=== PATIENT | female | born 2005 | race Hispanic/Latino ===

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

== ENCOUNTER 2024-06-10 18:44 | Emergency (ER) | payer OTHER ==
--- OUTSIDE RECORDS SUMMARY | 2024-06-10 18:56 | XMS REPORT | Continuity of Care Document ---
Author Name Unknown Address [address] [facility] [address] [place] [address] [facility] thconnect Address [address] [facility] 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 Phone BLOSSOM PARKER Primary Care Physician Unavail able TAI ALMENDAREZ Attending Clinician Unavailable Tai Ann Attending Clinician [phone] LEELA MARCOS Attending Clinician UnavailLeela Sierra CNM Attending Clinician [phone] ALEJANDRA JONES Attending Clinician Unavailable DOUGLAS QUINTEROS Attending Clinician Unavailable DOUGLAS QUINTEROS Attending Clinician Unavailable Douglas Quinteros MD Attending Clinician [phone] [facility] Unava VANESSA Morgan Attending Clinician Alesha Gary MD, Vanessa Attending Clinician + Clare Gomez MD Attending Clinician [phone] Live Machuca MD Attending Clinician [phone] Leela Marcos CNM Attending Clinician [phone] AkinRee Wiseman Attending Clinician + Park Hutchinson Attending Clinician UnavailSolis Pulliam MD Attending Clinician [phone] SOLIS CABALLERO Attending Clinician Unavailable COMFORT OQUENDO Attending Clinician Unavail able Risk, Mcd-Abjcy-Xh/High Attending Clinician Unav ailable Comfort Oquendo NP Attending Clinician [phone] PHANI MALAVE Attending Clinician Unavailabl e Ultrasound, [facility] Attending Clinician Unavaila Phani Tiwari MD Attending Clinician [phone] Doctor Unassigned, Section Attending Clinician U regailALEX Anaya Attending Clinician Unavailable ALEX HOSKINS Attending Clinician Unavailable Alex Hoskins MD Attending Clinician [phone] AKINREE HALL Attending Clinician Unavail able PALOMO HIGUERA Attending Clinician Unavailable Bruna Delcid DO Attending Clinician [phone] Palomo Higuera MD Attending Clinician [phone] Visit, [facility] Nurse Attending Clinician Unava Ryder Ray MD Attending Clinician [phone] Felipa Deluna MD Attending Clinician [phone] Ella Dc Attending Clinician + [phone] DOUGLAS QUINTEROS Admitting Clinician Unavailable FELIPA DELUNA Admitting Clinician Unavailable TAI ALMENDAREZ Admitting Clinician Unavailable Douglas Quinteros MD Admitting Clinician [phone] VANESSA ARTEAGA Admitting Clinician Unav amberable Vanessa Arteaga MD Admitting Clinician + BRUNA DELCID Admitting Clinician UnavailRyder Rivero MD Admitting Clinician [phone] Felipa Deluna MD Admitting Clinician [phone] Payers Payer Name Policy Type Policy Number Effective Date Expirati on Date Source [facility] [id number] 2023 00:00:00 [employer] [id number] 2023 00:00:00 Problems Condition Name Condition Details Condition Category Status Onset Date Resolution Date Last Treatment Date Treating Clinician Comments Source Obesity (BMI 30-39.9) Obesity (BMI 30-39.9) Disease Active 8-15 00:00: 00 [facility] 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 Horizon + NIPT Horizon + silent carrier alpha thalassem ia [facility] Overweight (BMI 25.0-29.9) Overweight (BMI 25.0-29.9) Disease Active 1-19 00:00: 00 [facility] Status post vacuum-ass isted vaginal delivery Status post vacuum-ass isted vaginal delivery Disease Active 9-17 00:00: 00 [facility] Anemia of mother in , antepartum Anemia of mother in , antepartum Disease Active 7-14 00:00: 00 [facility] Gestationa l hypertensi on Gestationa l hypertensi on Disease Resolve d 0 8-16 00:00: 00 2024-02-24 00:00:00 2024-02-24 21:04:33 [facility] headache headache Disease Resolve d 0 6-21 00:00: 00 2024-02-24 00:00:00 2024-02-24 21:04:26 [facility] History of gestationa l hypertensi on History of gestationa l hypertensi on Disease Resolve d 0 8-23 00:00: 00 2024-02-23 00:00:00 2024-02-23 14:12:28 [facility] 37 weeks gestation of 37 weeks gestation of Disease Resolve d 8-15 00:00: 00 2024-02-23 00:00:00 2024-02-23 14:12:12 [facility] Elevated blood pressure affecting in third trimester, antepartum Elevated blood pressure affecting in third trimester, antepartum Disease Resolve d 2023-0 8-15 00:00: 00 2024-02-23 00:00:00 2024-02-23 14:12:16 [facility] Decreased platelet count Decreased platelet count Disease Resolve d 0 8-12 00:00: 00 2024-02-23 00:00:00 2024-02-23 14:13:01 [facility] GBS (group B Streptococ cus carrier), +RV culture, currently GBS (group B Streptococ cus carrier), +RV culture, currently Disease Resolve d 2023-0 8-12 00:00: 00 2024-02-23 00:00:00 2024-02-23 14:12:10 [facility] Pain of round ligament during Pain of round ligament during Disease Resolve d 2023-0 7-18 00:00: 00 2024-02-23 00:00:00 2024-02-23 14:11:49 [facility] Back pain affecting in third trimester Back pain affecting in third trimester Disease Resolve d 2023-0 7-18 00:00: 00 2024-02-23 00:00:00 2024-02-23 14:12:08 [facility] Anemia of mother in , antepartum Anemia of mother in , antepartum Disease Resolve d 2023-0 6-07 00:00: 00 2024-02-23 00:00:00 2024-02-23 14:12:05 [facility] History of pre-eclamp delgado History of pre-eclamp delgado Disease Resolve d 2023-0 2-14 00:00: 00 2024-02-23 00:00:00 2024-02-23 14:12:03 [facility] Intermitte nt upper abdominal pain Intermitte nt upper abdominal pain Disease Resolve d 2023-0 1-19 00:00: 00 2024-02-23 00:00:00 2024-02-23 14:12:00 [facility] Obesity affecting in third trimester Obesity affecting in third trimester Disease Resolve d 2023-0 1-19 00:00: 00 2024-02-23 00:00:00 2024-02-23 14:12:23 [facility] Chlamydia infection affecting Chlamydia infection affecting Disease Resolve d 2023-0 1-18 00:00: 00 2024-02-23 00:00:00 2024-02-23 14:11:48 [facility] (spontaneo us vaginal delivery) (spontaneo us vaginal delivery) Disease Resolve d 2019-0 9-17 00:00: 00 2024-02-23 00:00:00 2024-02-23 15:00:20 [facility] Single live Single live Disease Resolve d 2019-0 9-17 00:00: 00 2024-02-23 00:00:00 2024-02-23 14:11:57 [facility] Anemia, Anemia, Disease Resolve d 2019-0 9-17 00:00: 00 2024-02-23 00:00:00 2024-02-23 14:12:58 [facility] Elevated blood pressure reading without diagnosis of hypertensi on Elevated blood pressure reading without diagnosis of hypertensi on Disease Resolve d 2019-0 9-09 00:00: 00 2024-02-23 00:00:00 2024-02-23 14:12:25 [facility] headache in third trimester headache in third trimester Disease Resolve d 2023-0 6-21 00:00: 00 2023-12-31 00:00:00 2023-12-31 13:52:05 [facility] Cramping affecting , antepartum Cramping affecting , antepartum Disease Resolve d 2019-0 3-26 00:00: 00 2023-07-03 00:00:00 2023-07-03 11:30:49 [facility] Well woman exam Well woman exam Disease Resolve d 2019-1 0-28 00:00: 00 2023-07-01 00:00:00 2023-07-01 13:49:35 [facility] Depot contracept ion Depot contracept ion Disease Resolve d 2019-06 0-28 00:00: 00 2023-07-01 00:00:00 2023-07-01 13:49:39 [facility] Teen parent Teen parent Disease Resolve d 2019-0 9-17 00:00: 00 2023-07-01 00:00:00 2023-07-01 13:49:37 [facility] Routine follow-up Routine follow-up Disease Resolve d 2019-06 0-07 00:00: 00 2020-04-11 00:00:00 2020-04-11 11:21:11 [facility] Preeclamps ia w/o SF Preeclamps ia w/o SF Disease Resolve d 9-17 00:00: 00 2020-04-11 00:00:00 2020-04-11 11:21:18 [facility] Laceration , obstetrica l, minor Laceration , obstetrica l, minor Disease Resolve d 9-17 00:00: 00 2020-04-11 00:00:00 2020-04-11 11:22:45 [facility] Status post vacuum-ass isted vaginal delivery Status post vacuum-ass isted vaginal delivery Disease Resolve d 9-17 00:00: 00 2020-04-11 00:00:00 2020-04-11 11:21:07 [facility] 36 weeks gestation of 36 weeks gestation of Disease Resolve d 2019- 9-15 00:00: 2020-04-11 00:00:00 2020-04-11 11:22:05 [facility] Elevated blood pressure affecting in third trimester, antepartum Elevated blood pressure affecting in third trimester, antepartum Disease Resolve d 2019-0 9-15 00:00: 00 2020-04-11 00:00:00 2020-04-11 11:21:59 [facility] Positive GBS test Positive GBS test Disease Resolve d 2019-0 9-14 00:00: 00 2020-04-11 00:00:00 2020-04-11 11:21:19 [facility] Anemia of mother in , antepartum Anemia of mother in , antepartum Disease Resolve d 2019-0 7-14 00:00: 00 2020-04-11 00:00:00 2020-04-11 11:22:03 [facility] High risk teen in first trimester High risk teen in first trimester Disease Resolve d 2019-0 3-26 00:00: 00 2020-04-11 00:00:00 2020-04-11 11:22:08 [facility] Primigravi da in first trimester Primigravi da in first trimester Disease Resolve d 2019- 3-26 00:00: 00 2020-04-11 00:00:00 2020-04-11 11:21:14 [facility] Supervisio n of high-risk of young primigravi da Supervisio n of high-risk of young primigravi da Disease Resolve d 2019- 2-27 00:00: 00 2020-04-11 00:00:00 2020-04-11 11:21:02 [facility] Allergies, Adverse Reactions, Alerts Allergy Name Allergy Type Status Severity Reaction(s) Onset Date Inactive Date Treating Clinician Comments Source [facility] INGREDI Active Other-Cmnt 08-08 00:00: 00 [facility] Simmons Flavor Propensi ty to adverse reaction s Active Other - See comments 08-08 00:00: 00 Allergic to Rasberrie s. Effects vision [facility] NO KNOWN ALLERGIE S Drug Class Active [facility] Social History Social Habit Start Date Stop Date Quantity Comments Source ASSERTION 2023-05-26 00:00:00 [facility] History SDOH Alcohol Comment [place] [facility] SDOH Alcohol Std Drinks [facility] History SDOH Alcohol Binge [facility] Alcoholic beverage intake 2024-03-22 00:00:00 2024-03-22 00:00:00 0 /d [facility] Tobacco use and exposure 2024-01-28 00:00:00 2024-01-28 00:00:00 Smokeless tobacco non-user [facility] Alcohol intake 2023-10-08 00:00:00 2023-10-08 00:00:00 0 /d [facility] History of Social function 2023-07-01 00:00:00 2023-07-01 00:00:00 [facility] Exposure to SARS-CoV-2 (event) 2021-10-19 00:00:00 2021-10-29 20:03:00 Not sure [facility] History SDOH Alcohol Frequency 2019-08-11 00:00:00 2019-08-11 00:00:00 1 [facility] Sex assigned at 2005 00:00:00 2005 00:00:00 [facility] Smoking Status Start Date Stop Date Source Never smoked tobacco [facility] Medications Ordered Medication Name Filled Medication Name Start Date Stop Date Current Medication? Ordering Clinician Indication Dosage Frequency Signature (SIG) Comments Components Source iopamidol (ISOVUE 370-500 mL) injection 90 mL 2023-06 20:30: 00 05-01 20:30 :00 No [id number] 90mL 90 mL, Intravenou s, ONCE, 1 dose, On 05/01/24 at 1430, Routine [facility] metoclopram amy HCl (REGLAN) injection 10 mg 2023-06 19:45: 00 05-01 19:53 :00 No 10mg 10 mg, Slow IV Push, ONCE, 1 dose, On 05/01/24 at 1345, LEIDY [facility] dicyclomine (BENTYL) injection 20 mg 2023-06 18:30: 00 05-01 18:29 :00 No 20mg 20 mg, Intramuscu lar, ONCE, 1 dose, On 05/01/24 at 1230, LEIDY [facility] NaCl 0.9% (NS) bolus infusion 1,000 mL 2023-06 18:30: 00 05-01 19:52 :00 No 1000mL at 999 mL/hr, 1,000 mL, IV Infusion, ONCE, 1 dose, On 05/01/24 at 1230, STAT [facility] famotidine (PEPCID (PF)) injection 20 mg 2023-06 17:30: 00 05-01 18:30 :00 No 20mg 20 mg, Slow IV Push, ONCE, 1 dose, On 05/01/24 at 1130, [facility] ketorolac (TORADOL) injection 30 mg 2023-06 17:30: 00 05-01 18:33 :00 No 30mg 30 mg, Slow IV Push, ONCE, 1 dose, On 05/01/24 at 1130, [facility] ondansetron (ZOFRAN-ODT ) disintegrat ing tablet 4 mg 2023-06 17:25: 00 05-01 17:27 :00 No 4mg 4 mg, Oral, ONCE, 1 dose, On 05/01/24 at 1130, [facility] ondansetron 4 mg disintegrat ing tablet 2023-06 00:00: 00 Yes [id number] 4mg Take 1 tablet by mouth every 8 (eight) hours as needed for Nausea and Vomiting (N/V). [facility] dicyclomine 20 mg tablet 2023-06 00:00: 00 Yes [id number] 20mg Take 1 tablet by mouth 4 (four) times daily as needed for Abdominal pain. [facility] acetaminoph en (TYLENOL) tablet 1,000 mg 02-05 00:00: 00 02-04 23:28 :00 No 1000mg 1,000 mg, Oral, ONCE NOW, 1 dose, On Thu02/05/24 at 1900, Routine [facility] ibuprofen 800 mg tablet 01-29 00:00: 00 Yes [id number] 800mg Take 1 tablet by mouth every 8 (eight) hours as needed (pain). Take with food or milk. [facility] PNV cmb#95-ferr ous fumarate-FA () 28 mg iron- 800 mcg Tab 01-29 00:00: 00 03-22 00:00 :00 No [id number] 1{tbl} Take 1 tablet by mouth in the morning. [facility] docusate 100 mg capsule 01-29 00:00: 00 03-22 00:00 :00 No [id number] 200mg Take 2 capsules by mouth once daily as needed for Constipati on. [facility] ferrous sulfate 325 mg (65 mg iron) tablet 01-29 00:00: 00 03-22 00:00 :00 No [id number] 325mg Take 1 tablet by mouth in the morning. [facility] HYDROcodone -acetaminop hen (NORCO) 10-325 mg tablet 1 tablet 01-28 20:54: 00 Yes 1{tbl} 1 tablet, Oral, Q6HPRN, Starting on Thu01/29/24 at 1554, Until Discontinu ed, Routine, Pain (scale 7-10) [facility] rho(D) immune globulin (RHOPHYLAC) injection 300 mcg 01-28 10:42: 07 Yes 300ug [facility] ibuprofen (IBU) tablet 600 mg 01-28 10:42: 03 Yes 600mg 600 mg, Oral, Q6HPRN, Starting on Thu01/29/24 at 0542, Until Discontinu ed, Routine, Pain (scale 4-6) [facility] acetaminoph en (TYLENOL) tablet 650 mg 01-28 10:42: 03 Yes 650mg 650 mg, Oral, Q6HPRN, Starting on Thu01/29/24 at 0542, Until Discontinu ed, Routine, Pain (scale 1-3) [facility] diphenhydrA MINE (BENADRYL) tablet 25 mg 01-28 10:42: 03 Yes 25mg [facility] ondansetron (ZOFRAN (PF)) injection 4 mg 01-28 10:42: 03 Yes 4mg [facility] simethicone (GAS RELIEF (SIMETHICON E)) chewable tablet 160 mg 01-28 10:42: 03 Yes 160mg [facility] docusate (COLACE) capsule 200 mg 01-28 10:42: 03 Yes 200mg [facility] magnesium hydroxide (MILK OF MAGNESIA) 400 mg/5 mL suspension 30 mL 01-28 10:42: 03 Yes 30mL [facility] benzocaine- menthol (DERMOPLAST ) 20-0.5 % topical spray 01-28 10:42: 03 Yes [facility] PIB ropivacaine 0.2 % (NAROPIN (PF)) epidural infusion 01-28 01:56: 00 01-28 12:00 :43 No Epidural, CONTINUOUS PRN, Starting on Thu01/28/24 at 2056, Until Thu01/29/24 at 0700, Routine, Intra-op [facility] oxytocin (PITOCIN) 30 units in NS 500 mL IV infusion 01-27 20:59: 59 01-28 10:42 :06 No 2mU/min at 2-40 mL/hr, IV Infusion, TITRATE, Starting on Thu01/28/24 at 1559, Until Thu01/29/24 at 0542, LEIDY [facility] sodium citrate-cit zahida acid (BICITRA) 500-334 mg/5 mL solution 30 mL 01-27 20:59: 58 01-28 01:33 :00 No 30mL 30 mL, Oral, PRE-PROCED URE ONCE, 1 dose, Starting on Thu01/28/24 at 1559, Until Thu01/28/24 at 2033, Routine, Surgery/Pr ocedure [facility] lactated ringers IV infusion 500 mL 01-27 20:58: 23 01-28 10:42 :05 No 500mL at 999 mL/hr, 500 mL, IV Infusion, PRN - SEE INSTRUCTIO NS, Starting on Thu01/28/24 at 1558, Until Thu01/29/24 at 0542, Routine [facility] D5W-LR IV infusion 1,000 mL 01-27 20:58: 23 01-28 10:42 :05 No 1000mL at 1-125 mL/hr, IV Infusion, TITRATE, Starting on Thu01/28/24 at 1558, Until Thu01/29/24 at 0542, Routine [facility] acetaminoph en (TYLENOL) tablet 1,000 mg 01-27 20:55: 56 01-28 10:42 :05 No 1000mg 1,000 mg, Oral, Q6HPRN, Starting on Deysi 01/28/24 at 1555, Until Thu01/29/24 at 0542, Routine, Pain (scale 1-3), Pain (scale 4-6) [facility] cyclobenzap rine 5 mg tablet 18 00:00: 00 01-05 04:59 :00 No [id number] 5mg Take 1 tablet by mouth in the morning and 1 tablet at noon and 1 tablet in the evening. Do all this for 5 days. [facility] ferrous sulfate 325 mg (65 mg iron) tablet 11-19 00:00: 00 01-29 00:00 :00 No [id number] 325mg Take 1 tablet by mouth in the morning and 1 tablet in the evening. [facility] ascorbic acid, vitamin C, 500 mg tablet 11-19 00:00: 00 01-29 00:00 :00 No [id number] 500mg Take 1 tablet by mouth in the morning and 1 tablet at noon and 1 tablet in the evening. [facility] aspirin 81 mg EC tablet -20 00:00: 00 01-29 00:00 :00 No [id number] 81mg Take 1 tablet by mouth in the morning. [facility] proMETHazin e 25 mg tablet 24 00:00: 00 01-29 00:00 :00 No [id number] 25mg Take 1 tablet by mouth every 4 (four) hours as needed for Nausea and Vomiting (N/V). [facility] azithromyci n (ZITHROMAX) 500 mg tablet 18 00:00: 00 07-03 05:59 :00 No [id number] 1000mg Take 2 tablets by mouth once now for 1 dose. [facility] AMOXICILLIN ORAL 07-01 13:42: 44 01-29 00:00 :00 No [id number] Take by mouth. [facility] cefTRIAXone (ROCEPHIN) 1,000 mg in NaCl 0.9% (NS) 50 mL MINI-BAG 10-30 03:00: 00 10-30 03:03 :00 No 1000mg 1,000 mg, IV Piggyback, ONCE, 1 dose, On Thu10/29/21 at 2200, Administer over 30 Minutes, 50 mL
Reas on for Anti-Infec tive: Documented Infection< br>Documen pavan Infection Site: Urine
D uration of Therapy: Other (see Comments) [facility] iopamidol (ISOVUE 370-500 mL) injection 120 mL 10-30 01:10: 00 10-30 01:10 :00 No [id number] 120mL 120 mL, Intravenou s, ONCE, 1 dose, On Thu10/29/21 at 2015, Routine [facility] ketorolac (TORADOL) injection 15 mg 10-30 00:45: 00 10-30 00:57 :00 No 15mg 15 mg, Slow IV Push, ONCE, 1 dose, On Thu10/29/21 at 1945, LEIDY
Fa culty member approving Restricted medication : BRUNA DELCID [facility] NaCl 0.9% (NS) bolus infusion 500 mL 10-30 00:45: 00 10-30 01:34 :00 No 500mL at 999 mL/hr, 500 mL, IV Infusion, ONCE, 1 dose, On Thu10/29/21 at 1945, STAT [facility] ondansetron (ZOFRAN-ODT ) disintegrat ing tablet 4 mg 10-30 00:45: 00 10-30 00:45 :00 No 4mg 4 mg, Oral, ONCE, 1 dose, On Thu10/29/21 at 1945, Routine [facility] cephALEXin (KEFLEX) 500 mg capsule 10-29 00:00: 00 07-01 00:00 :00 No [id number] 500mg Take 1 capsule by mouth 3 (three) times daily. [facility] ondansetron 4 mg disintegrat ing tablet 10-29 00:00: 00 07-01 00:00 :00 No [id number] 4mg Take 1 tablet by mouth every 4 (four) hours as needed for Nausea and Vomiting (N/V). [facility] dicyclomine 20 mg tablet 10-29 00:00: 00 07-01 00:00 :00 No [id number] 20mg Take 1 tablet by mouth 4 (four) times daily. [facility] medroxyPROG ESTERone (DEPO-PROVE RA) injection 150 mg 2019-06 16:30: 00 03-13 16:29 :00 No [id number] 150mg [facility] ascorbic acid (vitamin C) (VITAMIN C) tablet 500 mg 03-01 17:00: 00 Yes 500mg 500 mg, Oral, BID, First dose on Deysi 03/01/20 at 1200, Until Discontinu ed, Routine [facility] ferrous sulfate tablet 325 mg 03-01 17:00: 00 Yes 325mg 325 mg, Oral, BID, First dose on Deysi 03/01/20 at 1200, Until Discontinu ed, Routine [facility] ESOMEPRAZOL E MAGNESIUM (NEXIUM ORAL) 03-01 14:37: 08 03-01 00:00 :00 No Take by mouth. [facility] vitamin w/FA tablet 03-01 00:00: 00 Yes [id number] 1{tbl} Take 1 tablet by mouth daily. [facility] vitamin w/FA tablet 03-01 00:00: 00 Yes [id number] 1{tbl} Take 1 tablet by mouth daily. [facility] docusate calcium 240 mg capsule 03-01 00:00: 00 07-01 00:00 :00 No [id number] 240mg Take 1 capsule by mouth once daily as needed for Constipati on. [facility] ferrous sulfate 325 mg (65 mg iron) tablet 03-01 00:00: 00 07-01 00:00 :00 No [id number] 325mg Take 1 tablet by mouth 2 (two) times daily. [facility] ibuprofen 600 mg tablet 03-01 00:00: 00 07-01 00:00 :00 No [id number] 600mg Take 1 tablet by mouth every 6 (six) hours as needed (Pain). Take with food or milk. [facility] rho(D) immune globulin (RHOGAM) syringe 300 mcg 02-28 23:15: 48 Yes 300ug 300 mcg, Intramuscu lar, ONCE, For 1 dose, Conditiona l, Routine [facility] ibuprofen (IBU) tablet 600 mg 02-28 23:15: 46 Yes 600mg 600 mg, Oral, Q6HPRN, Starting Thu02/29/20 at 1814, Until Discontinu ed, Routine, Pain (scale 4-6) [facility] ondansetron (ZOFRAN (PF)) injection 4 mg 02-28 23:15: 46 Yes 4mg 4 mg, Slow IV Push, Q8HPRN, Starting Thu02/29/20 at 1814, Until Discontinu ed, Routine, Nausea and Vomiting (N/V) [facility] simethicone (GAS RELIEF (SIMETHICON E)) chewable tablet 160 mg 02-28 23:15: 46 Yes 160mg 160 mg, Oral, PC+HSPRN, Starting Thu02/29/20 at 1814, Until Discontinu ed, Routine, Gas [facility] magnesium hydroxide (MILK OF MAGNESIA) 400 mg/5 mL suspension 30 mL 02-28 23:15: 46 Yes 30mL 30 mL, Oral, QDAILYPRN, Starting Thu02/29/20 at 1814, Until Discontinu ed, Routine, Constipati on [facility] acetaminoph en (TYLENOL) tablet 650 mg 02-28 23:15: 45 Yes 650mg 650 mg, Oral, Q6HPRN, Starting Thu02/29/20 at 181, Until Discontinu ed, Routine, Pain (scale 1-3) [facility] diphenhydrA MINE (BENADRYL) tablet 25 mg 02-28 23:15: 45 Yes 25mg 25 mg, Oral, Q6HPRN, Starting Thu02/29/20 at 181, Until Discontinu ed, Routine, Sleep, Itching [facility] diphenhydrA MINE-0.9 % sod.chlr (BENADRYL) 25 mg/50 mL piggyback 25 mg 02-28 23:15: 45 Yes 25mg 25 mg, IV Piggyback, Administer over 30 Minutes, Q6HPRN, Starting Thu02/29/20 at 181, Until Discontinu ed, Routine, Itching [facility] docusate calcium (SURFAK) capsule 240 mg 02-28 23:15: 45 Yes 240mg 240 mg, Oral, QDAILYPRN, Starting Thu02/29/20 at 181, Until Discontinu ed, Routine, Constipati on [facility] benzocaine- menthol (DERMOPLAST ) 20-0.5 % topical spray 02-28 23:15: 45 Yes Topical, PRN, Starting Thu02/29/20 at 181, Until Discontinu ed, Routine, Perineum discomfort [facility] ondansetron (ZOFRAN (PF)) injection 4 mg 02-28 11:45: 00 02-28 10:50 :00 No 4mg 4 mg, Slow IV Push, ONCE, 1 dose, Thu02/29/20 at 0645, Routine [facility] LR 1000 mL + oxytocin 20 units IV Solution 02-28 08:51: 42 02-28 23:15 :48 No 2mU/min at 6-120 mL/hr, IV Infusion, TITRATE, Starting Thu02/29/20 at 0351, Until Thu02/29/20 at 181, LEIDY [facility] sodium citrate-cit zahida acid (BICITRA) 500-334 mg/5 mL solution 30 mL 02-28 07:48: 10 02-28 09:32 :00 No 30mL 30 mL, Oral, PRE-PROCED URE ONCE, 1 dose, Starting Thu02/29/20 at 0248, Until Discontinu ed, Routine, Surgery/Pr ocedure [facility] butorphanol (STADOL) injection 1 mg 02-28 00:15: 00 02-27 23:47 :00 No 1mg 1 mg, Intravenou s, ONCE, 1 dose, Thu02/28/20 at 1915, Routine [facility] [id number] IV infusion 1,000 mL 02-27 20:45: 00 02-28 23:15 :48 No 1000mL at 125 mL/hr, IV Infusion, CONTINUOUS , Starting Thu02/28/20 at 1545, Until Thu02/29/20 at 1815, Routine [facility] lactated ringers IV infusion 500 mL 02-27 20:29: 03 02-28 23:15 :48 No 500mL at 999 mL/hr, 500 mL, IV Infusion, PRN - SEE INSTRUCTIO NS, Starting Thu02/28/20 at 1529, Until Thu02/29/20 at 1815, Routine [facility] ascorbic acid, vitamin C, 500 mg tablet 12-26 00:00: 00 03-01 00:00 :00 No [id number] 500mg Take 1 tablet by mouth 3 (three) times daily. [facility] ferrous sulfate 325 mg (65 mg iron) tablet 12-26 00:00: 00 03-01 00:00 :00 No [id number] 325mg Take 1 tablet by mouth 2 (two) times daily. [facility] ESOMEPRAZOL E MAGNESIUM (NEXIUM ORAL) 12-05 22:20: 43 Yes Take by mouth. [facility] Nitrofurant oin&Nit. Macrocryst (MACROBID) 100 mg capsule 100 mg 12-05 21:45: 00 12-05 20:42 :00 No 100mg 100 mg, Oral, ONCE, 1 dose, Thu12/06/19 at 1645, Routine [facility] Nitrofurant oin&Nit. Macrocryst 100 mg capsule 12-05 00:00: 00 03-01 00:00 :00 No [id number] 100mg Take 1 capsule by mouth 2 (two) times daily. [facility] ESOMEPRAZOL E MAGNESIUM (NEXIUM ORAL) 08-11 16:18: 34 Yes Take by mouth. [facility] proMETHazin e 25 mg tablet 08-11 00:00: 00 03-01 00:00 :00 No [id number] 25mg Take 1 tablet by mouth every 6 (six) hours as needed for Nausea and Vomiting (N/V). [facility] ondansetron 4 mg disintegrat ing tablet 2017-06 00:00: 00 03-01 00:00 :00 No 4mg Take 1 tablet by mouth every 8 (eight) hours as needed for Nausea and Vomiting (N/V). [facility] Immunizations Ordered Immunization Name Filled Immunization Name Date Status Comments Source Flu Injectable MDCK Pres-Free (FLUCELVAX) 2024-03-22 00:00:00 Completed TDAP 2023-12-04 00:00:00 Completed [facility] Meningococcal B, OMV 2022-10-23 00:00:00 Completed Influenza Virus Vaccine Quad .5 mL IM 6+ MO 2020-03-21 00:00:00 Completed [facility] Influenza Virus Vaccine Quad .5 mL IM 6+ MO 2020-03-21 00:00:00 Completed [facility] Influenza Virus Vaccine Quad .5 mL IM 6+ MO 2020-03-21 00:00:00 Completed [facility] Influenza Virus Vaccine Quad .5 mL IM 6+ MO 2020-03-21 00:00:00 Completed [facility] Influenza Virus Vaccine Quad .5 mL IM 6+ MO 2020-03-21 00:00:00 Completed [facility] Influenza Virus Vaccine Quad .5 mL IM 6+ MO 2020-03-21 00:00:00 Completed [facility] Influenza Virus Vaccine Quad .5 mL IM 6+ MO (FLUZONE/FLULAVAL/FL UARIX) 2020-03-21 00:00:00 Completed [facility] TDAP 2020-01-09 00:00:00 Completed [facility] TDAP 2020-01-09 00:00:00 Completed [facility] TDAP 2020-01-09 00:00:00 Completed [facility] TDAP 2020-01-09 00:00:00 Completed [facility] TDAP 2020-01-09 00:00:00 Completed [facility] TDAP 2020-01-09 00:00:00 Completed [facility] TDAP 2020-01-09 00:00:00 Completed [facility] TDAP 2020-01-09 00:00:00 Completed [facility] TDAP 2020-01-09 00:00:00 Completed [facility] TDAP 2020-01-09 00:00:00 Completed [facility] TDAP 2020-01-09 00:00:00 Completed [facility] TDAP 2020-01-09 00:00:00 Completed [facility] TDAP 2020-01-09 00:00:00 Completed TDAP 2020-01-09 00:00:00 Completed [facility] TDAP 2020-01-09 00:00:00 Completed [facility] Influenza Virus Vaccine 2019-05-24 00:00:00 Completed [facility] Influenza Virus Vaccine 2019-05-24 00:00:00 Completed [facility] Influenza Virus Vaccine 2019-05-24 00:00:00 Completed [facility] Influenza Virus Vaccine 2019-05-24 00:00:00 Completed [facility] Influenza Virus Vaccine 2019-05-24 00:00:00 Completed [facility] Influenza Virus Vaccine 2019-05-24 00:00:00 Completed [facility] Influenza Virus Vaccine 2019-05-24 00:00:00 Completed [facility] Influenza Virus Vaccine 2019-05-24 00:00:00 Completed [facility] Influenza Virus Vaccine 2019-05-24 00:00:00 Completed [facility] Influenza Virus Vaccine 2019-05-24 00:00:00 Completed [facility] Influenza Virus Vaccine 2019-05-24 00:00:00 Completed [facility] Influenza Virus Vaccine 2019-05-24 00:00:00 Completed [facility] Influenza Virus Vaccine 2019-05-24 00:00:00 Completed [facility] Influenza Virus Vaccine 2019-05-24 00:00:00 Completed [facility] Influenza Virus Vaccine 2019-05-24 00:00:00 Completed [facility] Influenza Virus Vaccine 2019-05-24 00:00:00 Completed [facility] Influenza Virus Vaccine 2019-05-24 00:00:00 Completed [facility] Influenza Virus Vaccine 2019-05-24 00:00:00 Completed [facility] Influenza Virus Vaccine 2019-05-24 00:00:00 Completed [facility] Influenza Virus Vaccine 2019-05-24 00:00:00 Completed [facility] Influenza Virus Vaccine 2019-05-24 00:00:00 Completed Influenza Virus Vaccine - Whole 2019-05-24 00:00:00 Completed Influenza Virus Vaccine 2019-05-24 00:00:00 Completed [facility] Influenza Virus Vaccine 2019-05-24 00:00:00 Completed [facility] Influenza Virus Vaccine 2019-05-24 00:00:00 Completed [facility] Influenza Virus Vaccine 2019-05-24 00:00:00 Completed [facility] Influenza Virus Vaccine 2019-05-24 00:00:00 Completed [facility] Influenza Virus Vaccine 2019-05-24 00:00:00 Completed [facility] Influenza Virus Vaccine 2019-05-24 00:00:00 Completed [facility] HPV 2018-04-19 00:00:00 Completed [facility] HPV 2018-04-19 00:00:00 Completed [facility] HPV 2018-04-19 00:00:00 Completed [facility] HPV 2018-04-19 00:00:00 Completed [facility] HPV 2018-04-19 00:00:00 Completed [facility] HPV 2018-04-19 00:00:00 Completed [facility] HPV 2018-04-19 00:00:00 Completed [facility] HPV 2018-04-19 00:00:00 Completed [facility] HPV 2018-04-19 00:00:00 Completed [facility] HPV 2018-04-19 00:00:00 Completed [facility] HPV 2018-04-19 00:00:00 Completed [facility] HPV 2018-04-19 00:00:00 Completed [facility] HPV 2018-04-19 00:00:00 Completed [facility] HPV 2018-04-19 00:00:00 Completed [facility] HPV 2018-04-19 00:00:00 Completed [facility] HPV 2018-04-19 00:00:00 Completed [facility] HPV 2018-04-19 00:00:00 Completed [facility] HPV 2018-04-19 00:00:00 Completed [facility] HPV 2018-04-19 00:00:00 Completed [facility] HPV 2018-04-19 00:00:00 Completed [facility] HPV 2018-04-19 00:00:00 Completed HPV9 2018-04-19 00:00:00 Completed HPV 2018-04-19 00:00:00 Completed [facility] HPV 2018-04-19 00:00:00 Completed [facility] HPV 2018-04-19 00:00:00 Completed [facility] HPV 2018-04-19 00:00:00 Completed [facility] HPV 2018-04-19 00:00:00 Completed [facility] HPV 2018-04-19 00:00:00 Completed [facility] HPV 2018-04-19 00:00:00 Completed [facility] HPV 2016-03-04 00:00:00 Completed [facility] Influenza Virus Vaccine 2016-03-04 00:00:00 Completed [facility] Meningococcal Vaccine 2016-03-04 00:00:00 Completed [facility] TDAP 2016-03-04 00:00:00 Completed [facility] HPV 2016-03-04 00:00:00 Completed [facility] HPV 2016-03-04 00:00:00 Completed [facility] Influenza Virus Vaccine 2016-03-04 00:00:00 Completed [facility] Meningococcal Vaccine 2016-03-04 00:00:00 Completed [facility] Influenza Virus Vaccine 2016-03-04 00:00:00 Completed [facility] TDAP 2016-03-04 00:00:00 Completed [facility] Meningococcal Vaccine 2016-03-04 00:00:00 Completed [facility] HPV 2016-03-04 00:00:00 Completed [facility] Influenza Virus Vaccine 2016-03-04 00:00:00 Completed [facility] Meningococcal Vaccine 2016-03-04 00:00:00 Completed [facility] TDAP 2016-03-04 00:00:00 Completed [facility] HPV 2016-03-04 00:00:00 Completed [facility] Influenza Virus Vaccine 2016-03-04 00:00:00 Completed [facility] Meningococcal Vaccine 2016-03-04 00:00:00 Completed [facility] TDAP 2016-03-04 00:00:00 Completed [facility] Tdap 2016-03-04 00:00:00 Completed [facility] HPV 2016-03-04 00:00:00 Completed [facility] Influenza Virus Vaccine 2016-03-04 00:00:00 Completed [facility] Meningococcal Vaccine 2016-03-04 00:00:00 Completed [facility] TDAP 2016-03-04 00:00:00 Completed [facility] HPV 2016-03-04 00:00:00 Completed [facility] Influenza Virus Vaccine 2016-03-04 00:00:00 Completed [facility] Meningococcal Vaccine 2016-03-04 00:00:00 Completed [facility] TDAP 2016-03-04 00:00:00 Completed [facility] HPV 2016-03-04 00:00:00 Completed [facility] Influenza Virus Vaccine 2016-03-04 00:00:00 Completed [facility] Meningococcal Vaccine 2016-03-04 00:00:00 Completed [facility] HPV 2016-03-04 00:00:00 Completed [facility] TDAP 2016-03-04 00:00:00 Completed [facility] Influenza Virus Vaccine 2016-03-04 00:00:00 Completed [facility] Meningococcal Vaccine 2016-03-04 00:00:00 Completed [facility] HPV 2016-03-04 00:00:00 Completed [facility] Influenza Virus Vaccine 2016-03-04 00:00:00 Completed [facility] Meningococcal Vaccine 2016-03-04 00:00:00 Completed [facility] TDAP 2016-03-04 00:00:00 Completed [facility] HPV 2016-03-04 00:00:00 Completed [facility] Influenza Virus Vaccine 2016-03-04 00:00:00 Completed [facility] Meningococcal Vaccine 2016-03-04 00:00:00 Completed [facility] Tdap 2016-03-04 00:00:00 Completed [facility] TDAP 2016-03-04 00:00:00 Completed [facility] HPV 2016-03-04 00:00:00 Completed [facility] Influenza Virus Vaccine 2016-03-04 00:00:00 Completed [facility] Meningococcal Vaccine 2016-03-04 00:00:00 Completed [facility] TDAP 2016-03-04 00:00:00 Completed [facility] HPV 2016-03-04 00:00:00 Completed [facility] Influenza Virus Vaccine 2016-03-04 00:00:00 Completed [facility] HPV 2016-03-04 00:00:00 Completed [facility] Influenza Virus Vaccine 2016-03-04 00:00:00 Completed [facility] Meningococcal Vaccine 2016-03-04 00:00:00 Completed [facility] Meningococcal Vaccine 2016-03-04 00:00:00 Completed [facility] TDAP 2016-03-04 00:00:00 Completed [facility] HPV 2016-03-04 00:00:00 Completed [facility] Influenza Virus Vaccine 2016-03-04 00:00:00 Completed [facility] Meningococcal Vaccine 2016-03-04 00:00:00 Completed [facility] TDAP 2016-03-04 00:00:00 Completed [facility] Tdap 2016-03-04 00:00:00 Completed [facility] HPV 2016-03-04 00:00:00 Completed [facility] Influenza Virus Vaccine 2016-03-04 00:00:00 Completed [facility] Meningococcal Vaccine 2016-03-04 00:00:00 Completed [facility] Tdap 2016-03-04 00:00:00 Completed [facility] HPV 2016-03-04 00:00:00 Completed [facility] HPV 2016-03-04 00:00:00 Completed [facility] Influenza Virus Vaccine 2016-03-04 00:00:00 Completed [facility] Meningococcal Vaccine 2016-03-04 00:00:00 Completed [facility] Influenza Virus Vaccine 2016-03-04 00:00:00 Completed [facility] Tdap 2016-03-04 00:00:00 Completed [facility] Meningococcal Vaccine 2016-03-04 00:00:00 Completed [facility] HPV 2016-03-04 00:00:00 Completed [facility] Influenza Virus Vaccine 2016-03-04 00:00:00 Completed [facility] Meningococcal Vaccine 2016-03-04 00:00:00 Completed [facility] Tdap 2016-03-04 00:00:00 Completed [facility] HPV 2016-03-04 00:00:00 Completed [facility] Influenza Virus Vaccine 2016-03-04 00:00:00 Completed [facility] Meningococcal Vaccine 2016-03-04 00:00:00 Completed [facility] Tdap 2016-03-04 00:00:00 Completed [facility] Tdap 2016-03-04 00:00:00 Completed [facility] HPV 2016-03-04 00:00:00 Completed Influenza Virus Vaccine 2016-03-04 00:00:00 Completed Meningococcal Vaccine 2016-03-04 00:00:00 Completed TDAP 2016-03-04 00:00:00 Completed [facility] Influenza Virus Vaccine Quad .5 mL IM 6+ MO (FLUZONE/FLULAVAL/FL UARIX) 2016-03-04 00:00:00 Completed HPV9 2016-03-04 00:00:00 Completed Meningococcal Polysaccharide (groups A, C, Y and W-135) conjugate vaccine (MCV4P) 2016-03-04 00:00:00 Completed HPV 2016-03-04 00:00:00 Completed [facility] Influenza Virus Vaccine 2016-03-04 00:00:00 Completed [facility] Meningococcal Vaccine 2016-03-04 00:00:00 Completed [facility] Tdap 2016-03-04 00:00:00 Completed [facility] HPV 2016-03-04 00:00:00 Completed [facility] Influenza Virus Vaccine 2016-03-04 00:00:00 Completed [facility] Meningococcal Vaccine 2016-03-04 00:00:00 Completed [facility] TDAP 2016-03-04 00:00:00 Completed [facility] HPV 2016-03-04 00:00:00 Completed [facility] Influenza Virus Vaccine 2016-03-04 00:00:00 Completed [facility] Meningococcal Vaccine 2016-03-04 00:00:00 Completed [facility] TDAP 2016-03-04 00:00:00 Completed [facility] HPV 2016-03-04 00:00:00 Completed [facility] Influenza Virus Vaccine 2016-03-04 00:00:00 Completed [facility] Meningococcal Vaccine 2016-03-04 00:00:00 Completed [facility] TDAP 2016-03-04 00:00:00 Completed [facility] HPV 2016-03-04 00:00:00 Completed [facility] Influenza Virus Vaccine 2016-03-04 00:00:00 Completed [facility] Meningococcal Vaccine 2016-03-04 00:00:00 Completed [facility] TDAP 2016-03-04 00:00:00 Completed [facility] HPV 2016-03-04 00:00:00 Completed [facility] Influenza Virus Vaccine 2016-03-04 00:00:00 Completed [facility] Meningococcal Vaccine 2016-03-04 00:00:00 Completed [facility] TDAP 2016-03-04 00:00:00 Completed [facility] HPV 2016-03-04 00:00:00 Completed [facility] Influenza Virus Vaccine 2016-03-04 00:00:00 Completed [facility] Meningococcal Vaccine 2016-03-04 00:00:00 Completed [facility] TDAP 2016-03-04 00:00:00 Completed [facility] Influenza Virus Vaccine 2015-08-01 00:00:00 Completed [facility] Influenza Virus Vaccine 2015-08-01 00:00:00 Completed [facility] Influenza Virus Vaccine 2015-08-01 00:00:00 Completed [facility] Influenza Virus Vaccine 2015-08-01 00:00:00 Completed [facility] Influenza Virus Vaccine 2015-08-01 00:00:00 Completed [facility] Influenza Virus Vaccine 2015-08-01 00:00:00 Completed [facility] Influenza Virus Vaccine 2015-08-01 00:00:00 Completed [facility] Influenza Virus Vaccine 2015-08-01 00:00:00 Completed [facility] Influenza Virus Vaccine 2015-08-01 00:00:00 Completed [facility] Influenza Virus Vaccine 2015-08-01 00:00:00 Completed [facility] Influenza Virus Vaccine 2015-08-01 00:00:00 Completed [facility] Influenza Virus Vaccine 2015-08-01 00:00:00 Completed [facility] Influenza Virus Vaccine 2015-08-01 00:00:00 Completed [facility] Influenza Virus Vaccine 2015-08-01 00:00:00 Completed [facility] Influenza Virus Vaccine 2015-08-01 00:00:00 Completed [facility] Influenza Virus Vaccine 2015-08-01 00:00:00 Completed [facility] Influenza Virus Vaccine 2015-08-01 00:00:00 Completed [facility] Influenza Virus Vaccine 2015-08-01 00:00:00 Completed [facility] Influenza Virus Vaccine 2015-08-01 00:00:00 Completed [facility] Influenza Virus Vaccine 2015-08-01 00:00:00 Completed [facility] Influenza Virus Vaccine 2015-08-01 00:00:00 Completed Influenza Virus Vaccine Quad .5 mL IM 6+ MO (FLUZONE/FLULAVAL/FL UARIX) 2015-08-01 00:00:00 Completed Influenza Virus Vaccine 2015-08-01 00:00:00 Completed [facility] Influenza Virus Vaccine 2015-08-01 00:00:00 Completed [facility] Influenza Virus Vaccine 2015-08-01 00:00:00 Completed [facility] Influenza Virus Vaccine 2015-08-01 00:00:00 Completed [facility] Influenza Virus Vaccine 2015-08-01 00:00:00 Completed [facility] Influenza Virus Vaccine 2015-08-01 00:00:00 Completed [facility] Influenza Virus Vaccine 2015-08-01 00:00:00 Completed [facility] DTAP 2008-11-23 00:00:00 Completed [facility] DTAP 2008-11-23 00:00:00 Completed [facility] HEPATITIS A 2008-11-23 00:00:00 Completed [facility] MMR 2008-11-23 00:00:00 Completed [facility] Polio (IPV/OPV) 2008-11-23 00:00:00 Completed [facility] Varicella (varivax)(chicken pox) 2008-11-23 00:00:00 Completed [facility] HEPATITIS A 2008-11-23 00:00:00 Completed [facility] DTAP 2008-11-23 00:00:00 Completed [facility] HEPATITIS A 2008-11-23 00:00:00 Completed [facility] MMR 2008-11-23 00:00:00 Completed [facility] Polio (IPV/OPV) 2008-11-23 00:00:00 Completed [facility] Varicella (varivax)(chicken pox) 2008-11-23 00:00:00 Completed [facility] DTAP 2008-11-23 00:00:00 Completed [facility] HEPATITIS A 2008-11-23 00:00:00 Completed [facility] MMR 2008-11-23 00:00:00 Completed [facility] MMR 2008-11-23 00:00:00 Completed [facility] Polio (IPV/OPV) 2008-11-23 00:00:00 Completed [facility] Varicella (varivax)(chicken pox) 2008-11-23 00:00:00 Completed [facility] DTAP 2008-11-23 00:00:00 Completed [facility] HEPATITIS A 2008-11-23 00:00:00 Completed [facility] MMR 2008-11-23 00:00:00 Completed [facility] Polio (IPV/OPV) 2008-11-23 00:00:00 Completed [facility] Varicella (varivax)(chicken pox) 2008-11-23 00:00:00 Completed [facility] Polio (IPV/OPV) 2008-11-23 00:00:00 Completed [facility] DTAP 2008-11-23 00:00:00 Completed [facility] HEPATITIS A 2008-11-23 00:00:00 Completed [facility] MMR 2008-11-23 00:00:00 Completed [facility] Varicella (varivax)(chicken pox) 2008-11-23 00:00:00 Completed [facility] Polio (IPV/OPV) 2008-11-23 00:00:00 Completed [facility] Varicella (varivax)(chicken pox) 2008-11-23 00:00:00 Completed [facility] DTAP 2008-11-23 00:00:00 Completed [facility] HEPATITIS A 2008-11-23 00:00:00 Completed [facility] MMR 2008-11-23 00:00:00 Completed [facility] DTAP 2008-11-23 00:00:00 Completed [facility] Polio (IPV/OPV) 2008-11-23 00:00:00 Completed [facility] Varicella (varivax)(chicken pox) 2008-11-23 00:00:00 Completed [facility] DTAP 2008-11-23 00:00:00 Completed [facility] HEPATITIS A 2008-11-23 00:00:00 Completed [facility] HEPATITIS A 2008-11-23 00:00:00 Completed [facility] MMR 2008-11-23 00:00:00 Completed [facility] Polio (IPV/OPV) 2008-11-23 00:00:00 Completed [facility] Varicella (varivax)(chicken pox) 2008-11-23 00:00:00 Completed [facility] DTAP 2008-11-23 00:00:00 Completed [facility] MMR 2008-11-23 00:00:00 Completed [facility] HEPATITIS A 2008-11-23 00:00:00 Completed [facility] MMR 2008-11-23 00:00:00 Completed [facility] Polio (IPV/OPV) 2008-11-23 00:00:00 Completed [facility] Varicella (varivax)(chicken pox) 2008-11-23 00:00:00 Completed [facility] DTAP 2008-11-23 00:00:00 Completed [facility] DTAP 2008-11-23 00:00:00 Completed [facility] HEPATITIS A 2008-11-23 00:00:00 Completed [facility] Polio (IPV/OPV) 2008-11-23 00:00:00 Completed [facility] MMR 2008-11-23 00:00:00 Completed [facility] Polio (IPV/OPV) 2008-11-23 00:00:00 Completed [facility] Varicella (varivax)(chicken pox) 2008-11-23 00:00:00 Completed [facility] Varicella (varivax)(chicken pox) 2008-11-23 00:00:00 Completed [facility] DTAP 2008-11-23 00:00:00 Completed [facility] HEPATITIS A 2008-11-23 00:00:00 Completed [facility] MMR 2008-11-23 00:00:00 Completed [facility] Polio (IPV/OPV) 2008-11-23 00:00:00 Completed [facility] Varicella (varivax)(chicken pox) 2008-11-23 00:00:00 Completed [facility] DTAP 2008-11-23 00:00:00 Completed [facility] HEPATITIS A 2008-11-23 00:00:00 Completed [facility] DTAP 2008-11-23 00:00:00 Completed [facility] HEPATITIS A 2008-11-23 00:00:00 Completed [facility] MMR 2008-11-23 00:00:00 Completed [facility] Polio (IPV/OPV) 2008-11-23 00:00:00 Completed [facility] Varicella (varivax)(chicken pox) 2008-11-23 00:00:00 Completed [facility] MMR 2008-11-23 00:00:00 Completed [facility] DTAP 2008-11-23 00:00:00 Completed [facility] HEPATITIS A 2008-11-23 00:00:00 Completed [facility] MMR 2008-11-23 00:00:00 Completed [facility] Polio (IPV/OPV) 2008-11-23 00:00:00 Completed [facility] Varicella (varivax)(chicken pox) 2008-11-23 00:00:00 Completed [facility] Polio (IPV/OPV) 2008-11-23 00:00:00 Completed [facility] Varicella (varivax)(chicken pox) 2008-11-23 00:00:00 Completed [facility] DTAP 2008-11-23 00:00:00 Completed [facility] HEPATITIS A 2008-11-23 00:00:00 Completed [facility] HEPATITIS A 2008-11-23 00:00:00 Completed [facility] MMR 2008-11-23 00:00:00 Completed [facility] Polio (IPV/OPV) 2008-11-23 00:00:00 Completed [facility] Varicella (varivax)(chicken pox) 2008-11-23 00:00:00 Completed [facility] DTAP 2008-11-23 00:00:00 Completed [facility] HEPATITIS A 2008-11-23 00:00:00 Completed [facility] MMR 2008-11-23 00:00:00 Completed [facility] Polio (IPV/OPV) 2008-11-23 00:00:00 Completed [facility] Varicella (varivax)(chicken pox) 2008-11-23 00:00:00 Completed [facility] DTAP 2008-11-23 00:00:00 Completed [facility] HEPATITIS A 2008-11-23 00:00:00 Completed [facility] MMR 2008-11-23 00:00:00 Completed [facility] MMR 2008-11-23 00:00:00 Completed [facility] Polio (IPV/OPV) 2008-11-23 00:00:00 Completed [facility] Varicella (varivax)(chicken pox) 2008-11-23 00:00:00 Completed [facility] DTAP 2008-11-23 00:00:00 Completed [facility] HEPATITIS A 2008-11-23 00:00:00 Completed [facility] MMR 2008-11-23 00:00:00 Completed [facility] Polio (IPV/OPV) 2008-11-23 00:00:00 Completed [facility] Varicella (varivax)(chicken pox) 2008-11-23 00:00:00 Completed [facility] Polio (IPV/OPV) 2008-11-23 00:00:00 Completed [facility] Varicella (varivax)(chicken pox) 2008-11-23 00:00:00 Completed [facility] DTAP 2008-11-23 00:00:00 Completed HEPATITIS A 2008-11-23 00:00:00 Completed [facility] MMR 2008-11-23 00:00:00 Completed [facility] Polio (IPV/OPV) 2008-11-23 00:00:00 Completed Varicella (varivax)(chicken pox) 2008-11-23 00:00:00 Completed [facility] DTaP, Unspecified Formulation 2008-11-23 00:00:00 Completed IPV 2008-11-23 00:00:00 Completed DTAP 2008-11-23 00:00:00 Completed [facility] HEPATITIS A 2008-11-23 00:00:00 Completed [facility] MMR 2008-11-23 00:00:00 Completed [facility] Polio (IPV/OPV) 2008-11-23 00:00:00 Completed [facility] Varicella (varivax)(chicken pox) 2008-11-23 00:00:00 Completed [facility] DTAP 2008-11-23 00:00:00 Completed [facility] HEPATITIS A 2008-11-23 00:00:00 Completed [facility] MMR 2008-11-23 00:00:00 Completed [facility] Polio (IPV/OPV) 2008-11-23 00:00:00 Completed [facility] Varicella (varivax)(chicken pox) 2008-11-23 00:00:00 Completed [facility] DTAP 2008-11-23 00:00:00 Completed [facility] HEPATITIS A 2008-11-23 00:00:00 Completed [facility] MMR 2008-11-23 00:00:00 Completed [facility] Polio (IPV/OPV) 2008-11-23 00:00:00 Completed [facility] Varicella (varivax)(chicken pox) 2008-11-23 00:00:00 Completed [facility] DTAP 2008-11-23 00:00:00 Completed [facility] HEPATITIS A 2008-11-23 00:00:00 Completed [facility] MMR 2008-11-23 00:00:00 Completed [facility] Polio (IPV/OPV) 2008-11-23 00:00:00 Completed [facility] Varicella (varivax)(chicken pox) 2008-11-23 00:00:00 Completed [facility] DTAP 2008-11-23 00:00:00 Completed [facility] HEPATITIS A 2008-11-23 00:00:00 Completed [facility] MMR 2008-11-23 00:00:00 Completed [facility] Polio (IPV/OPV) 2008-11-23 00:00:00 Completed [facility] Varicella (varivax)(chicken pox) 2008-11-23 00:00:00 Completed [facility] DTAP 2008-11-23 00:00:00 Completed [facility] HEPATITIS A 2008-11-23 00:00:00 Completed [facility] MMR 2008-11-23 00:00:00 Completed [facility] Polio (IPV/OPV) 2008-11-23 00:00:00 Completed [facility] Varicella (varivax)(chicken pox) 2008-11-23 00:00:00 Completed [facility] DTAP 2008-11-23 00:00:00 Completed [facility] HEPATITIS A 2008-11-23 00:00:00 Completed [facility] MMR 2008-11-23 00:00:00 Completed [facility] Polio (IPV/OPV) 2008-11-23 00:00:00 Completed [facility] Varicella (varivax)(chicken pox) 2008-11-23 00:00:00 Completed [facility] DTAP 2005-12-08 00:00:00 Completed [facility] DTAP 2005-12-08 00:00:00 Completed [facility] Pneumococcal 13 Conjugate, PCV13 (Prevnar 13) 2005-12-08 00:00:00 Completed [facility] Polio (IPV/OPV) 2005-12-08 00:00:00 Completed [facility] DTAP 2005-12-08 00:00:00 Completed [facility] Pneumococcal 13 Conjugate, PCV13 (Prevnar 13) 2005-12-08 00:00:00 Completed [facility] Polio (IPV/OPV) 2005-12-08 00:00:00 Completed [facility] DTAP 2005-12-08 00:00:00 Completed [facility] Pneumococcal 13 Conjugate, PCV13 (Prevnar 13) 2005-12-08 00:00:00 Completed [facility] Polio (IPV/OPV) 2005-12-08 00:00:00 Completed [facility] DTAP 2005-12-08 00:00:00 Completed [facility] Pneumococcal 13 Conjugate, PCV13 (Prevnar 13) 2005-12-08 00:00:00 Completed [facility] Polio (IPV/OPV) 2005-12-08 00:00:00 Completed [facility] Pneumococcal 13 Conjugate, PCV13 (Prevnar 13) 2005-12-08 00:00:00 Completed [facility] Polio (IPV/OPV) 2005-12-08 00:00:00 Completed [facility] DTAP 2005-12-08 00:00:00 Completed [facility] Pneumococcal 13 Conjugate, PCV13 (Prevnar 13) 2005-12-08 00:00:00 Completed [facility] Polio (IPV/OPV) 2005-12-08 00:00:00 Completed [facility] DTAP 2005-12-08 00:00:00 Completed [facility] DTAP 2005-12-08 00:00:00 Completed [facility] Pneumococcal 13 Conjugate, PCV13 (Prevnar 13) 2005-12-08 00:00:00 Completed [facility] Polio (IPV/OPV) 2005-12-08 00:00:00 Completed [facility] DTAP 2005-12-08 00:00:00 Completed [facility] Pneumococcal 13 Conjugate, PCV13 (Prevnar 13) 2005-12-08 00:00:00 Completed [facility] Polio (IPV/OPV) 2005-12-08 00:00:00 Completed [facility] DTAP 2005-12-08 00:00:00 Completed [facility] DTAP 2005-12-08 00:00:00 Completed [facility] Pneumococcal 13 Conjugate, PCV13 (Prevnar 13) 2005-12-08 00:00:00 Completed [facility] Polio (IPV/OPV) 2005-12-08 00:00:00 Completed [facility] Pneumococcal 13 Conjugate, PCV13 (Prevnar 13) 2005-12-08 00:00:00 Completed [facility] Polio (IPV/OPV) 2005-12-08 00:00:00 Completed [facility] DTAP 2005-12-08 00:00:00 Completed [facility] Pneumococcal 13 Conjugate, PCV13 (Prevnar 13) 2005-12-08 00:00:00 Completed [facility] Polio (IPV/OPV) 2005-12-08 00:00:00 Completed [facility] DTAP 2005-12-08 00:00:00 Completed [facility] Pneumococcal 13 Conjugate, PCV13 (Prevnar 13) 2005-12-08 00:00:00 Completed [facility] Polio (IPV/OPV) 2005-12-08 00:00:00 Completed [facility] DTAP 2005-12-08 00:00:00 Completed [facility] DTAP 2005-12-08 00:00:00 Completed [facility] Pneumococcal 13 Conjugate, PCV13 (Prevnar 13) 2005-12-08 00:00:00 Completed [facility] Polio (IPV/OPV) 2005-12-08 00:00:00 Completed [facility] DTAP 2005-12-08 00:00:00 Completed [facility] Pneumococcal 13 Conjugate, PCV13 (Prevnar 13) 2005-12-08 00:00:00 Completed [facility] Polio (IPV/OPV) 2005-12-08 00:00:00 Completed [facility] Pneumococcal 13 Conjugate, PCV13 (Prevnar 13) 2005-12-08 00:00:00 Completed [facility] Polio (IPV/OPV) 2005-12-08 00:00:00 Completed [facility] DTAP 2005-12-08 00:00:00 Completed [facility] Pneumococcal 13 Conjugate, PCV13 (Prevnar 13) 2005-12-08 00:00:00 Completed [facility] Polio (IPV/OPV) 2005-12-08 00:00:00 Completed [facility] DTAP 2005-12-08 00:00:00 Completed [facility] Pneumococcal 13 Conjugate, PCV13 (Prevnar 13) 2005-12-08 00:00:00 Completed [facility] Polio (IPV/OPV) 2005-12-08 00:00:00 Completed [facility] DTAP 2005-12-08 00:00:00 Completed [facility] Pneumococcal 13 Conjugate, PCV13 (Prevnar 13) 2005-12-08 00:00:00 Completed [facility] Polio (IPV/OPV) 2005-12-08 00:00:00 Completed [facility] DTAP 2005-12-08 00:00:00 Completed [facility] Pneumococcal 13 Conjugate, PCV13 (Prevnar 13) 2005-12-08 00:00:00 Completed [facility] Polio (IPV/OPV) 2005-12-08 00:00:00 Completed [facility] Pneumococcal 13 Conjugate, PCV13 (Prevnar 13) 2005-12-08 00:00:00 Completed [facility] Polio (IPV/OPV) 2005-12-08 00:00:00 Completed [facility] DTAP 2005-12-08 00:00:00 Completed [facility] Pneumococcal 13 Conjugate, PCV13 (Prevnar 13) 2005-12-08 00:00:00 Completed Polio (IPV/OPV) 2005-12-08 00:00:00 Completed DTaP, Unspecified Formulation 2005-12-08 00:00:00 Completed Pneumococcal 7 Conjugate, PCV7 (Prevnar7) 2005-12-08 00:00:00 Completed IPV 2005-12-08 00:00:00 Completed DTAP 2005-12-08 00:00:00 Completed [facility] Pneumococcal 13 Conjugate, PCV13 (Prevnar 13) 2005-12-08 00:00:00 Completed [facility] Polio (IPV/OPV) 2005-12-08 00:00:00 Completed [facility] DTAP 2005-12-08 00:00:00 Completed [facility] Pneumococcal 13 Conjugate, PCV13 (Prevnar 13) 2005-12-08 00:00:00 Completed [facility] Polio (IPV/OPV) 2005-12-08 00:00:00 Completed [facility] DTAP 2005-12-08 00:00:00 Completed [facility] Pneumococcal 13 Conjugate, PCV13 (Prevnar 13) 2005-12-08 00:00:00 Completed [facility] Polio (IPV/OPV) 2005-12-08 00:00:00 Completed [facility] DTAP 2005-12-08 00:00:00 Completed [facility] Pneumococcal 13 Conjugate, PCV13 (Prevnar 13) 2005-12-08 00:00:00 Completed [facility] Polio (IPV/OPV) 2005-12-08 00:00:00 Completed [facility] DTAP 2005-12-08 00:00:00 Completed [facility] Pneumococcal 13 Conjugate, PCV13 (Prevnar 13) 2005-12-08 00:00:00 Completed [facility] Polio (IPV/OPV) 2005-12-08 00:00:00 Completed [facility] DTAP 2005-12-08 00:00:00 Completed [facility] Pneumococcal 13 Conjugate, PCV13 (Prevnar 13) 2005-12-08 00:00:00 Completed [facility] Polio (IPV/OPV) 2005-12-08 00:00:00 Completed [facility] DTAP 2005-12-08 00:00:00 Completed [facility] Pneumococcal 13 Conjugate, PCV13 (Prevnar 13) 2005-12-08 00:00:00 Completed [facility] Polio (IPV/OPV) 2005-12-08 00:00:00 Completed [facility] HEPATITIS A 2005-12-06 00:00:00 Completed [facility] HEPATITIS A 2005-12-06 00:00:00 Completed [facility] HEPATITIS A 2005-12-06 00:00:00 Completed [facility] HEPATITIS A 2005-12-06 00:00:00 Completed [facility] HEPATITIS A 2005-12-06 00:00:00 Completed [facility] HEPATITIS A 2005-12-06 00:00:00 Completed [facility] HEPATITIS A 2005-12-06 00:00:00 Completed [facility] HEPATITIS A 2005-12-06 00:00:00 Completed [facility] HEPATITIS A 2005-12-06 00:00:00 Completed [facility] HEPATITIS A 2005-12-06 00:00:00 Completed [facility] HEPATITIS A 2005-12-06 00:00:00 Completed [facility] HEPATITIS A 2005-12-06 00:00:00 Completed [facility] HEPATITIS A 2005-12-06 00:00:00 Completed [facility] HEPATITIS A 2005-12-06 00:00:00 Completed [facility] HEPATITIS A 2005-12-06 00:00:00 Completed [facility] HEPATITIS A 2005-12-06 00:00:00 Completed [facility] HEPATITIS A 2005-12-06 00:00:00 Completed [facility] HEPATITIS A 2005-12-06 00:00:00 Completed [facility] HEPATITIS A 2005-12-06 00:00:00 Completed [facility] HEPATITIS A 2005-12-06 00:00:00 Completed [facility] HEPATITIS A 2005-12-06 00:00:00 Completed HEPATITIS A 2005-12-06 00:00:00 Completed [facility] HEPATITIS A 2005-12-06 00:00:00 Completed [facility] HEPATITIS A 2005-12-06 00:00:00 Completed [facility] HEPATITIS A 2005-12-06 00:00:00 Completed [facility] HEPATITIS A 2005-12-06 00:00:00 Completed [facility] HEPATITIS A 2005-12-06 00:00:00 Completed [facility] HEPATITIS A 2005-12-06 00:00:00 Completed [facility] HIB 4 Dose Schedule 2005-09-08 00:00:00 Completed [facility] MMR 2005-09-08 00:00:00 Completed [facility] Varicella (varivax)(chicken pox) 2005-09-08 00:00:00 Completed [facility] HIB 4 Dose Schedule 2005-09-08 00:00:00 Completed [facility] HIB 4 Dose Schedule 2005-09-08 00:00:00 Completed [facility] MMR 2005-09-08 00:00:00 Completed [facility] Varicella (varivax)(chicken pox) 2005-09-08 00:00:00 Completed [facility] HIB 4 Dose Schedule 2005-09-08 00:00:00 Completed [facility] MMR 2005-09-08 00:00:00 Completed [facility] MMR 2005-09-08 00:00:00 Completed [facility] Varicella (varivax)(chicken pox) 2005-09-08 00:00:00 Completed [facility] HIB 4 Dose Schedule 2005-09-08 00:00:00 Completed [facility] 2005-09-08 00:00:00 Completed [facility] Varicella (varivax)(chicken pox) 2005-09-08 00:00:00 Completed [facility] HIB 4 Dose Schedule 2005-09-08 00:00:00 Completed [facility] Varicella (varivax)(chicken pox) 2005-09-08 00:00:00 Completed [facility] MMR 2005-09-08 00:00:00 Completed [facility] Varicella (varivax)(chicken pox) 2005-09-08 00:00:00 Completed [facility] HIB 4 Dose Schedule 2005-09-08 00:00:00 Completed [facility] MMR 2005-09-08 00:00:00 Completed [facility] Varicella (varivax)(chicken pox) 2005-09-08 00:00:00 Completed [facility] HIB 4 Dose Schedule 2005-09-08 00:00:00 Completed [facility] HIB 4 Dose Schedule 2005-09-08 00:00:00 Completed [facility] MMR 2005-09-08 00:00:00 Completed [facility] Varicella (varivax)(chicken pox) 2005-09-08 00:00:00 Completed [facility] MMR 2005-09-08 00:00:00 Completed [facility] HIB 4 Dose Schedule 2005-09-08 00:00:00 Completed [facility] 2005-09-08 00:00:00 Completed [facility] Varicella (varivax)(chicken pox) 2005-09-08 00:00:00 Completed [facility] HIB 4 Dose Schedule 2005-09-08 00:00:00 Completed [facility] MMR 2005-09-08 00:00:00 Completed [facility] Varicella (varivax)(chicken pox) 2005-09-08 00:00:00 Completed [facility] Varicella (varivax)(chicken pox) 2005-09-08 00:00:00 Completed [facility] HIB 4 Dose Schedule 2005-09-08 00:00:00 Completed [facility] MMR 2005-09-08 00:00:00 Completed [facility] Varicella (varivax)(chicken pox) 2005-09-08 00:00:00 Completed [facility] HIB 4 Dose Schedule 2005-09-08 00:00:00 Completed [facility] HIB 4 Dose Schedule 2005-09-08 00:00:00 Completed [facility] MMR 2005-09-08 00:00:00 Completed [facility] Varicella (varivax)(chicken pox) 2005-09-08 00:00:00 Completed [facility] MMR 2005-09-08 00:00:00 Completed [facility] HIB 4 Dose Schedule 2005-09-08 00:00:00 Completed [facility] MMR 2005-09-08 00:00:00 Completed [facility] Varicella (varivax)(chicken pox) 2005-09-08 00:00:00 Completed [facility] HIB 4 Dose Schedule 2005-09-08 00:00:00 Completed [facility] Varicella (varivax)(chicken pox) 2005-09-08 00:00:00 Completed [facility] HIB 4 Dose Schedule 2005-09-08 00:00:00 Completed [facility] MMR 2005-09-08 00:00:00 Completed [facility] Varicella (varivax)(chicken pox) 2005-09-08 00:00:00 Completed [facility] HIB 4 Dose Schedule 2005-09-08 00:00:00 Completed [facility] MMR 2005-09-08 00:00:00 Completed [facility] Varicella (varivax)(chicken pox) 2005-09-08 00:00:00 Completed [facility] MMR 2005-09-08 00:00:00 Completed [facility] HIB 4 Dose Schedule 2005-09-08 00:00:00 Completed [facility] MMR 2005-09-08 00:00:00 Completed [facility] Varicella (varivax)(chicken pox) 2005-09-08 00:00:00 Completed [facility] HIB 4 Dose Schedule 2005-09-08 00:00:00 Completed [facility] MMR 2005-09-08 00:00:00 Completed [facility] Varicella (varivax)(chicken pox) 2005-09-08 00:00:00 Completed [facility] Varicella (varivax)(chicken pox) 2005-09-08 00:00:00 Completed [facility] HIB 4 Dose Schedule 2005-09-08 00:00:00 Completed [facility] MMR 2005-09-08 00:00:00 Completed [facility] Varicella (varivax)(chicken pox) 2005-09-08 00:00:00 Completed [facility] Hib-HbOC 2005-09-08 00:00:00 Completed HIB 4 Dose Schedule 2005-09-08 00:00:00 Completed [facility] MMR 2005-09-08 00:00:00 Completed [facility] Varicella (varivax)(chicken pox) 2005-09-08 00:00:00 Completed [facility] HIB 4 Dose Schedule 2005-09-08 00:00:00 Completed [facility] MMR 2005-09-08 00:00:00 Completed [facility] Varicella (varivax)(chicken pox) 2005-09-08 00:00:00 Completed [facility] HIB 4 Dose Schedule 2005-09-08 00:00:00 Completed [facility] MMR 2005-09-08 00:00:00 Completed [facility] Varicella (varivax)(chicken pox) 2005-09-08 00:00:00 Completed [facility] HIB 4 Dose Schedule 2005-09-08 00:00:00 Completed [facility] MMR 2005-09-08 00:00:00 Completed [facility] Varicella (varivax)(chicken pox) 2005-09-08 00:00:00 Completed [facility] HIB 4 Dose Schedule 2005-09-08 00:00:00 Completed [facility] MMR 2005-09-08 00:00:00 Completed [facility] Varicella (varivax)(chicken pox) 2005-09-08 00:00:00 Completed [facility] HIB 4 Dose Schedule 2005-09-08 00:00:00 Completed [facility] MMR 2005-09-08 00:00:00 Completed [facility] Varicella (varivax)(chicken pox) 2005-09-08 00:00:00 Completed [facility] HIB 4 Dose Schedule 2005-09-08 00:00:00 Completed [facility] MMR 2005-09-08 00:00:00 Completed [facility] Varicella (varivax)(chicken pox) 2005-09-08 00:00:00 Completed [facility] Pediarix (dtap/hep B/ipv) 2005-04-07 00:00:00 Completed [facility] Pediarix (dtap/hep B/ipv) 2005-04-07 00:00:00 Completed [facility] Pediarix (dtap/hep B/ipv) 2005-04-07 00:00:00 Completed [facility] Pediarix (dtap/hep B/ipv) 2005-04-07 00:00:00 Completed [facility] Pediarix (dtap/hep B/ipv) 2005-04-07 00:00:00 Completed [facility] Pediarix (dtap/hep B/ipv) 2005-04-07 00:00:00 Completed [facility] Pediarix (dtap/hep B/ipv) 2005-04-07 00:00:00 Completed [facility] Pediarix (dtap/hep B/ipv) 2005-04-07 00:00:00 Completed [facility] Pediarix (dtap/hep B/ipv) 2005-04-07 00:00:00 Completed [facility] Pediarix (dtap/hep B/ipv) 2005-04-07 00:00:00 Completed [facility] Pediarix (dtap/hep B/ipv) 2005-04-07 00:00:00 Completed [facility] Pediarix (dtap/hep B/ipv) 2005-04-07 00:00:00 Completed [facility] Pediarix (dtap/hep B/ipv) 2005-04-07 00:00:00 Completed [facility] Pediarix (dtap/hep B/ipv) 2005-04-07 00:00:00 Completed [facility] Pediarix (dtap/hep B/ipv) 2005-04-07 00:00:00 Completed [facility] Pediarix (dtap/hep B/ipv) 2005-04-07 00:00:00 Completed [facility] Pediarix (dtap/hep B/ipv) 2005-04-07 00:00:00 Completed [facility] Pediarix (dtap/hep B/ipv) 2005-04-07 00:00:00 Completed [facility] Pediarix (dtap/hep B/ipv) 2005-04-07 00:00:00 Completed [facility] Pediarix (dtap/hep B/ipv) 2005-04-07 00:00:00 Completed [facility] Pediarix (dtap/hep B/ipv) 2005-04-07 00:00:00 Completed Pediarix (dtap/hep B/ipv) 2005-04-07 00:00:00 Completed [facility] Pediarix (dtap/hep B/ipv) 2005-04-07 00:00:00 Completed [facility] Pediarix (dtap/hep B/ipv) 2005-04-07 00:00:00 Completed [facility] Pediarix (dtap/hep B/ipv) 2005-04-07 00:00:00 Completed [facility] Pediarix (dtap/hep B/ipv) 2005-04-07 00:00:00 Completed [facility] Pediarix (dtap/hep B/ipv) 2005-04-07 00:00:00 Completed [facility] Pediarix (dtap/hep B/ipv) 2005-04-07 00:00:00 Completed [facility] HIB 4 Dose Schedule 2005-03-18 00:00:00 Completed [facility] Pediarix (dtap/hep B/ipv) 2005-03-18 00:00:00 Completed [facility] Pneumococcal 13 Conjugate, PCV13 (Prevnar 13) 2005-03-18 00:00:00 Completed [facility] HIB 4 Dose Schedule 2005-03-18 00:00:00 Completed [facility] HIB 4 Dose Schedule 2005-03-18 00:00:00 Completed [facility] Pediarix (dtap/hep B/ipv) 2005-03-18 00:00:00 Completed [facility] Pneumococcal 13 Conjugate, PCV13 (Prevnar 13) 2005-03-18 00:00:00 Completed [facility] HIB 4 Dose Schedule 2005-03-18 00:00:00 Completed [facility] Pediarix (dtap/hep B/ipv) 2005-03-18 00:00:00 Completed [facility] Pneumococcal 13 Conjugate, PCV13 (Prevnar 13) 2005-03-18 00:00:00 Completed [facility] Pediarix (dtap/hep B/ipv) 2005-03-18 00:00:00 Completed [facility] HIB 4 Dose Schedule 2005-03-18 00:00:00 Completed [facility] Pediarix (dtap/hep B/ipv) 2005-03-18 00:00:00 Completed [facility] Pneumococcal 13 Conjugate, PCV13 (Prevnar 13) 2005-03-18 00:00:00 Completed [facility] Pneumococcal 13 Conjugate, PCV13 (Prevnar 13) 2005-03-18 00:00:00 Completed [facility] HIB 4 Dose Schedule 2005-03-18 00:00:00 Completed [facility] Pediarix (dtap/hep B/ipv) 2005-03-18 00:00:00 Completed [facility] Pneumococcal 13 Conjugate, PCV13 (Prevnar 13) 2005-03-18 00:00:00 Completed [facility] HIB 4 Dose Schedule 2005-03-18 00:00:00 Completed [facility] Pediarix (dtap/hep B/ipv) 2005-03-18 00:00:00 Completed [facility] Pneumococcal 13 Conjugate, PCV13 (Prevnar 13) 2005-03-18 00:00:00 Completed [facility] HIB 4 Dose Schedule 2005-03-18 00:00:00 Completed [facility] HIB 4 Dose Schedule 2005-03-18 00:00:00 Completed [facility] Pediarix (dtap/hep B/ipv) 2005-03-18 00:00:00 Completed [facility] Pneumococcal 13 Conjugate, PCV13 (Prevnar 13) 2005-03-18 00:00:00 Completed [facility] HIB 4 Dose Schedule 2005-03-18 00:00:00 Completed [facility] Pediarix (dtap/hep B/ipv) 2005-03-18 00:00:00 Completed [facility] Pneumococcal 13 Conjugate, PCV13 (Prevnar 13) 2005-03-18 00:00:00 Completed [facility] Pediarix (dtap/hep B/ipv) 2005-03-18 00:00:00 Completed [facility] Pneumococcal 13 Conjugate, PCV13 (Prevnar 13) 2005-03-18 00:00:00 Completed [facility] HIB 4 Dose Schedule 2005-03-18 00:00:00 Completed [facility] Pediarix (dtap/hep B/ipv) 2005-03-18 00:00:00 Completed [facility] Pneumococcal 13 Conjugate, PCV13 (Prevnar 13) 2005-03-18 00:00:00 Completed [facility] HIB 4 Dose Schedule 2005-03-18 00:00:00 Completed [facility] Pediarix (dtap/hep B/ipv) 2005-03-18 00:00:00 Completed [facility] Pneumococcal 13 Conjugate, PCV13 (Prevnar 13) 2005-03-18 00:00:00 Completed [facility] HIB 4 Dose Schedule 2005-03-18 00:00:00 Completed [facility] HIB 4 Dose Schedule 2005-03-18 00:00:00 Completed [facility] Pediarix (dtap/hep B/ipv) 2005-03-18 00:00:00 Completed [facility] Pneumococcal 13 Conjugate, PCV13 (Prevnar 13) 2005-03-18 00:00:00 Completed [facility] HIB 4 Dose Schedule 2005-03-18 00:00:00 Completed [facility] HIB 4 Dose Schedule 2005-03-18 00:00:00 Completed [facility] Pediarix (dtap/hep B/ipv) 2005-03-18 00:00:00 Completed [facility] Pediarix (dtap/hep B/ipv) 2005-03-18 00:00:00 Completed [facility] Pneumococcal 13 Conjugate, PCV13 (Prevnar 13) 2005-03-18 00:00:00 Completed [facility] Pneumococcal 13 Conjugate, PCV13 (Prevnar 13) 2005-03-18 00:00:00 Completed [facility] HIB 4 Dose Schedule 2005-03-18 00:00:00 Completed [facility] Pediarix (dtap/hep B/ipv) 2005-03-18 00:00:00 Completed [facility] Pneumococcal 13 Conjugate, PCV13 (Prevnar 13) 2005-03-18 00:00:00 Completed [facility] HIB 4 Dose Schedule 2005-03-18 00:00:00 Completed [facility] Pediarix (dtap/hep B/ipv) 2005-03-18 00:00:00 Completed [facility] Pneumococcal 13 Conjugate, PCV13 (Prevnar 13) 2005-03-18 00:00:00 Completed [facility] HIB 4 Dose Schedule 2005-03-18 00:00:00 Completed [facility] Pediarix (dtap/hep B/ipv) 2005-03-18 00:00:00 Completed [facility] Pneumococcal 13 Conjugate, PCV13 (Prevnar 13) 2005-03-18 00:00:00 Completed [facility] HIB 4 Dose Schedule 2005-03-18 00:00:00 Completed [facility] Pediarix (dtap/hep B/ipv) 2005-03-18 00:00:00 Completed [facility] Pediarix (dtap/hep B/ipv) 2005-03-18 00:00:00 Completed [facility] Pneumococcal 13 Conjugate, PCV13 (Prevnar 13) 2005-03-18 00:00:00 Completed [facility] Pneumococcal 13 Conjugate, PCV13 (Prevnar 13) 2005-03-18 00:00:00 Completed [facility] HIB 4 Dose Schedule 2005-03-18 00:00:00 Completed [facility] Pediarix (dtap/hep B/ipv) 2005-03-18 00:00:00 Completed [facility] Pneumococcal 13 Conjugate, PCV13 (Prevnar 13) 2005-03-18 00:00:00 Completed Hib-HbOC 2005-03-18 00:00:00 Completed Pneumococcal 7 Conjugate, PCV7 (Prevnar7) 2005-03-18 00:00:00 Completed HIB 4 Dose Schedule 2005-03-18 00:00:00 Completed [facility] Pediarix (dtap/hep B/ipv) 2005-03-18 00:00:00 Completed [facility] Pneumococcal 13 Conjugate, PCV13 (Prevnar 13) 2005-03-18 00:00:00 Completed [facility] HIB 4 Dose Schedule 2005-03-18 00:00:00 Completed [facility] Pediarix (dtap/hep B/ipv) 2005-03-18 00:00:00 Completed [facility] Pneumococcal 13 Conjugate, PCV13 (Prevnar 13) 2005-03-18 00:00:00 Completed [facility] HIB 4 Dose Schedule 2005-03-18 00:00:00 Completed [facility] Pediarix (dtap/hep B/ipv) 2005-03-18 00:00:00 Completed [facility] Pneumococcal 13 Conjugate, PCV13 (Prevnar 13) 2005-03-18 00:00:00 Completed [facility] HIB 4 Dose Schedule 2005-03-18 00:00:00 Completed [facility] Pediarix (dtap/hep B/ipv) 2005-03-18 00:00:00 Completed [facility] Pneumococcal 13 Conjugate, PCV13 (Prevnar 13) 2005-03-18 00:00:00 Completed [facility] HIB 4 Dose Schedule 2005-03-18 00:00:00 Completed [facility] Pediarix (dtap/hep B/ipv) 2005-03-18 00:00:00 Completed [facility] Pneumococcal 13 Conjugate, PCV13 (Prevnar 13) 2005-03-18 00:00:00 Completed [facility] HIB 4 Dose Schedule 2005-03-18 00:00:00 Completed [facility] Pediarix (dtap/hep B/ipv) 2005-03-18 00:00:00 Completed [facility] Pneumococcal 13 Conjugate, PCV13 (Prevnar 13) 2005-03-18 00:00:00 Completed [facility] HIB 4 Dose Schedule 2005-03-18 00:00:00 Completed [facility] Pediarix (dtap/hep B/ipv) 2005-03-18 00:00:00 Completed [facility] Pneumococcal 13 Conjugate, PCV13 (Prevnar 13) 2005-03-18 00:00:00 Completed [facility] HIB 4 Dose Schedule 2005-01-06 00:00:00 Completed [facility] Pediarix (dtap/hep B/ipv) 2005-01-06 00:00:00 Completed [facility] HIB 4 Dose Schedule 2005-01-06 00:00:00 Completed [facility] Pneumococcal 13 Conjugate, PCV13 (Prevnar 13) 2005-01-06 00:00:00 Completed [facility] HIB 4 Dose Schedule 2005-01-06 00:00:00 Completed [facility] Pediarix (dtap/hep B/ipv) 2005-01-06 00:00:00 Completed [facility] Pneumococcal 13 Conjugate, PCV13 (Prevnar 13) 2005-01-06 00:00:00 Completed [facility] HIB 4 Dose Schedule 2005-01-06 00:00:00 Completed [facility] Pediarix (dtap/hep B/ipv) 2005-01-06 00:00:00 Completed [facility] Pneumococcal 13 Conjugate, PCV13 (Prevnar 13) 2005-01-06 00:00:00 Completed [facility] Pediarix (dtap/hep B/ipv) 2005-01-06 00:00:00 Completed [facility] HIB 4 Dose Schedule 2005-01-06 00:00:00 Completed [facility] Pediarix (dtap/hep B/ipv) 2005-01-06 00:00:00 Completed [facility] Pneumococcal 13 Conjugate, PCV13 (Prevnar 13) 2005-01-06 00:00:00 Completed [facility] Pneumococcal 13 Conjugate, PCV13 (Prevnar 13) 2005-01-06 00:00:00 Completed [facility] HIB 4 Dose Schedule 2005-01-06 00:00:00 Completed [facility] Pediarix (dtap/hep B/ipv) 2005-01-06 00:00:00 Completed [facility] Pneumococcal 13 Conjugate, PCV13 (Prevnar 13) 2005-01-06 00:00:00 Completed [facility] HIB 4 Dose Schedule 2005-01-06 00:00:00 Completed [facility] Pediarix (dtap/hep B/ipv) 2005-01-06 00:00:00 Completed [facility] Pneumococcal 13 Conjugate, PCV13 (Prevnar 13) 2005-01-06 00:00:00 Completed [facility] HIB 4 Dose Schedule 2005-01-06 00:00:00 Completed [facility] HIB 4 Dose Schedule 2005-01-06 00:00:00 Completed [facility] Pediarix (dtap/hep B/ipv) 2005-01-06 00:00:00 Completed [facility] Pneumococcal 13 Conjugate, PCV13 (Prevnar 13) 2005-01-06 00:00:00 Completed [facility] HIB 4 Dose Schedule 2005-01-06 00:00:00 Completed [facility] Pediarix (dtap/hep B/ipv) 2005-01-06 00:00:00 Completed [facility] Pneumococcal 13 Conjugate, PCV13 (Prevnar 13) 2005-01-06 00:00:00 Completed [facility] Pediarix (dtap/hep B/ipv) 2005-01-06 00:00:00 Completed [facility] Pneumococcal 13 Conjugate, PCV13 (Prevnar 13) 2005-01-06 00:00:00 Completed [facility] HIB 4 Dose Schedule 2005-01-06 00:00:00 Completed [facility] Pediarix (dtap/hep B/ipv) 2005-01-06 00:00:00 Completed [facility] Pneumococcal 13 Conjugate, PCV13 (Prevnar 13) 2005-01-06 00:00:00 Completed [facility] HIB 4 Dose Schedule 2005-01-06 00:00:00 Completed [facility] Pediarix (dtap/hep B/ipv) 2005-01-06 00:00:00 Completed [facility] Pneumococcal 13 Conjugate, PCV13 (Prevnar 13) 2005-01-06 00:00:00 Completed [facility] HIB 4 Dose Schedule 2005-01-06 00:00:00 Completed [facility] HIB 4 Dose Schedule 2005-01-06 00:00:00 Completed [facility] HIB 4 Dose Schedule 2005-01-06 00:00:00 Completed [facility] Pediarix (dtap/hep B/ipv) 2005-01-06 00:00:00 Completed [facility] Pneumococcal 13 Conjugate, PCV13 (Prevnar 13) 2005-01-06 00:00:00 Completed [facility] Pediarix (dtap/hep B/ipv) 2005-01-06 00:00:00 Completed [facility] HIB 4 Dose Schedule 2005-01-06 00:00:00 Completed [facility] Pediarix (dtap/hep B/ipv) 2005-01-06 00:00:00 Completed [facility] Pneumococcal 13 Conjugate, PCV13 (Prevnar 13) 2005-01-06 00:00:00 Completed [facility] Pneumococcal 13 Conjugate, PCV13 (Prevnar 13) 2005-01-06 00:00:00 Completed [facility] HIB 4 Dose Schedule 2005-01-06 00:00:00 Completed [facility] Pediarix (dtap/hep B/ipv) 2005-01-06 00:00:00 Completed [facility] Pneumococcal 13 Conjugate, PCV13 (Prevnar 13) 2005-01-06 00:00:00 Completed [facility] HIB 4 Dose Schedule 2005-01-06 00:00:00 Completed [facility] Pediarix (dtap/hep B/ipv) 2005-01-06 00:00:00 Completed [facility] Pneumococcal 13 Conjugate, PCV13 (Prevnar 13) 2005-01-06 00:00:00 Completed [facility] HIB 4 Dose Schedule 2005-01-06 00:00:00 Completed [facility] Pediarix (dtap/hep B/ipv) 2005-01-06 00:00:00 Completed [facility] Pneumococcal 13 Conjugate, PCV13 (Prevnar 13) 2005-01-06 00:00:00 Completed [facility] Pediarix (dtap/hep B/ipv) 2005-01-06 00:00:00 Completed [facility] HIB 4 Dose Schedule 2005-01-06 00:00:00 Completed [facility] Pediarix (dtap/hep B/ipv) 2005-01-06 00:00:00 Completed [facility] Pneumococcal 13 Conjugate, PCV13 (Prevnar 13) 2005-01-06 00:00:00 Completed [facility] Pneumococcal 13 Conjugate, PCV13 (Prevnar 13) 2005-01-06 00:00:00 Completed [facility] HIB 4 Dose Schedule 2005-01-06 00:00:00 Completed [facility] Pediarix (dtap/hep B/ipv) 2005-01-06 00:00:00 Completed [facility] Pneumococcal 13 Conjugate, PCV13 (Prevnar 13) 2005-01-06 00:00:00 Completed Hib-HbOC 2005-01-06 00:00:00 Completed Pneumococcal 7 Conjugate, PCV7 (Prevnar7) 2005-01-06 00:00:00 Completed HIB 4 Dose Schedule 2005-01-06 00:00:00 Completed [facility] Pediarix (dtap/hep B/ipv) 2005-01-06 00:00:00 Completed [facility] Pneumococcal 13 Conjugate, PCV13 (Prevnar 13) 2005-01-06 00:00:00 Completed [facility] HIB 4 Dose Schedule 2005-01-06 00:00:00 Completed [facility] Pediarix (dtap/hep B/ipv) 2005-01-06 00:00:00 Completed [facility] Pneumococcal 13 Conjugate, PCV13 (Prevnar 13) 2005-01-06 00:00:00 Completed [facility] HIB 4 Dose Schedule 2005-01-06 00:00:00 Completed [facility] Pediarix (dtap/hep B/ipv) 2005-01-06 00:00:00 Completed [facility] Pneumococcal 13 Conjugate, PCV13 (Prevnar 13) 2005-01-06 00:00:00 Completed [facility] HIB 4 Dose Schedule 2005-01-06 00:00:00 Completed [facility] Pediarix (dtap/hep B/ipv) 2005-01-06 00:00:00 Completed [facility] Pneumococcal 13 Conjugate, PCV13 (Prevnar 13) 2005-01-06 00:00:00 Completed [facility] HIB 4 Dose Schedule 2005-01-06 00:00:00 Completed [facility] Pediarix (dtap/hep B/ipv) 2005-01-06 00:00:00 Completed [facility] Pneumococcal 13 Conjugate, PCV13 (Prevnar 13) 2005-01-06 00:00:00 Completed [facility] HIB 4 Dose Schedule 2005-01-06 00:00:00 Completed [facility] Pediarix (dtap/hep B/ipv) 2005-01-06 00:00:00 Completed [facility] Pneumococcal 13 Conjugate, PCV13 (Prevnar 13) 2005-01-06 00:00:00 Completed [facility] HIB 4 Dose Schedule 2005-01-06 00:00:00 Completed [facility] Pediarix (dtap/hep B/ipv) 2005-01-06 00:00:00 Completed [facility] Pneumococcal 13 Conjugate, PCV13 (Prevnar 13) 2005-01-06 00:00:00 Completed [facility] HIB 4 Dose Schedule 2004 00:00:00 Completed [facility] HIB 4 Dose Schedule 2004 00:00:00 Completed [facility] Pediarix (dtap/hep B/ipv) 2004 00:00:00 Completed [facility] Pneumococcal 13 Conjugate, PCV13 (Prevnar 13) 2004 00:00:00 Completed [facility] HIB 4 Dose Schedule 2004 00:00:00 Completed [facility] Pediarix (dtap/hep B/ipv) 2004 00:00:00 Completed [facility] Pneumococcal 13 Conjugate, PCV13 (Prevnar 13) 2004 00:00:00 Completed [facility] HIB 4 Dose Schedule 2004 00:00:00 Completed [facility] Pediarix (dtap/hep B/ipv) 2004 00:00:00 Completed [facility] Pneumococcal 13 Conjugate, PCV13 (Prevnar 13) 2004 00:00:00 Completed [facility] Pediarix (dtap/hep B/ipv) 2004 00:00:00 Completed [facility] HIB 4 Dose Schedule 2004 00:00:00 Completed [facility] Pediarix (dtap/hep B/ipv) 2004 00:00:00 Completed [facility] Pneumococcal 13 Conjugate, PCV13 (Prevnar 13) 2004 00:00:00 Completed [facility] Pneumococcal 13 Conjugate, PCV13 (Prevnar 13) 2004 00:00:00 Completed [facility] HIB 4 Dose Schedule 2004 00:00:00 Completed [facility] Pediarix (dtap/hep B/ipv) 2004 00:00:00 Completed [facility] Pneumococcal 13 Conjugate, PCV13 (Prevnar 13) 2004 00:00:00 Completed [facility] HIB 4 Dose Schedule 2004 00:00:00 Completed [facility] Pediarix (dtap/hep B/ipv) 2004 00:00:00 Completed [facility] Pneumococcal 13 Conjugate, PCV13 (Prevnar 13) 2004 00:00:00 Completed [facility] HIB 4 Dose Schedule 2004 00:00:00 Completed [facility] HIB 4 Dose Schedule 2004 00:00:00 Completed [facility] Pediarix (dtap/hep B/ipv) 2004 00:00:00 Completed [facility] Pneumococcal 13 Conjugate, PCV13 (Prevnar 13) 2004 00:00:00 Completed [facility] HIB 4 Dose Schedule 2004 00:00:00 Completed [facility] Pediarix (dtap/hep B/ipv) 2004 00:00:00 Completed [facility] Pediarix (dtap/hep B/ipv) 2004 00:00:00 Completed [facility] Pneumococcal 13 Conjugate, PCV13 (Prevnar 13) 2004 00:00:00 Completed [facility] Pneumococcal 13 Conjugate, PCV13 (Prevnar 13) 2004 00:00:00 Completed [facility] HIB 4 Dose Schedule 2004 00:00:00 Completed [facility] Pediarix (dtap/hep B/ipv) 2004 00:00:00 Completed [facility] Pneumococcal 13 Conjugate, PCV13 (Prevnar 13) 2004 00:00:00 Completed [facility] HIB 4 Dose Schedule 2004 00:00:00 Completed [facility] HIB 4 Dose Schedule 2004 00:00:00 Completed [facility] Pediarix (dtap/hep B/ipv) 2004 00:00:00 Completed [facility] Pneumococcal 13 Conjugate, PCV13 (Prevnar 13) 2004 00:00:00 Completed [facility] HIB 4 Dose Schedule 2004 00:00:00 Completed [facility] HIB 4 Dose Schedule 2004 00:00:00 Completed [facility] Pediarix (dtap/hep B/ipv) 2004 00:00:00 Completed [facility] Pneumococcal 13 Conjugate, PCV13 (Prevnar 13) 2004 00:00:00 Completed [facility] Pediarix (dtap/hep B/ipv) 2004 00:00:00 Completed [facility] HIB 4 Dose Schedule 2004 00:00:00 Completed [facility] Pediarix (dtap/hep B/ipv) 2004 00:00:00 Completed [facility] Pneumococcal 13 Conjugate, PCV13 (Prevnar 13) 2004 00:00:00 Completed [facility] Pneumococcal 13 Conjugate, PCV13 (Prevnar 13) 2004 00:00:00 Completed [facility] HIB 4 Dose Schedule 2004 00:00:00 Completed [facility] Pediarix (dtap/hep B/ipv) 2004 00:00:00 Completed [facility] Pneumococcal 13 Conjugate, PCV13 (Prevnar 13) 2004 00:00:00 Completed [facility] HIB 4 Dose Schedule 2004 00:00:00 Completed [facility] Pediarix (dtap/hep B/ipv) 2004 00:00:00 Completed [facility] Pneumococcal 13 Conjugate, PCV13 (Prevnar 13) 2004 00:00:00 Completed [facility] HIB 4 Dose Schedule 2004 00:00:00 Completed [facility] Pediarix (dtap/hep B/ipv) 2004 00:00:00 Completed [facility] Pneumococcal 13 Conjugate, PCV13 (Prevnar 13) 2004 00:00:00 Completed [facility] Pediarix (dtap/hep B/ipv) 2004 00:00:00 Completed [facility] HIB 4 Dose Schedule 2004 00:00:00 Completed [facility] Pediarix (dtap/hep B/ipv) 2004 00:00:00 Completed [facility] Pneumococcal 13 Conjugate, PCV13 (Prevnar 13) 2004 00:00:00 Completed [facility] Pneumococcal 13 Conjugate, PCV13 (Prevnar 13) 2004 00:00:00 Completed [facility] HIB 4 Dose Schedule 2004 00:00:00 Completed [facility] Pediarix (dtap/hep B/ipv) 2004 00:00:00 Completed [facility] Pneumococcal 13 Conjugate, PCV13 (Prevnar 13) 2004 00:00:00 Completed Hib-HbOC 2004 00:00:00 Completed Pneumococcal 7 Conjugate, PCV7 (Prevnar7) 2004 00:00:00 Completed HIB 4 Dose Schedule 2004 00:00:00 Completed [facility] Pediarix (dtap/hep B/ipv) 2004 00:00:00 Completed [facility] Pneumococcal 13 Conjugate, PCV13 (Prevnar 13) 2004 00:00:00 Completed [facility] HIB 4 Dose Schedule 2004 00:00:00 Completed [facility] Pediarix (dtap/hep B/ipv) 2004 00:00:00 Completed [facility] Pneumococcal 13 Conjugate, PCV13 (Prevnar 13) 2004 00:00:00 Completed [facility] HIB 4 Dose Schedule 2004 00:00:00 Completed [facility] Pediarix (dtap/hep B/ipv) 2004 00:00:00 Completed [facility] Pneumococcal 13 Conjugate, PCV13 (Prevnar 13) 2004 00:00:00 Completed [facility] HIB 4 Dose Schedule 2004 00:00:00 Completed [facility] Pediarix (dtap/hep B/ipv) 2004 00:00:00 Completed [facility] Pneumococcal 13 Conjugate, PCV13 (Prevnar 13) 2004 00:00:00 Completed [facility] HIB 4 Dose Schedule 2004 00:00:00 Completed [facility] Pediarix (dtap/hep B/ipv) 2004 00:00:00 Completed [facility] Pneumococcal 13 Conjugate, PCV13 (Prevnar 13) 2004 00:00:00 Completed [facility] HIB 4 Dose Schedule 2004 00:00:00 Completed [facility] Pediarix (dtap/hep B/ipv) 2004 00:00:00 Completed [facility] Pneumococcal 13 Conjugate, PCV13 (Prevnar 13) 2004 00:00:00 Completed [facility] HIB 4 Dose Schedule 2004 00:00:00 Completed [facility] Pediarix (dtap/hep B/ipv) 2004 00:00:00 Completed [facility] Pneumococcal 13 Conjugate, PCV13 (Prevnar 13) 2004 00:00:00 Completed [facility] Hep B, Adol or Pedi Dosage 2004 00:00:00 Completed [facility] Hep B, Adol or Pedi Dosage 2004 00:00:00 Completed [facility] Hep B, Adol or Pedi Dosage 2004 00:00:00 Completed [facility] Hep B, Adol or Pedi Dosage 2004 00:00:00 Completed [facility] Hep B, Adol or Pedi Dosage 2004 00:00:00 Completed [facility] Hep B, Adol or Pedi Dosage 2004 00:00:00 Completed [facility] Hep B, Adol or Pedi Dosage 2004 00:00:00 Completed [facility] Hep B, Adol or Pedi Dosage 2004 00:00:00 Completed [facility] Hep B, Adol or Pedi Dosage 2004 00:00:00 Completed [facility] Hep B, Adol or Pedi Dosage 2004 00:00:00 Completed [facility] Hep B, Adol or Pedi Dosage 2004 00:00:00 Completed [facility] Hep B, Adol or Pedi Dosage 2004 00:00:00 Completed [facility] Hep B, Adol or Pedi Dosage 2004 00:00:00 Completed [facility] Hep B, Adol or Pedi Dosage 2004 00:00:00 Completed [facility] Hep B, Adol or Pedi Dosage 2004 00:00:00 Completed [facility] Hep B, Adol or Pedi Dosage 2004 00:00:00 Completed [facility] Hep B, Adol or Pedi Dosage 2004 00:00:00 Completed [facility] Hep B, Adol or Pedi Dosage 2004 00:00:00 Completed [facility] Hep B, Adol or Pedi Dosage 2004 00:00:00 Completed [facility] Hep B, Adol or Pedi Dosage 2004 00:00:00 Completed [facility] Hep B, Adol or Pedi Dosage 2004 00:00:00 Completed Hep B, Adol or Pedi Dosage 2004 00:00:00 Completed [facility] Hep B, Adol or Pedi Dosage 2004 00:00:00 Completed [facility] Hep B, Adol or Pedi Dosage 2004 00:00:00 Completed [facility] Hep B, Adol or Pedi Dosage 2004 00:00:00 Completed [facility] Hep B, Adol or Pedi Dosage 2004 00:00:00 Completed [facility] Hep B, Adol or Pedi Dosage 2004 00:00:00 Completed [facility] Hep B, Adol or Pedi Dosage 2004 00:00:00 Completed [facility] DTAP Unknown Completed [facility] HIB 4 Dose Schedule Unknown Completed [facility] HEPATITIS A Unknown Completed [facility] Hep B, Adol or Pedi Dosage Unknown Completed [facility] HPV Unknown Completed [facility] Influenza Virus Vaccine Unknown Completed [facility] Meningococcal Vaccine Unknown Completed [facility] MMR Unknown Completed [facility] Pediarix (dtap/hep B/ipv) Unknown Completed [facility] Pneumococcal 13 Conjugate, PCV13 (Prevnar 13) Unknown Completed [facility] Polio (IPV/OPV) Unknown Completed [facility] TDAP Unknown Completed [facility] Varicella (varivax)(chicken pox) Unknown Completed [facility] Influenza Virus Vaccine Quad .5 mL IM 6+ MO (FLUZONE/FLULAVAL/FL UARIX) Unknown Completed [facility] DTAP Unknown Completed [facility] HIB 4 Dose Schedule Unknown Completed [facility] HEPATITIS A Unknown Completed [facility] Hep B, Adol or Pedi Dosage Unknown Completed [facility] HPV Unknown Completed [facility] Influenza Virus Vaccine Unknown Completed [facility] Meningococcal Vaccine Unknown Completed [facility] MMR Unknown Completed [facility] Pediarix (dtap/hep B/ipv) Unknown Completed [facility] Pneumococcal 13 Conjugate, PCV13 (Prevnar 13) Unknown Completed [facility] Polio (IPV/OPV) Unknown Completed [facility] TDAP Unknown Completed [facility] Varicella (varivax)(chicken pox) Unknown Completed [facility] Influenza Virus Vaccine Quad .5 mL IM 6+ MO (FLUZONE/FLULAVAL/FL UARIX) Unknown Completed [facility] DTaP, Unspecified Formulation Unknown Completed [facility] Influenza Virus Vaccine - Whole Unknown Completed [facility] Hib-HbOC Unknown Completed [facility] HPV9 Unknown Completed [facility] Meningococcal Polysaccharide (groups A, C, Y and W-135) conjugate vaccine (MCV4P) Unknown Completed [facility] Meningococcal B, OMV Unknown Completed [facility] Pneumococcal 7 Conjugate, PCV7 (Prevnar7) Unknown Completed [facility] IPV Unknown Completed [facility] DTAP Unknown Completed [facility] HIB 4 Dose Schedule Unknown Completed [facility] HEPATITIS A Unknown Completed [facility] Hep B, Adol or Pedi Dosage Unknown Completed [facility] HPV Unknown Completed [facility] Influenza Virus Vaccine Unknown Completed [facility] Meningococcal Vaccine Unknown Completed [facility] MMR Unknown Completed [facility] Pediarix (dtap/hep B/ipv) Unknown Completed [facility] Pneumococcal 13 Conjugate, PCV13 (Prevnar 13) Unknown Completed [facility] Polio (IPV/OPV) Unknown Completed [facility] TDAP Unknown Completed [facility] Varicella (varivax)(chicken pox) Unknown Completed [facility] Influenza Virus Vaccine Quad .5 mL IM 6+ MO (FLUZONE/FLULAVAL/FL UARIX) Unknown Completed [facility] DTaP, Unspecified Formulation Unknown Completed [facility] Influenza Virus Vaccine - Whole Unknown Completed [facility] Hib-HbOC Unknown Completed [facility] HPV9 Unknown Completed [facility] Meningococcal Polysaccharide (groups A, C, Y and W-135) conjugate vaccine (MCV4P) Unknown Completed [facility] Meningococcal B, OMV Unknown Completed [facility] Pneumococcal 7 Conjugate, PCV7 (Prevnar7) Unknown Completed [facility] IPV Unknown Completed [facility] DTAP Unknown Completed [facility] HIB 4 Dose Schedule Unknown Completed [facility] HEPATITIS A Unknown Completed [facility] Hep B, Adol or Pedi Dosage Unknown Completed [facility] HPV Unknown Completed [facility] Influenza Virus Vaccine Unknown Completed [facility] Meningococcal Vaccine Unknown Completed [facility] MMR Unknown Completed [facility] Pediarix (dtap/hep B/ipv) Unknown Completed [facility] Pneumococcal 13 Conjugate, PCV13 (Prevnar 13) Unknown Completed [facility] Polio (IPV/OPV) Unknown Completed [facility] TDAP Unknown Completed [facility] Varicella (varivax)(chicken pox) Unknown Completed [facility] Influenza Virus Vaccine Quad .5 mL IM 6+ MO (FLUZONE/FLULAVAL/FL UARIX) Unknown Completed [facility] DTaP, Unspecified Formulation Unknown Completed [facility] Influenza Virus Vaccine - Whole Unknown Completed [facility] Hib-HbOC Unknown Completed [facility] HPV9 Unknown Completed [facility] Meningococcal Polysaccharide (groups A, C, Y and W-135) conjugate vaccine (MCV4P) Unknown Completed [facility] Meningococcal B, OMV Unknown Completed [facility] Pneumococcal 7 Conjugate, PCV7 (Prevnar7) Unknown Completed [facility] IPV Unknown Completed [facility] DTAP Unknown Completed [facility] HIB 4 Dose Schedule Unknown Completed [facility] HEPATITIS A Unknown Completed [facility] Hep B, Adol or Pedi Dosage Unknown Completed [facility] HPV Unknown Completed [facility] Influenza Virus Vaccine Unknown Completed [facility] Meningococcal Vaccine Unknown Completed [facility] MMR Unknown Completed [facility] Pediarix (dtap/hep B/ipv) Unknown Completed [facility] Pneumococcal 13 Conjugate, PCV13 (Prevnar 13) Unknown Completed [facility] Polio (IPV/OPV) Unknown Completed [facility] TDAP Unknown Completed [facility] Varicella (varivax)(chicken pox) Unknown Completed [facility] Influenza Virus Vaccine Quad .5 mL IM 6+ MO (FLUZONE/FLULAVAL/FL UARIX) Unknown Completed [facility] DTaP, Unspecified Formulation Unknown Completed [facility] Influenza Virus Vaccine - Whole Unknown Completed [facility] Hib-HbOC Unknown Completed [facility] HPV9 Unknown Completed [facility] Meningococcal Polysaccharide (groups A, C, Y and W-135) conjugate vaccine (MCV4P) Unknown Completed [facility] Meningococcal B, OMV Unknown Completed [facility] Pneumococcal 7 Conjugate, PCV7 (Prevnar7) Unknown Completed [facility] IPV Unknown Completed [facility] DTAP Unknown Completed [facility] HIB 4 Dose Schedule Unknown Completed [facility] HEPATITIS A Unknown Completed [facility] Hep B, Adol or Pedi Dosage Unknown Completed [facility] HPV Unknown Completed [facility] Influenza Virus Vaccine Unknown Completed [facility] Meningococcal Vaccine Unknown Completed [facility] MMR Unknown Completed [facility] Pediarix (dtap/hep B/ipv) Unknown Completed [facility] Pneumococcal 13 Conjugate, PCV13 (Prevnar 13) Unknown Completed [facility] Polio (IPV/OPV) Unknown Completed [facility] TDAP Unknown Completed [facility] Varicella (varivax)(chicken pox) Unknown Completed [facility] Influenza Virus Vaccine Quad .5 mL IM 6+ MO (FLUZONE/FLULAVAL/FL UARIX) Unknown Completed [facility] DTaP, Unspecified Formulation Unknown Completed [facility] Influenza Virus Vaccine - Whole Unknown Completed [facility] Hib-HbOC Unknown Completed [facility] HPV9 Unknown Completed [facility] Meningococcal Polysaccharide (groups A, C, Y and W-135) conjugate vaccine (MCV4P) Unknown Completed [facility] Meningococcal B, OMV Unknown Completed [facility] Pneumococcal 7 Conjugate, PCV7 (Prevnar7) Unknown Completed [facility] IPV Unknown Completed [facility] DTAP Unknown Completed [facility] HIB 4 Dose Schedule Unknown Completed [facility] HEPATITIS A Unknown Completed [facility] Hep B, Adol or Pedi Dosage Unknown Completed [facility] HPV Unknown Completed [facility] Influenza Virus Vaccine Unknown Completed [facility] Meningococcal Vaccine Unknown Completed [facility] MMR Unknown Completed [facility] Pediarix (dtap/hep B/ipv) Unknown Completed [facility] Pneumococcal 13 Conjugate, PCV13 (Prevnar 13) Unknown Completed [facility] Polio (IPV/OPV) Unknown Completed [facility] TDAP Unknown Completed [facility] Varicella (varivax)(chicken pox) Unknown Completed [facility] Influenza Virus Vaccine Quad .5 mL IM 6+ MO (FLUZONE/FLULAVAL/FL UARIX) Unknown Completed [facility] DTaP, Unspecified Formulation Unknown Completed [facility] Influenza Virus Vaccine - Whole Unknown Completed [facility] Hib-HbOC Unknown Completed [facility] HPV9 Unknown Completed [facility] Meningococcal Polysaccharide (groups A, C, Y and W-135) conjugate vaccine (MCV4P) Unknown Completed [facility] Meningococcal B, OMV Unknown Completed [facility] Pneumococcal 7 Conjugate, PCV7 (Prevnar7) Unknown Completed [facility] IPV Unknown Completed [facility] DTAP Unknown Completed [facility] HIB 4 Dose Schedule Unknown Completed [facility] HEPATITIS A Unknown Completed [facility] Hep B, Adol or Pedi Dosage Unknown Completed [facility] HPV Unknown Completed [facility] Influenza Virus Vaccine Unknown Completed [facility] Meningococcal Vaccine Unknown Completed [facility] MMR Unknown Completed [facility] Pediarix (dtap/hep B/ipv) Unknown Completed [facility] Pneumococcal 13 Conjugate, PCV13 (Prevnar 13) Unknown Completed [facility] Polio (IPV/OPV) Unknown Completed [facility] TDAP Unknown Completed [facility] Varicella (varivax)(chicken pox) Unknown Completed [facility] Influenza Virus Vaccine Quad .5 mL IM 6+ MO (FLUZONE/FLULAVAL/FL UARIX) Unknown Completed [facility] DTaP, Unspecified Formulation Unknown Completed [facility] Influenza Virus Vaccine - Whole Unknown Completed [facility] Hib-HbOC Unknown Completed [facility] HPV9 Unknown Completed [facility] Meningococcal Polysaccharide (groups A, C, Y and W-135) conjugate vaccine (MCV4P) Unknown Completed [facility] Meningococcal B, OMV Unknown Completed [facility] Pneumococcal 7 Conjugate, PCV7 (Prevnar7) Unknown Completed [facility] IPV Unknown Completed [facility] DTAP Unknown Completed [facility] HIB 4 Dose Schedule Unknown Completed [facility] HEPATITIS A Unknown Completed [facility] Hep B, Adol or Pedi Dosage Unknown Completed [facility] HPV Unknown Completed [facility] Influenza Virus Vaccine Unknown Completed [facility] Meningococcal Vaccine Unknown Completed [facility] MMR Unknown Completed [facility] Pediarix (dtap/hep B/ipv) Unknown Completed [facility] Pneumococcal 13 Conjugate, PCV13 (Prevnar 13) Unknown Completed [facility] Polio (IPV/OPV) Unknown Completed [facility] TDAP Unknown Completed [facility] Varicella (varivax)(chicken pox) Unknown Completed [facility] Influenza Virus Vaccine Quad .5 mL IM 6+ MO (FLUZONE/FLULAVAL/FL UARIX) Unknown Completed [facility] DTaP, Unspecified Formulation Unknown Completed [facility] Influenza Virus Vaccine - Whole Unknown Completed [facility] Hib-HbOC Unknown Completed [facility] HPV9 Unknown Completed [facility] Meningococcal Polysaccharide (groups A, C, Y and W-135) conjugate vaccine (MCV4P) Unknown Completed [facility] Meningococcal B, OMV Unknown Completed [facility] Pneumococcal 7 Conjugate, PCV7 (Prevnar7) Unknown Completed [facility] IPV Unknown Completed [facility] DTAP Unknown Completed [facility] HIB 4 Dose Schedule Unknown Completed [facility] HEPATITIS A Unknown Completed [facility] Hep B, Adol or Pedi Dosage Unknown Completed [facility] HPV Unknown Completed [facility] Influenza Virus Vaccine Unknown Completed [facility] Meningococcal Vaccine Unknown Completed [facility] MMR Unknown Completed [facility] Pediarix (dtap/hep B/ipv) Unknown Completed [facility] Pneumococcal 13 Conjugate, PCV13 (Prevnar 13) Unknown Completed [facility] Polio (IPV/OPV) Unknown Completed [facility] TDAP Unknown Completed [facility] Varicella (varivax)(chicken pox) Unknown Completed [facility] Influenza Virus Vaccine Quad .5 mL IM 6+ MO (FLUZONE/FLULAVAL/FL UARIX) Unknown Completed [facility] DTaP, Unspecified Formulation Unknown Completed [facility] Influenza Virus Vaccine - Whole Unknown Completed [facility] Hib-HbOC Unknown Completed [facility] HPV9 Unknown Completed [facility] Meningococcal Polysaccharide (groups A, C, Y and W-135) conjugate vaccine (MCV4P) Unknown Completed [facility] Meningococcal B, OMV Unknown Completed [facility] Pneumococcal 7 Conjugate, PCV7 (Prevnar7) Unknown Completed [facility] IPV Unknown Completed [facility] DTAP Unknown Completed [facility] HIB 4 Dose Schedule Unknown Completed [facility] HEPATITIS A Unknown Completed [facility] Hep B, Adol or Pedi Dosage Unknown Completed [facility] HPV Unknown Completed [facility] Influenza Virus Vaccine Unknown Completed [facility] Meningococcal Vaccine Unknown Completed [facility] MMR Unknown Completed [facility] Pediarix (dtap/hep B/ipv) Unknown Completed [facility] Pneumococcal 13 Conjugate, PCV13 (Prevnar 13) Unknown Completed [facility] Polio (IPV/OPV) Unknown Completed [facility] TDAP Unknown Completed [facility] Varicella (varivax)(chicken pox) Unknown Completed [facility] Influenza Virus Vaccine Quad .5 mL IM 6+ MO (FLUZONE/FLULAVAL/FL UARIX) Unknown Completed [facility] DTaP, Unspecified Formulation Unknown Completed [facility] Influenza Virus Vaccine - Whole Unknown Completed [facility] Hib-HbOC Unknown Completed [facility] HPV9 Unknown Completed [facility] Meningococcal Polysaccharide (groups A, C, Y and W-135) conjugate vaccine (MCV4P) Unknown Completed [facility] Meningococcal B, OMV Unknown Completed [facility] Pneumococcal 7 Conjugate, PCV7 (Prevnar7) Unknown Completed [facility] IPV Unknown Completed [facility] DTAP Unknown Completed [facility] HIB 4 Dose Schedule Unknown Completed [facility] HEPATITIS A Unknown Completed [facility] Hep B, Adol or Pedi Dosage Unknown Completed [facility] HPV Unknown Completed [facility] Influenza Virus Vaccine Unknown Completed [facility] Meningococcal Vaccine Unknown Completed [facility] MMR Unknown Completed [facility] Pediarix (dtap/hep B/ipv) Unknown Completed [facility] Pneumococcal 13 Conjugate, PCV13 (Prevnar 13) Unknown Completed [facility] Polio (IPV/OPV) Unknown Completed [facility] TDAP Unknown Completed [facility] Varicella (varivax)(chicken pox) Unknown Completed [facility] Influenza Virus Vaccine Quad .5 mL IM 6+ MO (FLUZONE/FLULAVAL/FL UARIX) Unknown Completed [facility] DTaP, Unspecified Formulation Unknown Completed [facility] Influenza Virus Vaccine - Whole Unknown Completed [facility] Hib-HbOC Unknown Completed [facility] HPV9 Unknown Completed [facility] Meningococcal Polysaccharide (groups A, C, Y and W-135) conjugate vaccine (MCV4P) Unknown Completed [facility] Meningococcal B, OMV Unknown Completed [facility] Pneumococcal 7 Conjugate, PCV7 (Prevnar7) Unknown Completed [facility] IPV Unknown Completed [facility] Hep B, Adol or Pedi Dosage Unknown Completed [facility] Meningococcal Vaccine Unknown Completed [facility] Influenza Virus Vaccine - Whole Unknown Completed [facility] Meningococcal Polysaccharide (groups A, C, Y and W-135) conjugate vaccine (MCV4P) Unknown Completed [facility] Meningococcal B, OMV Unknown Completed [facility] DTAP Unknown Completed [facility] HIB 4 Dose Schedule Unknown Completed [facility] HEPATITIS A Unknown Completed [facility] HPV Unknown Completed [facility] Influenza Virus Vaccine Unknown Completed [facility] MMR Unknown Completed [facility] Pediarix (dtap/hep B/ipv) Unknown Completed [facility] Pneumococcal 13 Conjugate, PCV13 (Prevnar 13) Unknown Completed [facility] Polio (IPV/OPV) Unknown Completed [facility] TDAP Unknown Completed [facility] Varicella (varivax)(chicken pox) Unknown Completed [facility] Influenza Virus Vaccine Quad .5 mL IM 6+ MO (FLUZONE/FLULAVAL/FL UARIX) Unknown Completed [facility] DTaP, Unspecified Formulation Unknown Completed [facility] Hib-HbOC Unknown Completed [facility] HPV9 Unknown Completed [facility] Pneumococcal 7 Conjugate, PCV7 (Prevnar7) Unknown Completed [facility] IPV Unknown Completed [facility] DTAP Unknown Completed [facility] HIB 4 Dose Schedule Unknown Completed [facility] HEPATITIS A Unknown Completed [facility] Hep B, Adol or Pedi Dosage Unknown Completed [facility] HPV Unknown Completed [facility] Influenza Virus Vaccine Unknown Completed [facility] Meningococcal Vaccine Unknown Completed [facility] MMR Unknown Completed [facility] Pediarix (dtap/hep B/ipv) Unknown Completed [facility] Pneumococcal 13 Conjugate, PCV13 (Prevnar 13) Unknown Completed [facility] Polio (IPV/OPV) Unknown Completed [facility] TDAP Unknown Completed [facility] Varicella (varivax)(chicken pox) Unknown Completed [facility] Influenza Virus Vaccine Quad .5 mL IM 6+ MO (FLUZONE/FLULAVAL/FL UARIX) Unknown Completed [facility] DTaP, Unspecified Formulation Unknown Completed [facility] Influenza Virus Vaccine - Whole Unknown Completed [facility] Hib-HbOC Unknown Completed [facility] HPV9 Unknown Completed [facility] Meningococcal Polysaccharide (groups A, C, Y and W-135) conjugate vaccine (MCV4P) Unknown Completed [facility] Meningococcal B, OMV Unknown Completed [facility] Pneumococcal 7 Conjugate, PCV7 (Prevnar7) Unknown Completed [facility] IPV Unknown Completed [facility] DTAP Unknown Completed [facility] HIB 4 Dose Schedule Unknown Completed [facility] HEPATITIS A Unknown Completed [facility] Hep B, Adol or Pedi Dosage Unknown Completed [facility] HPV Unknown Completed [facility] Influenza Virus Vaccine Unknown Completed [facility] Meningococcal Vaccine Unknown Completed [facility] MMR Unknown Completed [facility] Pediarix (dtap/hep B/ipv) Unknown Completed [facility] Pneumococcal 13 Conjugate, PCV13 (Prevnar 13) Unknown Completed [facility] Polio (IPV/OPV) Unknown Completed [facility] TDAP Unknown Completed [facility] Varicella (varivax)(chicken pox) Unknown Completed [facility] Influenza Virus Vaccine Quad .5 mL IM 6+ MO (FLUZONE/FLULAVAL/FL UARIX) Unknown Completed [facility] DTaP, Unspecified Formulation Unknown Completed [facility] Influenza Virus Vaccine - Whole Unknown Completed [facility] Hib-HbOC Unknown Completed [facility] HPV9 Unknown Completed [facility] Meningococcal Polysaccharide (groups A, C, Y and W-135) conjugate vaccine (MCV4P) Unknown Completed [facility] Meningococcal B, OMV Unknown Completed [facility] Pneumococcal 7 Conjugate, PCV7 (Prevnar7) Unknown Completed [facility] IPV Unknown Completed [facility] DTAP Unknown Completed [facility] HIB 4 Dose Schedule Unknown Completed [facility] HEPATITIS A Unknown Completed [facility] Hep B, Adol or Pedi Dosage Unknown Completed [facility] HPV Unknown Completed [facility] Influenza Virus Vaccine Unknown Completed [facility] Meningococcal Vaccine Unknown Completed [facility] MMR Unknown Completed [facility] Pediarix (dtap/hep B/ipv) Unknown Completed [facility] Pneumococcal 13 Conjugate, PCV13 (Prevnar 13) Unknown Completed [facility] Polio (IPV/OPV) Unknown Completed [facility] TDAP Unknown Completed [facility] Varicella (varivax)(chicken pox) Unknown Completed [facility] Influenza Virus Vaccine Quad .5 mL IM 6+ MO (FLUZONE/FLULAVAL/FL UARIX) Unknown Completed [facility] DTaP, Unspecified Formulation Unknown Completed [facility] Influenza Virus Vaccine - Whole Unknown Completed [facility] Hib-HbOC Unknown Completed [facility] HPV9 Unknown Completed [facility] Meningococcal Polysaccharide (groups A, C, Y and W-135) conjugate vaccine (MCV4P) Unknown Completed [facility] Meningococcal B, OMV Unknown Completed [facility] Pneumococcal 7 Conjugate, PCV7 (Prevnar7) Unknown Completed [facility] IPV Unknown Completed [facility] DTAP Unknown Completed [facility] HIB 4 Dose Schedule Unknown Completed [facility] HEPATITIS A Unknown Completed [facility] Hep B, Adol or Pedi Dosage Unknown Completed [facility] HPV Unknown Completed [facility] Influenza Virus Vaccine Unknown Completed [facility] Meningococcal Vaccine Unknown Completed [facility] MMR Unknown Completed [facility] Pediarix (dtap/hep B/ipv) Unknown Completed [facility] Pneumococcal 13 Conjugate, PCV13 (Prevnar 13) Unknown Completed [facility] Polio (IPV/OPV) Unknown Completed [facility] TDAP Unknown Completed [facility] Varicella (varivax)(chicken pox) Unknown Completed [facility] Influenza Virus Vaccine Quad .5 mL IM 6+ MO (FLUZONE/FLULAVAL/FL UARIX) Unknown Completed [facility] DTaP, Unspecified Formulation Unknown Completed [facility] Influenza Virus Vaccine - Whole Unknown Completed [facility] Hib-HbOC Unknown Completed [facility] HPV9 Unknown Completed [facility] Meningococcal Polysaccharide (groups A, C, Y and W-135) conjugate vaccine (MCV4P) Unknown Completed [facility] Meningococcal B, OMV Unknown Completed [facility] Pneumococcal 7 Conjugate, PCV7 (Prevnar7) Unknown Completed [facility] IPV Unknown Completed [facility] DTAP Unknown Completed [facility] HIB 4 Dose Schedule Unknown Completed [facility]ITIS A [facility] Hep B, Adol or Pedi Dosage Unknown Completed [facility] HPV Unknown Completed [facility] Influenza Virus Vaccine Unknown Completed [facility] Meningococcal Vaccine Unknown Completed [facility] MMR Unknown Completed [facility] Pediarix (dtap/hep B/ipv) Unknown Completed [facility] Pneumococcal 13 Conjugate, PCV13 (Prevnar 13) Unknown Completed [facility] Polio (IPV/OPV) Unknown Completed [facility] TDAP Unknown Completed [facility] Varicella (varivax)(chicken pox) Unknown Completed [facility] Influenza Virus Vaccine Quad .5 mL IM 6+ MO (FLUZONE/FLULAVAL/FL UARIX) Unknown Completed [facility] DTaP, Unspecified Formulation Unknown Completed [facility] Influenza Virus Vaccine - Whole Unknown Completed [facility] Hib-HbOC Unknown Completed [facility] HPV9 Unknown Completed [facility] Meningococcal Polysaccharide (groups A, C, Y and W-135) conjugate vaccine (MCV4P) Unknown Completed [facility] Meningococcal B, OMV Unknown Completed [facility] Pneumococcal 7 Conjugate, PCV7 (Prevnar7) Unknown Completed [facility] IPV Unknown Completed [facility] DTAP Unknown Completed [facility] HIB 4 Dose Schedule Unknown Completed [facility] HEPATITIS A Unknown [facility] Hep B, Adol or Pedi Dosage Unknown Completed [facility] HPV Unknown Completed [facility] Influenza Virus Vaccine Unknown Completed [facility] Meningococcal Vaccine Unknown Completed [facility] MMR Unknown Completed [facility] Pediarix (dtap/hep B/ipv) Unknown Completed [facility] Pneumococcal 13 Conjugate, PCV13 (Prevnar 13) Unknown Completed [facility] Polio (IPV/OPV) Unknown Completed [facility] TDAP Unknown Completed [facility] Varicella (varivax)(chicken pox) Unknown Completed [facility] Influenza Virus Vaccine Quad .5 mL IM 6+ MO (FLUZONE/FLULAVAL/FL UARIX) Unknown Completed [facility] DTaP, Unspecified Formulation Unknown Completed [facility] Influenza Virus Vaccine - Whole Unknown Completed [facility] Hib-HbOC Unknown Completed [facility] HPV9 Unknown Completed [facility] Meningococcal Polysaccharide (groups A, C, Y and W-135) conjugate vaccine (MCV4P) Unknown Completed [facility] Meningococcal B, OMV Unknown Completed [facility] Pneumococcal 7 Conjugate, PCV7 (Prevnar7) Unknown Completed [facility] IPV Unknown Completed [facility] DTAP Unknown Completed [facility] HIB 4 Dose Schedule Unknown Completed [facility] HEPATITIS A Unknown Completed [facility] Hep B, Adol or Pedi Dosage Unknown Completed [facility] HPV Unknown Completed [facility] Influenza Virus Vaccine Unknown Completed [facility] Meningococcal Vaccine Unknown Completed [facility] MMR Unknown Completed [facility] Pediarix (dtap/hep B/ipv) Unknown Completed [facility] Pneumococcal 13 Conjugate, PCV13 (Prevnar 13) Unknown Completed [facility] Polio (IPV/OPV) Unknown Completed [facility] TDAP Unknown Completed [facility] Varicella (varivax)(chicken pox) Unknown Completed [facility] Influenza Virus Vaccine Quad .5 mL IM 6+ MO (FLUZONE/FLULAVAL/FL UARIX) Unknown Completed [facility] DTaP, Unspecified Formulation Unknown Completed [facility] Influenza Virus Vaccine - Whole Unknown Completed [facility] Hib-HbOC Unknown Completed [facility] HPV9 Unknown Completed [facility] Meningococcal Polysaccharide (groups A, C, Y and W-135) conjugate vaccine (MCV4P) Unknown Completed [facility] Meningococcal B, OMV Unknown Completed [facility] Pneumococcal 7 Conjugate, PCV7 (Prevnar7) Unknown Completed [facility] IPV Unknown Completed [facility] Hep B, Adol or Pedi Dosage Unknown Completed [facility] Meningococcal Vaccine Unknown Completed [facility] Influenza Virus Vaccine - Whole Unknown Completed [facility] Meningococcal Polysaccharide (groups A, C, Y and W-135) conjugate vaccine (MCV4P) Unknown Completed [facility] Meningococcal B, OMV Unknown Completed [facility] DTAP Unknown Completed [facility] HIB 4 Dose Schedule Unknown Completed [facility] HEPATITIS A Unknown Completed [facility] HPV Unknown Completed [facility] Influenza Virus Vaccine Unknown Completed [facility] MMR Unknown Completed [facility] Pediarix (dtap/hep B/ipv) Unknown Completed [facility] Pneumococcal 13 Conjugate, PCV13 (Prevnar 13) Unknown Completed [facility] Polio (IPV/OPV) Unknown Completed [facility] TDAP Unknown Completed [facility] Varicella (varivax)(chicken pox) Unknown Completed [facility] Influenza Virus Vaccine Quad .5 mL IM 6+ MO (FLUZONE/FLULAVAL/FL UARIX) Unknown Completed [facility] DTaP, Unspecified Formulation Unknown Completed [facility] Hib-HbOC Unknown Completed [facility] HPV9 Unknown Completed [facility] Pneumococcal 7 Conjugate, PCV7 (Prevnar7) Unknown Completed [facility] IPV Unknown Completed [facility] DTAP Unknown Completed [facility] HIB 4 Dose Schedule Unknown Completed [facility] HEPATITIS A Unknown Completed [facility] Hep B, Adol or Pedi Dosage Unknown Completed [facility] HPV Unknown Completed [facility] Influenza Virus Vaccine Unknown Completed [facility] Meningococcal Vaccine Unknown Completed [facility] MMR Unknown Completed [facility] Pediarix (dtap/hep B/ipv) Unknown Completed [facility] Pneumococcal 13 Conjugate, PCV13 (Prevnar 13) Unknown Completed [facility] Polio (IPV/OPV) Unknown Completed [facility] TDAP Unknown Completed [facility] Varicella (varivax)(chicken pox) Unknown Completed [facility] Influenza Virus Vaccine Quad .5 mL IM 6+ MO (FLUZONE/FLULAVAL/FL UARIX) Unknown Completed [facility] DTaP, Unspecified Formulation Unknown Completed [facility] Influenza Virus Vaccine - Whole Unknown Completed [facility] Hib-HbOC Unknown Completed [facility] HPV9 Unknown Completed [facility] Meningococcal Polysaccharide (groups A, C, Y and W-135) conjugate vaccine (MCV4P) Unknown Completed [facility] Meningococcal B, OMV Unknown Completed [facility] Pneumococcal 7 Conjugate, PCV7 (Prevnar7) Unknown Completed [facility] IPV Unknown Completed [facility] DTAP Unknown Completed [facility] HIB 4 Dose Schedule Unknown Completed [facility] HEPATITIS A Unknown Completed [facility] Hep B, Adol or Pedi Dosage Unknown Completed [facility] HPV Unknown Completed [facility] Influenza Virus Vaccine Unknown Completed [facility] Meningococcal Vaccine Unknown Completed [facility] MMR Unknown Completed [facility] Pediarix (dtap/hep B/ipv) Unknown Completed [facility] Pneumococcal 13 Conjugate, PCV13 (Prevnar 13) Unknown Completed [facility] Polio (IPV/OPV) Unknown Completed [facility] TDAP Unknown Completed [facility] Varicella (varivax)(chicken pox) Unknown Completed [facility] Influenza Virus Vaccine Quad .5 mL IM 6+ MO (FLUZONE/FLULAVAL/FL UARIX) Unknown Completed [facility] DTaP, Unspecified Formulation Unknown Completed [facility] Influenza Virus Vaccine - Whole Unknown Completed [facility] Hib-HbOC Unknown Completed [facility] HPV9 Unknown Completed [facility] Meningococcal Polysaccharide (groups A, C, Y and W-135) conjugate vaccine (MCV4P) Unknown Completed [facility] Meningococcal B, OMV Unknown Completed [facility] Pneumococcal 7 Conjugate, PCV7 (Prevnar7) Unknown Completed [facility] IPV Unknown Completed [facility] DTAP Unknown Completed [facility] HIB 4 Dose Schedule Unknown Completed [facility] HEPATITIS A Unknown Completed [facility] Hep B, Adol or Pedi Dosage Unknown Completed [facility] HPV Unknown Completed [facility] Influenza Virus Vaccine Unknown Completed [facility] Meningococcal Vaccine Unknown Completed [facility] MMR Unknown Completed [facility] Pediarix (dtap/hep B/ipv) Unknown Completed [facility] Pneumococcal 13 Conjugate, PCV13 (Prevnar 13) Unknown Completed [facility] Polio (IPV/OPV) Unknown Completed [facility] TDAP Unknown Completed [facility] Varicella (varivax)(chicken pox) Unknown Completed [facility] Influenza Virus Vaccine Quad .5 mL IM 6+ MO (FLUZONE/FLULAVAL/FL UARIX) Unknown Completed [facility] DTaP, Unspecified Formulation Unknown Completed [facility] Influenza Virus Vaccine - Whole Unknown Completed [facility] Hib-HbOC Unknown Completed [facility] HPV9 Unknown Completed [facility] Meningococcal Polysaccharide (groups A, C, Y and W-135) conjugate vaccine (MCV4P) Unknown Completed [facility] Meningococcal B, OMV Unknown Completed [facility] Pneumococcal 7 Conjugate, PCV7 (Prevnar7) Unknown Completed [facility] IPV Unknown Completed [facility] DTAP Unknown Completed [facility] HIB 4 Dose Schedule Unknown Completed [facility] HEPATITIS A Unknown Completed [facility] Hep B, Adol or Pedi Dosage Unknown Completed [facility] HPV Unknown Completed [facility] Influenza Virus Vaccine Unknown Completed [facility] Meningococcal Vaccine Unknown Completed [facility] MMR Unknown Completed [facility] Pediarix (dtap/hep B/ipv) Unknown Completed [facility] Pneumococcal 13 Conjugate, PCV13 (Prevnar 13) Unknown Completed [facility] Polio (IPV/OPV) Unknown Completed [facility] TDAP Unknown Completed [facility] Varicella (varivax)(chicken pox) Unknown Completed [facility] Influenza Virus Vaccine Quad .5 mL IM 6+ MO (FLUZONE/FLULAVAL/FL UARIX) Unknown Completed [facility] DTaP, Unspecified Formulation Unknown Completed [facility] Influenza Virus Vaccine - Whole Unknown Completed [facility] Hib-HbOC Unknown Completed [facility] HPV9 Unknown Completed [facility] Meningococcal Polysaccharide (groups A, C, Y and W-135) conjugate vaccine (MCV4P) Unknown Completed [facility] Meningococcal B, OMV Unknown Completed [facility] Pneumococcal 7 Conjugate, PCV7 (Prevnar7) Unknown Completed [facility] IPV Unknown Completed [facility] DTAP Unknown Completed [facility] HIB 4 Dose Schedule Unknown Completed [facility] HEPATITIS A Unknown Completed [facility] Hep B, Adol or Pedi Dosage Unknown Completed [facility] HPV Unknown Completed [facility] Influenza Virus Vaccine Unknown Completed [facility] Meningococcal Vaccine Unknown Completed [facility] MMR Unknown Completed [facility] Pediarix (dtap/hep B/ipv) Unknown Completed [facility] Pneumococcal 13 Conjugate, PCV13 (Prevnar 13) Unknown Completed [facility] Polio (IPV/OPV) Unknown Completed [facility] TDAP Unknown Completed [facility] Varicella (varivax)(chicken pox) Unknown Completed [facility] Influenza Virus Vaccine Quad .5 mL IM 6+ MO (FLUZONE/FLULAVAL/FL UARIX) Unknown Completed [facility] DTaP, Unspecified Formulation Unknown Completed [facility] Influenza Virus Vaccine - Whole Unknown Completed [facility] Hib-HbOC Unknown Completed [facility] HPV9 Unknown Completed [facility] Meningococcal Polysaccharide (groups A, C, Y and W-135) conjugate vaccine (MCV4P) Unknown Completed [facility] Meningococcal B, OMV Unknown Completed [facility] Pneumococcal 7 Conjugate, PCV7 (Prevnar7) Unknown Completed [facility] IPV Unknown Completed [facility] DTAP Unknown Completed [facility] HIB 4 Dose Schedule Unknown Completed [facility] HEPATITIS A Unknown Completed [facility] Hep B, Adol or Pedi Dosage Unknown Completed [facility] HPV Unknown Completed [facility] Influenza Virus Vaccine Unknown Completed [facility] Meningococcal Vaccine Unknown Completed [facility] MMR Unknown Completed [facility] Pediarix (dtap/hep B/ipv) Unknown Completed [facility] Pneumococcal 13 Conjugate, PCV13 (Prevnar 13) Unknown Completed [facility] Polio (IPV/OPV) Unknown Completed [facility] TDAP Unknown Completed [facility] Varicella (varivax)(chicken pox) Unknown Completed [facility] Influenza Virus Vaccine Quad .5 mL IM 6+ MO (FLUZONE/FLULAVAL/FL UARIX) Unknown Completed [facility] DTaP, Unspecified Formulation Unknown Completed [facility] Influenza Virus Vaccine - Whole Unknown Completed [facility] Hib-HbOC Unknown Completed [facility] HPV9 Unknown Completed [facility] Meningococcal Polysaccharide (groups A, C, Y and W-135) conjugate vaccine (MCV4P) Unknown Completed [facility] Meningococcal B, OMV Unknown Completed [facility] Pneumococcal 7 Conjugate, PCV7 (Prevnar7) Unknown Completed [facility] IPV Unknown Completed [facility] DTAP Unknown Completed [facility] HIB 4 Dose Schedule Unknown Completed [facility] HEPATITIS A Unknown Completed [facility] Hep B, Adol or Pedi Dosage Unknown Completed [facility] HPV Unknown Completed [facility] Influenza Virus Vaccine Unknown Completed [facility] Meningococcal Vaccine Unknown Completed [facility] MMR Unknown Completed [facility] Pediarix (dtap/hep B/ipv) Unknown Completed [facility] Pneumococcal 13 Conjugate, PCV13 (Prevnar 13) Unknown Completed [facility] Polio (IPV/OPV) Unknown Completed [facility] TDAP Unknown Completed [facility] Varicella (varivax)(chicken pox) Unknown Completed [facility] Influenza Virus Vaccine Quad .5 mL IM 6+ MO (FLUZONE/FLULAVAL/FL UARIX) Unknown Completed [facility] DTaP, Unspecified Formulation Unknown Completed [facility] Influenza Virus Vaccine - Whole Unknown Completed [facility] Hib-HbOC Unknown Completed [facility] HPV9 Unknown Completed [facility] Meningococcal Polysaccharide (groups A, C, Y and W-135) conjugate vaccine (MCV4P) Unknown Completed [facility] Meningococcal B, OMV Unknown Completed [facility] Pneumococcal 7 Conjugate, PCV7 (Prevnar7) Unknown Completed [facility] IPV Unknown Completed [facility] DTAP Unknown Completed [facility] HIB 4 Dose Schedule Unknown Completed [facility] HEPATITIS A Unknown Completed [facility] Hep B, Adol or Pedi Dosage Unknown Completed [facility] HPV Unknown Completed [facility] Influenza Virus Vaccine Unknown Completed [facility] Meningococcal Vaccine Unknown Completed [facility] MMR Unknown Completed [facility] Pediarix (dtap/hep B/ipv) Unknown Completed [facility] Pneumococcal 13 Conjugate, PCV13 (Prevnar 13) Unknown Completed [facility] Polio (IPV/OPV) Unknown [facility] [facility] Com[facility] Varicella (varivax)(chicken pox) Unknown Completed [facility] Influenza Virus Vaccine Quad .5 mL IM 6+ MO (FLUZONE/FLULAVAL/FL UARIX) Unknown Completed [facility] DTaP, Unspecified Formulation Unknown Completed [facility] Influenza Virus Vaccine - Whole Unknown Completed [facility] Hib-HbOC Unknown Completed [facility] HPV9 Unknown Completed [facility] Meningococcal Polysaccharide (groups A, C, Y and W-135) conjugate vaccine (MCV4P) Unknown Completed [facility] Meningococcal B, OMV Unknown Completed [facility] Pneumococcal 7 Conjugate, PCV7 (Prevnar7) Unknown Completed [facility] IPV Unknown Completed [facility] DTAP Unknown Completed [facility] HIB 4 Dose Schedule Unknown Completed [facility] HEPATITIS A Unknown Completed [facility] Hep B, Adol or Pedi Dosage Unknown Completed [facility] HPV Unknown Completed [facility] Influenza Virus Vaccine Unknown Completed [facility] Meningococcal Vaccine Unknown Completed [facility] MMR Unknown Completed [facility] Pediarix (dtap/hep B/ipv) Unknown Completed [facility] Pneumococcal 13 Conjugate, PCV13 (Prevnar 13) Unknown Completed [facility] Polio (IPV/OPV) Unknown Completed [facility] TDAP Unknown Completed [facility] Varicella (varivax)(chicken pox) Unknown Completed [facility] Influenza Virus Vaccine Quad .5 mL IM 6+ MO (FLUZONE/FLULAVAL/FL UARIX) Unknown Completed [facility] DTaP, Unspecified Formulation Unknown Completed [facility] Influenza Virus Vaccine - Whole Unknown Completed [facility] Hib-HbOC Unknown Completed [facility] HPV9 Unknown Completed [facility] Meningococcal Polysaccharide (groups A, C, Y and W-135) conjugate vaccine (MCV4P) Unknown Completed [facility] Meningococcal B, OMV Unknown Completed [facility] Pneumococcal 7 Conjugate, PCV7 (Prevnar7) Unknown Completed [facility] IPV Unknown Completed [facility] DTAP Unknown Completed [facility] HIB 4 Dose Schedule Unknown Completed [facility] HEPATITIS A Unknown Completed [facility] Hep B, Adol or Pedi Dosage Unknown Completed [facility] HPV Unknown Completed [facility] Influenza Virus Vaccine Unknown Completed [facility] Meningococcal Vaccine Unknown Completed [facility] MMR Unknown Completed [facility] Pediarix (dtap/hep B/ipv) Unknown Completed [facility] Pneumococcal 13 Conjugate, PCV13 (Prevnar 13) Unknown Completed [facility] Polio (IPV/OPV) Unknown Completed [facility] TDAP Unknown Completed [facility] Varicella (varivax)(chicken pox) Unknown Completed [facility] Influenza Virus Vaccine Quad .5 mL IM 6+ MO (FLUZONE/FLULAVAL/FL UARIX) Unknown Completed [facility] DTaP, Unspecified Formulation Unknown Completed [facility] Influenza Virus Vaccine - Whole Unknown Completed [facility] Hib-HbOC Unknown Completed [facility] HPV9 Unknown Completed [facility] Meningococcal Polysaccharide (groups A, C, Y and W-135) conjugate vaccine (MCV4P) Unknown Completed [facility] Meningococcal B, OMV Unknown Completed [facility] Pneumococcal 7 Conjugate, PCV7 (Prevnar7) Unknown Completed [facility] IPV Unknown Completed [facility] DTAP Unknown Completed [facility] HIB 4 Dose Schedule Unknown Completed [facility] HEPATITIS A Unknown Completed [facility] Hep B, Adol or Pedi Dosage Unknown Completed [facility] HPV Unknown Completed [facility] Influenza Virus Vaccine Unknown Completed [facility] Meningococcal Vaccine Unknown Completed [facility] MMR Unknown Completed [facility] Pediarix (dtap/hep B/ipv) Unknown Completed [facility] Pneumococcal 13 Conjugate, PCV13 (Prevnar 13) Unknown Completed [facility] Polio (IPV/OPV) Unknown Completed [facility] TDAP Unknown Completed [facility] Varicella (varivax)(chicken pox) Unknown Completed [facility] Influenza Virus Vaccine Quad .5 mL IM 6+ MO (FLUZONE/FLULAVAL/FL UARIX) Unknown Completed [facility] DTaP, Unspecified Formulation Unknown Completed [facility] Influenza Virus Vaccine - Whole Unknown Completed [facility] Hib-HbOC Unknown Completed [facility] HPV9 Unknown Completed [facility] Meningococcal Polysaccharide (groups A, C, Y and W-135) conjugate vaccine (MCV4P) Unknown Completed [facility] Meningococcal B, OMV Unknown Completed [facility] Pneumococcal 7 Conjugate, PCV7 (Prevnar7) Unknown Completed [facility] IPV Unknown Completed [facility] DTAP Unknown Completed [facility] HIB 4 Dose Schedule Unknown Completed [facility] HEPATITIS A Unknown Completed [facility] Hep B, Adol or Pedi Dosage Unknown Completed [facility] HPV Unknown Completed [facility] Influenza Virus Vaccine Unknown Completed [facility] Meningococcal Vaccine Unknown Completed [facility] MMR Unknown Completed [facility] Pediarix (dtap/hep B/ipv) Unknown Completed [facility] Pneumococcal 13 Conjugate, PCV13 (Prevnar 13) Unknown Completed [facility] Polio (IPV/OPV) Unknown Completed [facility] TDAP Unknown Completed [facility] Varicella (varivax)(chicken pox) Unknown Completed [facility] Influenza Virus Vaccine Quad .5 mL IM 6+ MO (FLUZONE/FLULAVAL/FL UARIX) Unknown Completed [facility] DTaP, Unspecified Formulation Unknown Completed [facility] Influenza Virus Vaccine - Whole Unknown Completed [facility] Hib-HbOC Unknown Completed [facility] HPV9 Unknown Completed [facility] Meningococcal Polysaccharide (groups A, C, Y and W-135) conjugate vaccine (MCV4P) Unknown Completed [facility] Meningococcal B, OMV Unknown Completed [facility] Pneumococcal 7 Conjugate, PCV7 (Prevnar7) Unknown Completed [facility] IPV Unknown Completed [facility] Vital Signs Vital Name Observation Time Observation Value Comments S ource Systolic blood pressure 2024-05-01 21:44:51 117 mm[Hg] [facility] Diastolic blood pressure 2024-05-01 21:44:51 76 mm[Hg] [facility] Heart rate 2024-05-01 21:44:51 82 /min [facility] Body temperature 2024-05-01 21:44:51 37.67 Charissa [facility] Respiratory rate 2024-05-01 21:44:51 16 /min [facility] Oxygen saturation in Arterial blood by Pulse oximetry 2024-05-01 21:44:51 100 /min [facility] Body height 2024-05-01 17:25:00 157.5 cm [facility] Body weight 2024-05-01 17:25:00 72.576 kg [facility] BMI 2024-05-01 17:25:00 29.26 kg/m2 [facility] Systolic blood pressure 2024-03-22 18:10:00 114 mm[Hg] [facility] Diastolic blood pressure 2024-03-22 18:10:00 64 mm[Hg] [facility] Heart rate 2024-03-22 18:10:00 63 /min [facility] Body temperature 2024-03-22 18:10:00 36.44 Charissa [facility] Respiratory rate 2024-03-22 18:10:00 18 /min [facility] Body height 2024-03-22 18:10:00 157.5 cm [facility] Body weight 2024-03-22 18:10:00 84.057 kg [facility] BMI 2024-03-22 18:10:00 33.89 kg/m2 [facility] Systolic blood pressure 2024-02-23 19:46:00 116 mm[Hg] [facility] Diastolic blood pressure 2024-02-23 19:46:00 76 mm[Hg] [facility] Heart rate 2024-02-23 19:46:00 76 /min [facility] Body temperature 2024-02-23 19:46:00 36.33 Charissa [facility] Respiratory rate 2024-02-23 19:46:00 18 /min [facility] Body height 2024-02-23 19:46:00 157.5 cm [facility] Body weight 2024-02-23 19:46:00 78.529 kg [facility] BMI 2024-02-23 19:46:00 31.66 kg/m2 [facility] Systolic blood pressure 2024-02-06 00:15:00 128 mm[Hg] [facility] Diastolic blood pressure 2024-02-06 00:15:00 77 mm[Hg] [facility] Heart rate 2024-02-05 23:45:00 72 /min [facility] Oxygen saturation in Arterial blood by Pulse oximetry 2024-02-05 23:45:00 100 /min [facility] Body temperature 2024-02-05 22:30:00 36.44 Charissa [facility] Respiratory rate 2024-02-05 22:30:00 16 /min [facility] Systolic blood pressure 2024-02-05 18:04:00 135 mm[Hg] [facility] Diastolic blood pressure 2024-02-05 18:04:00 83 mm[Hg] [facility] Heart rate 2024-02-05 18:04:00 121 /min [facility] Body temperature 2024-02-05 18:02:00 36.44 Charissa [facility] Respiratory rate 2024-02-05 18:02:00 18 /min [facility] Body height 2024-02-05 18:02:00 157.5 cm [facility] Body weight 2024-02-05 18:02:00 78.019 kg [facility] BMI 2024-02-05 18:02:00 31.46 kg/m2 [facility] Systolic blood pressure 2024-01-30 10:22:00 133 mm[Hg] [facility] Diastolic blood pressure 2024-01-30 10:22:00 89 mm[Hg] [facility] Heart rate 2024-01-30 10:22:00 67 /min [facility] Body temperature 2024-01-30 10:22:00 36.56 Charissa [facility] Respiratory rate 2024-01-30 10:22:00 18 /min [facility] Oxygen saturation in Arterial blood by Pulse oximetry 2024-01-30 10:22:00 100 /min [facility] Body height 2024-01-28 21:49:00 157.5 cm [facility] Body weight 2024-01-28 21:49:00 84.777 kg [facility] BMI 2024-01-28 21:49:00 34.18 kg/m2 [facility] Systolic blood pressure 2024-01-28 15:40:00 141 mm[Hg] [facility] Diastolic blood pressure 2024-01-28 15:40:00 100 mm[Hg] [facility] Heart rate 2024-01-28 15:40:00 100 /min [facility] Body temperature 2024-01-28 15:35:00 36.72 Charissa [facility] Respiratory rate 2024-01-28 15:35:00 18 /min [facility] Body height 2024-01-28 15:35:00 157.5 cm [facility] Body weight 2024-01-28 15:35:00 84.482 kg [facility] BMI 2024-01-28 15:35:00 34.07 kg/m2 [facility] Systolic blood pressure 2024-01-21 17:34:00 127 mm[Hg] [facility] Diastolic blood pressure 2024-01-21 17:34:00 86 mm[Hg] [facility] Heart rate 2024-01-21 17:34:00 86 /min [facility] Body temperature 2024-01-21 17:34:00 36.56 Charissa [facility] Body height 2024-01-21 17:34:00 157.5 cm [facility] 2024-01-21 17:34:00 83.825 kg [facility] BMI 2024-01-21 17:34:00 33.80 kg/m2 [facility] Oxygen saturation in Arterial blood by Pulse oximetry 2024-01-21 17:34:00 96 /min [facility] Systolic blood pressure 2024-01-14 16:00:00 134 mm[Hg] [facility] Diastolic blood pressure 2024-01-14 16:00:00 70 mm[Hg] [facility] Heart rate 2024-01-14 16:00:00 90 /[facility] Body temperature 2024-01-14 16:00:00 36 Charissa [facility] Respiratory rate 2024-01-14 16:00:00 18 /min [facility] Body height 2024-01-14 16:00:00 157.5 cm [facility] Body weight 2024-01-14 16:00:00 81.557 kg [facility] BMI 2024-01-14 16:00:00 32.89 kg/m2 [facility] Body temperature 2023-12-31 18:03:00 36.61 Charissa [facility] Respiratory rate 2023-12-31 18:03:00 18 /min [facility] Body height 2023-12-31 18:03:00 157.5 cm [facility] Body weight 2023-12-31 18:03:00 80.06 kg [facility] BMI 2023-12-31 18:03:00 32.28 kg/m2 [facility] Systolic blood pressure 2023-12-31 18:03:00 134 mm[Hg] [facility] Diastolic blood pressure 2023-12-31 18:03:00 85 mm[Hg] [facility] Heart rate 2023-12-31 18:03:00 108 /min [facility] 2023-12-18 14:53:00 123 mm[Hg] [facility] Diastolic blood pressure 2023-12-18 14:53:00 85 mm[Hg] [facility] Heart rate 2023-12-18 14:53:00 95 /min [facility] 2023-12-18 14:53:00 36.22 Charissa [facility] Respiratory rate 2023-12-18 14:53:00 18 /min [facility] Body height 2023-12-18 14:53:00 157.5 cm [facility] weight 2023-12-18 14:53:00 78.245 kg [facility] BMI 2023-12-18 14:53:00 31.55 kg/m2 [facility] Systolic blood pressure 2023-12-04 13:08:00 131 mm[Hg] [facility] Diastolic blood pressure 2023-12-04 13:08:00 84 mm[Hg] [facility] Heart rate 2023-12-04 13:08:00 118 /min [facility] Body temperature 2023-12-04 13:08:00 36.17 Charissa [facility] Respiratory rate 2023-12-04 13:08:00 18 /min [facility] Body height 2023-12-04 13:08:00 157.5 cm [facility] Body weight 2023-12-04 13:08:00 77.82 kg [facility] BMI 2023-12-04 13:08:00 31.38 kg/m2 [facility] Systolic blood pressure 2023-11-13 15:35:00 119 mm[Hg] [facility] Diastolic blood pressure 2023-11-13 15:35:00 78 mm[Hg] [facility] Heart rate 2023-11-13 15:35:00 93 /min [facility] 2023-11-13 15:35:00 36.39 Charissa [facility] Respiratory rate 2023-11-13 15:35:00 16 /min [facility] Body height 2023-11-13 15:35:00 157.5 cm [facility] Body weight 2023-11-13 15:35:00 75.07 kg [facility] BMI 2023-11-13 15:35:00 30.27 kg/m2 [facility] Systolic blood pressure 2023-10-23 14:58:00 125 mm[Hg] [facility] Diastolic blood pressure 2023-10-23 14:58:00 77 mm[Hg] [facility] Heart rate 2023-10-23 14:58:00 88 /min [facility] Body temperature 2023-10-23 14:58:00 36.17 Charissa [facility] Respiratory rate 2023-10-23 14:58:00 18 /min [facility] Body height 2023-10-23 14:58:00 157.5 cm [facility] Body weight 2023-10-23 14:58:00 72.031 kg [facility] BMI 2023-10-23 14:58:00 29.04 kg/m2 [facility] Systolic blood pressure 2023-10-08 16:21:00 119 mm[Hg] [facility] Diastolic blood pressure 2023-10-08 16:21:00 75 mm[Hg] [facility] Heart rate 2023-10-08 16:21:00 108 /min [facility] Body temperature 2023-10-08 16:21:00 36.67 Charissa [facility] Respiratory rate 2023-10-08 16:21:00 17 /min [facility] Body height 2023-10-08 16:21:00 157.5 cm [facility] Body weight 2023-10-08 16:21:00 70.806 kg [facility] BMI 2023-10-08 16:21:00 28.55 kg/m2 [facility] Head Occipital-frontal circumference by Tape measure 2023-10-08 16:21:00 157.5 cm [facility] Systolic blood pressure 2023-09-24 20:11:00 130 mm[Hg] [facility] Diastolic blood pressure 2023-09-24 20:11:00 81 mm[Hg] [facility] Heart rate 2023-09-24 20:11:00 114 /min [facility] Body temperature 2023-09-24 20:11:00 36.5 Charissa [facility] Respiratory rate 2023-09-24 20:11:00 18 /min [facility] Body height 2023-09-24 20:11:00 157.5 cm [facility] Body weight 2023-09-24 20:11:00 68.238 kg [facility] BMI 2023-09-24 20:11:00 27.52 kg/m2 [facility] Systolic blood pressure 2023-08-26 18:40:00 120 mm[Hg] [facility] Diastolic blood pressure 2023-08-26 18:40:00 73 mm[Hg] [facility] Heart rate 2023-08-26 18:40:00 85 /min [facility] Body temperature 2023-08-26 18:40:00 36.33 Charissa [facility] Respiratory rate 2023-08-26 18:40:00 18 /min [facility] Body height 2023-08-26 18:40:00 157.5 cm [facility] Body weight 2023-08-26 18:40:00 67.586 kg [facility] BMI 2023-08-26 18:40:00 27.25 kg/m2 [facility] Body mass index (BMI) [Percentile] Per age and sex 2023-08-26 18:40:00 88.81 % [facility] Systolic blood pressure 2023-07-29 20:04:00 124 mm[Hg] [facility] Diastolic blood pressure 2023-07-29 20:04:00 89 mm[Hg] [facility] Heart rate 2023-07-29 20:04:00 95 /min [facility] Body temperature 2023-07-29 20:04:00 36.22 Charissa [facility] Respiratory rate 2023-07-29 20:04:00 17 /min [facility] Body height 2023-07-29 20:04:00 157.5 cm [facility] Body weight 2023-07-29 20:04:00 67.314 kg [facility] BMI 2023-07-29 20:04:00 27.14 kg/m2 [facility] Body mass index (BMI) [Percentile] Per age and sex 2023-07-29 20:04:00 88.61 % [facility] Systolic blood pressure 2023-07-08 21:49:00 119 mm[Hg] [facility] Diastolic blood pressure 2023-07-08 21:49:00 72 mm[Hg] [facility] Heart rate 2023-07-08 21:49:00 79 /min [facility] Body temperature 2023-07-08 21:49:00 36.56 Charissa [facility] Respiratory rate 2023-07-08 21:49:00 18 /min [facility] Body height 2023-07-08 21:49:00 157.5 cm [facility] Body weight 2023-07-08 21:49:00 69.996 kg [facility] BMI 2023-07-08 21:49:00 28.22 kg/m2 [facility] Body mass index (BMI) [Percentile] Per age and sex 2023-07-08 21:49:00 91.24 % [facility] Systolic blood pressure 2023-07-01 19:36:00 125 mm[Hg] [facility] Diastolic blood pressure 2023-07-01 19:36:00 78 mm[Hg] [facility] Heart rate 2023-07-01 19:36:00 93 /min [facility] Body temperature 2023-07-01 19:36:00 36.56 Charissa [facility] Respiratory rate 2023-07-01 19:36:00 18 /min [facility] Body height 2023-07-01 19:36:00 157.5 cm [facility] Body weight 2023-07-01 19:36:00 69.542 kg [facility] BMI 2023-07-01 19:36:00 28.04 kg/m2 [facility] Body mass index (BMI) [Percentile] Per age and sex 2023-07-01 19:36:00 90.89 % [facility] Systolic blood pressure 2021-10-30 01:39:00 101 mm[Hg] [facility] Diastolic blood pressure 2021-10-30 01:39:00 69 mm[Hg] [facility] Heart rate 2021-10-30 01:39:00 88 /min [facility] Respiratory rate 2021-10-30 01:39:00 17 /min [facility] Oxygen saturation in Arterial blood by Pulse oximetry 2021-10-30 01:39:00 100 /min [facility] Body temperature 2021-10-29 23:13:00 37.72 Charissa [facility] Body height 2021-10-29 23:13:00 157.5 cm [facility] Body weight 2021-10-29 23:13:00 81.375 kg [facility] BMI 2021-10-29 23:13:00 32.81 kg/m2 [facility] Body mass index (BMI) [Percentile] Per age and sex 2021-10-29 23:13:00 97.27 % [facility] Systolic blood pressure 2020-07-06 21:38:00 121 mm[Hg] [facility] Diastolic blood pressure 2020-07-06 21:38:00 75 mm[Hg] [facility] Heart rate 2020-07-06 21:38:00 91 /min [facility] Body temperature 2020-07-06 21:38:00 37 Charissa [facility] Respiratory rate 2020-07-06 21:38:00 16 /min [facility] Body weight 2020-07-06 21:38:00 71.215 kg [facility] Systolic blood pressure 2020-07-06 21:38:00 121 mm[Hg] [facility] Diastolic blood pressure 2020-07-06 21:38:00 75 mm[Hg] [facility] Heart rate 2020-07-06 21:38:00 91 /min [facility] Body temperature 2020-07-06 21:38:00 37 Charissa [facility] Respiratory rate 2020-07-06 21:38:00 16 /min [facility] Body weight 2020-07-06 21:38:00 71.215 kg [facility] Systolic blood pressure 2020-04-11 15:59:00 125 mm[Hg] [facility] Diastolic blood pressure 2020-04-11 15:59:00 78 mm[Hg] [facility] Heart rate 2020-04-11 15:59:00 76 /min [facility] Body temperature 2020-04-11 15:59:00 36.89 Charissa [facility] Respiratory rate 2020-04-11 15:59:00 16 /min [facility] Body height 2020-04-11 15:59:00 157.5 cm [facility] Body weight 2020-04-11 15:59:00 65.772 kg [facility] BMI 2020-04-11 15:59:00 26.52 kg/m2 [facility] Systolic blood pressure 2020-03-21 15:40:00 121 mm[Hg] [facility] Diastolic blood pressure 2020-03-21 15:40:00 81 mm[Hg] [facility] Heart rate 2020-03-21 15:40:00 84 /min [facility] Body temperature 2020-03-21 15:40:00 36.72 Charissa [facility] Respiratory rate 2020-03-21 15:40:00 16 /min [facility] Body height 2020-03-21 15:40:00 157.5 cm [facility] Body weight 2020-03-21 15:40:00 63.163 kg [facility] BMI 2020-03-21 15:40:00 25.47 kg/m2 [facility] Systolic blood pressure 2020-03-02 13:57:00 126 mm[Hg] [facility] Diastolic blood pressure 2020-03-02 13:57:00 86 mm[Hg] [facility] Heart rate 2020-03-02 13:57:00 76 /min [facility] Body temperature 2020-03-02 13:57:00 36.67 Charissa [facility] Respiratory rate 2020-03-02 13:57:00 18 /min [facility] Oxygen saturation in Arterial blood by Pulse oximetry 2020-03-02 13:57:00 98 /min [facility] Systolic blood pressure 2020-02-28 15:33:00 118 mm[Hg] [facility] Diastolic blood pressure 2020-02-28 15:33:00 82 mm[Hg] [facility] Heart rate 2020-02-28 15:27:00 94 /min [facility] Body temperature 2020-02-28 15:27:00 36.89 Charissa [facility] Respiratory rate 2020-02-28 15:27:00 16 /min [facility] Body height 2020-02-28 15:27:00 157.5 cm [facility] Body weight 2020-02-28 15:27:00 71.668 kg [facility] BMI 2020-02-28 15:27:00 28.90 kg/m2 [facility] Systolic blood pressure 2020-02-22 18:15:00 138 mm[Hg] [facility] Diastolic blood pressure 2020-02-22 18:15:00 85 mm[Hg] [facility] Heart rate 2020-02-22 18:14:00 119 /min [facility] Body temperature 2020-02-22 18:14:00 36.28 Charissa [facility] Respiratory rate 2020-02-22 18:14:00 16 /min [facility] Body height 2020-02-22 18:14:00 157.5 cm [facility] Body weight 2020-02-22 18:14:00 72.802 kg [facility] BMI 2020-02-22 18:14:00 29.36 kg/m2 [facility] Systolic blood pressure 2020-02-06 18:20:00 141 mm[Hg] [facility] Diastolic blood pressure 2020-02-06 18:20:00 74 mm[Hg] [facility] Heart rate 2020-02-06 18:20:00 92 /min [facility] 2020-02-06 18:20:00 36.83 Charissa [facility] Respiratory rate 2020-02-06 18:20:00 16 /min [facility] Body height 2020-02-06 18:20:00 157.5 cm [facility] weight 2020-02-06 18:20:00 72.32 kg [facility] BMI 2020-02-06 18:20:00 29.16 kg/m2 [facility] Systolic blood pressure 2020-01-23 18:43:00 129 mm[Hg] [facility] Diastolic blood pressure 2020-01-23 18:43:00 85 mm[Hg] [facility] Heart rate 2020-01-23 18:43:00 125 /min [facility] Body temperature 2020-01-23 18:43:00 36.89 Charissa [facility] Respiratory rate 2020-01-23 18:43:00 16 /min [facility] Body height 2020-01-23 18:43:00 157.5 cm [facility] Body weight 2020-01-23 18:43:00 68.72 kg [facility] BMI 2020-01-23 18:43:00 27.71 kg/m2 [facility] Systolic blood pressure 2020-01-09 18:37:00 132 mm[Hg] [facility] Diastolic blood pressure 2020-01-09 18:37:00 76 mm[Hg] [facility] Heart rate 2020-01-09 18:37:00 112 /min [facility] Body temperature 2020-01-09 18:37:00 37.06 Charissa [facility] Respiratory rate 2020-01-09 18:37:00 16 /min [facility] Body height 2020-01-09 18:37:00 157.5 cm [facility] weight 2020-01-09 18:37:00 67.246 kg [facility] BMI 2020-01-09 18:37:00 27.12 kg/m2 [facility] Systolic blood pressure 2019-12-26 17:56:00 138 mm[Hg] [facility] Diastolic blood pressure 2019-12-26 17:56:00 89 mm[Hg] [facility] Heart rate 2019-12-26 17:56:00 121 /min [facility] Body temperature 2019-12-26 17:56:00 36.67 Charissa [facility] Respiratory rate 2019-12-26 17:56:00 16 /min [facility] Body height 2019-12-26 17:56:00 157.5 cm [facility] Body weight 2019-12-26 17:56:00 65.318 kg [facility] BMI 2019-12-26 17:56:00 26.34 kg/m2 [facility] Heart rate 2019-12-06 21:00:00 91 /min [facility] Oxygen saturation in Arterial blood by Pulse oximetry 2019-12-06 21:00:00 100 /min [facility] Systolic blood pressure 2019-12-06 18:35:00 132 mm[Hg] [facility] Diastolic blood pressure 2019-12-06 18:35:00 74 mm[Hg] [facility] Body temperature 2019-12-06 18:35:00 36.94 Charissa [facility] Respiratory rate 2019-12-06 18:35:00 18 /min [facility] Body height 2019-12-06 18:35:00 157.5 cm [facility] Body weight 2019-12-06 18:35:00 63.504 kg [facility] BMI 2019-12-06 18:35:00 25.61 kg/m2 [facility] Systolic blood pressure 2019-12-05 18:09:00 131 mm[Hg] [facility] Diastolic blood pressure 2019-12-05 18:09:00 77 mm[Hg] [facility] Heart rate 2019-12-05 18:09:00 107 /min [facility] Body temperature 2019-12-05 18:09:00 37 Charissa [facility] Respiratory rate 2019-12-05 18:09:00 16 /min [facility] Body height 2019-12-05 18:09:00 157.5 cm [facility] Body weight 2019-12-05 18:09:00 63.05 kg [facility] BMI 2019-12-05 18:09:00 25.42 kg/m2 [facility] Systolic blood pressure 2019-10-06 19:18:00 102 mm[Hg] [facility] Diastolic blood pressure 2019-10-06 19:18:00 70 mm[Hg] [facility] Systolic blood pressure 2019-10-06 18:55:00 98 mm[Hg] [facility] Diastolic blood pressure 2019-10-06 18:55:00 68 mm[Hg] [facility] Systolic blood pressure 2019-10-06 18:06:00 128 mm[Hg] [facility] Diastolic blood pressure 2019-10-06 18:06:00 82 mm[Hg] [facility] Heart rate 2019-10-06 18:06:00 110 /min Un[facility] Body temperature 2019-10-06 18:06:00 36.67 Charissa [facility] Respiratory rate 2019-10-06 18:06:00 16 /min [facility] Body height 2019-10-06 18:06:00 157.5 cm [facility] Body weight 2019-10-06 18:06:00 59.081 kg [facility] BMI 2019-10-06 18:06:00 23.82 kg/m2 [facility] Systolic blood pressure 2019-09-08 17:57:00 132 mm[Hg] [facility] Diastolic blood pressure 2019-09-08 17:57:00 77 mm[Hg] [facility] Heart rate 2019-09-08 17:57:00 87 /min [facility] Body temperature 2019-09-08 17:57:00 36.44 Charissa [facility] Respiratory rate 2019-09-08 17:57:00 16 /min [facility] Body height 2019-09-08 17:57:00 157.5 cm [facility] Body weight 2019-09-08 17:57:00 59.223 kg [facility] BMI 2019-09-08 17:57:00 23.88 kg/m2 [facility] Systolic blood pressure 2019-08-11 16:13:00 126 mm[Hg] [facility] Diastolic blood pressure 2019-08-11 16:13:00 79 mm[Hg] [facility] Heart rate 2019-08-11 16:13:00 104 /min [facility] Body temperature 2019-08-11 16:13:00 36.28 Charissa [facility] Respiratory rate 2019-08-11 16:13:00 16 /min [facility] Body height 2019-08-11 16:13:00 157.5 cm [facility] Body weight 2019-08-11 16:13:00 61.434 kg [facility] BMI 2019-08-11 16:13:00 24.77 kg/m2 [facility] Procedures Procedure Date / Time Performed Performing Clinician Source CT ABDOMEN PELVIS W CONTRAST 2024-05-01 20:14:33 Tai Almendarez [facility] LIPASE 2024-05-01 18:33:[address] [facility] HEPATIC FUNCTION PANEL (62976) (ALB,T.PRO,BILI T,BU/BC,ALT,AST,ALK PHOS) 2024-05-01 18:33:00 Tai Almendarez [facility] BASIC METABOLIC PANEL (NA, K, CL, CO2, GLUCOSE, BUN, CREATININE, CA) 2024-05-01 18:33:00 [facility] CBC WITH DIFF 2024-05-01 18:33:00 Tai Almendarez [facility] URINALYSIS 2024-05-01 18:33:[address] [facility] POCT TEST 2024-05-01 18:33:00 Tai Almendarez [facility] FLU VACC (), 6 MO-64 YRS, .5ML, IM, TIV (FLUCELVAX) 2024-03-22 18:25:09 Leela Marcos [facility] SGOT (ASPARTATE AMINO TRANSFER) 2024-02-05 23:24:00 Kirti Potter [facility] CREATININE 2024-02-05 23:24:00 [facility] ALANINE AMINO TRANSFERASE(SGPT 2024-02-05 23:24:00 Kirti Potter [facility] LACTATE DEHYDROGENASE 2024-02-05 23:24:00 Kirti Potter [facility] URIC ACID 2024-02-05 23:24:00 [facility] CBC WITH DIFF 2024-02-05 23:24:00 [facility]IN[facility] 2024-02-05 23:24:00 Kirti Potter Un [facility] PROTEIN CREAT RATIO URINE RANDOM 2024-02-05 23:24:00 Kirti Potter [facility] CBC WITH DIFF 2024-01-30 08:11:00 Jose Rosales [facility] VENOUS CORD GAS 2024-01-29 08:46:00 Sophy Wynn [facility] CENTRAL NEURAXIAL BLOCK 2024-01-29 01:39:00 Ja Machuca [facility] SGOT (ASPARTATE AMINO TRANSFER) 2024-01-28 22:33:00 Sophy Wynn [facility] CREATININE 2024-01-28 22:33:00 [facility] ALANINE AMINO TRANSFERASE(SGPT 2024-01-28 22:33:00 Sophy Wynn [facility] LACTATE DEHYDROGENASE 2024-01-28 22:33:00 Do eloy Wynn [facility] URIC ACID 2024-01-28 22:33:00 [facility] CBC WITH DIFF 2024-01-28 22:33:00 Sophy Wynn [facility] URINALYSIS 2024-01-28 22:33:00 Sophy Wynn [facility] HEPATITIS B SURFACE ANTIGEN 2024-01-28 22:33:00 Sophy Wynn [facility] HB ABO GROUPING 2024-01-28 22:33:00 Sophy [facility] RHO (D) IMMUNE GLOBULIN 2024-01-28 22:33:00 Ene Ac [facility] PROTEIN CREAT RATIO URINE RANDOM 2024-01-28 22:33:00 Sophy Wynn [facility] SYPHILIS IGG/IGM 2024-01-28 22:33:00 Sophy Wynn U [facility] POCT URINALYSIS 2024-01-28 15:46:00 Leela Marcos [facility] POCT URINALYSIS 2024-01-21 17:29:00 Leela Marcos [facility] POCT URINALYSIS 2023-12-31 00:00:00 Leela Marcos [facility] POCT URINALYSIS 2023-12-18 14:53:00 Leela Marcos [facility] TDAP VACCINE, >11 YRS, IM 2023-12-04 13:32:23 Leela Mracos [facility] POCT URINALYSIS 2023-12-04 13:10:00 Leela Marcos [facility] POCT URINALYSIS 2023-11-13 15:36:00 Leela Marcos [facility] POCT URINALYSIS 2023-10-23 14:59:00 Leela Marcos [facility] POCT URINALYSIS 2023-10-08 00:00:00 Leela Marcos [facility] SECOND AND THIRD TRIMESTER ULTRASOUND 2023-09-30 20:19:21 Leela Marcos [facility] POCT URINALYSIS 2023-09-24 20:13:00 Leela Marcos [facility] POCT URINALYSIS 2023-08-26 18:46:00 Leela Marcos [facility] POCT URINALYSIS 2023-08-26 18:45:00 Leela Marcos [facility] CONSENT FOR NIPT 2023-08-26 05:01:00 Doctor Unas signed, Section [facility] POCT URINALYSIS 2023-07-29 21:00:00 Leela Marcos [facility] FIRST TRIMESTER ULTRASOUND 2023-07-23 14:09:00 Leela Marcos [facility] EXTERNAL PROVIDER RECORDS 2023-07-09 06:01:00 Doctor Unassigned, Section [facility] POCT URINALYSIS 2023-07-08 22:09:00 Leela Marcos [facility] URINE CULTURE 2023-07-01 21:35:00 Leela Marcos [facility] GC & CHLAMYDIA AMPLIFIED ASSAY 2023-07-01 21:35:00 Leela Marcos [facility] GLUCOSE 1 HOUR POST PRANDIAL 2023-07-01 20:40:00 Leela Marcos [facility] COMP. METABOLIC PANEL ([id number]) 2023-07-01 20:40:00 Leela Marcos [facility] CBC WITH DIFF 2023-07-01 20:40:00 Leela Marcos [facility] RUBELLA SCREEN IGG 2023-07-01 20:40:00 Renetta Marcos [facility] VZV ANTIBODY SCREEN 2023-07-01 20:40:00 Carolin Marcos [facility] HEPATITIS B SURFACE ANTIGEN 2023-07-01 20:40:00 Leela Marcos [facility] HCV ANTIBODY 2023-07-01 20:40:00 [facility] HB ABO GROUPING 2023-07-01 20:40:00 Leela Marcos [facility] HIV 1/2 AG-AB WITH REFLEX 2023-07-01 20:40:00 Leela Marcos [facility] SYPHILIS IGG/IGM 2023-07-01 20:40:00 Leela Marcos [facility] POCT URINALYSIS W/O SPECIFIC GRAVITY 2023-07-01 19:27:00 Leela Marcos [facility] POCT TEST 2023-07-01 19:23:00 Carolin Marcos [facility] CONSENT/REFUSAL FOR DIAGNOSIS AND TREATMENT 2023-07-01 18:52:52 Doctor Unassigned, Section [facility] CT ABDOMEN PELVIS W CONTRAST 2021-10-30 01:11:32 Bruna Delcid [facility] COMP. METABOLIC PANEL ([id number]) 2021-10-30 00:59:00 Bruna Delcid [facility] CBC WITH DIFF 2021-10-30 00:59:00 Bruna Delcid [facility] POCT TEST 2021-10-29 23:18:00 Shay Delcid [facility] URINALYSIS 2021-10-29 23:17:00 Bruna Delcid [facility] NOTICE OF PRIVACY PRACTICES 2021-10-29 23:02:37 Doctor Unassigned, Section [facility] CONSENT/REFUSAL FOR DIAGNOSIS AND TREATMENT 2021-10-29 22:59:28 Doctor Unassigned, Section [facility] GC & CHLAMYDIA AMPLIFIED ASSAY 2020-04-11 16:41:00 Ree Christine [facility] POCT TEST 2020-04-11 16:12:00 Hilario Christine [facility] FLU VACC ([id number]), 6+ MONTHS, IM, QUAD 2020-03-21 15:51:39 Ree Christine [facility] CBC WITH DIFF 2020-03-01 08:51:00 Carol Wells [facility] VENOUS CORD GAS 2020-02-29 21:41:00 Carol Eli [facility] HB ABO GROUPING 2020-02-28 20:58:00 Carol Eli [facility] RHO (D) IMMUNE GLOBULIN 2020-02-28 20:58:00 Fawad Wells [facility] SGOT (ASPARTATE AMINO TRANSFER) 2020-02-28 20:57:00 Carol Eli [facility] CREATININE 2020-02-28 20:57:00 Sreedhar Carol [facility] ALANINE AMINO TRANSFERASE(SGPT 2020-02-28 20:57[facility] 2020-02-28 20:57:00 Sreedhar Carol [facility] LACTATE DEHYDROGENASE 2020-02-28 20:56:00 SreedharJustinfelton hernandez [facility] CBC WITH DIFF 2020-02-28 20:56:[address] [facility] URINALYSIS 2020-02-28 20:56:00 Sreedhar [facility] HEPATITIS B SURFACE ANTIGEN 2020-02-28 20:56:00 Russell [facility] PROTEIN CREAT RATIO URINE RANDOM 2020-02-28 20:56:00 Sreedhar [facility] GALV ONLY - SYPHILIS IGG/IGM 2020-02-28 20:56:00 Russell [facility] COVID-19 (ID NOW RAPID TESTING) 2020-02-28 19:29:00 Ryder Paul [facility] POCT URINALYSIS 2020-02-28 15:47:00 Ree Christine [facility] POCT URINALYSIS 2020-02-28 15:32:00 Ree Christine [facility] POCT URINALYSIS 2020-02-22 18:15:00 Ree Christine [facility] VACCINATION OF A MINOR 2020-02-22 17:49:58 Docto r Unassigned, Section [facility] POCT URINALYSIS 2020-02-06 18:23:00 Ree Christine [facility] POCT URINALYSIS 2020-01-23 18:47:00 Ree Christine [facility] HIV 1/2 AG-AB WITH REFLEX 2020-01-09 20:24:00 Ree Christine [facility] GALV ONLY - SYPHILIS IGG/IGM 2020-01-09 20:24:00 Ree Christine [facility] TDAP VACCINE, >11 YRS, IM 2020-01-09 18:53:25 Ree Christine [facility] POCT URINALYSIS 2020-01-09 18:41:00 Ree Christine [facility] POCT URINALYSIS 2019-12-26 18:04:00 Ree Christine [facility] NON-STRESS TEST 2019-12-06 22:03:13 Felipa Deluna [facility] URINALYSIS 2019-12-06 19:39:00 Felipa Deluna [facility] NOTICE OF PRIVACY PRACTICES 2019-12-06 18:08:50 Doctor Unassigned, Section [facility] CONSENT/REFUSAL FOR DIAGNOSIS AND TREATMENT 2019-12-06 18:08:38 Doctor Unassigned, Section [facility] ASSIGNMENT OF BENEFITS 2019-12-06 18:08:24 Docto r Unassigned, Section [facility] POCT URINALYSIS 2019-12-05 18:13:00 Ree Christine [facility] POCT URINALYSIS 2019-10-06 18:11:00 Ree Christine [facility] POCT URINALYSIS 2019-09-08 18:02:00 Ree Christine [facility] / CERTIFICATE 2019-09-07 05:01:00 Doctor Unassigned, Section [facility] POCT URINALYSIS W/O SPECIFIC GRAVITY 2019-08-11 16:07:00 Ree Christine [facility] POCT TEST 2019-08-11 16:06:00 Hilario Christine [facility] POCT URINALYSIS GLUCOSE & PROTEIN 2019-08-11 16:06:00 Ree Christine [facility] REPORT OF 2019-08-11 06:01:00 Doctor Cole weiss, Section [facility] Encounters Start Date/Time End Date/Time Encounter Type Admission Type Attending Clinicians Care Facility Care Department Encounter ID Source 2024-02-05 20:02:03 Outpatient P [facility] [id number] [facility] 2021-04-12 17:40:00 Outpatient [facility] [id number] [facility] 2021-04-12 02:31:30 Outpatient P [facility] [id number] [facility] 2021-04-12 02:25:55 Outpatient P [facility] [id number] [facility] 2024-05-01 11:24:00 2024-05-01 15:53:00 Emergency X TAI ALMENDAREZ [facility] ERT [id number] [facility] 2024-05-01 11:24:00 2024-05-01 15:53:00 Emergency Erickson, Joyaamilcar [facility] ..840.114 350.1.13.10 [id number] [id number] [facility] 2024-03-22 13:15:00 2024-03-22 13:33:54 Outpatient R LEELA MARCOS [facility] [id number] [facility] 2024-03-22 13:15:00 2024-03-22 13:33:54 Office Visit Leela Marcos [facility] & CHILD [facility] 1..840.114 350.1.13.10 4.2.7.2.686 [id number] [facility] 2024-03-15 12:30:00 2024-03-15 12:30:00 Outpatient R LEELA MARCOS [facility] [id number] [facility] 2024-01-24 00:00:00 2024-02-27 18:24:49 Patient Secure Msg Leela Marcos [facility] & [facility]ILD [facility] 1..840.114 350.1.13.10 4.2.7.2.686 [id number] [facility] 2024-02-23 14:15:00 2024-02-23 15:05:46 Outpatient R LEELA MARCOS [facility] [id number] [facility] 2024-02-23 14:15:00 2024-02-23 15:05:46 Routine Visit Leela Marcos [facility] & CHILD [facility] 1.0.114 350.1.13.10 4.2.7.2.686 [id number] [facility] 2024-02-05 17:16:00 2024-02-05 20:01:00 Outpatient P DOUGLAS QUINTEROS SOURABH [facility] [place] [id number] [facility] 2024-02-05 17:16:00 2024-02-05 20:01:00 Hospital Encounter Douglas Quinteros [facility] 1.84.114 350.1.13.10 4.2.7.2.686 [id number] [facility] 2024-02-05 13:00:00 2024-02-05 13:15:00 Nurse Visit Visit, Garret-Rmchp Nurse Leela Marcos Visit, Rasheeda Nurse [facility] & CHILD [facility] 1.84.114 350.1.13.10 4.2.7.2.686 [id number] [facility] 2024-02-05 13:00:00 2024-02-05 13:00:00 Outpatient R LEELA MARCOS [facility] [id number] [facility] 2024-01-28 15:38:00 2024-01-30 16:23:00 Inpatient P VANESSA BENÍTEZ [facility] [place] [id number] [facility] 2024-01-28 15:38:00 2024-01-30 16:23:00 Hospital Encounter Vanessa Benítez [facility] 1.84.114 350.1.13.10 4.2.7.2.686 [id number] [facility] 2024-01-28 20:40:00 2024-01-29 03:34:00 Anesthesia Event Clare Gomez Aaron [facility] 1..114 350.1.13.10 4.2.7.2.686 [id number] [facility] 2024-01-28 10:45:00 2024-01-28 11:04:29 [id number] 2024-01-28 10:45:00 2024-01-28 11:04:29 [facility] & [facility]ILD [facility] 1..114 350.1.13.10 4.2.7.2.686 [id number] [facility] 2024-01-21 12:30:00 2024-01-21 12:53:56 [facility] [id number] 2024-01-21 12:30:00 2024-01-21 12:53:56 [facility] & CHILD [facility] 1..114 350.1.13.10 4.2.7.2.686 [id number] [facility] 2024-01-14 11:00:00 2024-01-14 11:28:13 Outpatient R LEELA MARCOS [facility] [id number] [facility] 2024-01-14 11:00:00 2024-01-14 11:28:13 [facility] & CHILD [facility] 1..114 350.1.13.10 4.2.7.2.686 [id number] [facility] 2023-12-31 13:15:00 2023-12-31 13:24:56 Outpatient R TOBINGEE LEELA [facility] [id number] [facility] 2023-12-31 13:15:00 2023-12-31 13:24:56 Routine Visit Leela Marcos [facility] & CHILD [facility] 1..840.114 350.1.13.10 4.2.7.2.686 [id number] [facility] 2023-12-18 09:45:00 2023-12-18 10:20:56 Outpatient R LEELA MARCOS [facility] [id number] [facility] 2023-12-18 09:45:00 2023-12-18 10:20:56 Routine Visit Leela Marcos [facility] & CHILD [facility] 1.840.114 350.1.13.10 4.2.7.2.686 [id number] [facility] 2023-12-04 08:00:00 2023-12-04 08:38:23 Outpatient R NATALYACalli LEELA [facility] [id number] [facility] 2023-12-04 08:00:00 2023-12-04 08:38:23 Routine Visit Leela Marcos [facility] & CHILD [facility] 1.840.114 350.1.13.10 4.2.7.2.686 [id number] [facility] 2023-11-20 00:00:00 2023-11-20 09:37:20 Telephone Ree Christine [facility] & CHILD [facility] 1..840.114 350.1.13.10 [id number] [id number] 107 [id number] [facility] 2023-11-13 10:15:00 2023-11-13 11:15:10 Outpatient R LEELA MARCOS [facility] [id number] [facility] 2023-11-13 10:15:00 2023-11-13 11:15:10 Routine Visit Leela Marcos [facility] 1.2840.114 350.1.13.10 4.2.7.2.686 [id number] [facility] 2023-10-23 11:15:00 2023-10-23 11:15:00 Telemedici ne Visit [place] Brenda A Ray, Joseph W [facility] 1.0.114 350.1.13.10 4.2.7.2.686 [id number] [facility] 2023-10-23 11:15:00 2023-10-23 10:32:45 Outpatient R SOLIS CABALLERO [facility] [id number] [facility] 2023-10-23 10:00:00 2023-10-23 10:07:58 Routine Visit Leela Marcos [facility] 1.840.114 350.1.13.10 4.2.7.2.686 [id number] [facility] 2023-10-08 10:45:00 2023-10-08 11:34:23 Outpatient R COMFORT OQUENDO [facility] [id number] [facility] 2023-10-08 10:45:00 2023-10-08 11:34:23 Routine Visit Garret Hoang-Rmchp-N p/High Comfort Oquendo N [facility] 1.2840.114 350.1.13.10 4.2.7.2.686 [id number] [facility] 2023-10-08 09:30:00 2023-10-08 09:30:00 Outpatient COMFORT LOERA [facility] [id number] [facility] 2023-10-08 00:00:00 2023-10-08 00:00:00 Telephone Leela Marcos [facility] 1.840.114 350.1.13.10 4.2.7.2.686 [id number] [facility] 2023-10-01 00:00:00 2023-10-01 00:00:00 Case Management Leela Marcos [facility] 1.840.114 350.1.13.10 4.2.7.2.686 [id number] [facility] 2023-09-30 13:00:00 2023-09-30 14:14:09 Outpatient PHANI CAMPOS [facility] [id number] [facility] 2023-09-30 13:00:00 2023-09-30 14:14:09 Secretary Receptionist Visit Ultrasound, Phani Beatty [facility] .840.114 350.1.13.10 4.2.7.2.686 [id number] [facility] 2023-09-24 15:30:00 2023-09-24 15:39:09 Outpatient R LEELA MARCOS [facility] [id number] [facility] 2023-09-24 15:30:00 2023-09-24 15:39:09 Routine Visit Leela Marcos [facility] 1.840.114 350.1.13.10 4.2.7.2.686 [id number] 107 [id number] [facility] 2023-08-26 16:00:00 2023-08-26 16:00:00 Routine Visit Leela Marcos [facility] ..114 350.1.13.10 4.2.7.2.686 [id number] [facility] 2023-08-26 16:00:00 2023-08-26 14:08:13 Outpatient LEELA HOPPER [facility] [id number] [facility] 2023-08-26 00:00:00 2023-08-26 00:00:00 Orders Only Doctor Unassigned, Section [facility] 1..114 350.1.13.10 4.2.7.2.686 [id number] [facility] 2023-07-29 14:15:00 2023-07-29 14:31:45 Outpatient R LEELA MARCOS [facility] [id number] [facility] 2023-07-29 14:15:00 2023-07-29 14:31:45 Routine Visit Leela Marcos [facility] 1.840.114 350.1.13.10 4.2.7.2.686 [id number] [facility] 2023-07-23 08:00:00 2023-07-23 08:06:08 Outpatient ALEX DAS SHANNON [facility] [id number] [facility] 2023-07-23 08:00:00 2023-07-23 08:06:08 Secretary Receptionist Visit Ultrasound, Alex Salvador [facility] 1.84.114 350.1.13.10 4.2.7.2.686 [id number] [facility] 2023-07-23 00:00:00 2023-07-23 00:00:00 Case Management Leela Marcos [facility] CHILD [facility] 1.2.840.114 350.1.13.10 4.2.7.2.686 [id number] [facility] 2023-07-14 00:00:00 2023-07-14 00:00:00 Telephone Leela Marcos [facility] 1.2.840.114 350.1.13.10 4.2.7.2.686 [id number] [facility] 2023-07-09 00:00:00 2023-07-09 00:00:00 Orders Only Doctor Unassigned, Section [facility] 1.2.840.114 350.1.13.10 4.2.7.2.686 [id number] [facility] 2023-07-08 15:30:00 2023-07-08 16:04:32 Outpatient R LEELA MARCOS [facility] [id number] [facility] 2023-07-08 15:30:00 2023-07-08 16:04:32 Routine Visit Leela Marcos [facility] 1.2840.114 350.1.13.10 4.2.7.2.686 [id number] [facility] 2023-07-03 00:00:00 2023-07-03 00:00:00 Telephone Leela Marcos [facility] 1.2.840.114 350.1.13.10 4.2.7.2.686 [id number] [facility] 2023-07-02 00:00:00 2023-07-02 00:00:00 Telephone Leela Marcos [facility] 1.0.114 350.1.13.10 4.2.7.2.686 [id number] 107 [id number] [facility] 2023-07-01 13:00:00 2023-07-01 14:24:44 Outpatient R LEELA MARCOS [facility] [id number] [facility] 2023-07-01 13:00:00 2023-07-01 14:24:44 Initial Visit Leela Marcos [facility] 1.0.114 350.1.13.10 4.2.7.2.686 [id number] 107 [id number] [facility] 2023-07-01 00:00:00 2023-07-01 00:00:00 Orders Only Doctor Unassigned, Section [facility] 1.0.114 350.1.13.10 4.2.7.2.686 [id number] [facility] 2021-10-29 18:22:00 2021-10-29 22:18:00 Emergency PALOMO LYNN [facility] ERT [id number] [facility] 2021-10-29 18:22:00 2021-10-29 22:18:00 Emergency Bruna Delcid Palomo [facility] 1..114 350.1.13.10 4.2.7.2.686 [id number] [facility] 2021-10-29 00:00:00 2021-10-29 00:00:00 Orders Only Doctor Unassigned, Section [facility] 1..114 350.1.13.10 4.2.7.2.686 [id number] [facility] 2020-09-28 13:30:00 2020-09-28 13:30:00 Outpatient R [facility] [id number] [facility] 2020-08-16 00:00:00 2020-08-16 00:00:00 Telephone Ree Christine [facility] 1.2.840.114 350.1.13.10 4.2.7.2.686 [id number] 2020-08-16 00:00:00 2020-08-16 00:00:00 Telephone Ree Christine [facility] 1.2.840.114 350.1.13.10 4.2.7.2.686 [id number] [facility] 2020-07-06 15:23:16 2020-07-06 15:38:06 Nurse Visit Visit, Rasheeda Nurse Ree Christine [facility] 1.2.840.114 350.1.13.10 4.2.7.2.686 [id number] 107 [id number] [facility] 2020-07-06 15:23:16 2020-07-06 15:38:06 Nurse Visit Visit, Rasheeda Nurse [facility] 1.2.840.114 350.1.13.10 4.2.7.2.686 [id number] 107 [id number] 2020-07-06 15:30:00 2020-07-06 15:30:00 Outpatient R [facility] [id number] [facility] 2020-07-04 14:00:00 2020-07-04 14:00:00 Outpatient R [facility] [id number] [facility] 2020-04-11 10:52:20 2020-04-11 11:40:40 Office Visit Ree Christine [facility] 1.2.840.114 350.1.13.10 4.2.7.2.686 [id number] 107 [id number] [facility] 2020-04-11 10:30:00 2020-04-11 10:30:00 Outpatient R REE CHRISTINE [facility] [id number] [facility] 2020-03-21 10:30:53 2020-03-29 16:11:08 Routine Visit Ree Christine KSHANY [facility]ILD [facility] 1.2.840.114 350.1.13.10 4.2.7.2.686 [id number] [facility] 2020-03-21 10:30:00 2020-03-21 10:30:00 Outpatient R REE CHRISTINE [facility] [id number] [facility] 2020-02-28 14:15:00 2020-03-02 14:45:00 Hospital Encounter Ryder Paul [facility] 1.2.840.114 350.1.13.10 4.2.7.2.686 [id number] [facility] 2020-02-28 10:18:59 2020-02-28 10:52:29 Routine Visit Ree Christine [facility]ILD [facility] 1.2.840.114 350.1.13.10 4.2.7.2.686 [id number] [facility] 2020-02-28 10:15:00 2020-02-28 10:15:00 Outpatient R REE CHRISTINE [facility] [id number] [facility] 2020-02-23 00:00:00 2020-02-23 00:00:00 Telephone Yoko Christineola Solo [facility]ILD [facility] 1.2.840.114 350.1.13.10 4.2.7.2.686 [id number] [facility] 2020-02-22 12:49:00 2020-02-22 13:32:37 Routine Visit Yoko Christineola Solo [facility] 1.114 350.1.13.10 4.2.7.2.686 [id number] 107 [id number] [facility] 2020-02-22 13:00:00 2020-02-22 13:00:00 Outpatient R REE CHRISTINE [facility] [id number] [facility] 2020-02-22 00:00:00 2020-02-22 00:00:00 Orders Only Doctor Unassigned, Section [facility] 1.114 350.1.13.10 4.2.7.2.686 [id number] [facility] 2020-02-06 13:06:50 2020-02-06 13:45:26 Routine Visit Ree Christine [facility] 1.114 350.1.13.10 4.2.7.2.686 [id number] [facility] 2020-02-06 13:00:00 2020-02-06 13:00:00 Outpatient R REE CHRISTINE [facility] [id number] [facility] 2020-01-23 13:08:40 2020-01-23 14:07:21 Routine Visit Ree Christine [facility] 1.114 350.1.13.10 4.2.7.2.686 [id number] 107 [id number] [facility] 2020-01-23 13:00:00 2020-01-23 13:00:00 Outpatient R REE CHRISTINE [facility] [id number] [facility] 2020-01-09 12:57:14 2020-01-09 14:11:59 Routine Visit Ree Christine [facility] 1..114 350.1.13.10 4.2.7.2.686 [id number] 107 [id number] [facility] 2020-01-09 13:00:00 2020-01-09 13:00:00 Outpatient R REE CHRISTINE [facility] [id number] [facility] 2019-12-27 00:00:00 2019-12-27 00:00:00 Telephone Ree Christine [facility]ILD [facility] 1.2.840.114 350.1.13.10 4.2.7.2.686 [id number] 107 [id number] [facility] 2019-12-26 12:44:22 2019-12-26 14:01:57 Routine Visit Ree Christine [facility] 1.2.840.114 350.1.13.10 4.2.7.2.686 [id number] [facility] 2019-12-26 13:00:00 2019-12-26 13:00:00 Outpatient R REE CHRISTINE [facility] [id number] [facility] 2019-12-06 13:01:18 2019-12-06 16:30:00 Hospital Encounter Felipa Deluna [facility] 1.2.840.114 350.1.13.10 4.2.7.2.686 [id number] [facility] 2019-12-05 12:53:28 2019-12-05 13:28:51 Routine Visit Ree Christine [facility] 1.2.840.114 350.1.13.10 4.2.7.2.686 [id number] [facility] 2019-12-05 12:45:00 2019-12-05 12:45:00 Outpatient R REE CHRISTINE [facility] [id number] [facility] 2019-11-14 09:15:00 2019-11-14 09:15:00 Outpatient P [facility] [id number] [facility] 2019-11-02 12:50:21 2019-11-02 14:17:33 Telemedici ne Visit Ree Christine [facility] 1.2.840.114 350.1.13.10 4.2.7.2.686 [id number] [facility] 2019-11-02 13:45:00 2019-11-02 13:45:00 Outpatient R REE CHRISTINE [facility] [id number] [facility] 2019-10-06 12:56:19 2019-10-06 14:21:39 Routine Visit Ree Christine [facility] 1..840.114 350.1.13.10 4.2.7.2.686 [id number] [facility] 2019-10-06 12:45:00 2019-10-06 12:45:00 Outpatient R REE CHRISTINE [facility] [id number] [facility] 2019-10-06 12:45:00 2019-10-06 12:45:00 Outpatient R REE CHRISTINE [facility] [id number] [facility] 2019-09-08 12:46:37 2019-09-08 13:16:26 Routine Visit Ella Harp R Ree Christine [facility] 1.2.840.114 350.1.13.10 4.2.7.2.686 [id number] [facility] 2019-09-08 12:45:00 2019-09-08 12:45:00 Outpatient R REE CHRISTINE [facility] [id number] [facility] 2019-09-07 00:00:00 2019-09-07 00:00:00 Telephone Ree Christine [facility] 1.2.840.114 350.1.13.10 4.2.7.2.686 [id number] 107 [id number] [facility] 2019-09-07 00:00:00 2019-09-07 00:00:00 Orders Only Doctor Unassigned, Section [facility] 1.2.840.114 350.1.13.10 4.2.7.2.686 [id number] [facility] 2019-08-12 00:00:00 2019-08-12 00:00:00 Abstract Ree Christine [facility] 1.2.840.114 350.1.13.10 4.2.7.2.686 [id number] [facility] 2019-08-11 09:48:53 2019-08-11 13:28:38 Initial Visit Ree Christine [facility] 1.2.840.114 350.1.13.10 4.2.7.2.686 [id number] [facility] 2019-08-11 11:15:12 2019-08-11 11:45:12 Secretary Receptionist Visit Ultrasound, Alex Salvador [facility] 1.2.840.114 350.1.13.10 4.2.7.2.686 [id number] [facility] 2019-08-11 09:30:00 2019-08-11 09:30:00 Outpatient R REE CHRISTINE [facility] [id number] [facility] 2019-08-11 00:00:00 2019-08-11 00:00:00 Orders Only Doctor Unassigned, Section [facility] 1.2.840.114 350.1.13.10 4.2.7.2.686 [id number] [facility] Results Test Description Test Time Test Comments Results Resul t Comments Source CT ABDOMEN PELVIS W CONTRAST 2024-04-15 7 21:00:44 EXAM: CT ABDOMEN PELVIS W CONTRAST ORDERING PROVIDER: TAI ALMENDAREZ HISTORY: 18 years-old Female; Ordered Indication: Abdominalabscess/infe ction suspected . TECHNIQUE: Contiguous axial imaging from the level of the lung basesthrough the proximal thighs was performed with intravenous contrast.Coronal and sagittal reconstructions were obtained. COMPARISON: CT abdomen pelvis obtained on 10/29/2021 FINDINGS: LOWER THORAX: The lung bases are clear. LIVER: No suspicious hepatic lesion is seen. Decreased hepatic attenuationis again seen and may be suggestive of steatosis. GALLBLADDER AND BILIARY TREE: The gallbladder appears unremarkable. Nobiliary ductal dilatation is visualized. SPLEEN: The spleen is mildly enlarged at 13.4 cm, unchanged. PANCREAS: No ductal dilation or solid mass is visualized. ADRENAL GLANDS: No mass is seen. KIDNEYS/URETER/BLADDE R: No stone, hydronephrosis, or suspicious mass isvisualized. The bladder is decompressed. PELVIC ORGANS: No suspicious pelvic mass is seen. Physiologic endocervicalfluid is seen. GI TRACT: Mild colonic mucosal irregularity and predominantly liquidcontents are seen without obstruction. The appendix appears unremarkable. PERITONEUM AND RETROPERITONEUM: No intra-abdominal free air or fluidcollection is visualized. A tiny fat-containing umbilical hernia is seen. LYMPH NODES: No suspicious lymphadenopathy is seen. VESSELS: The vessels are patent. BONES AND SOFT TISSUES: No suspicious osseous lesion is seen. Subcutaneousair at the right flank is probably related to injection sequelae. [facility] (ALB,T.PRO,BILI T,BU/BC,ALT,AST,ALK PHOS)2024-05-01 19:33:17* Test Item Value Reference Range Interpretation Comme nts TOTAL BILI (test code = 7549672593) 0.9 mg/dL 0.1-1.1 BILI UNCON (test code = 9519355858) 0.8 mg/dL 0.1-1.1 BILI CONJ (test code = 2766753326) 0.0 mg/dL 0.0-0.3 T PROTEIN (test code = 0753495525) 8.3 g/dL 6.3-8.2 H ALBUMIN (test code = 2696988144) 5.0 g/dL 3.5-5.0 ALK PHOS (test code = 4201364101) 133 U/L 34-122 H ALTv (test code = 1742-6) 72 U/L 5-35 H AST(SGOT) (test code = 4564927542) 51 U/L 13-40 H Lab Interpretation (test cod e = 01924-4) [facility]* Test Item Value Reference Range Interpretation Comme nts LIPASE (test code = 2614674098) 39 U/L 0-220 Lab Interpretation (test cod e = 65827-9) Normal [facility] [id number] 19:21:35* Test Item Value Reference Range Interpretation Comme nts WBC (test code = 6690-2) 15.36 4.30-11.10 H RBC (test code = 789-8) 5.09 3.93-5.25 HGB (test code = 718-7) 13.5 g/dL 11.6-15.0 HCT (test code = 4544-3) 41.5 % 35.7-45.2 MCV (test code = 787-2) 81.5 fL 80.6-95.5 MCH (test code = 785-6) 26.5 pg 25.9-32.8 MCHC (test code = 786-4) 32.5 g/dL 31.6-35.1 RDW-SD (test code = 86612-2) 38.1 fL 39.0-49.9 L RDW-CV (test code = 788-0) 12.8 % 12.0-15.5 PLT (test code = 777-3) 235 166-358 MPV (test code = 81779-6) 12.1 fL 9.5-12.9 NRBC/100 WBC (test code = 4791851402) 0.0 0.0-10.0 NRBC x10^3 (test code = 2827572577) See_Comment [Automated message] The system which generated this result transmitted reference range: 10*3/?L. The reference range was not used to interpret this result as normal/abnormal. GRAN MAT (NEUT) % (test code = 770-8) 92.5 % IMM GRAN % (test code = 8924103513) 0.40 % LYMPH % (test code = 736-9) 2.5 % MONO % (test code = 5905-5) 4.2 % EOS % (test code = 713-8) 0.1 % BASO % (test code = 706-2) 0.3 % GRAN MAT x10^3(ANC) (test code = 8994310904) 14.23 10*3/uL 1.88-7.09 H IMM GRAN x10^3 (test code = 8293703264) 0.06 10*3/uL 0.00-0.06 LYMPH x10^3 (test code = 731-0) 0.38 10*3/uL 1.32-3.29 L MONO x10^3 (test code = 742-7) 0.64 10*3/uL 0.33-0.92 EOS x10^3 (test code = 711-2) 0.03-0.39 L BASO x10^3 (test code = 704-7) 0.04 10*3/uL 0.01-0.07 Lab Interpretation (test code = 07598-0) [id number]* Test Item Value Reference Range Interpretation Comme nts POCT PREG (test code = 1605) Negative On board controls acceptable with C Line (test code = 3574) Yes Lab Interpretation (test cod e = 45554-3) Normal [facility]ahdo2024-28-70 00:29:17* Test Item Value Reference Range Interpretation Comme [facility] LDH (test code = 9883539594) 274 U/L 120-246 H Lab Interpretation (test cod e = 63801-7) [facility]normal [facility] Ybvbt6915-26-34 00:28:40* Test Item Value Reference Range Interpretation Comme [facility] URIC ACID (test code = 6360557985) 7.1 mg/dL 2.9-6.0 H Lab Interpretation (test cod e = 06772-6) Abnormal [facility] Ucfxtqdilt0643-96-92 00:28:40* Test Item Value Reference Range Interpretation Comme nts CREATININE (test code = 2160-0) 0.65 mg/dL 0.50-1.04 eGFR (test code = 03501-0) 130.3 mL/min/1.73m2 CKD-EPI eGFR (20 21). Assuming creatinine has been stable day-to-day for at least three months, the eGFR indicates Category G1 (>= 90 mL/min/1.73 m2) [facility]Asparate Amino [facility]2024-02-06 00:28:40* Test Item Value Reference Range Interpretation Comme nts AST(SGOT) (test code = 2935003659) 27 U/L 13-40 Lab Interpretation (test cod e = 78005-6) Normal [facility] Transferase (SGPT)2024-02-06 00:28:40* Test Item Value Reference Range Interpretation Comme nts ALTv (test code = 1742-6) 31 U/L 5-35 Lab Interpretation (test cod e = 90307-1) Normal [facility] with Xnxopdphekdq5161-65-71 23:33:55* Test Item Value Reference Range Interpretation Comme nts WBC (test code = 6690-2) 8.80 4.30-11.10 RBC (test code = 789-8) 4.60 3.93-5.25 HGB (test code = 718-7) 12.3 g/dL 11.6-15.0 HCT (test code = 4544-3) 39.6 % 35.7-45.2 MCV (test code = 787-2) 86.1 fL 80.6-95.5 MCH (test code = 785-6) 26.7 pg 25.9-32.8 MCHC (test code = 786-4) 31.1 g/dL 31.6-35.1 L RDW-SD (test code = 68017-2) 49.1 fL 39.0-49.9 RDW-CV (test code = 788-0) 15.6 % 12.0-15.5 H PLT (test code = 777-3) 278 166-358 MPV (test code = 34216-7) 10.6 fL 9.5-12.9 NRBC/100 WBC (test code = 6051554638) 0.0 0.0-10.0 NRBC x10^3 (test code = 1213415875) See_Comment [Automated messa ge] The system which generated this result transmitted reference range: 10*3/?L. The reference range was not used to interpret this result as normal/abnormal. GRAN MAT (NEUT) % (test code = 770-8) 69.6 % IMM GRAN % (test code = 1024338902) 1.60 % LYMPH % (test code = 736-9) 18.5 % MONO % (test code = 5905-5) 7.4 % EOS % (test code = 713-8) 2.3 % BASO % (test code = 706-2) 0.6 % GRAN MAT x10^3(ANC) (test code = 2368844656) 6.13 10*3/uL 1.88-7.09 IMM GRAN x10^3 (test code = 5834124398) 0.14 10*3/uL 0.00-0.06 H LYMPH x10^3 (test code = 731-0) 1.63 10*3/uL 1.32-3.29 MONO x10^3 (test code = 742-7) 0.65 10*3/uL 0.33-0.92 EOS x10^3 (test code = 711-2) 0.20 10*3/uL 0.03-0.39 BASO x10^3 (test code = 704-7) 0.05 10*3/uL 0.01-0.07 Lab Interpretation (test code = 00724-7) Abnormal [facility] with [id number] 09:02:28* Test Item Value Reference Range Interpretation Comme nts WBC (test code = 6690-2) 9.88 4.30-11.10 RBC (test code = 789-8) 3.73 3.93-5.25 L HGB (test code = 718-7) 10.1 g/dL 11.6-15.0 L HCT (test code = 4544-3) 31.1 % 35.7-45.2 L MCV (test code = 787-2) 83.4 fL 80.6-95.5 MCH (test code = 785-6) 27.1 pg 25.9-32.8 MCHC (test code = 786-4) 32.5 g/dL 31.6-35.1 RDW-SD (test code = 20078-4) 47.4 fL 39.0-49.9 RDW-CV (test code = 788-0) 15.8 % 12.0-15.5 H PLT (test code = 777-3) 139 166-358 L MPV (test code = 65748-8) 12.2 fL 9.5-12.9 NRBC/100 WBC (test code = 8344843316) 0.0 0.0-10.0 NRBC x10^3 (test code = 2155148311) See_Comment [Automated messa ge] The system which generated this result transmitted reference range: 10*3/?L. The reference range was not used to interpret this result as normal/abnormal. GRAN MAT (NEUT) % (test code = 770-8) 67.2 % IMM GRAN % (test code = 9655661753) 0.90 % LYMPH % (test code = 736-9) 21.1 % MONO % (test code = 5905-5) 9.1 % EOS % (test code = 713-8) 1.3 % BASO % (test code = 706-2) 0.4 % GRAN MAT x10^3(ANC) (test code = 3800760566) 6.64 10*3/uL 1.88-7.09 IMM GRAN x10^3 (test code = 6404908246) 0.09 10*3/uL 0.00-0.06 H LYMPH x10^3 (test code = 731-0) 2.08 10*3/uL 1.32-3.29 MONO x10^3 (test code = 742-7) 0.90 10*3/uL 0.33-0.92 EOS x10^3 (test code = 711-2) 0.13 10*3/uL 0.03-0.39 BASO x10^3 (test code = 704-7) 0.04 10*3/uL 0.01-0.07 Lab Interpretation (test code = 93897-5) [facility]normal [facility]IL[facility] [id number] 15:38:45* Test Item Value Reference Range Interpretation Comme nts Syphilis IgG/IgM (test code = 45940-1) Non-reactive Non-reactive YESI (test code = YESI) Non-reactive - No serologic evidence of T. pallidum infection. Cannot exclude incubating or early syphilis. Submit a second specimen in 2-4 weeks if syphilis is clinically suspected. Equivocal - Further testing to follow. Reactive - Further testing to follow. Lab Interpretation (test code = 25089-5) Normal [facility] IMMUNE [id number] 10:44:38* Test Item Value Reference Range Interpretation Comme nts RHIG CANDIDATE? (test code = 5188) No- see comment Patient is not a candidate for RhIg- Patient is Rh Positive.Performed at [facility] Laboratory Services - [facility] Blood [address] [place] [id number] Free: [phone] No. [id number] [facility] HospitalVenous Cord [id number] 09:03:49* Test Item Value Reference Range Interpretation Comme nts VENOUS BASE EXCESS, CORD (te st code = 7031050765) -0.1 mEq/L VENOUS PH, CORD (test code = 0374807835) 7.38 7.25-7.45 VENOUS PC02, CORD (test code = 6422920956) 44 27-49 VENOUS PO2, CORD (test code = 3996208232) 27 17-41 VENOUS BICARBONATE, CORD (te st code = 2671769756) 25 12-29 [facility]axial [id number] 01:39:00 Live Machuca MD ? ? 01/28/2024 ?9:09 PM Central Neuraxial Block Date/Time: 01/28/2024 8:39 PM Performed by: Live Machuca MDAuthorized by: Live Machuca MD ?End Time: 01/28/2024 9:08 PMReason for Block: OB request, Labor analgesia, Surgical anesthesia and Post-op pain managementStaff: ?Anesthesiologist: Live Machuca MD ?Performed by: resident/CRNAPreanesthetic Checklist: patient identified, IVchecked, risks and benefits explained, monitors and equipment checked, timeout performed, pre-op evaluation, site marked and anesthesia consentProcedure: ?Type of Neuraxial: Epidural ?Epidural Description: 1st attempt ? Sterility Prep cap, drape, gloves, gown, hand hygiene and mask ? ?Sedation Level no sedation ?Patient Position: left lateral decubitus ?Prep: Betadine and patient draped ? ?Monitoring: heart rate, continuous pulse ox, heart rate / toco and NIBP ?Location: lumbar (1-5) ?Lumbar: L3-L4 ?Approach: midline ? ?Technique: DORIS air, catheter and DORIS saline ?Guidance with: landmark technique}Epidural/Spinal [place] and/or Catheter: ?Epidural/Spinal Kit: BBraun ?Needle Gauge: 17G ?Needle Length: 3.5 in (8.89 cm) ?Needle Insertion Depth: 7 ? ?Catheter at Skin Depth: 12 ?Numberof Attempts: 1 ?Test Dose: lidocaine 1.5% with epinephrine 1-to-200,000 ? ?Dose: 3 cc ? ?Catheter Securement Method: surgical tape and TegadermAssessment: ?Block Outcome: a full evaluation is pending? ?Procedure Assessment: patient tolerated procedure well with no complicationsNotes: ? Smooth and atraumatic, (+) Local, (+) STFUniversCHRISTUS [facility] CenterHeking's daughters medical centertis B Surface [id number] 23:48:50* Test Item Value Reference Range Interpretation Comme [facility] HBsAg Semi-Quantitative (donna t code = 5195-3) 0.10 Negative [facility] HospitalUric Acid Kkcmm8165-75-85 23:19:06* Test Item Value Reference Range Interpretation Comme [facility] URIC ACID (test code = 0215821894) 4.4 mg/dL 2.9-6.0 Lab Interpretation (test cod e = 72620-4) Normal [facility] Yomhpkaawg5993-15-44 23:19:06* Test Item Value Reference Range Interpretation Comme [facility] CREATININE (test code = 2160-0) 0.55 mg/dL 0.50-1.04 eGFR (test code = 79196-1) 135.6 mL/min/1.73m2 CKD-EPI eGFR (20 21). Assuming creatinine has been stable day-to-day for at least three months, the eGFR indicates Category G1 (>= 90 mL/min/1.73 m2) [facility] HospitalSGOT (Asparate Amino Transfer)2024-01-28 23:19:06* Test Item Value Reference Range Interpretation Comme nts AST(SGOT) (test code = 9918928172) 22 U/L 13-40 Lab Interpretation (test cod e = 12758-3) Normal [facility] HospitalAlanine Amino Transferase (SGPT)2024-01-28 23:19:06* Test Item Value Reference Range Interpretation Comme nts ALTv (test code = 1742-6) 13 U/L 5-35 Lab Interpretation (test cod e = 70264-8) Normal [facility] HospitalLactate [id number] 23:18:25* Test Item Value Reference Range Interpretation Comme nts LDH (test code = 9490466541) 276 U/L 120-246 H Lab Interpretation (test cod e = 03346-8) Abnormal [facility] HospitalCBC with Hejkwsrihudo2385-61-92 23:04:25* Test Item Value Reference Range Interpretation Comme nts WBC (test code = 6690-2) 10.00 4.30-11.10 RBC (test code = 789-8) 4.33 3.93-5.25 HGB (test code = 718-7) 11.8 g/dL 11.6-15.0 HCT (test code = 4544-3) 36.9 % 35.7-45.2 MCV (test code = 787-2) 85.2 fL 80.6-95.5 MCH (test code = 785-6) 27.3 pg 25.9-32.8 MCHC (test code = 786-4) 32.0 g/dL 31.6-35.1 RDW-SD (test code = 22316-5) 48.0 fL 39.0-49.9 RDW-CV (test code = 788-0) 15.4 % 12.0-15.5 PLT (test code = 777-3) 162 166-358 L MPV (test code = 42824-9) 12.9 fL 9.5-12.9 NRBC/100 WBC (test code = 8210297223) 0.0 0.0-10.0 NRBC x10^3 (test code = 7272620935) See_Comment [Automated messa ge] The system which generated this result transmitted reference range: 10*3/?L. The reference range was not used to interpret this result as normal/abnormal. GRAN MAT (NEUT) % (test code = 770-8) 73.7 % IMM GRAN % (test code = 5670183646) 1.10 % LYMPH % (test code = 736-9) 16.2 % MONO % (test code = 5905-5) 8.1 % EOS % (test code = 713-8) 0.6 % BASO % (test code = 706-2) 0.3 % GRAN MAT x10^3(ANC) (test code = 4704072249) 7.37 10*3/uL 1.88-7.09 H IMM GRAN x10^3 (test code = 6830175230) 0.11 10*3/uL 0.00-0.06 H LYMPH x10^3 (test code = 731-0) 1.62 10*3/uL 1.32-3.29 MONO x10^3 (test code = 742-7) 0.81 10*3/uL 0.33-0.92 EOS x10^3 (test code = 711-2) 0.06 10*3/uL 0.03-0.39 BASO x10^3 (test code = 704-7) 0.03 10*3/uL 0.01-0.07 Lab Interpretation (test code = 77586-5) Abnormal [facility] HospitalType and Screen - ONCE [id number] 22:44:00 * Test Item Value Reference Range Interpretation Comme nts ABO & RH (test code = 20) O POSITIVE IAT (test code = 1185) Negative [facility] HospitalPOCT URINALYSIS W SPECIFIC [id number] 15:47:00* Test Item Value Reference Range Interpretation Comme nts POCT U SP GRAV (test code = 3255) . 1.005-1.025 POCT PH U (test code = 3254) 6 mg/dl 5-8 POCT U LEUK EST (test [...] None Negative - Neg ative POCT U UROBILI (test code = 3260) . 0.2-1 POCT U BILI (test code = 3261) . Negative - Negat earl POCT U BLD (test code = 3257) Trace Negative - Negati ve POCT U COLOR (test code = 3266) . POCT U APPEAR (test code = 3267) [facility] URINALYSIS W SPECIFIC [id number] 17:29:00* Test Item Value Reference Range Interpretation Comme nts POCT U SP GRAV (test code = 3255) . 1.005-1.025 POCT PH U (test code = 3254) 7 mg/dl 5-8 POCT U LEUK EST (test code = 3263) trace Negative - Negative POCT U NIT (test code = 3262) negative Negative - Negati ve POCT U PROT (test code = 3259) trace Negative - Negat earl POCT U GLU (test code = 3256) negative Negative - Negati ve POCT U KETONE (test code = 3258) negative Negative - Neg ative POCT U UROBILI (test code = 3260) negative 0.2-1 POCT U BILI (test code = 3261) negative Negative - Negat earl POCT U BLD (test code = 3257) negative Negative - Negati ve POCT U COLOR (test code = 3266) POCT U APPEAR (test code = 3267) [facility] URINALYSIS W SPECIFIC [id number] 18:04:00* Test Item Value Reference Range Interpretation Comme nts POCT U SP GRAV (test code = 3255) . 1.005-1.025 POCT PH U (test code = 3254) 8 mg/dl 5-8 POCT U LEUK EST (test code = 3263) 1+ Negative - Negative POCT U NIT (test code = 3262) neg Negative - Negati ve POCT U PROT (test code = 3259) trace Negative - Negat earl POCT U GLU (test code = 3256) normal Negative - Negati ve POCT U KETONE (test code = 3258) neg Negative - Neg ative POCT U UROBILI (test code = 3260) . 0.2-1 POCT U BILI (test code = 3261) . Negative - Negat earl POCT U BLD (test code = 3257) neg Negative - Negati ve POCT U COLOR (test code = 3266) . POCT U APPEAR (test code = 3267) . [facility] URINALYSIS W SPECIFIC [id number] 14:53:00* Test Item Value Reference Range Interpretation Comme nts POCT U SP GRAV (test code = 3255) . 1.005-1.025 POCT PH U (test code = 3254) 7 mg/dl 5-8 POCT U LEUK EST (test code = 3263) Neg Negative - Negative POCT U NIT (test code = 3262) Neg Negative - Negati ve POCT U PROT (test code = 3259) Trace Negative - Negat earl POCT U GLU (test code = 3256) Nml Negative - Negati ve POCT U KETONE (test code = 3258) Neg Negative - Neg ative POCT U UROBILI (test code = 3260) . 0.2-1 POCT U BILI (test code = 3261) . Negative - Negat earl POCT U BLD (test code = 3257) Trace Negative - Negati ve POCT U COLOR (test code = 3266) . POCT U APPEAR (test code = 3267) .. [facility] URINALYSIS W SPECIFIC [id number] 13:10:00* Test Item Value Reference Range Interpretation Comme nts POCT U SP GRAV (test code = 3255) . 1.005-1.025 POCT PH U (test code = 3254) 6 mg/dl 5-8 POCT U LEUK EST (test [...] None Negative - Neg ative POCT U UROBILI (test code = 3260) . 0.2-1 POCT U BILI (test code = 3261) . Negative - Negat earl POCT U BLD (test code = 3257) Trace Negative - Negati ve POCT U COLOR (test code = 3266) . POCT U APPEAR (test code = 3267) .. [facility] URINALYSIS W SPECIFIC [id number] 15:36:00* Test Item Value Reference Range Interpretation Comme nts POCT U SP GRAV (test code = 3255) . 1.005-1.025 POCT PH U (test code = 3254) 9 mg/dl 5-8 A POCT U LEUK EST (test code = 3263) Neg Negative - Negative POCT U NIT (test code = 3262) Neg Negative - Negati ve POCT U PROT (test code = 3259) Trace Negative - Negat earl POCT U GLU (test code = 3256) Nml Negative - Negati ve POCT U KETONE (test code = 3258) None Negative - Neg ative POCT U UROBILI (test code = 3260) . 0.2-1 POCT U BILI (test code = 3261) . Negative - Negat earl POCT U BLD (test code = 3257) Trace Negative - Negati ve POCT U COLOR (test code = 3266) POCT U APPEAR (test code = 3267) Lab Interpretation (test cod e = 41332-9) Abnormal [facility] URINALYSIS W SPECIFIC [id number] 15:00:00* Test Item Value Reference Range Interpretation Comme nts POCT U SP GRAV (test code = 3255) . 1.005-1.025 POCT PH U (test code = 3254) 6 mg/dl 5-8 POCT U LEUK EST (test code = 3263) trace Negative - Negative POCT U NIT (test code = 3262) neg Negative - Negati ve POCT U PROT (test code = 3259) trace Negative - Negat earl POCT U GLU (test code = 3256) neg Negative - Negati ve POCT U KETONE (test code = 3258) neg Negative - Neg ative POCT U UROBILI (test code = 3260) . 0.2-1 POCT U BILI (test code = 3261) . Negative - Negat earl POCT U BLD (test code = 3257) neg Negative - Negati ve POCT U COLOR (test code = 3266) . POCT U APPEAR (test code = 3267) . [facility] URINALYSIS W SPECIFIC [id number] 16:23:00* Test Item Value Reference Range Interpretation Comme nts POCT U SP GRAV (test code = 3255) . 1.005-1.025 POCT PH U (test code = 3254) 7 mg/dl 5-8 POCT U LEUK EST (test code = 3263) neg Negative - Negative POCT U NIT (test code = 3262) neg Negative - Negati ve POCT U PROT (test code = 3259) trace Negative - Negat earl POCT U GLU (test code = 3256) nml Negative - Negati ve POCT U KETONE (test code = 3258) neg Negative - Neg ative POCT U UROBILI (test code = 3260) . 0.2-1 POCT U BILI (test code = 3261) . Negative - Negat earl POCT U BLD (test code = 3257) neg Negative - Negati ve POCT U COLOR (test code = 3266) . POCT U APPEAR (test code = 3267) . [facility] URINALYSIS W SPECIFIC [id number] 20:13:00* Test Item Value Reference Range Interpretation Comme [...] None Negative - Neg ative POCT U UROBILI (test code = 3260) . 0.2-1 POCT U BILI (test code = 3261) . Negative - Negat earl POCT U BLD (test code = 3257) Trace Negative - Negati ve POCT U COLOR (test code = 3266) POCT U APPEAR (test code = 3267) [facility] URINALYSIS W SPECIFIC [id number] 20:13:00* Test Item Value Reference Range Interpretation Comme [...] None Negative - Neg ative POCT U UROBILI (test code = 3260) . 0.2-1 POCT U BILI (test code = 3261) . Negative - Negat earl POCT U BLD (test code = 3257) Trace Negative - Negati ve POCT U COLOR (test code = 3266) POCT U APPEAR (test code = 3267) [facility] URINALYSIS W SPECIFIC [id number] 18:46:00* Test Item Value Reference Range Interpretation Comme nts POCT U SP GRAV (test code = 3255) . 1.005-1.025 POCT PH U (test code = 3254) 5 mg/dl 5-8 POCT U LEUK EST (test code = 3263) 1+ Negative - Negative POCT U NIT (test code = 3262) Neg Negative - Negati ve POCT U PROT (test code = 3259) Trace Negative - Negat earl POCT U GLU (test code = 3256) Nml Negative - Negati ve POCT U KETONE (test code = 3258) None Negative - Neg ative POCT U UROBILI (test code = 3260) .. 0.2-1 POCT U BILI (test code = 3261) . Negative - Negat earl POCT U BLD (test code = 3257) Trace Negative - Negati ve POCT U COLOR (test code = 3266) POCT U APPEAR (test code = 3267) [facility] URINALYSIS W SPECIFIC [id number] 18:46:00* Test Item Value Reference Range Interpretation Comme [...] = 3256) . Negative - Negati ve POCT U KETONE (test code = 3258) . Negative - Neg ative POCT U UROBILI (test code = 3260) . 0.2-1 POCT U BILI (test code = 3261) . Negative - Negat earl POCT U BLD (test code = 3257) .. Negative - Negati ve POCT U COLOR (test code = 3266) POCT U APPEAR (test code = 3267) [facility] URINALYSIS W SPECIFIC [id number] 18:46:00* Test Item Value Reference Range Interpretation Comme nts POCT U SP GRAV (test code = 3255) . 1.005-1.025 POCT PH U (test code = 3254) 5 mg/dl 5-8 POCT U LEUK EST (test code = 3263) 1+ Negative - Negative POCT U NIT (test code = 3262) Neg Negative - Negati ve POCT U PROT (test code = 3259) Trace Negative - Negat earl POCT U GLU (test code = 3256) Nml Negative - Negati ve POCT U KETONE (test code = 3258) None Negative - Neg ative POCT U UROBILI (test code = 3260) .. 0.2-1 POCT U BILI (test code = 3261) . Negative - Negat earl POCT U BLD (test code = 3257) Trace Negative - Negati ve POCT U COLOR (test code = 3266) POCT U APPEAR (test code = 3267) [facility] URINALYSIS W SPECIFIC [id number] 18:46:00* Test Item Value Reference Range Interpretation Comme [...] = 3256) . Negative - Negati ve POCT U KETONE (test code = 3258) . Negative - Neg ative POCT U UROBILI (test code = 3260) . 0.2-1 POCT U BILI (test code = 3261) . Negative - Negat earl POCT U BLD (test code = 3257) .. Negative - Negati ve POCT U COLOR (test code = 3266) POCT U APPEAR (test code = 3267) [facility] URINALYSIS W SPECIFIC [id number] 18:46:00* Test Item Value Reference Range Interpretation Comme nts POCT U SP GRAV (test code = 3255) . 1.005-1.025 POCT PH U (test code = 3254) 5 mg/dl 5-8 POCT U LEUK EST (test code = 3263) 1+ Negative - Negative POCT U NIT (test code = 3262) Neg Negative - Negati ve POCT U PROT (test code = 3259) Trace Negative - Negat earl POCT U GLU (test code = 3256) Nml Negative - Negati ve POCT U KETONE (test code = 3258) None Negative - Neg ative POCT U UROBILI (test code = 3260) .. 0.2-1 POCT U BILI (test code = 3261) . Negative - Negat earl POCT U BLD (test code = 3257) Trace Negative - Negati ve POCT U COLOR (test code = 3266) POCT U APPEAR (test code = 3267) [facility] URINALYSIS W SPECIFIC [id number] 18:46:00* Test Item Value Reference Range Interpretation Comme [...] = 3256) . Negative - Negati ve POCT U KETONE (test code = 3258) . Negative - Neg ative POCT U UROBILI (test code = 3260) . 0.2-1 POCT U BILI (test code = 3261) . Negative - Negat earl POCT U BLD (test code = 3257) .. Negative - Negati ve POCT U COLOR (test code = 3266) POCT U APPEAR (test code = 3267) [facility] URINALYSIS W SPECIFIC [id number] 21:01:00* Test Item Value Reference Range Interpretation Comme nts POCT U SP GRAV (test code = 3255) . 1.005-1.025 POCT PH U (test code = 3254) 6 mg/dl 5-8 POCT U LEUK EST (test code = 3263) trace Negative - Negative POCT U NIT (test code = 3262) neg Negative - Negati ve POCT U PROT (test code = 3259) trace Negative - Negat earl POCT U GLU (test code = 3256) neg Negative - Negati ve POCT U KETONE (test code = 3258) neg Negative - Neg ative POCT U UROBILI (test code = 3260) . 0.2-1 POCT U BILI (test code = 3261) . Negative - Negat earl POCT U BLD (test code = 3257) neg Negative - Negati ve POCT U COLOR (test code = 3266) POCT U APPEAR (test code = 3267) [facility] URINALYSIS W SPECIFIC [id number] 22:09:00* Test Item Value Reference Range Interpretation Comme [...] None Negative - Neg ative POCT U UROBILI (test code = 3260) . 0.2-1 POCT U BILI (test code = 3261) . Negative - Negat earl POCT U BLD (test code = 3257) Trace Negative - Negati ve POCT U COLOR (test code = 3266) POCT U APPEAR (test code = 3267) [facility]LLA SCREEN (CECILIO) [id number] 17:22:45 * Test Item Value Reference Range Interpretation Comme [facility] Rubella screen IgG (test code = 4898158367) Positive Negative YESI (test code = YESI) Positive - Indicat es the patient was exposed to Rubella through infection or vaccination.Negative - Indicates the patient could be susceptible to Rubella infection.Equivocal - A second specimen should be sent. [facility]TIBODY [id number] 17:22:45* Test Item Value Reference Range Interpretation Comme [facility] VZV IgG antibody (test code = 81227-6) Positive Negative YESI (test code = YESI) Positive - Indicat es the patient was exposed to VZV through infection or vaccination.Negative - Indicates the patient could be susceptible to VZV infection.Equivocal - A second specimen should be sent for testing. [facility] SYPHILIS [id number] 15:35:31* Test Item Value Reference Range Interpretation Comme [facility] Syphilis IgG/IgM (test code = 40702-9) Non-reactive Non-reactive YESI (test code = YESI) Non-reactive - No serologic evidence of T. pallidum infection. Cannot exclude incubating or early syphilis. Submit a second specimen in 2-4 weeks if syphilis is clinically suspected. Equivocal - Further testing to follow. Reactive - Further testing to follow. Lab Interpretation (test code = 11400-0) Normal [facility] 1/2 AG-AB WITH [id number] 12:45:22* Test Item Value Reference Range Interpretation Comme nts HIV Semi-quantitative (test code = 23253-3) 0.08 Negative YESI (test code = YESI) Non-reactive for HIV-1 antigen and HIV-1/HIV-2 antibodies. ?No laboratory evidence of HIV infection. ?Repeat in 2-4 weeks if acute HIV infection is suspected. [facility] HospitalHCV [id number] 06:19:08* Test Item Value Reference Range Interpretation Comme nts HCV Ab (test code = 16425-1) Negative HCV Semi-Quantitative (test code = 30427-6) 0.02 [facility] HospitalHEPATITIS B SURFACE [id number] 06:01:52 * Test Item Value Reference Range Interpretation Comme nts HBsAg Semi-Quantitative (donna t code = 5195-3) 0.09 Negative [facility] HospitalPRENATAL WORKUP, BLOOD [id number] 05:54:00 * Test Item Value Reference Range Interpretation Comme nts ABO & RH (test code = 20) O POSITIVE IAT (test code = 1185) Negative [facility] HospitalCBC WITH [id number] 05:17:07* Test Item Value Reference Range Interpretation Comme nts WBC (test code = 6690-2) 6.48 See_Comment [Automated Wiki-PRa ge] The system which generated this result transmitted reference range: 4.50 - 13.50 10*3/?L. The reference range was not used to interpret this result as normal/abnormal. RBC (test code = 789-8) 4.65 See_Comment [Automated Wiki-PRa Wonolo] The system which generated this result transmitted [...] g/dL 32.0-36.0 L RDW-SD (test code = 37642-6) 42.9 fL 38.5-49.0 RDW-CV (test code = 788-0) 14.3 % 11.5-14.0 H PLT (test code = 777-3) 254 See_Comment [Automated messa ge] The system which generated this result transmitted reference range: 135 - 361 10*3/?L. The reference range was not used to interpret this result as normal/abnormal. MPV (test code = 93663-5) 12.1 fL 9.4-13.3 NRBC/100 WBC (test code = 5458763352) 0.0 See_Comment [Automated me ssage] The system which generated this result transmitted reference range: 0.0 - 10.0 /100 WBCs. The reference range was not used to interpret this result as normal/abnormal. NRBC x10^3 (test code = 0761440217) See_Comment [Automated messa ge] The system which generated this result transmitted reference range: 10*3/?L. The reference range was not used to interpret this result as normal/abnormal. GRAN MAT (NEUT) % (test code = 770-8) 65.4 % IMM GRAN % (test code = 3912136276) 0.30 % LYMPH % (test code = 736-9) 22.8 % MONO % (test code = 5905-5) 9.0 % EOS % (test code = 713-8) 1.7 % BASO % (test code = 706-2) 0.8 % GRAN MAT x10^3(ANC) (test code = 3553434199) 4.24 10*3/uL 1.50-10.30 IMM GRAN x10^3 (test code = 2047646429) 0.00-0.06 LYMPH x10^3 (test code = 731-0) 1.48 10*3/uL 0.70-7.40 MONO x10^3 (test code = 742-7) 0.58 10*3/uL 0.00-0.50 H EOS x10^3 (test code = 711-2) 0.11 10*3/uL 0.00-0.40 BASO x10^3 (test code = 704-7) 0.05 10*3/uL 0.00-0.10 Lab Interpretation (test code = 47752-6) [facility] [id number] 05:12:46* Test Item Value Reference Range Interpretation Comme nts GLUC 1 HR (test code = 7699100535) 101 mg/dL 120-170 L Lab Interpretation (test cod e = 49649-3) [facility] (54893)2023-07-02 05:11:25* Test Item Value Reference Range Interpretation Comme nts NA (test code = 4227338660) 137 mmol/L 135-145 K (test code = 7716711455) 4.4 mmol/L 3.5-5.0 CL (test code = 2287366411) 104 mmol/L 98-108 CO2 TOTAL (test code = 2048491208) 23 mmol/L 23-31 AGAP (test code = 2881721835) 10 2-16 BUN (test code = 3401353183) 9 mg/dL 7-23 GLUCOSE (test code = 7973291672) 104 mg/dL 70-110 CREATININE (test code = 9400835936) 0.60 mg/dL 0.50-1.04 TOTAL BILI (test code = 5478393445) 0.4 mg/dL 0.1-1.1 CALCIUM (test code = 7034035720) 9.2 mg/dL 8.6-10.6 T PROTEIN (test code = 8287823770) 7.6 g/dL 6.3-8.2 ALBUMIN (test code = 5125733695) 4.3 g/dL 3.5-5.0 ALK PHOS (test code = 5305509454) 97 U/L 34-122 ALTv (test code = 1742-6) 17 U/L 5-35 AST(SGOT) (test code = 7317241440) 24 U/L 13-40 eGFR (test code = 64841-3) 133.6 mL/min/1.73m2 CKD-EPI eGFR (20 21). Assuming creatinine has been stable day-to-day for at least three months, the eGFR indicates Category G1 (>= 90 mL/min/1.73 m2) [facility] Urinalysis w/o Specific [id number] 19:27:00* Test Item Value Reference Range Interpretation [...] = 3257) Trace Negative - Negati ve [facility] [id number] 19:23:00* Test Item Value Reference Range Interpretation Comme nts POCT PREG (test code = 1605) Positive On board controls acceptable with C Line (test code = 3574) Yes POCT PREG LOT # (test code = 3575) POCT PREG TEST DATE ( test code = 3576) [facility]. METABOLIC PANEL (47590)2021-10-30 01:27:17* Test Item Value Reference Range Interpretation Comme nts NA (test code = 2061153981) 137 mmol/L 135-145 K (test code = 7657364886) 4.5 mmol/L 3.5-5.0 CL (test code = 1050252925) 103 mmol/L 98-108 CO2 TOTAL (test code = 0686627224) 24 mmol/L 23-31 AGAP (test code = 0451647584) 2-16 BUN (test code = 2773810318) 11 mg/dL 7-23 GLUCOSE (test code = 8377472294) 92 mg/dL 70-110 CREATININE (test code = 3225685633) 0.60 mg/dL 0.50-1.04 TOTAL BILI (test code = 7980883051) 0.7 mg/dL 0.1-1.1 CALCIUM (test code = 7001302450) 9.0 mg/dL 8.6-10.6 T PROTEIN (test code = 6964960370) 7.1 g/dL 6.3-8.2 ALBUMIN (test code = 5720228262) 4.2 g/dL 3.5-5.0 ALK PHOS (test code = 7876083210) 125 U/L 34-122 H ALTv (test code = 1742-6) 33 U/L 5-35 AST(SGOT) (test code = 8122429782) 31 U/L 13-40 YESI (test code = [...] imaging tests). Lab Interpretation (test code = 14633-9) Abnormal [facility] WITH [id number] 01:15:55* Test Item Value Reference Range Interpretation [...] g/dL 32.0-36.0 L RDW-SD (test code = 79899-8) 41.7 fL 38.5-49.0 RDW-CV (test code = 788-0) 14.5 % 11.5-14.0 H PLT (test code = 777-3) See_Comment [Automated message] The system which generated this result transmitted reference range: 135 - 361 10*3/?L. The reference range was not used to interpret this result as normal/abnormal. MPV (test code = 42972-0) 10.9 fL 9.4-13.3 NRBC/100 WBC (test code = 6997065882) See_Comment [Automated message] The system which generated this result transmitted reference range: 0.0 - 10.0 /100 WBCs. The reference range was not used to interpret this result as normal/abnormal. NRBC x10^3 (test code = 7521922271) <0.01 See_Comment [Automated message] The system which generated this result transmitted reference range: 10*3/?L. The reference range was not used to interpret this result as normal/abnormal. GRAN MAT (NEUT) % (test code = 770-8) 86.2 % IMM GRAN % (test code = 2385073129) 0.50 % LYMPH % (test code = 736-9) 7.7 % MONO % (test code = 5905-5) 4.9 % EOS % (test code = 713-8) 0.5 % BASO % (test code = 706-2) 0.2 % GRAN MAT x10^3(ANC) (test code = 7999212357) 12.81 10*3/uL 1.50-10.30 H IMM GRAN x10^3 (test code = 3801458731) 0.07 10*3/uL 0.00-0.06 H LYMPH x10^3 (test code = 731-0) 1.14 10*3/uL 0.70-7.40 MONO x10^3 (test code = 742-7) 0.73 10*3/uL 0.00-0.50 H EOS x10^3 (test code = 711-2) 0.08 10*3/uL 0.00-0.40 BASO x10^3 (test code = 704-7) 0.03 10*3/uL 0.00-0.10 Lab Interpretation (test code = 45179-6) [facility]normal [facility] [id number] 23:18:00* Test Item Value Reference Range Interpretation Comme nts POCT PREG (test code = 1605) Negative On board controls acceptable with C Line (test code = 3574) Present POCT PREG LOT # (test code = 3575) [id number] POCT PREG TEST DATE ( test code = 3576) 08-12-2022 Lab Interpretation (test cod e = 06221-7) Normal [facility] & CHLAMYDIA AMPLIFIED [id number] 17:34:00* Test Item Value Reference Range Interpretation Comme nts C. trachomatis Nucleic Acid (test code = 70734-7) Negative Negative N. gonorrhoeae Nucleic Acid (test code = 57578-8) Negative Negative YESI (test code = YESI) [...] gonorrhoeae NAAT. Lab Interpretation (test code = 43122-9) Normal [facility] CHLAMYDIA AMPLIFIED [id number] 17:34:00* Test Item Value Reference Range Interpretation Comme nts C. trachomatis Nucleic Acid (test code = 39499-8) Negative Negative N. gonorrhoeae Nucleic Acid (test code = 36866-5) Negative Negative YESI (test code = YESI) [...] gonorrhoeae NAAT. Lab Interpretation (test code = 01113-1) Normal [facility] [id number] 16:12:00* Test Item Value Reference Range Interpretation Comme nts POCT PREG (test code = 1605) Negative On board controls acceptable with C Line (test code = 3574) Yes POCT PREG LOT # (test code = 3575) POCT PREG TEST DATE ( test code = 3576) [facility] [id number] 16:12:00* Test Item Value Reference Range Interpretation Comme nts POCT PREG (test code = 1605) Negative On board controls acceptable with C Line (test code = 3574) Yes POCT PREG LOT # (test code = 3575) POCT PREG TEST DATE ( test code = 3576) [facility] with [id number] 09:24:00* Test Item Value Reference Range Interpretation [...] g/dL 32-36 L RDW-SD (test code = 04975-8) 49.6 fL 38.5-49 H RDW-CV (test code = 788-0) 17.9 % 11.5-14 H PLT (test code = 777-3) See_Comment [Automated message] The system which generated this result transmitted reference range: 135 - 361 10*3/?L. The reference range was not used to interpret this result as normal/abnormal. MPV (test code = 67660-4) 11.1 fL 9.4-13.3 NRBC/100 WBC (test code = 0312003400) See_Comment [Automated message] The system which generated this result transmitted reference range: 0.0 - 10.0 /100 WBCs. The reference range was not used to interpret this result as normal/abnormal. NRBC x10^3 (test code = 0689290144) <0.01 See_Comment [Automated message] The system which generated this result transmitted reference range: 10*3/?L. The reference range was not used to interpret this result as normal/abnormal. GRAN MAT (NEUT) % (test code = 770-8) 77.5 % IMM GRAN % (test code = 5336646200) 1.00 % LYMPH % (test code = 736-9) 12.4 % MONO % (test code = 5905-5) 8.1 % EOS % (test code = 713-8) 0.7 % BASO % (test code = 706-2) 0.3 % GRAN MAT x10^3(ANC) (test code = 6373621541) 12.27 10*3/uL 1.5-10.3 H IMM GRAN x10^3 (test code = 4159491735) 0.16 10*3/uL 0-0.06 H LYMPH x10^3 (test code = 731-0) 1.97 10*3/uL 0.7-7.4 MONO x10^3 (test code = 742-7) 1.28 10*3/uL 0-0.5 H EOS x10^3 (test code = 711-2) 0.11 10*3/uL 0-0.4 BASO x10^3 (test code = 704-7) 0.04 10*3/uL 0-0.1 Lab Interpretation (test code = 97043-9) Abnormal [facility] IMMUNE [id number] 23:32:21* Test Item Value Reference Range Interpretation Comme nts RHIG CANDIDATE? (test code = 5055) No- see comment Patient is not a candidate for RhIg- Patient is Rh Positive.Performed at [facility] Laboratory Services - [facility] Blood [address] [address] Free: [phone] No. [id number] [facility] HospitalVENOUS CORD [id number] 21:59:00* Test Item Value Reference Range Interpretation Comme nts VENOUS BASE EXCESS, CORD (test code = 1602112636) mEq/L VENOUS PH, CORD (test code = 7522235489) 7.25-7.45 VENOUS PC02, CORD (test code = 3366846739) See_Comment [Automated messa ge] The system which generated this result transmitted reference range: 27 - 49 mmHg. The reference range was not used to interpret this result as normal/abnormal. VENOUS PO2, CORD (test code = 2523353990) See_Comment [Automated me ssage] The system which generated this result transmitted reference range: 17 - 41 mmHg. The reference range was not used to interpret this result as normal/abnormal. VENOUS BICARBONATE, CORD (test code = 6663670970) See_Comment [Automated messa ge] The system which generated this result transmitted reference range: 12 - 29 mEq/L. The reference range was not used to interpret this result as normal/abnormal. [facility] HospitalARTERIAL CORD [id number] 21:56:00* Test Item Value Reference Range Interpretation Comme nts BASE EXCESS, CORD (test code = 4252194749) mEq/L AC PH, CORD (BEAKER) (test code = 2425172383) 7.18-7.38 PC02, CORD (test code = 5923300518) See_Comment [Automated messa ge] The system which generated this result transmitted reference range: 32 - 66 mmHg. The reference range was not used to interpret this result as normal/abnormal. PO2, CORD (test code = 8135575461) See_Comment [Automated messa ge] The system which generated this result transmitted reference range: 10 - 30 mmHg. The reference range was not used to interpret this result as normal/abnormal. BICARBONATE, CORD (test code = 9003146559) See_Comment [Automated messa ge] The system which generated this result transmitted reference range: 17 - 27 mEq/L. The reference range was not used to interpret this result as normal/abnormal. [facility] HospitalGALV ONLY - SYPHILIS [id number] 15:28:00* Test Item Value Reference Range Interpretation Comme nts Syphilis IgG/IgM (test code = 91322-0) Non-reactive Non-reactive YESI (test code = YESI) Non-reactive - No serologic evidence of T. pallidum infection. Cannot exclude incubating or early syphilis. Submit a second specimen in 2-4 weeks if syphilis is clinically suspected. Equivocal - Further testing to follow. Reactive - Further testing to follow. Lab Interpretation (test code = 81510-2) Normal [facility] HospitalHepatitis B Surface [id number] 22:58:00 * Test Item Value Reference Range Interpretation Comme nts HBsAg Semi-Quantitative (donna t code = 5195-3) Negative Negative [facility] HospitalType and Screen - ONCE [id number] 21:49:57 * Test Item Value Reference Range Interpretation Comme [facility] ABO & RH (test code = 20) O POSITIVE Performed at [facility] Laboratory Services [facility] Blood [address] Free: [phone] No. [id number] IAT (test code = 1185) Negative Performed at [facility] Laboratory Services [facility] Blood [address] Free: [phone] No. [id number] [facility] HospitalLactate [id number] 21:41:00* Test Item Value Reference Range Interpretation Comme [facility] LDH (test code = 1459436957) 615 U/L 300-600 H Lab Interpretation (test cod e = 39763-5) Abnormal [facility] HospitalUric Acid [id number] 21:41:00* Test Item Value Reference Range Interpretation Comme [facility] URIC ACID (test code = 4320913826) 3.4 mg/dL 2.9-6 Lab Interpretation (test cod e = 77258-7) Normal [facility] [id number] 21:41:00* Test Item Value Reference Range Interpretation Comme [facility] CREATININE (test code = 1100087828) 0.42 mg/dL 0.5-1.04 L YESI (test code [...] imaging tests). Lab Interpretation (test code = 20857-4) Abnormal [facility] HospitalSGOT (Asparate Amino Transfer)2020-02-28 21:41:00* Test Item Value Reference Range Interpretation Comme [facility] AST(SGOT) (test code = 6468252763) 22 U/L 13-40 Lab Interpretation (test cod e = 67050-9) Normal [facility] HospitalAlanine Amino Transferase (SGPT)2020-02-28 21:41:00* Test Item Value Reference Range Interpretation Comme nts ALTv (test code = 1742-6) 10 U/L 5-35 Lab Interpretation (test cod e = 29258-9) Normal [facility] HospitalUrinalysis2020-09-15 21:15:00* Test Item Value Reference Range Interpretation Comme nts APPEARANCE (test code = 1250505270) Hazy Clear A COLOR (test code = 3565505536) Yellow Yellow PH (test code = 3701116983) 4.8-8.0 SP GRAVITY (test code = 7610484164) 1.003-1.030 GLU U QUAL (test code = 9880698712) Normal Normal BLOOD (test code = 9035663836) 1+ Negative A KETONES (test code = 1624571960) Negative Negative PROTEIN (test code = 2887-8) 100 mg/dL Negative A UROBILIN (test code = 7447844175) 2.0 mg/dL Normal A BILIRUBIN (test code = 8415220015) Negative Negative NITRITE (test code = 3539867000) Negative Negative LEUK NARAYAN (test code = 7295219262) 75/uL Negative A RBC/HPF (test code = 2275749936) See_Comment [Automated messa ge] The system which generated this result transmitted reference range: 0 - 3 HPF. The reference range was not used to interpret this result as normal/abnormal. WBC/HPF (test code = 2298602422) See_Comment [Automated Wiki-PRa ge] The system which generated this result transmitted reference range: 0 - 5 HPF. The reference range was not used to interpret this result as normal/abnormal. BACTERIA (test code = 9774678468) Few Negative A SQ EPITH (test code = 4398725528) See_Comment [Automated Wiki-PRa Wonolo] The system which generated this result transmitted reference range: <=2 HPF. The reference range was not used to interpret this result as normal/abnormal. Lab Interpretation (test code = 52904-0) Abnormal [facility] HospitalProtein CREAT Ratio Urine [id number] 21:13:00* Test Item Value Reference Range Interpretation Comme nts T. PROT U (test code = 2888-6) 93 mg/dL CREAT U (test code = 6340099819) 71.5 mg/dL Protein/Creatinine Ratio Uri ne (test code = 5809927612) 0.0-2.0 [facility] HospitalCBC with [id number] 21:08:00* Test Item Value Reference Range Interpretation [...] g/dL 32-36 L RDW-SD (test code = 16038-1) 48.2 fL 38.5-49 RDW-CV (test code = 788-0) 17.6 % 11.5-14 H PLT (test code = 777-3) See_Comment [Automated message] The system which generated this result transmitted reference range: 135 - 361 10*3/?L. The reference range was not used to interpret this result as normal/abnormal. MPV (test code = 70119-6) 11.3 fL 9.4-13.3 NRBC/100 WBC (test code = 2756972635) See_Comment [Automated message] The system which generated this result transmitted reference range: 0.0 - 10.0 /100 WBCs. The reference range was not used to interpret this result as normal/abnormal. NRBC x10^3 (test code = 1419768434) <0.01 See_Comment [Automated message] The system which generated this result transmitted reference range: 10*3/?L. The reference range was not used to interpret this result as normal/abnormal. GRAN MAT (NEUT) % (test code = 770-8) 80.3 % IMM GRAN % (test code = 1957224662) 1.20 % LYMPH % (test code = 736-9) 10.6 % MONO % (test code = 5905-5) 7.2 % EOS % (test code = 713-8) 0.5 % BASO % (test code = 706-2) 0.2 % GRAN MAT x10^3(ANC) (test code = 4583465525) 10.87 10*3/uL 1.5-10.3 H IMM GRAN x10^3 (test code = 8755979983) 0.16 10*3/uL 0-0.06 H LYMPH x10^3 (test code = 731-0) 1.44 10*3/uL 0.7-7.4 MONO x10^3 (test code = 742-7) 0.97 10*3/uL 0-0.5 H EOS x10^3 (test code = 711-2) 0.07 10*3/uL 0-0.4 BASO x10^3 (test code = 704-7) 0.03 10*3/uL 0-0.1 Lab Interpretation (test code = 99796-1) Abnormal [facility] HospitalCOVID-[facility] (ID NOW RAPID TESTING)2020-02-28 20:07:00* Test Item Value Reference Range Interpretation Comme nts SARS-CoV-2 Rapid ID NOW (test code = 65327-9) Not Detected Not Detected YESI (test code = YSEI) ID NOW COVID-19 As say is an isothermal nucleic acid amplification test intended for the qualitative detection of nucleic acid from SARS-CoV-2 viral RNA in nasopharyngeal (EMERGENCY DEPARTMENT RN) specimens. It is used under Emergency Use [...] clinically indicated. Lab Interpretation (test code = 04937-0) Normal [facility] URINALYSIS W SPECIFIC [id number] 15:47:00* Test Item Value Reference Range Interpretation [...] POCT U APPEAR (test code = 3267) [facility] URINALYSIS W SPECIFIC [id number] 15:32:00* Test Item Value Reference Range Interpretation [...] POCT U APPEAR (test code = 3267) [facility] URINALYSIS W SPECIFIC [id number] 18:15:00* Test Item Value Reference Range Interpretation [...] POCT U APPEAR (test code = 3267) [facility] URINALYSIS W SPECIFIC [id number] 18:23:00* Test Item Value Reference Range Interpretation [...] POCT U APPEAR (test code = 3267) [facility] URINALYSIS W SPECIFIC [id number] 18:23:00* Test Item Value Reference Range Interpretation [...] POCT U APPEAR (test code = 3267) [facility] URINALYSIS W SPECIFIC [id number] 18:47:00* Test Item Value Reference Range Interpretation [...] 3267) Lab Interpretation (test cod e = 97929-8) Normal [facility]GAL ONLY - SYPHILIS [id number] 13:58:00* Test Item Value Reference Range Interpretation Comme nts Syphilis IgG/IgM (test code = 58991-8) Non-reactive Non-reactive YESI (test code = YESI) Non-reactive - No serologic evidence of T. pallidum infection. Cannot exclude incubating or early syphilis. Submit a second specimen in 2-4 weeks if syphilis is clinically suspected. Equivocal - Further testing to follow. Reactive - Further testing to follow. Lab Interpretation (test code = 61285-4) Normal [facility] HospitalHI 1/2 AG-AB WITH [id number] 04:25:00* Test Item Value Reference Range Interpretation Comme nts HIV Semi-quantitative (test code = 01600-7) Negative Negative YESI (test code = YESI) Non-reactive for HIV-1 antigen and HIV-1/HIV-2 antibodies. ?No laboratory evidence of HIV infection. ?Repeat in 2-4 weeks if acute HIV infection is suspected. [facility] HospitalPOIL URIN[facility] W SPECIFIC [id number] 18:41:00* Test Item Value Reference Range Interpretation [...] POCT U APPEAR (test code = 3267) [facility] URINALYSIS W SPECIFIC [id number] 18:04:00* Test Item Value Reference Range Interpretation [...] POCT U APPEAR (test code = 3267) [facility] URINALYSIS W SPECIFIC [id number] 18:04:00* Test Item Value Reference Range Interpretation [...] POCT U APPEAR (test code = 3267) [facility] HospitalFETAL NON-STRESS [id number] 22:04:08 Baseline wnl, appropriate for gestational age. ?One variable decel note but overall appropriate.Carlock quiescent Feliparhys Deluna MD ?12/06/2019 ?5:04 PM [facility] HospitalURINALYSIS2020-06-23 20:16:00* Test Item Value Reference Range Interpretation Comme nts APPEARANCE (test code = 6050021271) Hazy Clear A COLOR (test code = 6774090248) Yellow Yellow PH (test code = 9971693431) 4.8-8.0 SP GRAVITY (test code = 8325008272) 1.003-1.030 GLU U QUAL (test code = 3213615185) Normal Normal BLOOD (test code = 4417667504) 1+ Negative A KETONES (test code = 4620865771) Negative Negative PROTEIN (test code = 2887-8) Negative Negative UROBILIN (test code = 3986746068) 4.0 mg/dL Normal A BILIRUBIN (test code = 6600133210) Negative Negative NITRITE (test code = 9785820918) Negative Negative LEUK NARAYAN (test code = 4743484338) 250/uL Negative A RBC/HPF (test code = 7094649164) See_Comment H [Automated Wiki-PRa ge] The system which generated this result transmitted reference range: 0 - 3 HPF. The reference range was not used to interpret this result as normal/abnormal. WBC/HPF (test code = 7991505732) See_Comment H [Automated Wiki-PRa ge] The system which generated this result transmitted reference range: 0 - 5 HPF. The reference range was not used to interpret this result as normal/abnormal. BACTERIA (test code = 0677224630) Many Negative A MUCOUS (test code = 6766757711) Marked Negative LPF A SQ EPITH (test code = 1074198339) HPF CA OXALATE (test code = 4788354602) See_Comment H [Automated messa ge] The system which generated this result transmitted reference range: <=1 HPF. The reference range was not used to interpret this result as normal/abnormal. Lab Interpretation (test code = 26922-0) Abnormal [facility] URINALYSIS W SPECIFIC [id number] 18:13:00* Test Item Value Reference Range Interpretation [...] POCT U APPEAR (test code = 3267) [facility] URINALYSIS W SPECIFIC [id number] 18:13:00* Test Item Value Reference Range Interpretation [...] POCT U APPEAR (test code = 3267) [facility] URINALYSIS W SPECIFIC [id number] 18:13:00* Test Item Value Reference Range Interpretation [...] POCT U APPEAR (test code = 3267) [facility] URINALYSIS W SPECIFIC [id number] 18:11:00* Test Item Value Reference Range Interpretation [...] POCT U APPEAR (test code = 3267) [facility] URINALYSIS W SPECIFIC [id number] 18:11:00* Test Item Value Reference Range Interpretation [...] POCT U APPEAR (test code = 3267) [facility] URINALYSIS W SPECIFIC [id number] 18:11:00* Test Item Value Reference Range Interpretation [...] POCT U APPEAR (test code = 3267) [facility] URINALYSIS W SPECIFIC [id number] 18:11:00* Test Item Value Reference Range Interpretation [...] POCT U APPEAR (test code = 3267) [facility] URINALYSIS W SPECIFIC [id number] 18:02:00* Test Item Value Reference Range Interpretation [...] POCT U APPEAR (test code = 3267) [facility] URINALYSIS W/O SPECIFIC [id number] 16:07:00* Test Item Value Reference Range Interpretation [...] = 3257) Trace Negative - Negati ve [facility] URINALYSIS W/O SPECIFIC [id number] 16:07:00* Test Item Value Reference Range Interpretation [...] = 3257) Trace Negative - Negati ve [facility] [id number] 16:06:00* Test Item Value Reference Range Interpretation Comme nts POCT PREG (test code = 1605) Positive On board controls acceptable with C Line (test code = 3574) Yes POCT PREG LOT # (test code = 3575) POCT PREG TEST DATE ( test code = 3576) [facility] URINALYSIS GLUCOSE & [id number] 16:06:00* Test Item Value Reference Range Interpretation Comme nts POCT U PROT (test code = 3259) . Negative - Negat earl POCT U GLU (test code = 3256) . Negative - Negati ve [facility] [id number] 16:06:00* Test Item Value Reference Range Interpretation Comme nts POCT PREG (test code = 1605) Positive On board controls acceptable with C Line (test code = 3574) Yes POCT PREG LOT # (test code = 3575) POCT PREG TEST DATE ( test code = 3576) [facility] URINALYSIS GLUCOSE & [id number] 16:06:00* Test Item Value Reference Range Interpretation Comme nts POCT U PROT (test code = 3259) . Negative - Negat earl POCT U GLU (test code = 3256) . Negative - Negati ve [facility] History and Physical Notes Date/Time Note Provider Source 2024-01-28 15:42:47 TRIAGE HISTORY & PHYSICAL IDENTIFYING DATA Azam Salguero is 18 year old, /White, 37w2d, female with GERA 02/16/2024, by Last Menstrual Period. : 2004 Primary Care Physician: Leela Marcos CHIEF COMPLAINT Elevated BP's HISTORY OF PRESENT ILLNESS Azam Salguero is a 18 year old female at 37w2d presenting with elevated BP's x2 (140/93, 141/100) in clinic today. She complains of headaches that have been on and off for 1 week, relieved when she takes Tylenol. Reports headache currently in Triage, has not taken any medication for it today. She reports occasional mild RUQ pain for 1 week as well. Denies visual changes. Reports good FM. PAST OBSTETRIC HISTORY OB History Para Term AB Living 2 1 1 1 SAB IAB Ectopic Multiple Live Births 1 # Outcome Date GA Lbr Avelino/2nd Weight Sex Delivery Anes PTL Lv 2 Current 1 Term 02/29/20 37w0d M NORMAL SPONT ELIECER PAST MEDICAL HISTORY Problem list: Patient Active Problem List Diagnosis Date Noted 37 weeks gestation of 01/28/2024 Elevated blood pressure affecting in third trimester, antepartum 01/28/2024 Decreased platelet count 01/25/2024 GBS (group B Streptococcus carrier), +RV culture, currently 01/25/2024 Pain of round ligament during 12/31/2023 Back pain affecting in third trimester 12/31/2023 Anemia of mother in , antepartum 11/20/2023 Alpha thalassemia silent carrier 09/25/2023 History of pre-eclampsia in prior , currently 07/29/2023 Obesity affecting in third trimester 07/03/2023 Intermittent upper abdominal pain 07/03/2023 Chlamydia infection affecting 07/02/2023 Elevated blood pressure reading without diagnosis of hypertension 02/22/2020 Operations: No past surgical history on file. Past Medical History: Diagnosis Date Anemia of mother in , antepartum 12/27/2019 Preeclampsia w/o SF 03/01/2020 CURRENT HEALTH STATUS Medications: Current Facility-Administered Medications Medication Dose Route Frequency Last Rate Last Admin acetaminophen (TYLENOL) tablet 1,000 mg 1,000 mg Oral Q6HPRN D5W-LR IV infusion 1,000 mL 1,000 mL IV Infusion TITRATE lactated ringers IV infusion 500 mL 500 mL IV Infusion PRN - SEE INSTRUCTIONS lactated ringers IV infusion 700 mL 700 mL Intravenous ONCE lidocaine 1% (PF) (XYLOCAINE) injection 0.3 mL 0.3 mL Infiltration PRN - SEE INSTRUCTIONS lidocaine 1% (XYLOCAINE) 10 mg/mL (1 %) injection 30 mL 30 mL Infiltration PRN - SEE INSTRUCTIONS oxytocin (PITOCIN) 30 units in NS 500 mL IV infusion 2-40 simone-units/min IV Infusion TITRATE penicillin g potassium 5 Million Units in NaCl 0.9% (NS) 100 mL MINI-BAG 5 Million Units IV Piggyback ONCE Followed by penicillin GK 3 million units in NS 50 mL IV infusion (CNR) 3 Million Units IV Piggyback Q4H ABX sodium citrate-citric acid (BICITRA) 500-334 mg/5 mL solution 30 mL 30 mL Oral PRE-PROCEDURE ONCE sodium citrate-citric acid (BICITRA) 500-334 mg/5 mL solution 30 mL 30 mL Oral PRE-PROCEDURE ONCE Allergies and drug reactions: Patient has no known allergies. HOME MEDICATIONS Medications Prior to Admission Medication Sig Dispense Refill Last Dose ascorbic acid, vitamin C, 500 mg tablet Take 1 tablet by mouth in the morning and 1 tablet at noon and 1 tablet in the evening. 90 tablet 2 ferrous sulfate 325 mg (65 mg iron) tablet Take 1 tablet by mouth in the morning and 1 tablet in the evening. 60 tablet 3 aspirin 81 mg EC tablet Take 1 tablet by mouth in the morning. 30 tablet 8 proMETHazine 25 mg tablet Take 1 tablet by mouth every 4 (four) hours as needed for Nausea and Vomiting (N/V). 30 tablet 1 vit no.124/iron/folic ( VITAMIN ORAL) Take by mouth. Taking SOCIAL HISTORY Tobacco History: Social History Tobacco Use Smoking Status Never Smokeless Tobacco Never Drug History: Social History Substance and Sexual Activity Drug Use Never Alcohol History: Social History Substance and Sexual Activity Alcohol Use Never Alcohol/week: 0.0 standard drinks of alcohol FAMILY HISTORY Family History Problem Relation Age of Onset No Significant Medical Problems Mother No Significant Medical Problems Father Asthma Sister Other - see comments Maternal Grandmother lymphedema Heart Maternal Grandfather REVIEW OF SYSTEMS General: headache Constitutional: negative Eyes: negative ENT/Mouth: negative Cardiovascular: negative Respiratory: negative Gastrointestinal:negative Genitourinary: negative Musculoskeletal: negative Skin/breast: negative Neurological: negative Psychiatric: negative Endocrine: negative Hemat/Lymph: negative Allergic/Immuno:none VITAL SIGNS BP: (140-142)/(91-100) Temp: [36.7 ?C (98 ?F)-36.7 ?C (98.1 ?F)] Temp source: Axillary (01/27 1553) Pulse: [100-115] Resp: [18-19] SpO2: [99 %] Height: [157.5 cm (5' 2")] Weight: [84.5 kg (186 lb 4 oz)] BMI (calculated): [34.07] PHYSICAL EXAMINATIONS General: patient alert and in no acute distress HEENT: symmetric, negative for masses Lungs: unlabored breathing Cardiology: peripheral pulses intact and regular Abdomen: soft, non-tender, non-distended, no liver, spleen or abnormal masses palpated and Gravid Extremities: no clubbing, cyanosis, or edema Neuro: patient moving all extremities, no facial droop : SVE: REVIEW OF LABORATORY, PATHOLOGY, AND RADIOLOGY DATA Lab results: Type & Screen HIV Hep B Syphilis Chlamydia ABO & RH Date Value Ref Range Status 07/01/2023 O POSITIVE Final No results found for: "HIVMULTIPLEX" No components found for: "HBSHBSAG" Syphilis IgG/IgM Date Value Ref Range Status 12/18/2023 Non-reactive Non-reactive Final C. trachomatis Nucleic Acid Date Value Ref Range Status 01/21/2024 Negative Negative Final IAT Date Value Ref Range Status 07/01/2023 Negative Final Varicella Rubella Glucose Group B Strep CBC VZV IgG antibody Date Value Ref Range Status 07/01/2023 Positive Negative Final Rubella screen IgG Date Value Ref Range Status 07/01/2023 Positive Negative Final GLUC 1 HR Date Value Ref Range Status 11/13/2023 80 (L) 120 - 170 mg/dL Final No results found for: "CGBS" HGB Date Value Ref Range Status 01/21/2024 11.7 11.6 - 15.0 g/dL Final HCT Date Value Ref Range Status 01/21/2024 37.2 35.7 - 45.2 % Final PLT Date Value Ref Range Status 01/21/2024 147 (L) 166 - 358 10*3/?L Final Active Hospital Problems Diagnosis Date Noted 37 weeks gestation of 01/28/2024 Elevated blood pressure affecting in third trimester, antepartum 01/28/2024 GBS (group B Streptococcus carrier), +RV culture, currently 01/25/2024 Alpha thalassemia silent carrier 09/25/2023 Horizon + NIPT Horizon + silent carrier alpha thalassemia History of pre-eclampsia in prior , currently 07/29/2023 Obesity affecting in third trimester 07/03/2023 Resolved Hospital Problems No resolved problems to display. Present on Admission: GBS (group B Streptococcus carrier), +RV culture, currently Alpha thalassemia silent carrier History of pre-eclampsia in prior , currently Obesity affecting in third trimester 37 weeks gestation of Elevated blood pressure affecting in third trimester, antepartum ASSESSMENT AND PLAN Azam Salguero is a 18 year old at 37w2d by d/u(7) who presents with elevated BP's x2 in clinic today. Elevated BP's GHTN vs. PreE - Elevated BP's x2 (140/93, 141/100) in clinic today. - Has a h/o elevated BP (149/85) at 11w1d clinic visit, repeat wnl. - Reports headache and mild RUQ pain, denies visual changes. Tylenol 1g given. - BP's in Triage: 120-140s/80-100s - PreE labs sent. - SVE: 10/07/-3 - H/o PreE with last - Plan: Admit to L&D for induction of labor at 37w in the setting of mild-ranging BP's over 4hr apart, GHTN vs. PreE pending labs. GBS+ - GBS+ on 01/21/24 - Treat with PCN intrapartum Alpha thalassemia silent carrier - Genetics counseling 10/23/23 Antepartum course reviewed - 1 h wnl, sero neg, RI, VZVI, O+/neg, GBS + (treat with PCN intrapartum), Pap not indicated, underage - H/H, plt: 11.7 / 37.2, 147 on 01/21/24 - PP contraception: declines - [facility] Fetus - EFW: 3326g, 72%ile on BSUS - Presentation on admission: cephalic - Posterior placenta - FHT reactive at this time. - Normal anatomy scan Placenta Accreta Screening Prior ? : No Prior Uterine Surgery?: No Placenta low lying/previa in current ? : No Screening outcome: Negative screening. PLAN: Admit to L&D for induction of labor at 37w in the setting of mild-ranging BP's over 4hr apart, GHTN vs. PreE pending labs. Sophy Wynn MSN, HEALTH PROGRAM ANALYST, MATTRESS STRIPPER-C working with Carol Eli APRN, TEQUILA- 01/28/2024 Informed consent discussed with the patient, including: condition, proposed care, treatments and services, alternative forms of treatment, and risks of no treatment. Details discussed around the procedures to be used, and the risks and hazards involved, potential benefits, and side effects of the patient s proposed care, treatment, and services; the likelihood of the patient achieving his or her goals; and any potential problems that might occur during recuperation. Reasonable alternative also discussed with the patient s proposed care, treatment, and services. The discussion encompasses risks, benefits, and side effects related to the alternative and risks related to not receiving the proposed care, treatment, and services. Associated attestation - Vanessa Arteaga MD - 01/28/2024 7:20 PM CDT Present and available for the decision making and admission assessment and plan for delivery. 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 Preanesthetic Checklist: patient identified, IV checked, risks and benefits explained, monitors and equipment checked, timeout performed, pre-op evaluation, site marked and anesthesia consent Procedure: Type of Neuraxial: Epidural Epidural Description: 1st attempt Sterility Prep cap, drape, gloves, gown, hand hygiene and mask Sedation Level no sedation Patient Position: left lateral decubitus Prep: Betadine and patient draped Monitoring: heart rate, continuous pulse ox, heart rate / toco and NIBP Location: lumbar (1-5) Lumbar: L3-L4 Approach: midline Technique: DORIS air, catheter and DORIS saline Guidance with: landmark technique} Epidural/Spinal [place] and/or Catheter: Epidural/Spinal Kit: Tierra Needle Gauge: 17 G Needle Length: 3.5 in (8.89 cm) Needle Insertion Depth: 7 Catheter at Skin Depth: 12 Number of Attempts: 1 Test Dose: lidocaine 1.5% with epinephrine 1-to-200,000 Dose: 3 cc Catheter Securement Method: surgical tape and Tegaderm Assessment: Block Outcome: a full evaluation is pending Procedure Assessment: patient tolerated procedure well with no complications Notes: Smooth and atraumatic, (+) Local, (+) [facility] [place]
--- NOTE | 2024-06-10 19:18 | ER ---
Nurse's Notes [facility] Name: Lay Grimaldo Age: 18 yrs Sex: Female : 2005 Arrival Date: 06/10/2024 Time: 18:44 Bed 14 Private MD: Diagnosis: Local infection of the skin and subcutaneous tissue, unspecified Presentation: 06/10 18:54 Chief complaint: Patient states: WOUND NEXT TO BELLY RING PIERCING X 2 DAYS. STATES HAD db RE-PIERCING OF NAVAL X 1 MONTH AGO AND NOW HAS A WOUND THAT POPPED YESTERDAY WHERE OLD PIERCING HOLE WAS. Coronavirus screen: Client denies travel out of the [place] in the last 14 days. At this time, the client does not indicate any symptoms associated with coronavirus-19. Ebola Screen: Patient negative for fever greater than or equal to 101.5 degrees Fahrenheit, and additional compatible Ebola Virus Disease symptoms Patient denies exposure to infectious person. Patient denies travel to an Ebola-affected area in the 21 days before illness onset. No symptoms or risks identified at this time. Initial Sepsis Screen: Does the patient meet any 2 criteria? No. Patient's initial sepsis screen is negative. Does the patient have a suspected source of infection? No. Patient's initial sepsis screen is negative. Risk Assessment: Do you want to hurt yourself or someone else? Patient reports no desire to harm self or others. Onset of symptoms was June 08, 2024. 18:54 Method Of Arrival: Ambulatory db 18:54 Acuity: MIGUEL 4 db Triage Assessment: 18:57 General: Appears in no apparent distress. comfortable, Behavior is calm, cooperative. db Pain: Complains of pain in umbilical area. Derm: Wound noted. 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 - Infectious Disease History:: Denies. - Social history:: Smoking status: Patient denies any tobacco usage or history of. Screenin:19 [facility] ED Fall Risk Assessment (Adult) History of falling in the last 3 months, rg5 including since admission No falls in past 3 months (0 pts) Confusion or Disorientation No (0 pts) Intoxicated or Sedated No (0 pts) Impaired Gait No (0 pts) Mobility Assist Device Used No (0 pt) Altered Elimination No (0 pt) Score/Fall Risk Level 0 - 2 = Low Risk Oriented to surroundings, Educated pt \T\ family on fall prevention, incl call for assistance when getting out of bed, Hourly rounding (assess needs \T\ fall precautionary measures) done. Abuse screen: Denies threats or abuse. Denies injuries from another. Nutritional screening: No deficits noted. Tuberculosis screening: No symptoms or risk factors identified. Assessment: 19:17 General: Appears in no apparent distress. comfortable, Behavior is calm, cooperative, rg5 appropriate for age. Pain: Denies pain. Neuro: Level of Consciousness is awake, alert, obeys commands, Oriented to person, place, time, situation. Cardiovascular: No deficits noted. Denies chest pain. Respiratory: Airway is patent Trachea midline Respiratory effort is even, unlabored. GI: Abdomen is round non-distended, Abd is soft and non tender. : No signs and/or symptoms were reported regarding the genitourinary system. EENT: No deficits noted. Derm: Skin is intact, Skin is dry, Skin is normal, Skin temperature is warm. Derm:. Musculoskeletal: Circulation, motion, and sensation intact. Range of motion: intact in all extremities. Vital Signs: 18:54 BP 113 / 67; Pulse 100; Resp 18; Temp 98.7; Pulse Ox 100% ; Weight 77.56 kg; Height 5 db ft. 4 in. ; 18:54 Body Mass Index 29.35 (77.56 kg, 162.56 cm) - Percentile 92.3 % db ED Course: 18:46 Patient arrived in ED. mr 18:56 Tanner Hassan PA is PHCP. cp 18:56 Tanner Madison MD is Attending Physician. cp 18:56 Triage completed. db 18:57 Arm band placed on Patient placed in an exam room. db 19:07 Doni Watson, MAGALIS is Primary Nurse. rg5 19:19 Patient has correct armband on for positive identification. Bed in low position. Door rg5 closed. Noise minimized. Warm blanket given. Pillow given. Verbal reassurance given. 19:19 No provider procedures requiring assistance completed. Patient did not have IV access rg5 during this emergency room visit. Wound care: to puncture located on umbilical area was cleaned with irrigated with normal saline, dressed with Neosporin. 19:21 Provided Education on: post er care done. rg5 Administered Medications: No medications were administered Medication: 19:21 VIS not applicable for this client. rg5 Outcome: 19:17 Discharge ordered by . analia 19:30 Discharged to home ambulatory, rg5 19:30 Condition: stable 19:30 Discharge instructions given to patient, Instructed on discharge instructions, Demonstrated understanding of instructions, Prescriptions given X 1, 19:31 Patient left the ED. rg5 Signatures: Haley Zavala, Amandeep Reg mr Tanner Hassan PA PA cp Kathe Donald, MAGALIS RN Doni Rodgers, MAGALIS RN rg5 Corrections: (The following items were deleted from the chart) 18:57 18:54 Acuity: MIGUEL 4 db db
--- NOTE | 2024-06-10 19:18 | EDPHYS ---
Physician Documentation [facility] Name: Lay Grimaldo Age: 18 yrs Sex: Female : 2005 Arrival Date: 06/10/2024 Time: 18:44 Bed 14 Private MD: ED Physician Tanner Madison HPI: 06/10 19:00 This 18 yrs old Female presents to ER via Ambulatory with complaints of Wound cp Infection. 19:00 redness, swelling to previous umbilical piercing. cp 19:00 Onset: The symptoms/episode began/occurred today. Associated signs and symptoms: cp Pertinent negatives: drainage, fever. 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 - Infectious Disease History:: Denies. - Social history:: Smoking status: Patient denies any tobacco usage or history of. ROS: 19:00 Skin: Positive for cellulitis, of the umbilical area, cp 19:00 Constitutional: Negative for body aches, chills, fever, cp 19:00 Respiratory: Negative for cough, shortness of breath, wheezing, 19:00 Abdomen/GI: Negative for abdominal pain, vomiting, diarrhea, constipation, 19:00 All other systems are negative, Exam: 19:05 Constitutional: The patient appears in no acute distress, alert, awake, comfortable, cp non-toxic, well developed, well nourished, 19:05 Head/Face: Normocephalic, atraumatic. cp 19:05 Chest/axilla: Inspection: normal, 19:05 Cardiovascular: Rate: tachycardic, 19:05 Respiratory: the patient does not display signs of respiratory distress, Respirations: normal, no use of accessory muscles, no retractions, labored breathing, is not present, 19:05 Abdomen/GI: Inspection: small area of erythema, mild swelling noted umbilical area. no induration and no drainage expressed. umbilical piercing in place with no signs cellulitis, Bowel sounds: active, all quadrants, Palpation: abdomen is soft and non-tender, in all quadrants, Vital Signs: 18:54 BP 113 / 67; Pulse 100; Resp 18; Temp 98.7; Pulse Ox 100% ; Weight 77.56 kg; Height 5 db ft. 4 in. ; 18:54 Body Mass Index 29.35 (77.56 kg, 162.56 cm) - Percentile 92.3 % db MDM: 18:56 Medical Screening Exam initiated cp 19:05 Differential diagnosis: abscess, cellulitis, insect bite, infected piercing. 19:16 Data reviewed: vital signs, nurses notes, and as a result, I will discharge patient. cp 19:16 Counseling: I had a detailed discussion with the patient and/or guardian regarding the cp historical points, exam findings, and any diagnostic results supporting the discharge/admit diagnosis, to return to the emergency department if symptoms worsen or persist or if there are any questions or concerns that arise at home. 06/10 19:03 Order name: Wound dressing: bacitracin and dressing; Complete Time: 19:07 cp Administered Medications: No medications were administered Disposition: 06/11 17:52 Chart complete. cp Disposition Summary: 06/10/24 19:17 Discharge Ordered Notes: Location: Home cp Problem: new cp Symptoms: are unchanged cp Condition: Stable cp Diagnosis - Local infection of the skin and subcutaneous tissue, unspecified cp Followup: cp - With: Private Physician - When: 2 - 3 days - Reason: Worsening of condition Discharge Instructions: - Discharge Summary Sheet cp - Cellulitis, Adult cp Forms: - Medication Reconciliation Form cp - Antibiotic Education cp - Prescription Opioid Use cp - Patient Portal Instructions cp - Leadership Thank You Letter cp Prescriptions: - Cephalexin 500 mg Oral Capsule - take 1 capsule ORAL route every 8 hours for 10 days; 30 capsule; Refills: 0, cp Product Selection Permitted Addendum: 06/13/2024 14:58 Co-signature as Attending Physician, Tanner Madison MD I agree with the assessment and c francisco plan of care. Signatures: Tanner Madison MD MD cha Page, Corey, PA PA cp Benton, Danielle, RN RN db Corrections: (The following items were deleted from the chart) 06/11 17:51 06/10 19:05 Abdomen/GI: Inspection: small area of erythema, mild swelling noted cp umbilical area. no induration and no drainage expressed, Bowel sounds: active, all quadrants, Palpation: abdomen is soft and non-tender, in all quadrants, cp
[2024-06-10 19:41] VITALS: BP 113/67; TEMP 98.7; O2SAT 100
== END 2024-06-10 19:31 | disposition home or self-care (01) ==
LOC: ER 18:44
DX: L03.316 Cellulitis of umbilicus (principal)
CPT/HCPCS: 99283

== ENCOUNTER 2024-06-24 14:50 | Emergency (ER) | payer OTHER ==
--- OUTSIDE RECORDS SUMMARY | 2024-06-24 15:04 | XMS REPORT | Continuity of Care Document ---
Author Name Unknown Address [address] [facility] [address] [place] [address] [facility] thconnect Address [address] [facility] [address] [place] [address] Care Team Providers Care Document Manager Name Role Phone Jovanni Jarad Primary Care Physician [phone] CLAU VALLADARES Attending Clinician Unavailable CLAU VALLADARES Attending Clinician Unavailable Clau Valladares MD Attending Clinician [phone] TAI ALMENDAREZ Attending Clinician Unavailable Tai Ann Attending Clinician [phone] LEELA MARCOS Attending Clinician UnavailLeela Sierra CNM Attending Clinician ALEJANDRA JONES Attending Clinician Unavailable DOUGLAS QUINTEROS Attending Clinician Unavailable DOUGLAS QUINTEROS Attending Clinician Unavailable Douglas Quinteros MD Attending Clinician [phone] [facility] Attending Clinician UnaVANESSA Jimenez Attending Clinician Unav Vanessa Fermin MD Attending Clinician + Clare Gomez MD Attending Clinician Live Machuca MD Attending Clinician [phone] Leela Marcos CNM Attending Clinician [phone] AkinsiRee Moore Attending Clinician + Park Hutchinson Attending Clinician UnavailSolis Pulliam MD Attending Clinician [phone] SOLIS CABALLERO Attending Clinician Unavailable COMFORT OQUENDO Attending Clinician Unavail able , Xkk-Qidvl-Vc/High Attending Clinician Unav ailable Comfort Oquendo NP Attending Clinician [phone] PHANI MALAVE Attending Clinician Unavailabl e Gu[place], [facility] Attending Clinician UnavailPhani Chris MD Attending Clinician + [phone] Doctor Unassigned, Pauline Attending Clinician U navailable ALEX HOSKINS Attending Clinician Unavailable ALEX HOSKINS Attending Clinician Unavailable Alex Hoskins MD Attending Clinician + [phone] REE CHRISTINE Attending Clinician Unavail able PALOMO HIGUERA Attending Clinician Unavailable Bruna Delcid DO Attending Clinician [phone] Palomo Higuera MD Attending Clinician [phone] Visit, [facility] Nurse Attending Clinician Unava ilRyder Young MD Attending Clinician [phone] Felipa Deluna MD Attending Clinician [phone] Loyd ALEXANDERPElla Attending Clinician [phone] DOUGLAS QUINTEROS Admitting Clinician Unavailable FELIPA DELUNA Admitting Clinician Unavailable TAI ALMENDAREZ Admitting Clinician Unavailable Douglas Quinteros MD Admitting Clinician [phone] VANESSA ARTEAGA Admitting Clinician Unav amberable Vanessa Arteaga MD Admitting Clinician + BRUNA DELCID Admitting Clinician UnavailRyder Rivero MD Admitting Clinician [phone] Felipa Deluna MD Admitting Clinician Payers Payer Name Policy Type Policy Number Effective Date Expirati on Date Source [facility] [place] [id number] 2023 00:00:00 MEDICAID [place] [id number] 2023 00:00:00 Problems Condition Name Condition Details Condition Category Status Onset Date Resolution Date Last Treatment Date Treating Clinician Comments Source Obesity (BMI 30-39.9) Obesity (BMI 30-39.9) Disease Active 8-15 00:00: 00 [facility] 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 Horizon + NIPT Horizon + silent carrier alpha thalassem ia [facility] Overweight (BMI 25.0-29.9) Overweight (BMI 25.0-29.9) Disease Active 1-19 00:00: 00 [facility] Status post vacuum-ass isted vaginal delivery Status post vacuum-ass isted vaginal delivery Disease Active 9-17 00:00: 00 [facility] Anemia of mother in , antepartum Anemia of mother in , antepartum Disease Active 7-14 00:00: 00 [facility] Gestationa l hypertensi on Gestationa l hypertensi on Disease Resolve d 8-16 00:00: 00 2024-02-24 00:00:00 2024-02-24 21:04:33 [facility] headache headache Disease Resolve d 6-21 00:00: 00 2024-02-24 00:00:00 2024-02-24 21:04:26 [facility] History of gestationa l hypertensi on History of gestationa l hypertensi on Disease Resolve d 8-23 00:00: 00 2024-02-23 00:00:00 2024-02-23 14:12:28 [facility] 37 weeks gestation of 37 weeks gestation of Disease Resolve d 2023-0 8-15 00:00: 00 2024-02-23 00:00:00 2024-02-23 14:12:12 [facility] Elevated blood pressure affecting in third trimester, antepartum Elevated blood pressure affecting in third trimester, antepartum Disease Resolve d 2023-0 8-15 00:00: 00 2024-02-23 00:00:00 2024-02-23 14:12:16 [facility] Decreased platelet count Decreased platelet count Disease Resolve d 2023-0 8-12 00:00: 00 2024-02-23 00:00:00 2024-02-23 14:13:01 [facility] GBS (group B Streptococ cus carrier), +RV culture, currently GBS (group B Streptococ cus carrier), +RV culture, currently Disease Resolve d 2023-0 8-12 00:00: 00 2024-02-23 00:00:00 2024-02-23 14:12:10 [facility] Pain of round ligament during Pain of round ligament during Disease Resolve d 2023-0 7-18 00:00: 00 2024-02-23 00:00:00 2024-02-23 14:11:49 [facility] Back pain affecting in third trimester Back pain affecting in third trimester Disease Resolve d 2023-0 7-18 00:00: 00 2024-02-23 00:00:00 2024-02-23 14:12:08 [facility] Anemia of mother in , antepartum Anemia of mother in , antepartum Disease Resolve d 2023-0 6-07 00:00: 00 2024-02-23 00:00:00 2024-02-23 14:12:05 [facility] History of pre-eclamp delgado History of pre-eclamp delgado Disease Resolve d 2023-0 2-14 00:00: 00 2024-02-23 00:00:00 2024-02-23 14:12:03 [facility] Intermitte nt upper abdominal pain Intermitte nt upper abdominal pain Disease Resolve d 2023-0 1-19 00:00: 00 2024-02-23 00:00:00 2024-02-23 14:12:00 [facility] Obesity affecting in third trimester Obesity affecting in third trimester Disease Resolve d 2023-0 1-19 00:00: 00 2024-02-23 00:00:00 2024-02-23 14:12:23 [facility] Chlamydia infection affecting Chlamydia infection affecting Disease Resolve d 2023-0 1-18 00:00: 00 2024-02-23 00:00:00 2024-02-23 14:11:48 [facility] (spontaneo us vaginal delivery) (spontaneo us vaginal delivery) Disease Resolve d 2019-0 9-17 00:00: 00 2024-02-23 00:00:00 2024-02-23 15:00:20 [facility] Single live Single live Disease Resolve d 2019-0 9-17 00:00: 00 2024-02-23 00:00:00 2024-02-23 14:11:57 [facility] Anemia, Anemia, Disease Resolve d 2019-0 9-17 00:00: 00 2024-02-23 00:00:00 2024-02-23 14:12:58 [facility] Elevated blood pressure reading without diagnosis of hypertensi on Elevated blood pressure reading without diagnosis of hypertensi on Disease Resolve d 2019-0 9-09 00:00: 00 2024-02-23 00:00:00 2024-02-23 14:12:25 [facility] headache in third trimester headache in third trimester Disease Resolve d 2023-0 6-21 00:00: 00 2023-12-31 00:00:00 2023-12-31 13:52:05 [facility] Cramping affecting , antepartum Cramping affecting , antepartum Disease Resolve d 2019-0 3-26 00:00: 00 2023-07-03 00:00:00 2023-07-03 11:30:49 [facility] Well woman exam Well woman exam Disease Resolve d 2019- 0-28 00:00: 00 2023-07-01 00:00:00 2023-07-01 13:49:35 [facility] Depot contracept ion Depot contracept ion Disease Resolve d 2019-06 0-28 00:00: 00 2023-07-01 00:00:00 2023-07-01 13:49:39 [facility] Teen parent Teen parent Disease Resolve d 2019--17 00:00: 00 2023-07-01 00:00:00 2023-07-01 13:49:37 [facility] Routine follow-up Routine follow-up Disease Resolve d 2019-06 0-07 00:00: 00 2020-04-11 00:00:00 2020-04-11 11:21:11 [facility] Preeclamps ia w/o SF Preeclamps ia w/o SF Disease Resolve d 9-17 00:00: 00 2020-04-11 00:00:00 2020-04-11 11:21:18 [facility] Laceration , obstetrica l, minor Laceration , obstetrica l, minor Disease Resolve d 2019-0 9-17 00:00: 00 2020-04-11 00:00:00 2020-04-11 11:22:45 [facility] Status post vacuum-ass isted vaginal delivery Status post vacuum-ass isted vaginal delivery Disease Resolve d 2019-0 9-17 00:00: 00 2020-04-11 00:00:00 2020-04-11 11:21:07 [facility] 36 weeks gestation of 36 weeks gestation of Disease Resolve d 2019-0 9-15 00:00: 00 2020-04-11 00:00:00 2020-04-11 11:22:05 [facility] Elevated blood pressure affecting in third trimester, antepartum Elevated blood pressure affecting in third trimester, antepartum Disease Resolve d 2019-0 9-15 00:00: 00 2020-04-11 00:00:00 2020-04-11 11:21:59 [facility] Positive GBS test Positive GBS test Disease Resolve d 2019- 9-14 00:00: 00 2020-04-11 00:00:00 2020-04-11 11:21:19 [facility] Anemia of mother in , antepartum Anemia of mother in , antepartum Disease Resolve d 2019-0 7-14 00:00: 00 2020-04-11 00:00:00 2020-04-11 11:22:03 [facility] High risk teen in first trimester High risk teen in first trimester Disease Resolve d 3-26 00:00: 00 2020-04-11 00:00:00 2020-04-11 11:22:08 [facility] Primigravi da in first trimester Primigravi da in first trimester Disease Resolve d 3-26 00:00: 00 2020-04-11 00:00:00 2020-04-11 11:21:14 [facility] Supervisio n of high-risk of young primigravi da Supervisio n of high-risk of young primigravi da Disease Resolve d 2-27 00:00: 00 2020-04-11 00:00:00 2020-04-11 11:21:02 [facility] Allergies, Adverse Reactions, Alerts Allergy Name Allergy Type Status Severity Reaction(s) Onset Date Inactive Date Treating Clinician Comments Source [facility] Active Other-Cmnt 08-08 00:00: 00 [facility] Simmons Flavor Propensi ty to adverse reaction s Active Other - See comments 08-08 00:00: 00 Allergic to Rasberrie s. Effects vision [facility] NO KNOWN ALLERGIE S Drug Class Active [facility] Social History Social Habit Start Date Stop Date Quantity Comments Source ASSERTION 2023-05-26 00:00:00 [facility] History SDOH Alcohol Comment [place] [facility]OH Alcohol Binge [facility] Alcoholic beverage intake 2024-03-22 00:00:00 2024-03-22 00:00:00 0 /d [facility] Tobacco use and exposure 2024-01-28 00:00:00 2024-01-28 00:00:00 Smokeless tobacco non-user [facility] Alcohol intake 2023-10-08 00:00:00 2023-10-08 00:00:00 0 /d [facility] History of Social function 2023-07-01 00:00:00 2023-07-01 00:00:00 [facility] Exposure to SARS-CoV-2 (event) 2021-10-19 00:00:00 2021-10-29 20:03:00 Not sure [facility] History SDOH Alcohol Frequency 2019-08-11 00:00:00 2019-08-11 00:00:00 1 [facility] Sex assigned at 2004 00:00:00 2005 00:00:00 [facility] Smoking Status Start Date Stop Date Source Never smoked tobacco [facility] Medications Ordered Medication Name Filled Medication Name Start Date Stop Date Current Medication? Ordering Clinician Indication Dosage Frequency Signature (SIG) Comments Components Source sulfamethox azole-trime thoprim 800-160 mg per tablet 06-22 00:00: 00 Yes [id number] 1{tbl} Take 1 tablet by mouth every 12 (twelve) hours. [facility] iopamidol (ISOVUE 370-500 mL) injection 90 mL 2023-06 20:30: 00 05-01 20:30 :00 No [id number] 90mL 90 mL, Intravenou s, ONCE, 1 dose, On 05/01/24 at 1430, Routine [facility] metoclopram amy HCl (REGLAN) injection 10 mg 2023-06 19:45: 00 05-01 19:53 :00 No 10mg 10 mg, Slow IV Push, ONCE, 1 dose, On 05/01/24 at 1345, [facility] dicyclomine (BENTYL) injection 20 mg 2023-06 18:30: 00 05-01 18:29 :00 No 20mg 20 mg, Intramuscu lar, ONCE, 1 dose, On 05/01/24 at 1230, [facility] NaCl 0.9% (NS) bolus infusion 1,000 mL 2023-06 18:30: 00 05-01 19:52 :00 No 1000mL at 999 mL/hr, 1,000 mL, IV Infusion, ONCE, 1 dose, On 05/01/24 at 1230, STAT [facility] famotidine (PEPCID (PF)) injection 20 mg 2023-06 17:30: 00 05-01 18:30 :00 No 20mg 20 mg, Slow IV Push, ONCE, 1 dose, On Thu05/01/24 at 1130, [facility] ketorolac (TORADOL) injection 30 mg 2023-06 17:30: 00 05-01 18:33 :00 No 30mg 30 mg, Slow IV Push, ONCE, 1 dose, On Thu05/01/24 at 1130, [facility] ondansetron (ZOFRAN-ODT ) disintegrat ing tablet 4 mg 2023-06 17:25: 00 05-01 17:27 :00 No 4mg 4 mg, Oral, ONCE, 1 dose, On Thu05/01/24 at 1130, [facility] ondansetron 4 mg disintegrat ing tablet 2023-06 00:00: 00 Yes [id number] 4mg Take 1 tablet by mouth every 8 (eight) hours as needed for Nausea and Vomiting (N/V). [facility] dicyclomine 20 mg tablet 2023-06 00:00: 00 Yes [id number] 20mg Take 1 tablet by mouth 4 (four) times daily as needed for Abdominal pain. [facility] acetaminoph en (TYLENOL) tablet 1,000 mg 02-05 00:00: 00 02-04 23:28 :00 No 1000mg 1,000 mg, Oral, ONCE NOW, 1 dose, On Thu02/05/24 at 1900, Routine [facility] ibuprofen 800 mg tablet 01-29 00:00: 00 Yes [id number] 800mg Take 1 tablet by mouth every 8 (eight) hours as needed (pain). Take with food or milk. [facility] PNV cmb#95-ferr ous fumarate-FA () 28 mg iron- 800 mcg Tab 01-29 00:00: 00 03-22 00:00 :00 No [id number] 1{tbl} Take 1 tablet by mouth in the morning. [facility] docusate 100 mg capsule 01-29 00:00: 00 03-22 00:00 :00 No [id number] 200mg Take 2 capsules by mouth once daily as needed for Constipati on. [facility] ferrous sulfate 325 mg (65 mg iron) tablet 01-29 00:00: 00 03-22 00:00 :00 No [id number] 325mg Take 1 tablet by mouth in the morning. [facility] HYDROcodone -acetaminop hen (NORCO) 10-325 mg tablet 1 tablet 01-28 20:54: 00 Yes 1{tbl} 1 tablet, Oral, Q6HPRN, Starting on Thu01/29/24 at 1554, Until Discontinu ed, Routine, Pain (scale 7-10) [facility] rho(D) immune globulin (RHOPHYLAC) injection 300 mcg 01-28 10:42: 07 Yes 300ug [facility] ibuprofen (IBU) tablet 600 mg 01-28 10:42: 03 Yes 600mg 600 mg, Oral, Q6HPRN, Starting on Thu01/29/24 at 0542, Until Discontinu ed, Routine, Pain (scale 4-6) [facility] acetaminoph en (TYLENOL) tablet 650 mg 01-28 10:42: 03 Yes 650mg 650 mg, Oral, Q6HPRN, Starting on Thu01/29/24 at 0542, Until Discontinu ed, Routine, Pain (scale 1-3) [facility] diphenhydrA MINE (BENADRYL) tablet 25 mg 01-28 10:42: 03 Yes 25mg [facility] ondansetron (ZOFRAN (PF)) injection 4 mg 01-28 10:42: 03 Yes 4mg [facility] simethicone (GAS RELIEF (SIMETHICON E)) chewable tablet 160 mg 01-28 10:42: 03 Yes 160mg [facility] docusate (COLACE) capsule 200 mg 01-28 10:42: 03 Yes 200mg [facility] magnesium hydroxide (MILK OF MAGNESIA) 400 mg/5 mL suspension 30 mL 01-28 10:42: 03 Yes 30mL [facility] benzocaine- menthol (DERMOPLAST ) 20-0.5 % topical spray 01-28 10:42: 03 Yes [facility] PIB ropivacaine 0.2 % (NAROPIN (PF)) epidural infusion 01-28 01:56: 00 01-28 12:00 :43 No Epidural, CONTINUOUS PRN, Starting on Thu01/28/24 at 2056, Until Thu01/29/24 at 0700, Routine, Intra-op [facility] oxytocin (PITOCIN) 30 units in NS 500 mL IV infusion 01-27 20:59: 59 01-28 10:42 :06 No 2mU/min at 2-40 mL/hr, IV Infusion, TITRATE, Starting on Thu01/28/24 at 1559, Until Thu01/29/24 at 0542, LEIDY [facility] sodium citrate-cit zahida acid (BICITRA) 500-334 mg/5 mL solution 30 mL 01-27 20:59: 58 01-28 01:33 :00 No 30mL 30 mL, Oral, PRE-PROCED URE ONCE, 1 dose, Starting on Thu01/28/24 at 1559, Until Thu01/28/24 at 2033, Routine, Surgery/Pr ocedure [facility] lactated ringers IV infusion 500 mL 01-27 20:58: 23 01-28 10:42 :05 No 500mL at 999 mL/hr, 500 mL, IV Infusion, PRN - SEE INSTRUCTIO NS, Starting on Thu01/28/24 at 1558, Until Thu01/29/24 at 0542, Routine [facility] D5W-LR IV infusion 1,000 mL 01-27 20:58: 23 01-28 10:42 :05 No 1000mL at 1-125 mL/hr, IV Infusion, TITRATE, Starting on Thu01/28/24 at 1558, Until Thu01/29/24 at 0542, Routine [facility] acetaminoph en (TYLENOL) tablet 1,000 mg 01-27 20:55: 56 01-28 10:42 :05 No 1000mg 1,000 mg, Oral, Q6HPRN, Starting on Thu01/28/24 at 1555, Until Thu01/29/24 at 0542, Routine, Pain (scale 1-3), Pain (scale 4-6) [facility] cyclobenzap rine 5 mg tablet 18 00:00: 00 01-05 04:59 :00 No [id number] 5mg Take 1 tablet by mouth in the morning and 1 tablet at noon and 1 tablet in the evening. Do all this for 5 days. [facility] ferrous sulfate 325 mg (65 mg iron) tablet 11-19 00:00: 00 01-29 00:00 :00 No [id number] 325mg Take 1 tablet by mouth in the morning and 1 tablet in the evening. [facility] ascorbic acid, vitamin C, 500 mg tablet 11-19 00:00: 00 01-29 00:00 :00 No [id number] 500mg Take 1 tablet by mouth in the morning and 1 tablet at noon and 1 tablet in the evening. [facility] aspirin 81 mg EC tablet -20 00:00: 00 01-29 00:00 :00 No [id number] 9100 81mg Take 1 tablet by mouth in the morning. [facility] proMETHazin e 25 mg tablet -24 00:00: 00 01-29 00:00 :00 No [id number] 25mg Take 1 tablet by mouth every 4 (four) hours as needed for Nausea and Vomiting (N/V). [facility] azithromyci n (ZITHROMAX) 500 mg tablet 07-02 00:00: 00 07-03 05:59 :00 No [id number] 1000mg Take 2 tablets by mouth once now for 1 dose. [facility] AMOXICILLIN ORAL 07-01 13:42: 44 01-29 00:00 :00 No [id number] Take by mouth. [facility] cefTRIAXone (ROCEPHIN) 1,000 mg in NaCl 0.9% (NS) 50 mL MINI-BAG 10-30 03:00: 00 10-30 03:03 :00 No 1000mg 1,000 mg, IV Piggyback, ONCE, 1 dose, On Thu10/29/21 at 2200, Administer over 30 Minutes, 50 mL
Reas on for Anti-Infec tive: Documented Infection< br>Documen pavan Infection Site: Urine
D uration of Therapy: Other (see Comments) [facility] iopamidol (ISOVUE 370-500 mL) injection 120 mL 10-30 01:10: 00 10-30 01:10 :00 No [id number] 120mL 120 mL, Intravenou s, ONCE, 1 dose, On Thu10/29/21 at 2015, Routine [facility] ketorolac (TORADOL) injection 15 mg 10-30 00:45: 00 10-30 00:57 :00 No 15mg 15 mg, Slow IV Push, ONCE, 1 dose, On Thu10/29/21 at 1945, LEIDY
Fa culty member approving Restricted medication : BRUNA DELCID [facility] NaCl 0.9% (NS) bolus infusion 500 mL 10-30 00:45: 00 10-30 01:34 :00 No 500mL at 999 mL/hr, 500 mL, IV Infusion, ONCE, 1 dose, On Thu10/29/21 at 1945, STAT [facility] ondansetron (ZOFRAN-ODT ) disintegrat ing tablet 4 mg 10-30 00:45: 00 10-30 00:45 :00 No 4mg 4 mg, Oral, ONCE, 1 dose, On Thu10/29/21 at 1945, Routine [facility] cephALEXin (KEFLEX) 500 mg capsule 10-29 00:00: 00 07-01 00:00 :00 No [id number] 500mg Take 1 capsule by mouth 3 (three) times daily. [facility] ondansetron 4 mg disintegrat ing tablet 10-29 00:00: 00 07-01 00:00 :00 No [id number] 4mg Take 1 tablet by mouth every 4 (four) hours as needed for Nausea and Vomiting (N/V). [facility] dicyclomine 20 mg tablet 10-29 00:00: 00 07-01 00:00 :00 No [id number] 20mg Take 1 tablet by mouth 4 (four) times daily. [facility] medroxyPROG ESTERone (DEPO-PROVE RA) injection 150 mg 2019-06 16:30: 00 03-13 16:29 :00 No [id number] 150mg [facility] ascorbic acid (vitamin C) (VITAMIN C) tablet 500 mg 03-01 17:00: 00 Yes 500mg 500 mg, Oral, BID, First dose on Thu03/01/20 at 1200, Until Discontinu ed, Routine [facility] ferrous sulfate tablet 325 mg 03-01 17:00: 00 Yes 325mg 325 mg, Oral, BID, First dose on Thu03/01/20 at 1200, Until Discontinu ed, Routine [facility] ESOMEPRAZOL E MAGNESIUM (NEXIUM ORAL) 03-01 14:37: 08 03-01 00:00 :00 No Take by mouth. [facility] vitamin w/FA tablet 03-01 00:00: 00 Yes [id number] 1{tbl} Take 1 tablet by mouth daily. [facility] vitamin w/FA tablet 03-01 00:00: 00 Yes [id number] 1{tbl} Take 1 tablet by mouth daily. [facility] docusate calcium 240 mg capsule 03-01 00:00: 00 07-01 00:00 :00 No [id number] 240mg Take 1 capsule by mouth once daily as needed for Constipati on. [facility] ferrous sulfate 325 mg (65 mg iron) tablet 03-01 00:00: 00 07-01 00:00 :00 No [id number] 325mg Take 1 tablet by mouth 2 (two) times daily. [facility] ibuprofen 600 mg tablet 03-01 00:00: 00 07-01 00:00 :00 No [id number] 600mg Take 1 tablet by mouth every 6 (six) hours as needed (Pain). Take with food or milk. [facility] rho(D) immune globulin (RHOGAM) syringe 300 mcg 02-28 23:15: 48 Yes 300ug 300 mcg, Intramuscu lar, ONCE, For 1 dose, Conditiona l, Routine [facility] ibuprofen (IBU) tablet 600 mg 02-28 23:15: 46 Yes 600mg 600 mg, Oral, Q6HPRN, Starting Thu02/29/20 at 1814, Until Discontinu ed, Routine, Pain (scale 4-6) [facility] ondansetron (ZOFRAN (PF)) injection 4 mg 02-28 23:15: 46 Yes 4mg 4 mg, Slow IV Push, Q8HPRN, Starting Thu02/29/20 at 181, Until Discontinu ed, Routine, Nausea and Vomiting (N/V) [facility] simethicone (GAS RELIEF (SIMETHICON E)) chewable tablet 160 mg 02-28 23:15: 46 Yes 160mg 160 mg, Oral, PC+HSPRN, Starting Thu02/29/20 at 1814, Until Discontinu ed, Routine, Gas [facility] magnesium hydroxide (MILK OF MAGNESIA) 400 mg/5 mL suspension 30 mL 02-28 23:15: 46 Yes 30mL 30 mL, Oral, QDAILYPRN, Starting Thu02/29/20 at 1814, Until Discontinu ed, Routine, Constipati on [facility] acetaminoph en (TYLENOL) tablet 650 mg 02-28 23:15: 45 Yes 650mg 650 mg, Oral, Q6HPRN, Starting Thu02/29/20 at 1814, Until Discontinu ed, Routine, Pain (scale 1-3) [facility] diphenhydrA MINE (BENADRYL) tablet 25 mg 02-28 23:15: 45 Yes 25mg 25 mg, Oral, Q6HPRN, Starting Thu02/29/20 at 1814, Until Discontinu ed, Routine, Sleep, Itching [facility] diphenhydrA MINE-0.9 % sod.chlr (BENADRYL) 25 mg/50 mL piggyback 25 mg 02-28 23:15: 45 Yes 25mg 25 mg, IV Piggyback, Administer over 30 Minutes, Q6HPRN, Starting Thu02/29/20 at 1814, Until Discontinu ed, Routine, Itching [facility] docusate calcium (SURFAK) capsule 240 mg 02-28 23:15: 45 Yes 240mg 240 mg, Oral, QDAILYPRN, Starting Thu02/29/20 at 1814, Until Discontinu ed, Routine, Constipati on [facility] benzocaine- menthol (DERMOPLAST ) 20-0.5 % topical spray 02-28 23:15: 45 Yes Topical, PRN, Starting Thu02/29/20 at 1814, Until Discontinu ed, Routine, Perineum discomfort [facility] ondansetron (ZOFRAN (PF)) injection 4 mg 02-28 11:45: 00 02-28 10:50 :00 No 4mg 4 mg, Slow IV Push, ONCE, 1 dose, Thu02/29/20 at 0645, Routine [facility] LR 1000 mL + oxytocin 20 units IV Solution 02-28 08:51: 42 02-28 23:15 :48 No 2mU/min at 6-120 mL/hr, IV Infusion, TITRATE, Starting Thu02/29/20 at 0351, Until Thu02/29/20 at 181, LEIDY [facility] sodium citrate-cit zahida acid (BICITRA) 500-334 mg/5 mL solution 30 mL 02-28 07:48: 10 02-28 09:32 :00 No 30mL 30 mL, Oral, PRE-PROCED URE ONCE, 1 dose, Starting Thu02/29/20 at 0248, Until Discontinu ed, Routine, Surgery/Pr ocedure [facility] butorphanol (STADOL) injection 1 mg 02-28 00:15: 00 02-27 23:47 :00 No 1mg 1 mg, Intravenou s, ONCE, 1 dose, Thu02/28/20 at 1915, Routine [facility] D5W-LR IV infusion 1,000 mL 02-27 20:45: 00 02-28 23:15 :48 No 1000mL at 125 mL/hr, IV Infusion, CONTINUOUS , Starting Thu02/28/20 at 1545, Until Thu02/29/20 at 1815, Routine [facility] lactated ringers IV infusion 500 mL 02-27 20:29: 03 02-28 23:15 :48 No 500mL at 999 mL/hr, 500 mL, IV Infusion, PRN - SEE INSTRUCTIO NS, Starting Thu02/28/20 at 1529, Until Thu02/29/20 at 181, Routine [facility] ascorbic acid, vitamin C, 500 mg tablet 12-26 00:00: 00 03-01 00:00 :00 No [id number] 500mg Take 1 tablet by mouth 3 (three) times daily. [facility] ferrous sulfate 325 mg (65 mg iron) tablet 12-26 00:00: 00 03-01 00:00 :00 No [id number] 325mg Take 1 tablet by mouth 2 (two) times daily. [facility] ESOMEPRAZOL E MAGNESIUM (NEXIUM ORAL) 12-05 22:20: 43 Yes Take by mouth. [facility] Nitrofurant oin&Nit. Macrocryst (MACROBID) 100 mg capsule 100 mg 12-05 21:45: 00 12-05 20:42 :00 No 100mg 100 mg, Oral, ONCE, 1 dose, Thu12/06/19 at 1645, Routine [facility] Nitrofurant oin&Nit. Macrocryst 100 mg capsule 12-05 00:00: 00 03-01 00:00 :00 No [id number] 100mg Take 1 capsule by mouth 2 (two) times daily. [facility] ESOMEPRAZOL E MAGNESIUM (NEXIUM ORAL) 08-11 16:18: 34 Yes Take by mouth. [facility] proMETHazin e 25 mg tablet 08-11 00:00: 00 03-01 00:00 :00 No [id number] 25mg Take 1 tablet by mouth every 6 (six) hours as needed for Nausea and Vomiting (N/V). [facility] ondansetron 4 mg disintegrat ing tablet 2017-06 00:00: 00 03-01 00:00 :00 No 4mg Take 1 tablet by mouth every 8 (eight) hours as needed for Nausea and Vomiting (N/V). [facility] Immunizations Ordered Immunization Name Filled Immunization Name Date Status Comments Source Flu Injectable MDCK Pres-Free (FLUCELVAX) 2024-03-22 00:00:00 Completed TDAP 2023-12-04 00:00:00 Completed [facility] Meningococcal B, OMV 2022-10-23 00:00:00 Completed Influenza Virus Vaccine Quad .5 mL IM 6+ MO 2020-03-21 00:00:00 Completed [facility] Influenza Virus Vaccine Quad .5 mL IM 6+ MO 2020-03-21 00:00:00 Completed [facility] Influenza Virus Vaccine Quad .5 mL IM 6+ MO 2020-03-21 00:00:00 Completed [facility] Influenza Virus Vaccine Quad .5 mL IM 6+ MO 2020-03-21 00:00:00 Completed [facility] Influenza Virus Vaccine Quad .5 mL IM 6+ MO 2020-03-21 00:00:00 Completed [facility] Influenza Virus Vaccine Quad .5 mL IM 6+ MO 2020-03-21 00:00:00 Completed [facility] Influenza Virus Vaccine Quad .5 mL IM 6+ MO (FLUZONE/FLULAVAL/FL UARIX) 2020-03-21 00:00:00 Completed [facility] TDAP 2020-01-09 00:00:00 Completed [facility] TDAP 2020-01-09 00:00:00 Completed [facility] TDAP 2020-01-09 00:00:00 Completed [facility] TDAP 2020-01-09 00:00:00 Completed [facility] TDAP 2020-01-09 00:00:00 Completed [facility] TDAP 2020-01-09 00:00:00 Completed [facility] TDAP 2020-01-09 00:00:00 Completed [facility] TDAP 2020-01-09 00:00:00 Completed [facility] TDAP 2020-01-09 00:00:00 Completed [facility] TDAP 2020-01-09 00:00:00 Completed [facility] TDAP 2020-01-09 00:00:00 Completed [facility] TDAP 2020-01-09 00:00:00 Completed [facility] TDAP 2020-01-09 00:00:00 Completed TDAP 2020-01-09 00:00:00 Completed [facility] TDAP 2020-01-09 00:00:00 Completed [facility] Influenza Virus Vaccine 2019-05-24 00:00:00 Completed [facility] Influenza Virus Vaccine 2019-05-24 00:00:00 Completed [facility] Influenza Virus Vaccine 2019-05-24 00:00:00 Completed [facility] Influenza Virus Vaccine 2019-05-24 00:00:00 Completed [facility] Influenza Virus Vaccine 2019-05-24 00:00:00 Completed [facility] Influenza Virus Vaccine 2019-05-24 00:00:00 Completed [facility] Influenza Virus Vaccine 2019-05-24 00:00:00 Completed [facility] Influenza Virus Vaccine 2019-05-24 00:00:00 Completed [facility] Influenza Virus Vaccine 2019-05-24 00:00:00 Completed [facility] Influenza Virus Vaccine 2019-05-24 00:00:00 Completed [facility] Influenza Virus Vaccine 2019-05-24 00:00:00 Completed [facility] Influenza Virus Vaccine 2019-05-24 00:00:00 Completed [facility] Influenza Virus Vaccine 2019-05-24 00:00:00 Completed [facility] Influenza Virus Vaccine 2019-05-24 00:00:00 Completed [facility] Influenza Virus Vaccine 2019-05-24 00:00:00 Completed [facility] Influenza Virus Vaccine 2019-05-24 00:00:00 Completed [facility] Influenza Virus Vaccine 2019-05-24 00:00:00 Completed [facility] Influenza Virus Vaccine 2019-05-24 00:00:00 Completed [facility] Influenza Virus Vaccine 2019-05-24 00:00:00 Completed [facility] Influenza Virus Vaccine 2019-05-24 00:00:00 Completed [facility] Influenza Virus Vaccine 2019-05-24 00:00:00 Completed Influenza Virus Vaccine - Whole 2019-05-24 00:00:00 Completed Influenza Virus Vaccine 2019-05-24 00:00:00 Completed [facility] Influenza Virus Vaccine 2019-05-24 00:00:00 Completed [facility] Influenza Virus Vaccine 2019-05-24 00:00:00 Completed [facility] Influenza Virus Vaccine 2019-05-24 00:00:00 Completed [facility] Influenza Virus Vaccine 2019-05-24 00:00:00 Completed [facility] Influenza Virus Vaccine 2019-05-24 00:00:00 Completed [facility] Influenza Virus Vaccine 2019-05-24 00:00:00 Completed [facility] HPV 2018-04-19 00:00:00 Completed [facility] HPV 2018-04-19 00:00:00 Completed [facility] HPV 2018-04-19 00:00:00 Completed [facility] HPV 2018-04-19 00:00:00 Completed [facility] HPV 2018-04-19 00:00:00 Completed [facility] HPV 2018-04-19 00:00:00 Completed [facility] HPV 2018-04-19 00:00:00 Completed [facility] HPV 2018-04-19 00:00:00 Completed [facility] HPV 2018-04-19 00:00:00 Completed [facility] HPV 2018-04-19 00:00:00 Completed [facility] HPV 2018-04-19 00:00:00 Completed [facility] HPV 2018-04-19 00:00:00 Completed [facility] HPV 2018-04-19 00:00:00 Completed [facility] HPV 2018-04-19 00:00:00 Completed [facility] HPV 2018-04-19 00:00:00 Completed [facility] HPV 2018-04-19 00:00:00 Completed [facility] HPV 2018-04-19 00:00:00 Completed [facility] HPV 2018-04-19 00:00:00 Completed [facility] HPV 2018-04-19 00:00:00 Completed [facility] HPV 2018-04-19 00:00:00 Completed [facility] HPV 2018-04-19 00:00:00 Completed HPV9 2018-04-19 00:00:00 Completed HPV 2018-04-19 00:00:00 Completed [facility] HPV 2018-04-19 00:00:00 Completed [facility] HPV 2018-04-19 00:00:00 Completed [facility] HPV 2018-04-19 00:00:00 Completed [facility] HPV 2018-04-19 00:00:00 Completed [facility] HPV 2018-04-19 00:00:00 Completed [facility] HPV 2018-04-19 00:00:00 Completed [facility] HPV 2016-03-04 00:00:00 Completed [facility] Influenza Virus Vaccine 2016-03-04 00:00:00 Completed [facility] Meningococcal Vaccine 2016-03-04 00:00:00 Completed [facility] TDAP 2016-03-04 00:00:00 Completed [facility] HPV 2016-03-04 00:00:00 Completed [facility] HPV 2016-03-04 00:00:00 Completed [facility] Influenza Virus Vaccine 2016-03-04 00:00:00 Completed [facility] Meningococcal Vaccine 2016-03-04 00:00:00 Completed [facility] Influenza Virus Vaccine 2016-03-04 00:00:00 Completed [facility] TDAP 2016-03-04 00:00:00 Completed [facility] Meningococcal Vaccine 2016-03-04 00:00:00 Completed [facility] HPV 2016-03-04 00:00:00 Completed [facility] Influenza Virus Vaccine 2016-03-04 00:00:00 Completed [facility] Meningococcal Vaccine 2016-03-04 00:00:00 Completed [facility] TDAP 2016-03-04 00:00:00 Completed [facility] HPV 2016-03-04 00:00:00 Completed [facility] Influenza Virus Vaccine 2016-03-04 00:00:00 Completed [facility] Meningococcal Vaccine 2016-03-04 00:00:00 Completed [facility] TDAP 2016-03-04 00:00:00 Completed [facility] Tdap 2016-03-04 00:00:00 Completed [facility] HPV 2016-03-04 00:00:00 Completed [facility] Influenza Virus Vaccine 2016-03-04 00:00:00 Completed [facility] Meningococcal Vaccine 2016-03-04 00:00:00 Completed [facility] TDAP 2016-03-04 00:00:00 Completed [facility] HPV 2016-03-04 00:00:00 Completed [facility] Influenza Virus Vaccine 2016-03-04 00:00:00 Completed [facility] Meningococcal Vaccine 2016-03-04 00:00:00 Completed [facility] TDAP 2016-03-04 00:00:00 Completed [facility] HPV 2016-03-04 00:00:00 Completed [facility] Influenza Virus Vaccine 2016-03-04 00:00:00 Completed [facility] Meningococcal Vaccine 2016-03-04 00:00:00 Completed [facility] HPV 2016-03-04 00:00:00 Completed [facility] TDAP 2016-03-04 00:00:00 Completed [facility] Influenza Virus Vaccine 2016-03-04 00:00:00 Completed [facility] Meningococcal Vaccine 2016-03-04 00:00:00 Completed [facility] HPV 2016-03-04 00:00:00 Completed [facility] Influenza Virus Vaccine 2016-03-04 00:00:00 Completed [facility] Meningococcal Vaccine 2016-03-04 00:00:00 Completed [facility] TDAP 2016-03-04 00:00:00 Completed [facility] HPV 2016-03-04 00:00:00 Completed [facility] Influenza Virus Vaccine 2016-03-04 00:00:00 Completed [facility] Meningococcal Vaccine 2016-03-04 00:00:00 Completed [facility] Tdap 2016-03-04 00:00:00 Completed [facility] TDAP 2016-03-04 00:00:00 Completed [facility] HPV 2016-03-04 00:00:00 Completed [facility] Influenza Virus Vaccine 2016-03-04 00:00:00 Completed [facility] Meningococcal Vaccine 2016-03-04 00:00:00 Completed [facility] TDAP 2016-03-04 00:00:00 Completed [facility] HPV 2016-03-04 00:00:00 Completed [facility] Influenza Virus Vaccine 2016-03-04 00:00:00 Completed [facility] HPV 2016-03-04 00:00:00 Completed [facility] Influenza Virus Vaccine 2016-03-04 00:00:00 Completed [facility] Meningococcal Vaccine 2016-03-04 00:00:00 Completed [facility] Meningococcal Vaccine 2016-03-04 00:00:00 Completed [facility] TDAP 2016-03-04 00:00:00 Completed [facility] HPV 2016-03-04 00:00:00 Completed [facility] Influenza Virus Vaccine 2016-03-04 00:00:00 Completed [facility] Meningococcal Vaccine 2016-03-04 00:00:00 Completed [facility] TDAP 2016-03-04 00:00:00 Completed [facility] Tdap 2016-03-04 00:00:00 Completed [facility] HPV 2016-03-04 00:00:00 Completed [facility] Influenza Virus Vaccine 2016-03-04 00:00:00 Completed [facility] Meningococcal Vaccine 2016-03-04 00:00:00 Completed [facility] Tdap 2016-03-04 00:00:00 Completed [facility] HPV 2016-03-04 00:00:00 Completed [facility] HPV 2016-03-04 00:00:00 Completed [facility] Influenza Virus Vaccine 2016-03-04 00:00:00 Completed [facility] Meningococcal Vaccine 2016-03-04 00:00:00 Completed [facility] Influenza Virus Vaccine 2016-03-04 00:00:00 Completed [facility] Tdap 2016-03-04 00:00:00 Completed [facility] Meningococcal Vaccine 2016-03-04 00:00:00 Completed [facility] HPV 2016-03-04 00:00:00 Completed [facility] Influenza Virus Vaccine 2016-03-04 00:00:00 Completed [facility] Meningococcal Vaccine 2016-03-04 00:00:00 Completed [facility] Tdap 2016-03-04 00:00:00 Completed [facility] HPV 2016-03-04 00:00:00 Completed [facility] Influenza Virus Vaccine 2016-03-04 00:00:00 Completed [facility] Meningococcal Vaccine 2016-03-04 00:00:00 Completed [facility] Tdap 2016-03-04 00:00:00 Completed [facility] Tdap 2016-03-04 00:00:00 Completed [facility] HPV 2016-03-04 00:00:00 Completed Influenza Virus Vaccine 2016-03-04 00:00:00 Completed Meningococcal Vaccine 2016-03-04 00:00:00 Completed TDAP 2016-03-04 00:00:00 Completed [facility] Influenza Virus Vaccine Quad .5 mL IM 6+ MO (FLUZONE/FLULAVAL/FL UARIX) 2016-03-04 00:00:00 Completed HPV9 2016-03-04 00:00:00 Completed Meningococcal Polysaccharide (groups A, C, Y and W-135) conjugate vaccine (MCV4P) 2016-03-04 00:00:00 Completed HPV 2016-03-04 00:00:00 Completed [facility] Influenza Virus Vaccine 2016-03-04 00:00:00 Completed [facility] Meningococcal Vaccine 2016-03-04 00:00:00 Completed [facility] Tdap 2016-03-04 00:00:00 Completed [facility] HPV 2016-03-04 00:00:00 Completed [facility] Influenza Virus Vaccine 2016-03-04 00:00:00 Completed [facility] Meningococcal Vaccine 2016-03-04 00:00:00 Completed [facility] TDAP 2016-03-04 00:00:00 Completed [facility] HPV 2016-03-04 00:00:00 Completed [facility] Influenza Virus Vaccine 2016-03-04 00:00:00 Completed [facility] Meningococcal Vaccine 2016-03-04 00:00:00 Completed [facility] TDAP 2016-03-04 00:00:00 Completed [facility] HPV 2016-03-04 00:00:00 Completed [facility] Influenza Virus Vaccine 2016-03-04 00:00:00 Completed [facility] Meningococcal Vaccine 2016-03-04 00:00:00 Completed [facility] TDAP 2016-03-04 00:00:00 Completed [facility] HPV 2016-03-04 00:00:00 Completed [facility] Influenza Virus Vaccine 2016-03-04 00:00:00 Completed [facility] Meningococcal Vaccine 2016-03-04 00:00:00 Completed [facility] TDAP 2016-03-04 00:00:00 Completed [facility] HPV 2016-03-04 00:00:00 Completed [facility] Influenza Virus Vaccine 2016-03-04 00:00:00 Completed [facility] Meningococcal Vaccine 2016-03-04 00:00:00 Completed [facility] TDAP 2016-03-04 00:00:00 Completed [facility] HPV 2016-03-04 00:00:00 Completed [facility] Influenza Virus Vaccine 2016-03-04 00:00:00 Completed [facility] Meningococcal Vaccine 2016-03-04 00:00:00 Completed [facility] TDAP 2016-03-04 00:00:00 Completed [facility] Influenza Virus Vaccine 2015-08-01 00:00:00 Completed [facility] Influenza Virus Vaccine 2015-08-01 00:00:00 Completed [facility] Influenza Virus Vaccine 2015-08-01 00:00:00 Completed [facility] Influenza Virus Vaccine 2015-08-01 00:00:00 Completed [facility] Influenza Virus Vaccine 2015-08-01 00:00:00 Completed [facility] Influenza Virus Vaccine 2015-08-01 00:00:00 Completed [facility] Influenza Virus Vaccine 2015-08-01 00:00:00 Completed [facility] Influenza Virus Vaccine 2015-08-01 00:00:00 Completed [facility] Influenza Virus Vaccine 2015-08-01 00:00:00 Completed [facility] Influenza Virus Vaccine 2015-08-01 00:00:00 Completed [facility] Influenza Virus Vaccine 2015-08-01 00:00:00 Completed [facility] Influenza Virus Vaccine 2015-08-01 00:00:00 Completed [facility] Influenza Virus Vaccine 2015-08-01 00:00:00 Completed [facility] Influenza Virus Vaccine 2015-08-01 00:00:00 Completed [facility] Influenza Virus Vaccine 2015-08-01 00:00:00 Completed [facility] Influenza Virus Vaccine 2015-08-01 00:00:00 Completed [facility] Influenza Virus Vaccine 2015-08-01 00:00:00 Completed [facility] Influenza Virus Vaccine 2015-08-01 00:00:00 Completed [facility] Influenza Virus Vaccine 2015-08-01 00:00:00 Completed [facility] Influenza Virus Vaccine 2015-08-01 00:00:00 Completed [facility] Influenza Virus Vaccine 2015-08-01 00:00:00 Completed Influenza Virus Vaccine Quad .5 mL IM 6+ MO (FLUZONE/FLULAVAL/FL UARIX) 2015-08-01 00:00:00 Completed Influenza Virus Vaccine 2015-08-01 00:00:00 Completed [facility] Influenza Virus Vaccine 2015-08-01 00:00:00 Completed [facility] Influenza Virus Vaccine 2015-08-01 00:00:00 Completed [facility] Influenza Virus Vaccine 2015-08-01 00:00:00 Completed [facility] Influenza Virus Vaccine 2015-08-01 00:00:00 Completed [facility] Influenza Virus Vaccine 2015-08-01 00:00:00 Completed [facility] Influenza Virus Vaccine 2015-08-01 00:00:00 Completed [facility] DTAP 2008-11-23 00:00:00 Completed [facility] DTAP 2008-11-23 00:00:00 Completed [facility] HEPATITIS A 2008-11-23 00:00:00 Completed [facility] MMR 2008-11-23 00:00:00 Completed [facility] Polio (IPV/OPV) 2008-11-23 00:00:00 Completed [facility] Varicella (varivax)(chicken pox) 2008-11-23 00:00:00 Completed [facility] HEPATITIS A 2008-11-23 00:00:00 Completed [facility] DTAP 2008-11-23 00:00:00 Completed [facility] HEPATITIS A 2008-11-23 00:00:00 Completed [facility] MMR 2008-11-23 00:00:00 Completed [facility] Polio (IPV/OPV) 2008-11-23 00:00:00 Completed [facility] Varicella (varivax)(chicken pox) 2008-11-23 00:00:00 Completed [facility] DTAP 2008-11-23 00:00:00 Completed [facility] HEPATITIS A 2008-11-23 00:00:00 Completed [facility] MMR 2008-11-23 00:00:00 Completed [facility] MMR 2008-11-23 00:00:00 Completed [facility] Polio (IPV/OPV) 2008-11-23 00:00:00 Completed [facility] Varicella (varivax)(chicken pox) 2008-11-23 00:00:00 Completed [facility] DTAP 2008-11-23 00:00:00 Completed [facility] HEPATITIS A 2008-11-23 00:00:00 Completed [facility] MMR 2008-11-23 00:00:00 Completed [facility] Polio (IPV/OPV) 2008-11-23 00:00:00 Completed [facility] Varicella (varivax)(chicken pox) 2008-11-23 00:00:00 Completed [facility] Polio (IPV/OPV) 2008-11-23 00:00:00 Completed [facility] DTAP 2008-11-23 00:00:00 Completed [facility] HEPATITIS A 2008-11-23 00:00:00 Completed [facility] MMR 2008-11-23 00:00:00 Completed [facility] Varicella (varivax)(chicken pox) 2008-11-23 00:00:00 Completed [facility] Polio (IPV/OPV) 2008-11-23 00:00:00 Completed [facility] Varicella (varivax)(chicken pox) 2008-11-23 00:00:00 Completed [facility] DTAP 2008-11-23 00:00:00 Completed [facility] HEPATITIS A 2008-11-23 00:00:00 Completed [facility] MMR 2008-11-23 00:00:00 Completed [facility] DTAP 2008-11-23 00:00:00 Completed [facility] Polio (IPV/OPV) 2008-11-23 00:00:00 Completed [facility] Varicella (varivax)(chicken pox) 2008-11-23 00:00:00 Completed [facility] DTAP 2008-11-23 00:00:00 Completed [facility] HEPATITIS A 2008-11-23 00:00:00 Completed [facility] HEPATITIS A 2008-11-23 00:00:00 Completed [facility] MMR 2008-11-23 00:00:00 Completed [facility] Polio (IPV/OPV) 2008-11-23 00:00:00 Completed [facility] Varicella (varivax)(chicken pox) 2008-11-23 00:00:00 Completed [facility] DTAP 2008-11-23 00:00:00 Completed [facility] MMR 2008-11-23 00:00:00 Completed [facility] HEPATITIS A 2008-11-23 00:00:00 Completed [facility] MMR 2008-11-23 00:00:00 Completed [facility] Polio (IPV/OPV) 2008-11-23 00:00:00 Completed [facility] Varicella (varivax)(chicken pox) 2008-11-23 00:00:00 Completed [facility] DTAP 2008-11-23 00:00:00 Completed [facility] DTAP 2008-11-23 00:00:00 Completed [facility] HEPATITIS A 2008-11-23 00:00:00 Completed [facility] Polio (IPV/OPV) 2008-11-23 00:00:00 Completed [facility] MMR 2008-11-23 00:00:00 Completed [facility] Polio (IPV/OPV) 2008-11-23 00:00:00 Completed [facility] Varicella (varivax)(chicken pox) 2008-11-23 00:00:00 Completed [facility] Varicella (varivax)(chicken pox) 2008-11-23 00:00:00 Completed [facility] DTAP 2008-11-23 00:00:00 Completed [facility] HEPATITIS A 2008-11-23 00:00:00 Completed [facility] MMR 2008-11-23 00:00:00 Completed [facility] Polio (IPV/OPV) 2008-11-23 00:00:00 Completed [facility] Varicella (varivax)(chicken pox) 2008-11-23 00:00:00 Completed [facility] DTAP 2008-11-23 00:00:00 Completed [facility] HEPATITIS A 2008-11-23 00:00:00 Completed [facility] DTAP 2008-11-23 00:00:00 Completed [facility] HEPATITIS A 2008-11-23 00:00:00 Completed [facility] MMR 2008-11-23 00:00:00 Completed [facility] Polio (IPV/OPV) 2008-11-23 00:00:00 Completed [facility] Varicella (varivax)(chicken pox) 2008-11-23 00:00:00 Completed [facility] MMR 2008-11-23 00:00:00 Completed [facility] DTAP 2008-11-23 00:00:00 Completed [facility] HEPATITIS A 2008-11-23 00:00:00 Completed [facility] MMR 2008-11-23 00:00:00 Completed [facility] Polio (IPV/OPV) 2008-11-23 00:00:00 Completed [facility] Varicella (varivax)(chicken pox) 2008-11-23 00:00:00 Completed [facility] Polio (IPV/OPV) 2008-11-23 00:00:00 Completed [facility] Varicella (varivax)(chicken pox) 2008-11-23 00:00:00 Completed [facility] DTAP 2008-11-23 00:00:00 Completed [facility] HEPATITIS A 2008-11-23 00:00:00 Completed [facility] HEPATITIS A 2008-11-23 00:00:00 Completed [facility] MMR 2008-11-23 00:00:00 Completed [facility] Polio (IPV/OPV) 2008-11-23 00:00:00 Completed [facility] Varicella (varivax)(chicken pox) 2008-11-23 00:00:00 Completed [facility] DTAP 2008-11-23 00:00:00 Completed [facility] HEPATITIS A 2008-11-23 00:00:00 Completed [facility] MMR 2008-11-23 00:00:00 Completed [facility] Polio (IPV/OPV) 2008-11-23 00:00:00 Completed [facility] Varicella (varivax)(chicken pox) 2008-11-23 00:00:00 Completed [facility] DTAP 2008-11-23 00:00:00 Completed [facility] HEPATITIS A 2008-11-23 00:00:00 Completed [facility] MMR 2008-11-23 00:00:00 Completed [facility] MMR 2008-11-23 00:00:00 Completed [facility] Polio (IPV/OPV) 2008-11-23 00:00:00 Completed [facility] Varicella (varivax)(chicken pox) 2008-11-23 00:00:00 Completed [facility] DTAP 2008-11-23 00:00:00 Completed [facility] HEPATITIS A 2008-11-23 00:00:00 Completed [facility] MMR 2008-11-23 00:00:00 Completed [facility] Polio (IPV/OPV) 2008-11-23 00:00:00 Completed [facility] Varicella (varivax)(chicken pox) 2008-11-23 00:00:00 Completed [facility] Polio (IPV/OPV) 2008-11-23 00:00:00 Completed [facility] Varicella (varivax)(chicken pox) 2008-11-23 00:00:00 Completed [facility] DTAP 2008-11-23 00:00:00 Completed HEPATITIS A 2008-11-23 00:00:00 Completed [facility] MMR 2008-11-23 00:00:00 Completed [facility] Polio (IPV/OPV) 2008-11-23 00:00:00 Completed Varicella (varivax)(chicken pox) 2008-11-23 00:00:00 Completed [facility] DTaP, Unspecified Formulation 2008-11-23 00:00:00 Completed IPV 2008-11-23 00:00:00 Completed DTAP 2008-11-23 00:00:00 Completed [facility] HEPATITIS A 2008-11-23 00:00:00 Completed [facility] MMR 2008-11-23 00:00:00 Completed [facility] Polio (IPV/OPV) 2008-11-23 00:00:00 Completed [facility] Varicella (varivax)(chicken pox) 2008-11-23 00:00:00 Completed [facility] DTAP 2008-11-23 00:00:00 Completed [facility] HEPATITIS A 2008-11-23 00:00:00 Completed [facility] MMR 2008-11-23 00:00:00 Completed [facility] Polio (IPV/OPV) 2008-11-23 00:00:00 Completed [facility] Varicella (varivax)(chicken pox) 2008-11-23 00:00:00 Completed [facility] DTAP 2008-11-23 00:00:00 Completed [facility] HEPATITIS A 2008-11-23 00:00:00 Completed [facility] MMR 2008-11-23 00:00:00 Completed [facility] Polio (IPV/OPV) 2008-11-23 00:00:00 Completed [facility] Varicella (varivax)(chicken pox) 2008-11-23 00:00:00 Completed [facility] DTAP 2008-11-23 00:00:00 Completed [facility] HEPATITIS A 2008-11-23 00:00:00 Completed [facility] MMR 2008-11-23 00:00:00 Completed [facility] Polio (IPV/OPV) 2008-11-23 00:00:00 Completed [facility] Varicella (varivax)(chicken pox) 2008-11-23 00:00:00 Completed [facility] DTAP 2008-11-23 00:00:00 Completed [facility] HEPATITIS A 2008-11-23 00:00:00 Completed [facility] MMR 2008-11-23 00:00:00 Completed [facility] Polio (IPV/OPV) 2008-11-23 00:00:00 Completed [facility] Varicella (varivax)(chicken pox) 2008-11-23 00:00:00 Completed [facility] DTAP 2008-11-23 00:00:00 Completed [facility] HEPATITIS A 2008-11-23 00:00:00 Completed [facility] MMR 2008-11-23 00:00:00 Completed [facility] Polio (IPV/OPV) 2008-11-23 00:00:00 Completed [facility] Varicella (varivax)(chicken pox) 2008-11-23 00:00:00 Completed [facility] DTAP 2008-11-23 00:00:00 Completed [facility] HEPATITIS A 2008-11-23 00:00:00 Completed [facility] MMR 2008-11-23 00:00:00 Completed [facility] Polio (IPV/OPV) 2008-11-23 00:00:00 Completed [facility] Varicella (varivax)(chicken pox) 2008-11-23 00:00:00 Completed [facility] DTAP 2005-12-08 00:00:00 Completed [facility] DTAP 2005-12-08 00:00:00 Completed [facility] Pneumococcal 13 Conjugate, PCV13 (Prevnar 13) 2005-12-08 00:00:00 Completed [facility] Polio (IPV/OPV) 2005-12-08 00:00:00 Completed [facility] DTAP 2005-12-08 00:00:00 Completed [facility] Pneumococcal 13 Conjugate, PCV13 (Prevnar 13) 2005-12-08 00:00:00 Completed [facility] Polio (IPV/OPV) 2005-12-08 00:00:00 Completed [facility] DTAP 2005-12-08 00:00:00 Completed [facility] Pneumococcal 13 Conjugate, PCV13 (Prevnar 13) 2005-12-08 00:00:00 Completed [facility] Polio (IPV/OPV) 2005-12-08 00:00:00 Completed [facility] DTAP 2005-12-08 00:00:00 Completed [facility] Pneumococcal 13 Conjugate, PCV13 (Prevnar 13) 2005-12-08 00:00:00 Completed [facility] Polio (IPV/OPV) 2005-12-08 00:00:00 Completed [facility] Pneumococcal 13 Conjugate, PCV13 (Prevnar 13) 2005-12-08 00:00:00 Completed [facility] Polio (IPV/OPV) 2005-12-08 00:00:00 Completed [facility] DTAP 2005-12-08 00:00:00 Completed [facility] Pneumococcal 13 Conjugate, PCV13 (Prevnar 13) 2005-12-08 00:00:00 Completed [facility] Polio (IPV/OPV) 2005-12-08 00:00:00 Completed [facility] DTAP 2005-12-08 00:00:00 Completed [facility] DTAP 2005-12-08 00:00:00 Completed [facility] Pneumococcal 13 Conjugate, PCV13 (Prevnar 13) 2005-12-08 00:00:00 Completed [facility] Polio (IPV/OPV) 2005-12-08 00:00:00 Completed [facility] DTAP 2005-12-08 00:00:00 Completed [facility] Pneumococcal 13 Conjugate, PCV13 (Prevnar 13) 2005-12-08 00:00:00 Completed [facility] Polio (IPV/OPV) 2005-12-08 00:00:00 Completed [facility] DTAP 2005-12-08 00:00:00 Completed [facility] DTAP 2005-12-08 00:00:00 Completed [facility] Pneumococcal 13 Conjugate, PCV13 (Prevnar 13) 2005-12-08 00:00:00 Completed [facility] Polio (IPV/OPV) 2005-12-08 00:00:00 Completed [facility] Pneumococcal 13 Conjugate, PCV13 (Prevnar 13) 2005-12-08 00:00:00 Completed [facility] Polio (IPV/OPV) 2005-12-08 00:00:00 Completed [facility] DTAP 2005-12-08 00:00:00 Completed [facility] Pneumococcal 13 Conjugate, PCV13 (Prevnar 13) 2005-12-08 00:00:00 Completed [facility] Polio (IPV/OPV) 2005-12-08 00:00:00 Completed [facility] DTAP 2005-12-08 00:00:00 Completed [facility] Pneumococcal 13 Conjugate, PCV13 (Prevnar 13) 2005-12-08 00:00:00 Completed [facility] Polio (IPV/OPV) 2005-12-08 00:00:00 Completed [facility] DTAP 2005-12-08 00:00:00 Completed [facility] DTAP 2005-12-08 00:00:00 Completed [facility] Pneumococcal 13 Conjugate, PCV13 (Prevnar 13) 2005-12-08 00:00:00 Completed [facility] Polio (IPV/OPV) 2005-12-08 00:00:00 Completed [facility] DTAP 2005-12-08 00:00:00 Completed [facility] Pneumococcal 13 Conjugate, PCV13 (Prevnar 13) 2005-12-08 00:00:00 Completed [facility] Polio (IPV/OPV) 2005-12-08 00:00:00 Completed [facility] Pneumococcal 13 Conjugate, PCV13 (Prevnar 13) 2005-12-08 00:00:00 Completed [facility] Polio (IPV/OPV) 2005-12-08 00:00:00 Completed [facility] DTAP 2005-12-08 00:00:00 Completed [facility] Pneumococcal 13 Conjugate, PCV13 (Prevnar 13) 2005-12-08 00:00:00 Completed [facility] Polio (IPV/OPV) 2005-12-08 00:00:00 Completed [facility] DTAP 2005-12-08 00:00:00 Completed [facility] Pneumococcal 13 Conjugate, PCV13 (Prevnar 13) 2005-12-08 00:00:00 Completed [facility] Polio (IPV/OPV) 2005-12-08 00:00:00 Completed [facility] DTAP 2005-12-08 00:00:00 Completed [facility] Pneumococcal 13 Conjugate, PCV13 (Prevnar 13) 2005-12-08 00:00:00 Completed [facility] Polio (IPV/OPV) 2005-12-08 00:00:00 Completed [facility] DTAP 2005-12-08 00:00:00 Completed [facility] Pneumococcal 13 Conjugate, PCV13 (Prevnar 13) 2005-12-08 00:00:00 Completed [facility] Polio (IPV/OPV) 2005-12-08 00:00:00 Completed [facility] Pneumococcal 13 Conjugate, PCV13 (Prevnar 13) 2005-12-08 00:00:00 Completed [facility] Polio (IPV/OPV) 2005-12-08 00:00:00 Completed [facility] DTAP 2005-12-08 00:00:00 Completed [facility] Pneumococcal 13 Conjugate, PCV13 (Prevnar 13) 2005-12-08 00:00:00 Completed Polio (IPV/OPV) 2005-12-08 00:00:00 Completed DTaP, Unspecified Formulation 2005-12-08 00:00:00 Completed Pneumococcal 7 Conjugate, PCV7 (Prevnar7) 2005-12-08 00:00:00 Completed IPV 2005-12-08 00:00:00 Completed DTAP 2005-12-08 00:00:00 Completed [facility] Pneumococcal 13 Conjugate, PCV13 (Prevnar 13) 2005-12-08 00:00:00 Completed [facility] Polio (IPV/OPV) 2005-12-08 00:00:00 Completed [facility] DTAP 2005-12-08 00:00:00 Completed [facility] Pneumococcal 13 Conjugate, PCV13 (Prevnar 13) 2005-12-08 00:00:00 Completed [facility] Polio (IPV/OPV) 2005-12-08 00:00:00 Completed [facility] DTAP 2005-12-08 00:00:00 Completed [facility] Pneumococcal 13 Conjugate, PCV13 (Prevnar 13) 2005-12-08 00:00:00 Completed [facility] Polio (IPV/OPV) 2005-12-08 00:00:00 Completed [facility] DTAP 2005-12-08 00:00:00 Completed [facility] Pneumococcal 13 Conjugate, PCV13 (Prevnar 13) 2005-12-08 00:00:00 Completed [facility] Polio (IPV/OPV) 2005-12-08 00:00:00 Completed [facility] DTAP 2005-12-08 00:00:00 Completed [facility] Pneumococcal 13 Conjugate, PCV13 (Prevnar 13) 2005-12-08 00:00:00 Completed [facility] Polio (IPV/OPV) 2005-12-08 00:00:00 Completed [facility] DTAP 2005-12-08 00:00:00 Completed [facility] Pneumococcal 13 Conjugate, PCV13 (Prevnar 13) 2005-12-08 00:00:00 Completed [facility] Polio (IPV/OPV) 2005-12-08 00:00:00 Completed [facility] DTAP 2005-12-08 00:00:00 Completed [facility] Pneumococcal 13 Conjugate, PCV13 (Prevnar 13) 2005-12-08 00:00:00 Completed [facility] Polio (IPV/OPV) 2005-12-08 00:00:00 Completed [facility] HEPATITIS A 2005-12-06 00:00:00 Completed [facility] HEPATITIS A 2005-12-06 00:00:00 Completed [facility] HEPATITIS A 2005-12-06 00:00:00 Completed [facility] HEPATITIS A 2005-12-06 00:00:00 Completed [facility] HEPATITIS A 2005-12-06 00:00:00 Completed [facility] HEPATITIS A 2005-12-06 00:00:00 Completed [facility] HEPATITIS A 2005-12-06 00:00:00 Completed [facility] HEPATITIS A 2005-12-06 00:00:00 Completed [facility] HEPATITIS A 2005-12-06 00:00:00 Completed [facility] HEPATITIS A 2005-12-06 00:00:00 Completed [facility] HEPATITIS A 2005-12-06 00:00:00 Completed [facility] HEPATITIS A 2005-12-06 00:00:00 Completed [facility] HEPATITIS A 2005-12-06 00:00:00 Completed [facility] HEPATITIS A 2005-12-06 00:00:00 Completed [facility] HEPATITIS A 2005-12-06 00:00:00 Completed [facility] HEPATITIS A 2005-12-06 00:00:00 Completed [facility] HEPATITIS A 2005-12-06 00:00:00 Completed [facility] HEPATITIS A 2005-12-06 00:00:00 Completed [facility] HEPATITIS A 2005-12-06 00:00:00 Completed [facility] HEPATITIS A 2005-12-06 00:00:00 Completed [facility] HEPATITIS A 2005-12-06 00:00:00 Completed HEPATITIS A 2005-12-06 00:00:00 Completed [facility] HEPATITIS A 2005-12-06 00:00:00 Completed [facility] HEPATITIS A 2005-12-06 00:00:00 Completed [facility] HEPATITIS A 2005-12-06 00:00:00 Completed [facility] HEPATITIS A 2005-12-06 00:00:00 Completed [facility] HEPATITIS A 2005-12-06 00:00:00 Completed [facility] HEPATITIS A 2005-12-06 00:00:00 Completed [facility] HIB 4 Dose Schedule 2005-09-08 00:00:00 Completed [facility] MMR 2005-09-08 00:00:00 Completed [facility] Varicella (varivax)(chicken pox) 2005-09-08 00:00:00 Completed [facility] HIB 4 Dose Schedule 2005-09-08 00:00:00 Completed [facility] HIB 4 Dose Schedule 2005-09-08 00:00:00 Completed [facility] MMR 2005-09-08 00:00:00 Completed [facility] Varicella (varivax)(chicken pox) 2005-09-08 00:00:00 Completed [facility] HIB 4 Dose Schedule 2005-09-08 00:00:00 Completed [facility] MMR 2005-09-08 00:00:00 Completed [facility] MMR 2005-09-08 00:00:00 Completed [facility] Varicella (varivax)(chicken pox) 2005-09-08 00:00:00 Completed [facility] HIB 4 Dose Schedule 2005-09-08 00:00:00 Completed [facility] MMR 2005-09-08 00:00:00 Completed [facility] Varicella (varivax)(chicken pox) 2005-09-08 00:00:00 Completed [facility] HIB 4 Dose Schedule 2005-09-08 00:00:00 Completed [facility] Varicella (varivax)(chicken pox) 2005-09-08 00:00:00 Completed [facility] MMR 2005-09-08 00:00:00 Completed [facility] Varicella (varivax)(chicken pox) 2005-09-08 00:00:00 Completed [facility] HIB 4 Dose Schedule 2005-09-08 00:00:00 Completed [facility] MMR 2005-09-08 00:00:00 Completed [facility] Varicella (varivax)(chicken pox) 2005-09-08 00:00:00 Completed [facility] HIB 4 Dose Schedule 2005-09-08 00:00:00 Completed [facility] HIB 4 Dose Schedule 2005-09-08 00:00:00 Completed [facility] MMR 2005-09-08 00:00:00 Completed [facility] Varicella (varivax)(chicken pox) 2005-09-08 00:00:00 Completed [facility] MMR 2005-09-08 00:00:00 Completed [facility] HIB 4 Dose Schedule 2005-09-08 00:00:00 Completed [facility] MMR 2005-09-08 00:00:00 Completed [facility] Varicella (varivax)(chicken pox) 2005-09-08 00:00:00 Completed [facility] HIB 4 Dose Schedule 2005-09-08 00:00:00 Completed [facility] MMR 2005-09-08 00:00:00 Completed [facility] Varicella (varivax)(chicken pox) 2005-09-08 00:00:00 Completed [facility] Varicella (varivax)(chicken pox) 2005-09-08 00:00:00 Completed [facility] HIB 4 Dose Schedule 2005-09-08 00:00:00 Completed [facility] MMR 2005-09-08 00:00:00 Completed [facility] Varicella (varivax)(chicken pox) 2005-09-08 00:00:00 Completed [facility] HIB 4 Dose Schedule 2005-09-08 00:00:00 Completed [facility] HIB 4 Dose Schedule 2005-09-08 00:00:00 Completed [facility] MMR 2005-09-08 00:00:00 Completed [facility] Varicella (varivax)(chicken pox) 2005-09-08 00:00:00 Completed [facility] MMR 2005-09-08 00:00:00 Completed [facility] HIB 4 Dose Schedule 2005-09-08 00:00:00 Completed [facility] MMR 2005-09-08 00:00:00 Completed [facility] Varicella (varivax)(chicken pox) 2005-09-08 00:00:00 Completed [facility] HIB 4 Dose Schedule 2005-09-08 00:00:00 Completed [facility] Varicella (varivax)(chicken pox) 2005-09-08 00:00:00 Completed [facility] HIB 4 Dose Schedule 2005-09-08 00:00:00 Completed [facility] MMR 2005-09-08 00:00:00 Completed [facility] Varicella (varivax)(chicken pox) 2005-09-08 00:00:00 Completed [facility] HIB 4 Dose Schedule 2005-09-08 00:00:00 Completed [facility] MMR 2005-09-08 00:00:00 Completed [facility] Varicella (varivax)(chicken pox) 2005-09-08 00:00:00 Completed [facility] MMR 2005-09-08 00:00:00 Completed [facility] HIB 4 Dose Schedule 2005-09-08 00:00:00 Completed [facility] MMR 2005-09-08 00:00:00 Completed [facility] Varicella (varivax)(chicken pox) 2005-09-08 00:00:00 Completed [facility] HIB 4 Dose Schedule 2005-09-08 00:00:00 Completed [facility] MMR 2005-09-08 00:00:00 Completed [facility] Varicella (varivax)(chicken pox) 2005-09-08 00:00:00 Completed [facility] Varicella (varivax)(chicken pox) 2005-09-08 00:00:00 Completed [facility] HIB 4 Dose Schedule 2005-09-08 00:00:00 Completed [facility] MMR 2005-09-08 00:00:00 Completed [facility] Varicella (varivax)(chicken pox) 2005-09-08 00:00:00 Completed [facility] Hib-HbOC 2005-09-08 00:00:00 Completed HIB 4 Dose Schedule 2005-09-08 00:00:00 Completed [facility] MMR 2005-09-08 00:00:00 Completed [facility] Varicella (varivax)(chicken pox) 2005-09-08 00:00:00 Completed [facility] HIB 4 Dose Schedule 2005-09-08 00:00:00 Completed [facility] MMR 2005-09-08 00:00:00 Completed [facility] Varicella (varivax)(chicken pox) 2005-09-08 00:00:00 Completed [facility] HIB 4 Dose Schedule 2005-09-08 00:00:00 Completed [facility] MMR 2005-09-08 00:00:00 Completed [facility] Varicella (varivax)(chicken pox) 2005-09-08 00:00:00 Completed [facility] HIB 4 Dose Schedule 2005-09-08 00:00:00 Completed [facility] MMR 2005-09-08 00:00:00 Completed [facility] Varicella (varivax)(chicken pox) 2005-09-08 00:00:00 Completed [facility] HIB 4 Dose Schedule 2005-09-08 00:00:00 Completed [facility] MMR 2005-09-08 00:00:00 Completed [facility] Varicella (varivax)(chicken pox) 2005-09-08 00:00:00 Completed [facility] HIB 4 Dose Schedule 2005-09-08 00:00:00 Completed [facility] MMR 2005-09-08 00:00:00 Completed [facility] Varicella (varivax)(chicken pox) 2005-09-08 00:00:00 Completed [facility] HIB 4 Dose Schedule 2005-09-08 00:00:00 Completed [facility] MMR 2005-09-08 00:00:00 Completed [facility] Varicella (varivax)(chicken pox) 2005-09-08 00:00:00 Completed [facility] Pediarix (dtap/hep B/ipv) 2005-04-07 00:00:00 Completed [facility] Pediarix (dtap/hep B/ipv) 2005-04-07 00:00:00 Completed [facility] Pediarix (dtap/hep B/ipv) 2005-04-07 00:00:00 Completed [facility] Pediarix (dtap/hep B/ipv) 2005-04-07 00:00:00 Completed [facility] Pediarix (dtap/hep B/ipv) 2005-04-07 00:00:00 Completed [facility] Pediarix (dtap/hep B/ipv) 2005-04-07 00:00:00 Completed [facility] Pediarix (dtap/hep B/ipv) 2005-04-07 00:00:00 Completed [facility] Pediarix (dtap/hep B/ipv) 2005-04-07 00:00:00 Completed [facility] Pediarix (dtap/hep B/ipv) 2005-04-07 00:00:00 Completed [facility] Pediarix (dtap/hep B/ipv) 2005-04-07 00:00:00 Completed [facility] Pediarix (dtap/hep B/ipv) 2005-04-07 00:00:00 Completed [facility] Pediarix (dtap/hep B/ipv) 2005-04-07 00:00:00 Completed [facility] Pediarix (dtap/hep B/ipv) 2005-04-07 00:00:00 Completed [facility] Pediarix (dtap/hep B/ipv) 2005-04-07 00:00:00 Completed [facility] Pediarix (dtap/hep B/ipv) 2005-04-07 00:00:00 Completed [facility] Pediarix (dtap/hep B/ipv) 2005-04-07 00:00:00 Completed [facility] Pediarix (dtap/hep B/ipv) 2005-04-07 00:00:00 Completed [facility] Pediarix (dtap/hep B/ipv) 2005-04-07 00:00:00 Completed [facility] Pediarix (dtap/hep B/ipv) 2005-04-07 00:00:00 Completed [facility] Pediarix (dtap/hep B/ipv) 2005-04-07 00:00:00 Completed [facility] Pediarix (dtap/hep B/ipv) 2005-04-07 00:00:00 Completed Pediarix (dtap/hep B/ipv) 2005-04-07 00:00:00 Completed [facility] Pediarix (dtap/hep B/ipv) 2005-04-07 00:00:00 Completed [facility] Pediarix (dtap/hep B/ipv) 2005-04-07 00:00:00 Completed [facility] Pediarix (dtap/hep B/ipv) 2005-04-07 00:00:00 Completed [facility] Pediarix (dtap/hep B/ipv) 2005-04-07 00:00:00 Completed [facility] Pediarix (dtap/hep B/ipv) 2005-04-07 00:00:00 Completed [facility] Pediarix (dtap/hep B/ipv) 2005-04-07 00:00:00 Completed [facility] HIB 4 Dose Schedule 2005-03-18 00:00:00 Completed [facility] Pediarix (dtap/hep B/ipv) 2005-03-18 00:00:00 Completed [facility] Pneumococcal 13 Conjugate, PCV13 (Prevnar 13) 2005-03-18 00:00:00 Completed [facility] HIB 4 Dose Schedule 2005-03-18 00:00:00 Completed [facility] HIB 4 Dose Schedule 2005-03-18 00:00:00 Completed [facility] Pediarix (dtap/hep B/ipv) 2005-03-18 00:00:00 Completed [facility] Pneumococcal 13 Conjugate, PCV13 (Prevnar 13) 2005-03-18 00:00:00 Completed [facility] HIB 4 Dose Schedule 2005-03-18 00:00:00 Completed [facility] Pediarix (dtap/hep B/ipv) 2005-03-18 00:00:00 Completed [facility] Pneumococcal 13 Conjugate, PCV13 (Prevnar 13) 2005-03-18 00:00:00 Completed [facility] Pediarix (dtap/hep B/ipv) 2005-03-18 00:00:00 Completed [facility] HIB 4 Dose Schedule 2005-03-18 00:00:00 Completed [facility] Pediarix (dtap/hep B/ipv) 2005-03-18 00:00:00 Completed [facility] Pneumococcal 13 Conjugate, PCV13 (Prevnar 13) 2005-03-18 00:00:00 Completed [facility] Pneumococcal 13 Conjugate, PCV13 (Prevnar 13) 2005-03-18 00:00:00 Completed [facility] HIB 4 Dose Schedule 2005-03-18 00:00:00 Completed [facility] Pediarix (dtap/hep B/ipv) 2005-03-18 00:00:00 Completed [facility] Pneumococcal 13 Conjugate, PCV13 (Prevnar 13) 2005-03-18 00:00:00 Completed [facility] HIB 4 Dose Schedule 2005-03-18 00:00:00 Completed [facility] Pediarix (dtap/hep B/ipv) 2005-03-18 00:00:00 Completed [facility] Pneumococcal 13 Conjugate, PCV13 (Prevnar 13) 2005-03-18 00:00:00 Completed [facility] HIB 4 Dose Schedule 2005-03-18 00:00:00 Completed [facility] HIB 4 Dose Schedule 2005-03-18 00:00:00 Completed [facility] Pediarix (dtap/hep B/ipv) 2005-03-18 00:00:00 Completed [facility] Pneumococcal 13 Conjugate, PCV13 (Prevnar 13) 2005-03-18 00:00:00 Completed [facility] HIB 4 Dose Schedule 2005-03-18 00:00:00 Completed [facility] Pediarix (dtap/hep B/ipv) 2005-03-18 00:00:00 Completed [facility] Pneumococcal 13 Conjugate, PCV13 (Prevnar 13) 2005-03-18 00:00:00 Completed [facility] Pediarix (dtap/hep B/ipv) 2005-03-18 00:00:00 Completed [facility] Pneumococcal 13 Conjugate, PCV13 (Prevnar 13) 2005-03-18 00:00:00 Completed [facility] HIB 4 Dose Schedule 2005-03-18 00:00:00 Completed [facility] Pediarix (dtap/hep B/ipv) 2005-03-18 00:00:00 Completed [facility] Pneumococcal 13 Conjugate, PCV13 (Prevnar 13) 2005-03-18 00:00:00 Completed [facility] HIB 4 Dose Schedule 2005-03-18 00:00:00 Completed [facility] Pediarix (dtap/hep B/ipv) 2005-03-18 00:00:00 Completed [facility] Pneumococcal 13 Conjugate, PCV13 (Prevnar 13) 2005-03-18 00:00:00 Completed [facility] HIB 4 Dose Schedule 2005-03-18 00:00:00 Completed [facility] HIB 4 Dose Schedule 2005-03-18 00:00:00 Completed [facility] Pediarix (dtap/hep B/ipv) 2005-03-18 00:00:00 Completed [facility] Pneumococcal 13 Conjugate, PCV13 (Prevnar 13) 2005-03-18 00:00:00 Completed [facility] HIB 4 Dose Schedule 2005-03-18 00:00:00 Completed [facility] HIB 4 Dose Schedule 2005-03-18 00:00:00 Completed [facility] Pediarix (dtap/hep B/ipv) 2005-03-18 00:00:00 Completed [facility] Pediarix (dtap/hep B/ipv) 2005-03-18 00:00:00 Completed [facility] Pneumococcal 13 Conjugate, PCV13 (Prevnar 13) 2005-03-18 00:00:00 Completed [facility] Pneumococcal 13 Conjugate, PCV13 (Prevnar 13) 2005-03-18 00:00:00 Completed [facility] HIB 4 Dose Schedule 2005-03-18 00:00:00 Completed [facility] Pediarix (dtap/hep B/ipv) 2005-03-18 00:00:00 Completed [facility] Pneumococcal 13 Conjugate, PCV13 (Prevnar 13) 2005-03-18 00:00:00 Completed [facility] HIB 4 Dose Schedule 2005-03-18 00:00:00 Completed [facility] Pediarix (dtap/hep B/ipv) 2005-03-18 00:00:00 Completed [facility] Pneumococcal 13 Conjugate, PCV13 (Prevnar 13) 2005-03-18 00:00:00 Completed [facility] HIB 4 Dose Schedule 2005-03-18 00:00:00 Completed [facility] Pediarix (dtap/hep B/ipv) 2005-03-18 00:00:00 Completed [facility] Pneumococcal 13 Conjugate, PCV13 (Prevnar 13) 2005-03-18 00:00:00 Completed [facility] HIB 4 Dose Schedule 2005-03-18 00:00:00 Completed [facility] Pediarix (dtap/hep B/ipv) 2005-03-18 00:00:00 Completed [facility] Pediarix (dtap/hep B/ipv) 2005-03-18 00:00:00 Completed [facility] Pneumococcal 13 Conjugate, PCV13 (Prevnar 13) 2005-03-18 00:00:00 Completed [facility] Pneumococcal 13 Conjugate, PCV13 (Prevnar 13) 2005-03-18 00:00:00 Completed [facility] HIB 4 Dose Schedule 2005-03-18 00:00:00 Completed [facility] Pediarix (dtap/hep B/ipv) 2005-03-18 00:00:00 Completed [facility] Pneumococcal 13 Conjugate, PCV13 (Prevnar 13) 2005-03-18 00:00:00 Completed Hib-HbOC 2005-03-18 00:00:00 Completed Pneumococcal 7 Conjugate, PCV7 (Prevnar7) 2005-03-18 00:00:00 Completed HIB 4 Dose Schedule 2005-03-18 00:00:00 Completed [facility] Pediarix (dtap/hep B/ipv) 2005-03-18 00:00:00 Completed [facility] Pneumococcal 13 Conjugate, PCV13 (Prevnar 13) 2005-03-18 00:00:00 Completed [facility] HIB 4 Dose Schedule 2005-03-18 00:00:00 Completed [facility] Pediarix (dtap/hep B/ipv) 2005-03-18 00:00:00 Completed [facility] Pneumococcal 13 Conjugate, PCV13 (Prevnar 13) 2005-03-18 00:00:00 Completed [facility] HIB 4 Dose Schedule 2005-03-18 00:00:00 Completed [facility] Pediarix (dtap/hep B/ipv) 2005-03-18 00:00:00 Completed [facility] Pneumococcal 13 Conjugate, PCV13 (Prevnar 13) 2005-03-18 00:00:00 Completed [facility] HIB 4 Dose Schedule 2005-03-18 00:00:00 Completed [facility] Pediarix (dtap/hep B/ipv) 2005-03-18 00:00:00 Completed [facility] Pneumococcal 13 Conjugate, PCV13 (Prevnar 13) 2005-03-18 00:00:00 Completed [facility] HIB 4 Dose Schedule 2005-03-18 00:00:00 Completed [facility] Pediarix (dtap/hep B/ipv) 2005-03-18 00:00:00 Completed [facility] Pneumococcal 13 Conjugate, PCV13 (Prevnar 13) 2005-03-18 00:00:00 Completed [facility] HIB 4 Dose Schedule 2005-03-18 00:00:00 Completed [facility] Pediarix (dtap/hep B/ipv) 2005-03-18 00:00:00 Completed [facility] Pneumococcal 13 Conjugate, PCV13 (Prevnar 13) 2005-03-18 00:00:00 Completed [facility] HIB 4 Dose Schedule 2005-03-18 00:00:00 Completed [facility] Pediarix (dtap/hep B/ipv) 2005-03-18 00:00:00 Completed [facility] Pneumococcal 13 Conjugate, PCV13 (Prevnar 13) 2005-03-18 00:00:00 Completed [facility] HIB 4 Dose Schedule 2005-01-06 00:00:00 Completed [facility] Pediarix (dtap/hep B/ipv) 2005-01-06 00:00:00 Completed [facility] HIB 4 Dose Schedule 2005-01-06 00:00:00 Completed [facility] Pneumococcal 13 Conjugate, PCV13 (Prevnar 13) 2005-01-06 00:00:00 Completed [facility] HIB 4 Dose Schedule 2005-01-06 00:00:00 Completed [facility] Pediarix (dtap/hep B/ipv) 2005-01-06 00:00:00 Completed [facility] Pneumococcal 13 Conjugate, PCV13 (Prevnar 13) 2005-01-06 00:00:00 Completed [facility] HIB 4 Dose Schedule 2005-01-06 00:00:00 Completed [facility] Pediarix (dtap/hep B/ipv) 2005-01-06 00:00:00 Completed [facility] Pneumococcal 13 Conjugate, PCV13 (Prevnar 13) 2005-01-06 00:00:00 Completed [facility] Pediarix (dtap/hep B/ipv) 2005-01-06 00:00:00 Completed [facility] HIB 4 Dose Schedule 2005-01-06 00:00:00 Completed [facility] Pediarix (dtap/hep B/ipv) 2005-01-06 00:00:00 Completed [facility] Pneumococcal 13 Conjugate, PCV13 (Prevnar 13) 2005-01-06 00:00:00 Completed [facility] Pneumococcal 13 Conjugate, PCV13 (Prevnar 13) 2005-01-06 00:00:00 Completed [facility] HIB 4 Dose Schedule 2005-01-06 00:00:00 Completed [facility] Pediarix (dtap/hep B/ipv) 2005-01-06 00:00:00 Completed [facility] Pneumococcal 13 Conjugate, PCV13 (Prevnar 13) 2005-01-06 00:00:00 Completed [facility] HIB 4 Dose Schedule 2005-01-06 00:00:00 Completed [facility] Pediarix (dtap/hep B/ipv) 2005-01-06 00:00:00 Completed [facility] Pneumococcal 13 Conjugate, PCV13 (Prevnar 13) 2005-01-06 00:00:00 Completed [facility] HIB 4 Dose Schedule 2005-01-06 00:00:00 Completed [facility] HIB 4 Dose Schedule 2005-01-06 00:00:00 Completed [facility] Pediarix (dtap/hep B/ipv) 2005-01-06 00:00:00 Completed [facility] Pneumococcal 13 Conjugate, PCV13 (Prevnar 13) 2005-01-06 00:00:00 Completed [facility] HIB 4 Dose Schedule 2005-01-06 00:00:00 Completed [facility] Pediarix (dtap/hep B/ipv) 2005-01-06 00:00:00 Completed [facility] Pneumococcal 13 Conjugate, PCV13 (Prevnar 13) 2005-01-06 00:00:00 Completed [facility] Pediarix (dtap/hep B/ipv) 2005-01-06 00:00:00 Completed [facility] Pneumococcal 13 Conjugate, PCV13 (Prevnar 13) 2005-01-06 00:00:00 Completed [facility] HIB 4 Dose Schedule 2005-01-06 00:00:00 Completed [facility] Pediarix (dtap/hep B/ipv) 2005-01-06 00:00:00 Completed [facility] Pneumococcal 13 Conjugate, PCV13 (Prevnar 13) 2005-01-06 00:00:00 Completed [facility] HIB 4 Dose Schedule 2005-01-06 00:00:00 Completed [facility] Pediarix (dtap/hep B/ipv) 2005-01-06 00:00:00 Completed [facility] Pneumococcal 13 Conjugate, PCV13 (Prevnar 13) 2005-01-06 00:00:00 Completed [facility] HIB 4 Dose Schedule 2005-01-06 00:00:00 Completed [facility] HIB 4 Dose Schedule 2005-01-06 00:00:00 Completed [facility] HIB 4 Dose Schedule 2005-01-06 00:00:00 Completed [facility] Pediarix (dtap/hep B/ipv) 2005-01-06 00:00:00 Completed [facility] Pneumococcal 13 Conjugate, PCV13 (Prevnar 13) 2005-01-06 00:00:00 Completed [facility] Pediarix (dtap/hep B/ipv) 2005-01-06 00:00:00 Completed [facility] HIB 4 Dose Schedule 2005-01-06 00:00:00 Completed [facility] Pediarix (dtap/hep B/ipv) 2005-01-06 00:00:00 Completed [facility] Pneumococcal 13 Conjugate, PCV13 (Prevnar 13) 2005-01-06 00:00:00 Completed [facility] Pneumococcal 13 Conjugate, PCV13 (Prevnar 13) 2005-01-06 00:00:00 Completed [facility] HIB 4 Dose Schedule 2005-01-06 00:00:00 Completed [facility] Pediarix (dtap/hep B/ipv) 2005-01-06 00:00:00 Completed [facility] Pneumococcal 13 Conjugate, PCV13 (Prevnar 13) 2005-01-06 00:00:00 Completed [facility] HIB 4 Dose Schedule 2005-01-06 00:00:00 Completed [facility] Pediarix (dtap/hep B/ipv) 2005-01-06 00:00:00 Completed [facility] Pneumococcal 13 Conjugate, PCV13 (Prevnar 13) 2005-01-06 00:00:00 Completed [facility] HIB 4 Dose Schedule 2005-01-06 00:00:00 Completed [facility] Pediarix (dtap/hep B/ipv) 2005-01-06 00:00:00 Completed [facility] Pneumococcal 13 Conjugate, PCV13 (Prevnar 13) 2005-01-06 00:00:00 Completed [facility] Pediarix (dtap/hep B/ipv) 2005-01-06 00:00:00 Completed [facility] HIB 4 Dose Schedule 2005-01-06 00:00:00 Completed [facility] Pediarix (dtap/hep B/ipv) 2005-01-06 00:00:00 Completed [facility] Pneumococcal 13 Conjugate, PCV13 (Prevnar 13) 2005-01-06 00:00:00 Completed [facility] Pneumococcal 13 Conjugate, PCV13 (Prevnar 13) 2005-01-06 00:00:00 Completed [facility] HIB 4 Dose Schedule 2005-01-06 00:00:00 Completed [facility] Pediarix (dtap/hep B/ipv) 2005-01-06 00:00:00 Completed [facility] Pneumococcal 13 Conjugate, PCV13 (Prevnar 13) 2005-01-06 00:00:00 Completed Hib-HbOC 2005-01-06 00:00:00 Completed Pneumococcal 7 Conjugate, PCV7 (Prevnar7) 2005-01-06 00:00:00 Completed HIB 4 Dose Schedule 2005-01-06 00:00:00 Completed [facility] Pediarix (dtap/hep B/ipv) 2005-01-06 00:00:00 Completed [facility] Pneumococcal 13 Conjugate, PCV13 (Prevnar 13) 2005-01-06 00:00:00 Completed [facility] HIB 4 Dose Schedule 2005-01-06 00:00:00 Completed [facility] Pediarix (dtap/hep B/ipv) 2005-01-06 00:00:00 Completed [facility] Pneumococcal 13 Conjugate, PCV13 (Prevnar 13) 2005-01-06 00:00:00 Completed [facility] HIB 4 Dose Schedule 2005-01-06 00:00:00 Completed [facility] Pediarix (dtap/hep B/ipv) 2005-01-06 00:00:00 Completed [facility] Pneumococcal 13 Conjugate, PCV13 (Prevnar 13) 2005-01-06 00:00:00 Completed [facility] HIB 4 Dose Schedule 2005-01-06 00:00:00 Completed [facility] Pediarix (dtap/hep B/ipv) 2005-01-06 00:00:00 Completed [facility] Pneumococcal 13 Conjugate, PCV13 (Prevnar 13) 2005-01-06 00:00:00 Completed [facility] HIB 4 Dose Schedule 2005-01-06 00:00:00 Completed [facility] Pediarix (dtap/hep B/ipv) 2005-01-06 00:00:00 Completed [facility] Pneumococcal 13 Conjugate, PCV13 (Prevnar 13) 2005-01-06 00:00:00 Completed [facility] HIB 4 Dose Schedule 2005-01-06 00:00:00 Completed [facility] Pediarix (dtap/hep B/ipv) 2005-01-06 00:00:00 Completed [facility] Pneumococcal 13 Conjugate, PCV13 (Prevnar 13) 2005-01-06 00:00:00 Completed [facility] HIB 4 Dose Schedule 2005-01-06 00:00:00 Completed [facility] Pediarix (dtap/hep B/ipv) 2005-01-06 00:00:00 Completed [facility] Pneumococcal 13 Conjugate, PCV13 (Prevnar 13) 2005-01-06 00:00:00 Completed [facility] HIB 4 Dose Schedule 2004 00:00:00 Completed [facility] HIB 4 Dose Schedule 2004 00:00:00 Completed [facility] Pediarix (dtap/hep B/ipv) 2004 00:00:00 Completed [facility] Pneumococcal 13 Conjugate, PCV13 (Prevnar 13) 2004 00:00:00 Completed [facility] HIB 4 Dose Schedule 2004 00:00:00 Completed [facility] Pediarix (dtap/hep B/ipv) 2004 00:00:00 Completed [facility] Pneumococcal 13 Conjugate, PCV13 (Prevnar 13) 2004 00:00:00 Completed [facility] HIB 4 Dose Schedule 2004 00:00:00 Completed [facility] Pediarix (dtap/hep B/ipv) 2004 00:00:00 Completed [facility] Pneumococcal 13 Conjugate, PCV13 (Prevnar 13) 2004 00:00:00 Completed [facility] Pediarix (dtap/hep B/ipv) 2004 00:00:00 Completed [facility] HIB 4 Dose Schedule 2004 00:00:00 Completed [facility] Pediarix (dtap/hep B/ipv) 2004 00:00:00 Completed [facility] Pneumococcal 13 Conjugate, PCV13 (Prevnar 13) 2004 00:00:00 Completed [facility] Pneumococcal 13 Conjugate, PCV13 (Prevnar 13) 2004 00:00:00 Completed [facility] HIB 4 Dose Schedule 2004 00:00:00 Completed [facility] Pediarix (dtap/hep B/ipv) 2004 00:00:00 Completed [facility] Pneumococcal 13 Conjugate, PCV13 (Prevnar 13) 2004 00:00:00 Completed [facility] HIB 4 Dose Schedule 2004 00:00:00 Completed [facility] Pediarix (dtap/hep B/ipv) 2004 00:00:00 Completed [facility] Pneumococcal 13 Conjugate, PCV13 (Prevnar 13) 2004 00:00:00 Completed [facility] HIB 4 Dose Schedule 2004 00:00:00 Completed [facility] HIB 4 Dose Schedule 2004 00:00:00 Completed [facility] Pediarix (dtap/hep B/ipv) 2004 00:00:00 Completed [facility] Pneumococcal 13 Conjugate, PCV13 (Prevnar 13) 2004 00:00:00 Completed [facility] HIB 4 Dose Schedule 2004 00:00:00 Completed [facility] Pediarix (dtap/hep B/ipv) 2004 00:00:00 Completed [facility] Pediarix (dtap/hep B/ipv) 2004 00:00:00 Completed [facility] Pneumococcal 13 Conjugate, PCV13 (Prevnar 13) 2004 00:00:00 Completed [facility] Pneumococcal 13 Conjugate, PCV13 (Prevnar 13) 2004 00:00:00 Completed [facility] HIB 4 Dose Schedule 2004 00:00:00 Completed [facility] Pediarix (dtap/hep B/ipv) 2004 00:00:00 Completed [facility] Pneumococcal 13 Conjugate, PCV13 (Prevnar 13) 2004 00:00:00 Completed [facility] HIB 4 Dose Schedule 2004 00:00:00 Completed [facility] HIB 4 Dose Schedule 2004 00:00:00 Completed [facility] Pediarix (dtap/hep B/ipv) 2004 00:00:00 Completed [facility] Pneumococcal 13 Conjugate, PCV13 (Prevnar 13) 2004 00:00:00 Completed [facility] HIB 4 Dose Schedule 2004 00:00:00 Completed [facility] HIB 4 Dose Schedule 2004 00:00:00 Completed [facility] Pediarix (dtap/hep B/ipv) 2004 00:00:00 Completed [facility] Pneumococcal 13 Conjugate, PCV13 (Prevnar 13) 2004 00:00:00 Completed [facility] Pediarix (dtap/hep B/ipv) 2004 00:00:00 Completed [facility] HIB 4 Dose Schedule 2004 00:00:00 Completed [facility] Pediarix (dtap/hep B/ipv) 2004 00:00:00 Completed [facility] Pneumococcal 13 Conjugate, PCV13 (Prevnar 13) 2004 00:00:00 Completed [facility] Pneumococcal 13 Conjugate, PCV13 (Prevnar 13) 2004 00:00:00 Completed [facility] HIB 4 Dose Schedule 2004 00:00:00 Completed [facility] Pediarix (dtap/hep B/ipv) 2004 00:00:00 Completed [facility] Pneumococcal 13 Conjugate, PCV13 (Prevnar 13) 2004 00:00:00 Completed [facility] HIB 4 Dose Schedule 2004 00:00:00 Completed [facility] Pediarix (dtap/hep B/ipv) 2004 00:00:00 Completed [facility] Pneumococcal 13 Conjugate, PCV13 (Prevnar 13) 2004 00:00:00 Completed [facility] HIB 4 Dose Schedule 2004 00:00:00 Completed [facility] Pediarix (dtap/hep B/ipv) 2004 00:00:00 Completed [facility] Pneumococcal 13 Conjugate, PCV13 (Prevnar 13) 2004 00:00:00 Completed [facility] Pediarix (dtap/hep B/ipv) 2004 00:00:00 Completed [facility] HIB 4 Dose Schedule 2004 00:00:00 Completed [facility] Pediarix (dtap/hep B/ipv) 2004 00:00:00 Completed [facility] Pneumococcal 13 Conjugate, PCV13 (Prevnar 13) 2004 00:00:00 Completed [facility] Pneumococcal 13 Conjugate, PCV13 (Prevnar 13) 2004 00:00:00 Completed [facility] HIB 4 Dose Schedule 2004 00:00:00 Completed [facility] Pediarix (dtap/hep B/ipv) 2004 00:00:00 Completed [facility] Pneumococcal 13 Conjugate, PCV13 (Prevnar 13) 2004 00:00:00 Completed Hib-HbOC 2004 00:00:00 Completed Pneumococcal 7 Conjugate, PCV7 (Prevnar7) 2004 00:00:00 Completed HIB 4 Dose Schedule 2004 00:00:00 Completed [facility] Pediarix (dtap/hep B/ipv) 2004 00:00:00 Completed [facility] Pneumococcal 13 Conjugate, PCV13 (Prevnar 13) 2004 00:00:00 Completed [facility] HIB 4 Dose Schedule 2004 00:00:00 Completed [facility] Pediarix (dtap/hep B/ipv) 2004 00:00:00 Completed [facility] Pneumococcal 13 Conjugate, PCV13 (Prevnar 13) 2004 00:00:00 Completed [facility] HIB 4 Dose Schedule 2004 00:00:00 Completed [facility] Pediarix (dtap/hep B/ipv) 2004 00:00:00 Completed [facility] Pneumococcal 13 Conjugate, PCV13 (Prevnar 13) 2004 00:00:00 Completed [facility] HIB 4 Dose Schedule 2004 00:00:00 Completed [facility] Pediarix (dtap/hep B/ipv) 2004 00:00:00 Completed [facility] Pneumococcal 13 Conjugate, PCV13 (Prevnar 13) 2004 00:00:00 Completed [facility] HIB 4 Dose Schedule 2004 00:00:00 Completed [facility] Pediarix (dtap/hep B/ipv) 2004 00:00:00 Completed [facility] Pneumococcal 13 Conjugate, PCV13 (Prevnar 13) 2004 00:00:00 Completed [facility] HIB 4 Dose Schedule 2004 00:00:00 Completed [facility] Pediarix (dtap/hep B/ipv) 2004 00:00:00 Completed [facility] Pneumococcal 13 Conjugate, PCV13 (Prevnar 13) 2004 00:00:00 Completed [facility] HIB 4 Dose Schedule 2004 00:00:00 Completed [facility] Pediarix (dtap/hep B/ipv) 2004 00:00:00 Completed [facility] Pneumococcal 13 Conjugate, PCV13 (Prevnar 13) 2004 00:00:00 Completed [facility] Hep B, Adol or Pedi Dosage 2004 00:00:00 Completed [facility] Hep B, Adol or Pedi Dosage 2004 00:00:00 Completed [facility] Hep B, Adol or Pedi Dosage 2004 00:00:00 Completed [facility] Hep B, Adol or Pedi Dosage 2004 00:00:00 Completed [facility] Hep B, Adol or Pedi Dosage 2004 00:00:00 Completed [facility] Hep B, Adol or Pedi Dosage 2004 00:00:00 Completed [facility] Hep B, Adol or Pedi Dosage 2004 00:00:00 Completed [facility] Hep B, Adol or Pedi Dosage 2004 00:00:00 Completed [facility] Hep B, Adol or Pedi Dosage 2004 00:00:00 Completed [facility] Hep B, Adol or Pedi Dosage 2004 00:00:00 Completed [facility] Hep B, Adol or Pedi Dosage 2004 00:00:00 Completed [facility] Hep B, Adol or Pedi Dosage 2004 00:00:00 Completed [facility] Hep B, Adol or Pedi Dosage 2004 00:00:00 Completed [facility] Hep B, Adol or Pedi Dosage 2004 00:00:00 Completed [facility] Hep B, Adol or Pedi Dosage 2004 00:00:00 Completed [facility] Hep B, Adol or Pedi Dosage 2004 00:00:00 Completed [facility] Hep B, Adol or Pedi Dosage 2004 00:00:00 Completed [facility] Hep B, Adol or Pedi Dosage 2004 00:00:00 Completed [facility] Hep B, Adol or Pedi Dosage 2004 00:00:00 Completed [facility] Hep B, Adol or Pedi Dosage 2004 00:00:00 Completed [facility] Hep B, Adol or Pedi Dosage 2004 00:00:00 Completed Hep B, Adol or Pedi Dosage 2004 00:00:00 Completed [facility] Hep B, Adol or Pedi Dosage 2004 00:00:00 Completed [facility] Hep B, Adol or Pedi Dosage 2004 00:00:00 Completed [facility] Hep B, Adol or Pedi Dosage 2004 00:00:00 Completed [facility] Hep B, Adol or Pedi Dosage 2004 00:00:00 Completed [facility] Hep B, Adol or Pedi Dosage 2004 00:00:00 Completed [facility] Hep B, Adol or Pedi Dosage 2004 00:00:00 Completed [facility] DTAP Unknown Completed [facility] HIB 4 Dose Schedule Unknown Completed [facility] HEPATITIS A Unknown Completed [facility] Hep B, Adol or Pedi Dosage Unknown Completed [facility] HPV Unknown Completed [facility] Influenza Virus Vaccine Unknown Completed [facility] Meningococcal Vaccine Unknown Completed [facility] MMR Unknown Completed [facility] Pediarix (dtap/hep B/ipv) Unknown Completed [facility] Pneumococcal 13 Conjugate, PCV13 (Prevnar 13) Unknown Completed [facility] Polio (IPV/OPV) Unknown Completed [facility] TDAP Unknown Completed [facility] Varicella (varivax)(chicken pox) Unknown Completed [facility] Influenza Virus Vaccine Quad .5 mL IM 6+ MO (FLUZONE/FLULAVAL/FL UARIX) Unknown Completed [facility] DTAP Unknown Completed [facility] HIB 4 Dose Schedule Unknown Completed [facility] HEPATITIS A Unknown Completed [facility] Hep B, Adol or Pedi Dosage Unknown Completed [facility] HPV Unknown Completed [facility] Influenza Virus Vaccine Unknown Completed [facility] Meningococcal Vaccine Unknown Completed [facility] MMR Unknown Completed [facility] Pediarix (dtap/hep B/ipv) Unknown Completed [facility] Pneumococcal 13 Conjugate, PCV13 (Prevnar 13) Unknown Completed [facility] Polio (IPV/OPV) Unknown Completed [facility] TDAP Unknown Completed [facility] Varicella (varivax)(chicken pox) Unknown Completed [facility] Influenza Virus Vaccine Quad .5 mL IM 6+ MO (FLUZONE/FLULAVAL/FL UARIX) Unknown Completed [facility] DTaP, Unspecified Formulation Unknown Completed [facility] Influenza Virus Vaccine - Whole Unknown Completed [facility] Hib-HbOC Unknown Completed [facility] HPV9 Unknown Completed [facility] Meningococcal Polysaccharide (groups A, C, Y and W-135) conjugate vaccine (MCV4P) Unknown Completed [facility] Meningococcal B, OMV Unknown Completed [facility] Pneumococcal 7 Conjugate, PCV7 (Prevnar7) Unknown Completed [facility] IPV Unknown Completed [facility] DTAP Unknown Completed [facility] HIB 4 Dose Schedule Unknown Completed [facility] HEPATITIS A Unknown [facility]pleted [facility] Hep B, Adol or Pedi Dosage Unknown Completed [facility] HPV Unknown Completed [facility] Influenza Virus Vaccine Unknown Completed [facility] Meningococcal Vaccine Unknown Completed [facility] MMR Unknown Completed [facility] Pediarix (dtap/hep B/ipv) Unknown Completed [facility] Pneumococcal 13 Conjugate, PCV13 (Prevnar 13) Unknown Completed [facility] Polio (IPV/OPV) Unknown Completed [facility] TDAP Unknown Completed [facility] Varicella (varivax)(chicken pox) Unknown Completed [facility] Influenza Virus Vaccine Quad .5 mL IM 6+ MO (FLUZONE/FLULAVAL/FL UARIX) Unknown Completed [facility] DTaP, Unspecified Formulation Unknown Completed [facility] Influenza Virus Vaccine - Whole Unknown Completed [facility] Hib-HbOC Unknown Completed [facility] HPV9 Unknown Completed [facility] Meningococcal Polysaccharide (groups A, C, Y and W-135) conjugate vaccine (MCV4P) Unknown Completed [facility] Meningococcal B, OMV Unknown Completed [facility] Pneumococcal 7 Conjugate, PCV7 (Prevnar7) Unknown Completed [facility] IPV Unknown Completed [facility] DTAP Unknown Completed [facility] HIB 4 Dose Schedule Unknown Completed [facility] HEPATITIS A Unknown Completed [facility] Hep B, Adol or Pedi Dosage Unknown Completed [facility] HPV Unknown Completed [facility] Influenza Virus Vaccine Unknown Completed [facility] Meningococcal Vaccine Unknown Completed [facility] MMR Unknown Completed [facility] Pediarix (dtap/hep B/ipv) Unknown Completed [facility] Pneumococcal 13 Conjugate, PCV13 (Prevnar 13) Unknown Completed [facility] Polio (IPV/OPV) Unknown Completed [facility] TDAP Unknown Completed [facility] Varicella (varivax)(chicken pox) Unknown Completed [facility] Influenza Virus Vaccine Quad .5 mL IM 6+ MO (FLUZONE/FLULAVAL/FL UARIX) Unknown Completed [facility] DTaP, Unspecified Formulation Unknown Completed [facility] Influenza Virus Vaccine - Whole Unknown Completed [facility] Hib-HbOC Unknown Completed [facility] HPV9 Unknown Completed [facility] Meningococcal Polysaccharide (groups A, C, Y and W-135) conjugate vaccine (MCV4P) Unknown Completed [facility] Meningococcal B, OMV Unknown Completed [facility] Pneumococcal 7 Conjugate, PCV7 (Prevnar7) Unknown Completed [facility] IPV Unknown Completed [facility] DTAP Unknown Completed [facility] HIB 4 Dose Schedule Unknown Completed [facility] HEPATITIS A Unknown Completed [facility] Hep B, Adol or Pedi Dosage Unknown Completed [facility] HPV Unknown Completed [facility] Influenza Virus Vaccine Unknown Completed [facility] Meningococcal Vaccine Unknown Completed [facility] MMR Unknown Completed [facility] Pediarix (dtap/hep B/ipv) Unknown Completed [facility] Pneumococcal 13 Conjugate, PCV13 (Prevnar 13) Unknown Completed [facility] Polio (IPV/OPV) Unknown Completed [facility] TDAP Unknown Completed [facility] Varicella (varivax)(chicken pox) Unknown Completed [facility] Influenza Virus Vaccine Quad .5 mL IM 6+ MO (FLUZONE/FLULAVAL/FL UARIX) Unknown Completed [facility] DTaP, Unspecified Formulation Unknown Completed [facility] Influenza Virus Vaccine - Whole Unknown Completed [facility] Hib-HbOC Unknown Completed [facility] HPV9 Unknown Completed [facility] Meningococcal Polysaccharide (groups A, C, Y and W-135) conjugate vaccine (MCV4P) Unknown Completed [facility] Meningococcal B, OMV Unknown Completed [facility] Pneumococcal 7 Conjugate, PCV7 (Prevnar7) Unknown Completed [facility] IPV Unknown Completed [facility] DTAP Unknown Completed [facility] HIB 4 Dose Schedule Unknown Completed [facility] HEPATITIS A Unknown Completed [facility] Hep B, Adol or Pedi Dosage Unknown Completed [facility] HPV Unknown Completed [facility] Influenza Virus Vaccine Unknown Completed [facility] Meningococcal Vaccine Unknown Completed [facility] MMR Unknown Completed [facility] Pediarix (dtap/hep B/ipv) Unknown Completed [facility] Pneumococcal 13 Conjugate, PCV13 (Prevnar 13) Unknown Completed [facility] Polio (IPV/OPV) Unknown Completed [facility] TDAP Unknown Completed [facility] Varicella (varivax)(chicken pox) Unknown Completed [facility] Influenza Virus Vaccine Quad .5 mL IM 6+ MO (FLUZONE/FLULAVAL/FL UARIX) Unknown Completed [facility] DTaP, Unspecified Formulation Unknown Completed [facility] Influenza Virus Vaccine - Whole Unknown Completed [facility] Hib-HbOC Unknown Completed [facility] HPV9 Unknown Completed [facility] Meningococcal Polysaccharide (groups A, C, Y and W-135) conjugate vaccine (MCV4P) Unknown Completed [facility] Meningococcal B, OMV Unknown Completed [facility] Pneumococcal 7 Conjugate, PCV7 (Prevnar7) Unknown Completed [facility] IPV Unknown Completed [facility] DTAP Unknown Completed [facility] HIB 4 Dose Schedule Unknown Completed [facility] HEPATITIS A Unknown Completed [facility] Hep B, Adol or Pedi Dosage Unknown Completed [facility] HPV Unknown Completed [facility] Influenza Virus Vaccine Unknown Completed [facility] Meningococcal Vaccine Unknown Completed [facility] MMR Unknown Completed [facility] Pediarix (dtap/hep B/ipv) Unknown Completed [facility] Pneumococcal 13 Conjugate, PCV13 (Prevnar 13) Unknown Completed [facility] Polio (IPV/OPV) Unknown Completed [facility] TDAP Unknown Completed [facility] Varicella (varivax)(chicken pox) Unknown Completed [facility] Influenza Virus Vaccine Quad .5 mL IM 6+ MO (FLUZONE/FLULAVAL/FL UARIX) Unknown Completed [facility] DTaP, Unspecified Formulation Unknown Completed [facility] Influenza Virus Vaccine - Whole Unknown Completed [facility] Hib-HbOC Unknown Completed [facility] HPV9 Unknown Completed [facility] Meningococcal Polysaccharide (groups A, C, Y and W-135) conjugate vaccine (MCV4P) Unknown Completed [facility] Meningococcal B, OMV Unknown Completed [facility] Pneumococcal 7 Conjugate, PCV7 (Prevnar7) Unknown Completed [facility] IPV Unknown Completed [facility] DTAP Unknown Completed [facility] HIB 4 Dose Schedule Unknown Completed [facility] HEPATITIS A Unknown Completed [facility] Hep B, Adol or Pedi Dosage Unknown Completed [facility] HPV Unknown Completed [facility] Influenza Virus Vaccine Unknown Completed [facility] Meningococcal Vaccine Unknown Completed [facility] MMR Unknown Completed [facility] Pediarix (dtap/hep B/ipv) Unknown Completed [facility] Pneumococcal 13 Conjugate, PCV13 (Prevnar 13) Unknown Completed [facility] Polio (IPV/OPV) Unknown Completed [facility] TDAP Unknown Completed [facility] Varicella (varivax)(chicken pox) Unknown Completed [facility] Influenza Virus Vaccine Quad .5 mL IM 6+ MO (FLUZONE/FLULAVAL/FL UARIX) Unknown Completed [facility] DTaP, Unspecified Formulation Unknown Completed [facility] Influenza Virus Vaccine - Whole Unknown Completed [facility] Hib-HbOC Unknown Completed [facility] HPV9 Unknown Completed [facility] Meningococcal Polysaccharide (groups A, C, Y and W-135) conjugate vaccine (MCV4P) Unknown Completed [facility] Meningococcal B, OMV Unknown Completed [facility] Pneumococcal 7 Conjugate, PCV7 (Prevnar7) Unknown Completed [facility] IPV Unknown Completed [facility] DTAP Unknown Completed [facility] HIB 4 Dose Schedule Unknown Completed [facility] HEPATITIS A Unknown Completed [facility] Hep B, Adol or Pedi Dosage Unknown Completed [facility] HPV Unknown Completed [facility] Influenza Virus Vaccine Unknown Completed [facility] Meningococcal Vaccine Unknown Completed [facility] MMR Unknown Completed [facility] Pediarix (dtap/hep B/ipv) Unknown Completed [facility] Pneumococcal 13 Conjugate, PCV13 (Prevnar 13) Unknown Completed [facility] Polio (IPV/OPV) Unknown Completed [facility] TDAP Unknown Completed [facility] Varicella (varivax)(chicken pox) Unknown Completed [facility] Influenza Virus Vaccine Quad .5 mL IM 6+ MO (FLUZONE/FLULAVAL/FL UARIX) Unknown Completed [facility] DTaP, Unspecified Formulation Unknown Completed [facility] Influenza Virus Vaccine - Whole Unknown Completed [facility] Hib-HbOC Unknown Completed [facility] HPV9 Unknown Completed [facility] Meningococcal Polysaccharide (groups A, C, Y and W-135) conjugate vaccine (MCV4P) Unknown Completed [facility] Meningococcal B, OMV Unknown Completed [facility] Pneumococcal 7 Conjugate, PCV7 (Prevnar7) Unknown Completed [facility] IPV Unknown Completed [facility] DTAP Unknown Completed [facility] HIB 4 Dose Schedule Unknown Completed [facility] HEPATITIS A Unknown Completed [facility] Hep B, Adol or Pedi Dosage Unknown Completed [facility] HPV Unknown Completed [facility] Influenza Virus Vaccine Unknown Completed [facility] Meningococcal Vaccine Unknown Completed [facility] MMR Unknown Completed [facility] Pediarix (dtap/hep B/ipv) Unknown Completed [facility] Pneumococcal 13 Conjugate, PCV13 (Prevnar 13) Unknown Completed [facility] Polio (IPV/OPV) Unknown Completed [facility] TDAP Unknown Completed [facility] Varicella (varivax)(chicken pox) Unknown Completed [facility] Influenza Virus Vaccine Quad .5 mL IM 6+ MO (FLUZONE/FLULAVAL/FL UARIX) Unknown Completed [facility] DTaP, Unspecified Formulation Unknown Completed [facility] Influenza Virus Vaccine - Whole Unknown Completed [facility] Hib-HbOC Unknown Completed [facility] HPV9 Unknown Completed [facility] Meningococcal Polysaccharide (groups A, C, Y and W-135) conjugate vaccine (MCV4P) Unknown Completed [facility] Meningococcal B, OMV Unknown Completed [facility] Pneumococcal 7 Conjugate, PCV7 (Prevnar7) Unknown Completed [facility] IPV Unknown Completed [facility] DTAP Unknown Completed [facility] HIB 4 Dose Schedule Unknown Completed [facility] HEPATITIS A Unknown Completed [facility] Hep B, Adol or Pedi Dosage Unknown Completed [facility] HPV Unknown Completed [facility] Influenza Virus Vaccine Unknown Completed [facility] Meningococcal Vaccine Unknown Completed [facility] MMR Unknown Completed [facility] Pediarix (dtap/hep B/ipv) Unknown Completed [facility] Pneumococcal 13 Conjugate, PCV13 (Prevnar 13) Unknown Completed [facility] Polio (IPV/OPV) Unknown Completed [facility] TDAP Unknown Completed [facility] Varicella (varivax)(chicken pox) Unknown Completed [facility] Influenza Virus Vaccine Quad .5 mL IM 6+ MO (FLUZONE/FLULAVAL/FL UARIX) Unknown Completed [facility] DTaP, Unspecified Formulation Unknown Completed [facility] Influenza Virus Vaccine - Whole Unknown Completed [facility] Hib-HbOC Unknown Completed [facility] HPV9 Unknown Completed [facility] Meningococcal Polysaccharide (groups A, C, Y and W-135) conjugate vaccine (MCV4P) Unknown Completed [facility] Meningococcal B, OMV Unknown Completed [facility] Pneumococcal 7 Conjugate, PCV7 (Prevnar7) Unknown Completed [facility] IPV Unknown Completed [facility] DTAP Unknown Completed [facility] HIB 4 Dose Schedule Unknown Completed [facility] HEPATITIS A Unknown Completed [facility] Hep B, Adol or Pedi Dosage Unknown Completed [facility] HPV Unknown Completed [facility] Influenza Virus Vaccine Unknown Completed [facility] Meningococcal Vaccine Unknown Completed [facility] MMR Unknown Completed [facility] Pediarix (dtap/hep B/ipv) Unknown Completed [facility] Pneumococcal 13 Conjugate, PCV13 (Prevnar 13) Unknown Completed [facility] Polio (IPV/OPV) Unknown Completed [facility] TDAP Unknown Completed [facility] Varicella (varivax)(chicken pox) Unknown Completed [facility] Influenza Virus Vaccine Quad .5 mL IM 6+ MO (FLUZONE/FLULAVAL/FL UARIX) Unknown Completed [facility] DTaP, Unspecified Formulation Unknown Completed [facility] Influenza Virus Vaccine - Whole Unknown Completed [facility] Hib-HbOC Unknown Completed [facility] HPV9 Unknown Completed [facility] Meningococcal Polysaccharide (groups A, C, Y and W-135) conjugate vaccine (MCV4P) Unknown Completed [facility] Meningococcal B, OMV Unknown Completed [facility] Pneumococcal 7 Conjugate, PCV7 (Prevnar7) Unknown Completed [facility] IPV Unknown Completed [facility] Hep B, Adol or Pedi Dosage Unknown Completed [facility] Meningococcal Vaccine Unknown Completed [facility] Influenza Virus Vaccine - Whole Unknown Completed [facility] Meningococcal Polysaccharide (groups A, C, Y and W-135) conjugate vaccine (MCV4P) Unknown Completed [facility] Meningococcal B, OMV Unknown Completed [facility] DTAP Unknown Completed [facility] HIB 4 Dose Schedule Unknown Completed [facility] HEPATITIS A Unknown Completed [facility] HPV Unknown Completed [facility] Influenza Virus Vaccine Unknown Completed [facility] MMR Unknown Completed [facility] Pediarix (dtap/hep B/ipv) Unknown Completed [facility] Pneumococcal 13 Conjugate, PCV13 (Prevnar 13) Unknown Completed [facility] Polio (IPV/OPV) Unknown Completed [facility] TDAP Unknown Completed [facility] Varicella (varivax)(chicken pox) Unknown Completed [facility] Influenza Virus Vaccine Quad .5 mL IM 6+ MO (FLUZONE/FLULAVAL/FL UARIX) Unknown Completed [facility] DTaP, Unspecified Formulation Unknown Completed [facility] Hib-HbOC Unknown Completed [facility] HPV9 Unknown Completed [facility] Pneumococcal 7 Conjugate, PCV7 (Prevnar7) Unknown Completed [facility] IPV Unknown Completed [facility] DTAP Unknown Completed [facility] HIB 4 Dose Schedule Unknown Completed [facility] HEPATITIS A Unknown Completed [facility] Hep B, Adol or Pedi Dosage Unknown Completed [facility] HPV Unknown Completed [facility] Influenza Virus Vaccine Unknown Completed [facility] Meningococcal Vaccine Unknown Completed [facility] MMR Unknown Completed [facility] Pediarix (dtap/hep B/ipv) Unknown Completed [facility] Pneumococcal 13 Conjugate, PCV13 (Prevnar 13) Unknown Completed [facility] Polio (IPV/OPV) Unknown Completed [facility] TDAP Unknown Completed [facility] Varicella (varivax)(chicken pox) Unknown Completed [facility] Influenza Virus Vaccine Quad .5 mL IM 6+ MO (FLUZONE/FLULAVAL/FL UARIX) Unknown Completed [facility] DTaP, Unspecified Formulation Unknown Completed [facility] Influenza Virus Vaccine - Whole Unknown Completed [facility] Hib-HbOC Unknown Completed [facility] HPV9 Unknown Completed [facility] Meningococcal Polysaccharide (groups A, C, Y and W-135) conjugate vaccine (MCV4P) Unknown Completed [facility] Meningococcal B, OMV Unknown Completed [facility] Pneumococcal 7 Conjugate, PCV7 (Prevnar7) Unknown Completed [facility] IPV Unknown Completed [facility] DTAP Unknown Completed [facility] HIB 4 Dose Schedule Unknown Completed [facility] HEPATITIS A Unknown Completed [facility] Hep B, Adol or Pedi Dosage Unknown Completed [facility] HPV Unknown Completed [facility] Influenza Virus Vaccine Unknown Completed [facility] Meningococcal Vaccine Unknown Completed [facility] MMR Unknown Completed [facility] Pediarix (dtap/hep B/ipv) Unknown Completed [facility] Pneumococcal 13 Conjugate, PCV13 (Prevnar 13) Unknown Completed [facility] Polio (IPV/OPV) Unknown Completed [facility] TDAP Unknown Completed [facility] Varicella (varivax)(chicken pox) Unknown Completed [facility] Influenza Virus Vaccine Quad .5 mL IM 6+ MO (FLUZONE/FLULAVAL/FL UARIX) Unknown Completed [facility] DTaP, Unspecified Formulation Unknown Completed [facility] Influenza Virus Vaccine - Whole Unknown Completed [facility] Hib-HbOC Unknown Completed [facility] HPV9 Unknown Completed [facility] Meningococcal Polysaccharide (groups A, C, Y and W-135) conjugate vaccine (MCV4P) Unknown Completed [facility] Meningococcal B, OMV Unknown Completed [facility] Pneumococcal 7 Conjugate, PCV7 (Prevnar7) Unknown Completed [facility] IPV Unknown Completed [facility] DTAP Unknown Completed [facility] HIB 4 Dose Schedule Unknown Completed [facility] HEPATITIS A Unknown Completed [facility] Hep B, Adol or Pedi Dosage Unknown Completed [facility] HPV Unknown Completed [facility] Influenza Virus Vaccine Unknown Completed [facility] Meningococcal Vaccine Unknown Completed [facility] MMR Unknown Completed [facility] Pediarix (dtap/hep B/ipv) Unknown Completed [facility] Pneumococcal 13 Conjugate, PCV13 (Prevnar 13) Unknown Completed [facility] Polio (IPV/OPV) Unknown Completed [facility] TDAP Unknown Completed [facility] Varicella (varivax)(chicken pox) Unknown Completed [facility] Influenza Virus Vaccine Quad .5 mL IM 6+ MO (FLUZONE/FLULAVAL/FL UARIX) Unknown Completed [facility] DTaP, Unspecified Formulation Unknown Completed [facility] Influenza Virus Vaccine - Whole Unknown Completed [facility] Hib-HbOC Unknown Completed [facility] HPV9 Unknown Completed [facility] Meningococcal Polysaccharide (groups A, C, Y and W-135) conjugate vaccine (MCV4P) Unknown Completed [facility] Meningococcal B, OMV Unknown Completed [facility] Pneumococcal 7 Conjugate, PCV7 (Prevnar7) Unknown Completed [facility] IPV Unknown Completed [facility] DTAP Unknown Completed [facility] HIB 4 Dose Schedule Unknown Completed [facility] HEPATITIS A Unknown Completed [facility] Hep B, Adol or Pedi Dosage Unknown Completed [facility] HPV Unknown Completed [facility] Influenza Virus Vaccine Unknown Completed [facility] Meningococcal Vaccine Unknown Completed [facility] MMR Unknown Completed [facility] Pediarix (dtap/hep B/ipv) Unknown Completed [facility] Pneumococcal 13 Conjugate, PCV13 (Prevnar 13) Unknown Completed [facility] Polio (IPV/OPV) Unknown Completed [facility] TDAP Unknown Completed [facility] Varicella (varivax)(chicken pox) Unknown Completed [facility] Influenza Virus Vaccine Quad .5 mL IM 6+ MO (FLUZONE/FLULAVAL/FL UARIX) Unknown Completed [facility] DTaP, Unspecified Formulation Unknown Completed [facility] Influenza Virus Vaccine - Whole Unknown Completed [facility] Hib-HbOC Unknown Completed [facility] HPV9 Unknown Completed [facility] Meningococcal Polysaccharide (groups A, C, Y and W-135) conjugate vaccine (MCV4P) Unknown Completed [facility] Meningococcal B, OMV Unknown Completed [facility] Pneumococcal 7 Conjugate, PCV7 (Prevnar7) Unknown Completed [facility] IPV Unknown Completed [facility] DTAP Unknown Completed [facility] HIB 4 Dose Schedule Unknown Completed [facility] HEPATITIS A Unknown Completed [facility] Hep B, Adol or Pedi Dosage Unknown Completed [facility] HPV Unknown Completed [facility] Influenza Virus Vaccine Unknown Completed [facility] Meningococcal Vaccine Unknown Completed [facility] MMR Unknown Completed [facility] Pediarix (dtap/hep B/ipv) Unknown Completed [facility] Pneumococcal 13 Conjugate, PCV13 (Prevnar 13) Unknown Completed [facility] Polio (IPV/OPV) Unknown Completed [facility] TDAP Unknown Completed [facility] Varicella (varivax)(chicken pox) Unknown Completed [facility] Influenza Virus Vaccine Quad .5 mL IM 6+ MO (FLUZONE/FLULAVAL/FL UARIX) Unknown Completed [facility] DTaP, Unspecified Formulation Unknown Completed [facility] Influenza Virus Vaccine - Whole Unknown Completed [facility] Hib-HbOC Unknown Completed [facility] HPV9 Unknown Completed [facility] Meningococcal Polysaccharide (groups A, C, Y and W-135) conjugate vaccine (MCV4P) Unknown Completed [facility] Meningococcal B, OMV Unknown Completed [facility] Pneumococcal 7 Conjugate, PCV7 (Prevnar7) Unknown Completed [facility] IPV Unknown Completed [facility] DTAP Unknown Completed [facility] HIB 4 Dose Schedule Unknown Completed [facility] HEPATITIS A Unknown Completed [facility] Hep B, Adol or Pedi Dosage Unknown Completed [facility] HPV Unknown Completed [facility] Influenza Virus Vaccine Unknown Completed [facility] Meningococcal Vaccine Unknown Completed [facility] MMR Unknown Completed [facility] Pediarix (dtap/hep B/ipv) Unknown Completed [facility] Pneumococcal 13 Conjugate, PCV13 (Prevnar 13) Unknown Completed [facility] Polio (IPV/OPV) Unknown Completed [facility] TDAP Unknown Completed [facility] Varicella (varivax)(chicken pox) Unknown Completed [facility] Influenza Virus Vaccine Quad .5 mL IM 6+ MO (FLUZONE/FLULAVAL/FL UARIX) Unknown Completed [facility] DTaP, Unspecified Formulation Unknown Completed [facility] Influenza Virus Vaccine - Whole Unknown Completed [facility] Hib-HbOC Unknown Completed [facility] HPV9 Unknown Completed [facility] Meningococcal Polysaccharide (groups A, C, Y and W-135) conjugate vaccine (MCV4P) Unknown Completed [facility] Meningococcal B, OMV Unknown Completed [facility] Pneumococcal 7 Conjugate, PCV7 (Prevnar7) Unknown Completed [facility] IPV Unknown Completed [facility] DTAP Unknown Completed [facility] HIB 4 Dose Schedule Unknown Completed [facility] HEPATITIS A Unknown Completed [facility] Hep B, Adol or Pedi Dosage Unknown Completed [facility] HPV Unknown Completed [facility] Influenza Virus Vaccine Unknown Completed [facility] Meningococcal Vaccine Unknown Completed [facility] MMR Unknown Completed [facility] Pediarix (dtap/hep B/ipv) Unknown Completed [facility] Pneumococcal 13 Conjugate, PCV13 (Prevnar 13) Unknown Completed [facility] Polio (IPV/OPV) Unknown Completed [facility] TDAP Unknown Completed [facility] Varicella (varivax)(chicken pox) Unknown Completed [facility] Influenza Virus Vaccine Quad .5 mL IM 6+ MO (FLUZONE/FLULAVAL/FL UARIX) Unknown Completed [facility] DTaP, Unspecified Formulation Unknown Completed [facility] Influenza Virus Vaccine - Whole Unknown Completed [facility] Hib-HbOC Unknown Completed [facility] HPV9 Unknown Completed [facility] Meningococcal Polysaccharide (groups A, C, Y and W-135) conjugate vaccine (MCV4P) Unknown Completed [facility] Meningococcal B, OMV Unknown Completed [facility] Pneumococcal 7 Conjugate, PCV7 (Prevnar7) Unknown Completed [facility] IPV Unknown Completed [facility] Hep B, Adol or Pedi Dosage Unknown Completed [facility] Meningococcal Vaccine Unknown Completed [facility] Influenza Virus Vaccine - Whole Unknown Completed [facility] Meningococcal Polysaccharide (groups A, C, Y and W-135) conjugate vaccine (MCV4P) Unknown Completed [facility] Meningococcal B, OMV Unknown Completed [facility] DTAP Unknown Completed [facility] HIB 4 Dose Schedule Unknown Completed [facility] HEPATITIS A Unknown Completed [facility] HPV Unknown Completed [facility] Influenza Virus Vaccine Unknown Completed [facility] MMR Unknown Completed [facility] Pediarix (dtap/hep B/ipv) Unknown Completed [facility] Pneumococcal 13 Conjugate, PCV13 (Prevnar 13) Unknown Completed [facility] Polio (IPV/OPV) Unknown Completed [facility] TDAP Unknown Completed [facility] Varicella (varivax)(chicken pox) Unknown Completed [facility] Influenza Virus Vaccine Quad .5 mL IM 6+ MO (FLUZONE/FLULAVAL/FL UARIX) Unknown Completed [facility] DTaP, Unspecified Formulation Unknown Completed [facility] Hib-HbOC Unknown Completed [facility] HPV9 Unknown Completed [facility] Pneumococcal 7 Conjugate, PCV7 (Prevnar7) Unknown Completed [facility] IPV Unknown Completed [facility] DTAP Unknown Completed [facility] HIB 4 Dose Schedule Unknown Completed [facility] HEPATITIS A Unknown Completed [facility] Hep B, Adol or Pedi Dosage Unknown Completed [facility] HPV Unknown Completed [facility] Influenza Virus Vaccine Unknown Completed [facility] Meningococcal Vaccine Unknown Completed [facility] MMR Unknown Completed [facility] Pediarix (dtap/hep B/ipv) Unknown Completed [facility] Pneumococcal 13 Conjugate, PCV13 (Prevnar 13) Unknown Completed [facility] Polio (IPV/OPV) Unknown Completed [facility] TDAP Unknown Completed [facility] Varicella (varivax)(chicken pox) Unknown Completed [facility] Influenza Virus Vaccine Quad .5 mL IM 6+ MO (FLUZONE/FLULAVAL/FL UARIX) Unknown Completed [facility] DTaP, Unspecified Formulation Unknown Completed [facility] Influenza Virus Vaccine - Whole Unknown Completed [facility] Hib-HbOC Unknown Completed [facility] HPV9 Unknown Completed [facility] Meningococcal Polysaccharide (groups A, C, Y and W-135) conjugate vaccine (MCV4P) Unknown Completed [facility] Meningococcal B, OMV Unknown Completed [facility] Pneumococcal 7 Conjugate, PCV7 (Prevnar7) Unknown Completed [facility] IPV Unknown Completed [facility] DTAP Unknown Completed [facility] HIB 4 Dose Schedule Unknown Completed [facility] HEPATITIS A Unknown Completed [facility] Hep B, Adol or Pedi Dosage Unknown Completed [facility] HPV Unknown Completed [facility] Influenza Virus Vaccine Unknown Completed [facility] Meningococcal Vaccine Unknown Completed [facility] MMR Unknown Completed [facility] Pediarix (dtap/hep B/ipv) Unknown Completed [facility] Pneumococcal 13 Conjugate, PCV13 (Prevnar 13) Unknown Completed [facility] Polio (IPV/OPV) Unknown Completed [facility] TDAP Unknown Completed [facility] Varicella (varivax)(chicken pox) Unknown Completed [facility] Influenza Virus Vaccine Quad .5 mL IM 6+ MO (FLUZONE/FLULAVAL/FL UARIX) Unknown Completed [facility] DTaP, Unspecified Formulation Unknown Completed [facility] Influenza Virus Vaccine - Whole Unknown Completed [facility] Hib-HbOC Unknown Completed [facility] HPV9 Unknown Completed [facility] Meningococcal Polysaccharide (groups A, C, Y and W-135) conjugate vaccine (MCV4P) Unknown Completed [facility] Meningococcal B, OMV Unknown Completed [facility] Pneumococcal 7 Conjugate, PCV7 (Prevnar7) Unknown Completed [facility] IPV Unknown Completed [facility] DTAP Unknown Completed [facility] HIB 4 Dose Schedule Unknown Completed [facility] HEPATITIS A Unknown Completed [facility] Hep B, Adol or Pedi Dosage Unknown Completed [facility] HPV Unknown Completed [facility] Influenza Virus Vaccine Unknown Completed [facility] Meningococcal Vaccine Unknown Completed [facility] MMR Unknown Completed [facility] Pediarix (dtap/hep B/ipv) Unknown Completed [facility] Pneumococcal 13 Conjugate, PCV13 (Prevnar 13) Unknown Completed [facility] Polio (IPV/OPV) Unknown Completed [facility] TDAP Unknown Completed [facility] Varicella (varivax)(chicken pox) Unknown Completed [facility] Influenza Virus Vaccine Quad .5 mL IM 6+ MO (FLUZONE/FLULAVAL/FL UARIX) Unknown Completed [facility] DTaP, Unspecified Formulation Unknown Completed [facility] Influenza Virus Vaccine - Whole Unknown Completed [facility] Hib-HbOC Unknown Completed [facility] HPV9 Unknown Completed [facility] Meningococcal Polysaccharide (groups A, C, Y and W-135) conjugate vaccine (MCV4P) Unknown Completed [facility] Meningococcal B, OMV Unknown Completed [facility] Pneumococcal 7 Conjugate, PCV7 (Prevnar7) Unknown Completed [facility] IPV Unknown Completed [facility] DTAP Unknown Completed [facility] HIB 4 Dose Schedule Unknown Completed [facility] HEPATITIS A Unknown Completed [facility] Hep B, Adol or Pedi Dosage Unknown Completed [facility] HPV Unknown Completed [facility] Influenza Virus Vaccine Unknown Completed [facility] Meningococcal Vaccine Unknown Completed [facility] MMR Unknown Completed [facility] Pediarix (dtap/hep B/ipv) Unknown Completed [facility] Pneumococcal 13 Conjugate, PCV13 (Prevnar 13) Unknown Completed [facility] Polio (IPV/OPV) Unknown Completed [facility] TDAP Unknown Completed [facility] Varicella (varivax)(chicken pox) Unknown Completed [facility] Influenza Virus Vaccine Quad .5 mL IM 6+ MO (FLUZONE/FLULAVAL/FL UARIX) Unknown Completed [facility] DTaP, Unspecified Formulation Unknown Completed [facility] Influenza Virus Vaccine - Whole Unknown Completed [facility] Hib-HbOC Unknown Completed [facility] HPV9 Unknown Completed [facility] Meningococcal Polysaccharide (groups A, C, Y and W-135) conjugate vaccine (MCV4P) Unknown Completed [facility] Meningococcal B, OMV Unknown Completed [facility] Pneumococcal 7 Conjugate, PCV7 (Prevnar7) Unknown Completed [facility] IPV Unknown Completed [facility] DTAP Unknown Completed [facility] HIB 4 Dose Schedule Unknown Completed [facility] HEPATITIS A Unknown Completed [facility] Hep B, Adol or Pedi Dosage Unknown Completed [facility] HPV Unknown Completed [facility] Influenza Virus Vaccine Unknown Completed [facility] Meningococcal Vaccine Unknown Completed [facility] MMR Unknown Completed [facility] Pediarix (dtap/hep B/ipv) Unknown Completed [facility] Pneumococcal 13 Conjugate, PCV13 (Prevnar 13) Unknown Completed [facility] Polio (IPV/OPV) Unknown Completed [facility] TDAP Unknown Completed [facility] Varicella (varivax)(chicken pox) Unknown Completed [facility] Influenza Virus Vaccine Quad .5 mL IM 6+ MO (FLUZONE/FLULAVAL/FL UARIX) Unknown Completed [facility] DTaP, Unspecified Formulation Unknown Completed [facility] Influenza Virus Vaccine - Whole Unknown Completed [facility] Hib-HbOC Unknown Completed [facility] HPV9 Unknown Completed [facility] Meningococcal Polysaccharide (groups A, C, Y and W-135) conjugate vaccine (MCV4P) Unknown Completed [facility] Meningococcal B, OMV Unknown Completed [facility] Pneumococcal 7 Conjugate, PCV7 (Prevnar7) Unknown Completed [facility] IPV Unknown Completed [facility] DTAP Unknown Completed [facility] HIB 4 Dose Schedule Unknown Completed [facility] HEPATITIS A Unknown Completed [facility] Hep B, Adol or Pedi Dosage Unknown Completed [facility] HPV Unknown Completed [facility] Influenza Virus Vaccine Unknown Completed [facility] Meningococcal Vaccine Unknown Completed [facility] MMR Unknown Completed [facility] Pediarix (dtap/hep B/ipv) Unknown Completed [facility] Pneumococcal 13 Conjugate, PCV13 (Prevnar 13) Unknown Completed [facility] Polio (IPV/OPV) Unknown Completed [facility] TDAP Unknown Completed [facility] Varicella (varivax)(chicken pox) Unknown Completed [facility] Influenza Virus Vaccine Quad .5 mL IM 6+ MO (FLUZONE/FLULAVAL/FL UARIX) Unknown Completed [facility] DTaP, Unspecified Formulation Unknown Completed [facility] Influenza Virus Vaccine - Whole Unknown Completed [facility] Hib-HbOC Unknown Completed [facility] HPV9 Unknown Completed [facility] Meningococcal Polysaccharide (groups A, C, Y and W-135) conjugate vaccine (MCV4P) Unknown Completed [facility] Meningococcal B, OMV Unknown Completed [facility] Pneumococcal 7 Conjugate, PCV7 (Prevnar7) Unknown Completed [facility] IPV Unknown Completed [facility] DTAP Unknown Completed [facility] HIB 4 Dose Schedule Unknown Completed [facility] HEPATITIS A Unknown Completed [facility] Hep B, Adol or Pedi Dosage Unknown Completed [facility] HPV Unknown Completed [facility] Influenza Virus Vaccine Unknown Completed [facility] Meningococcal Vaccine Unknown Completed [facility] MMR Unknown Completed [facility] Pediarix (dtap/hep B/ipv) Unknown Completed [facility] Pneumococcal 13 Conjugate, PCV13 (Prevnar 13) Unknown Completed [facility] Polio (IPV/OPV) Unknown Completed [facility] TDAP Unknown Completed [facility] Varicella (varivax)(chicken pox) Unknown Completed [facility] Influenza Virus Vaccine Quad .5 mL IM 6+ MO (FLUZONE/FLULAVAL/FL UARIX) Unknown Completed [facility] DTaP, Unspecified Formulation Unknown Completed [facility] Influenza Virus Vaccine - Whole Unknown Completed [facility] Hib-HbOC Unknown Completed [facility] HPV9 Unknown Completed [facility] Meningococcal Polysaccharide (groups A, C, Y and W-135) conjugate vaccine (MCV4P) Unknown Completed [facility] Meningococcal B, OMV Unknown Completed [facility] Pneumococcal 7 Conjugate, PCV7 (Prevnar7) Unknown Completed [facility] IPV Unknown Completed [facility] DTAP Unknown Completed [facility] HIB 4 Dose Schedule Unknown Completed [facility] HEPATITIS A Unknown Completed [facility] Hep B, Adol or Pedi Dosage Unknown Completed [facility] HPV Unknown Completed [facility] Influenza Virus Vaccine Unknown Completed [facility] Meningococcal Vaccine Unknown Completed [facility] MMR Unknown Completed [facility] Pediarix (dtap/hep B/ipv) Unknown Completed [facility] Pneumococcal 13 Conjugate, PCV13 (Prevnar 13) Unknown Completed [facility] Polio (IPV/OPV) Unknown Completed [facility] TDAP Unknown Completed [facility] Varicella (varivax)(chicken pox) Unknown Completed [facility] Influenza Virus Vaccine Quad .5 mL IM 6+ MO (FLUZONE/FLULAVAL/FL UARIX) Unknown Completed [facility] DTaP, Unspecified Formulation Unknown Completed [facility] Influenza Virus Vaccine - Whole Unknown Completed [facility] Hib-HbOC Unknown Completed [facility] HPV9 Unknown Completed [facility] Meningococcal Polysaccharide (groups A, C, Y and W-135) conjugate vaccine (MCV4P) Unknown Completed [facility] Meningococcal B, OMV Unknown Completed [facility] Pneumococcal 7 Conjugate, PCV7 (Prevnar7) Unknown Completed [facility] IPV Unknown Completed [facility] DTAP Unknown Completed [facility] HIB 4 Dose Schedule Unknown Completed [facility] HEPATITIS A Unknown Completed [facility] Hep B, Adol or Pedi Dosage Unknown Completed [facility] HPV Unknown Completed [facility] Influenza Virus Vaccine Unknown Completed [facility] Meningococcal Vaccine Unknown Completed [facility] MMR Unknown Completed [facility] Pediarix (dtap/hep B/ipv) Unknown Completed [facility] Pneumococcal 13 Conjugate, PCV13 (Prevnar 13) Unknown Completed [facility] Polio (IPV/OPV) Unknown Completed [facility] TDAP Unknown Completed [facility] Varicella (varivax)(chicken pox) Unknown Completed [facility] Influenza Virus Vaccine Quad .5 mL IM 6+ MO (FLUZONE/FLULAVAL/FL UARIX) Unknown Completed [facility] DTaP, Unspecified Formulation Unknown Completed [facility] Influenza Virus Vaccine - Whole Unknown Completed [facility] Hib-HbOC Unknown Completed [facility] HPV9 Unknown Completed [facility] Meningococcal Polysaccharide (groups A, C, Y and W-135) conjugate vaccine (MCV4P) Unknown Completed [facility] Meningococcal B, OMV Unknown Completed [facility] Pneumococcal 7 Conjugate, PCV7 (Prevnar7) Unknown Completed [facility] IPV Unknown Completed [facility] DTAP Unknown Completed [facility] HIB 4 Dose Schedule Unknown Completed [facility] HEPATITIS A Unknown Completed [facility] Hep B, Adol or Pedi Dosage Unknown Completed [facility] HPV Unknown Completed [facility] Influenza Virus Vaccine Unknown Completed [facility] Meningococcal Vaccine Unknown Completed [facility] MMR Unknown Completed [facility] Pediarix (dtap/hep B/ipv) Unknown Completed [facility] Pneumococcal 13 Conjugate, PCV13 (Prevnar 13) Unknown Completed [facility] Polio (IPV/OPV) Unknown Completed [facility] TDAP Unknown Completed [facility] Varicella (varivax)(chicken pox) Unknown Completed [facility] Influenza Virus Vaccine Quad .5 mL IM 6+ MO (FLUZONE/FLULAVAL/FL UARIX) Unknown Completed [facility] DTaP, Unspecified Formulation Unknown Completed [facility] Influenza Virus Vaccine - Whole Unknown Completed [facility] Hib-HbOC Unknown Completed [facility] HPV9 Unknown Completed [facility] Meningococcal Polysaccharide (groups A, C, Y and W-135) conjugate vaccine (MCV4P) Unknown Completed [facility] Meningococcal B, OMV Unknown Completed [facility] Pneumococcal 7 Conjugate, PCV7 (Prevnar7) Unknown Completed [facility] IPV Unknown Completed [facility] DTAP Unknown Completed [facility] HIB 4 Dose Schedule Unknown Completed [facility] HEPATITIS A Unknown Completed [facility] Hep B, Adol or Pedi Dosage Unknown Completed [facility] HPV Unknown Completed [facility] Influenza Virus Vaccine Unknown Completed [facility] Meningococcal Vaccine Unknown Completed [facility] MMR Unknown Completed [facility] Pediarix (dtap/hep B/ipv) Unknown Completed [facility] Pneumococcal 13 Conjugate, PCV13 (Prevnar 13) Unknown Completed [facility] Polio (IPV/OPV) Unknown Completed [facility] TDAP Unknown Completed [facility] Varicella (varivax)(chicken pox) Unknown Completed [facility] Influenza Virus Vaccine Quad .5 mL IM 6+ MO (FLUZONE/FLULAVAL/FL UARIX) Unknown Completed [facility] DTaP, Unspecified Formulation Unknown Completed [facility] Influenza Virus Vaccine - Whole Unknown Completed [facility] Hib-HbOC Unknown Completed [facility] HPV9 Unknown Completed [facility] Meningococcal Polysaccharide (groups A, C, Y and W-135) conjugate vaccine (MCV4P) Unknown Completed [facility] Meningococcal B, OMV Unknown Completed [facility] Pneumococcal 7 Conjugate, PCV7 (Prevnar7) Unknown Completed [facility] IPV Unknown Completed [facility] DTAP Unknown Completed [facility] HIB 4 Dose Schedule Unknown Completed [facility] HEPATITIS A Unknown Completed [facility] Hep B, Adol or Pedi Dosage Unknown Completed [facility] HPV Unknown Completed [facility] Influenza Virus Vaccine Unknown Completed [facility] Meningococcal Vaccine Unknown Completed [facility] MMR Unknown Completed [facility] Pediarix (dtap/hep B/ipv) Unknown Completed [facility] Pneumococcal 13 Conjugate, PCV13 (Prevnar 13) Unknown Completed [facility] Polio (IPV/OPV) Unknown Completed [facility] TDAP Unknown Completed [facility] Varicella (varivax)(chicken pox) Unknown Completed [facility] Influenza Virus Vaccine Quad .5 mL IM 6+ MO (FLUZONE/FLULAVAL/FL UARIX) Unknown Completed [facility] DTaP, Unspecified Formulation Unknown Completed [facility] Influenza Virus Vaccine - Whole Unknown Completed [facility] Hib-HbOC Unknown Completed [facility] HPV9 Unknown Completed [facility] Meningococcal Polysaccharide (groups A, C, Y and W-135) conjugate vaccine (MCV4P) Unknown Completed [facility] Meningococcal B, OMV Unknown Completed [facility] Pneumococcal 7 Conjugate, PCV7 (Prevnar7) Unknown Completed [facility] IPV Unknown Completed [facility] Vital Signs Vital Name Observation Time Observation Value Comments S ource Systolic blood pressure 2024-06-23 02:07:00 137 mm[Hg] [facility] Diastolic blood pressure 2024-06-23 02:07:00 94 mm[Hg] [facility] Heart rate 2024-06-23 02:07:00 89 /min [facility] Body temperature 2024-06-23 02:07:00 36.78 [facility] Respiratory rate 2024-06-23 02:07:00 17 /min [facility] Body height 2024-06-23 02:07:00 160 cm [facility] Body weight 2024-06-23 02:07:00 74.844 kg [facility] BMI 2024-06-23 02:07:00 29.23 kg/m2 [facility] Oxygen saturation in Arterial blood by Pulse oximetry 2024-06-23 02:07:00 99 /min [facility] Systolic blood pressure 2024-05-01 21:44:51 117 mm[Hg] [facility] Diastolic blood pressure 2024-05-01 21:44:51 76 mm[Hg] [facility] Heart rate 2024-05-01 21:44:51 82 /min [facility] Body temperature 2024-05-01 21:44:51 37.67 [facility] Respiratory rate 2024-05-01 21:44:51 16 /min [facility] Oxygen saturation in Arterial blood by Pulse oximetry 2024-05-01 21:44:51 100 /min [facility] Body height 2024-05-01 17:25:00 157.5 cm [facility] Body weight 2024-05-01 17:25:00 72.576 kg [facility] BMI 2024-05-01 17:25:00 29.26 kg/m2 [facility] Systolic blood pressure 2024-03-22 18:10:00 114 mm[Hg] [facility] Diastolic blood pressure 2024-03-22 18:10:00 64 mm[Hg] [facility] Heart rate 2024-03-22 18:10:00 63 /min [facility] Body temperature 2024-03-22 18:10:00 36.44 [facility] Respiratory rate 2024-03-22 18:10:00 18 /min [facility] Body height 2024-03-22 18:10:00 157.5 cm [facility] Body weight 2024-03-22 18:10:00 84.057 kg [facility] BMI 2024-03-22 18:10:00 33.89 kg/m2 [facility] Systolic blood pressure 2024-02-23 19:46:00 116 mm[Hg] [facility] Diastolic blood pressure 2024-02-23 19:46:00 76 mm[Hg] [facility] Heart rate 2024-02-23 19:46:00 76 /min [facility] Body temperature 2024-02-23 19:46:00 36.33 [facility] Respiratory rate 2024-02-23 19:46:00 18 /min [facility] Body height 2024-02-23 19:46:00 157.5 cm [facility] Body weight 2024-02-23 19:46:00 78.529 kg [facility] BMI 2024-02-23 19:46:00 31.66 kg/m2 [facility] Systolic blood pressure 2024-02-06 00:15:00 128 mm[Hg] [facility] Diastolic blood pressure 2024-02-06 00:15:00 77 mm[Hg] [facility] Heart rate 2024-02-05 23:45:00 72 /min [facility] Oxygen saturation in Arterial blood by Pulse oximetry 2024-02-05 23:45:00 100 /min [facility] Body temperature 2024-02-05 22:30:00 36.44 [facility] Respiratory rate 2024-02-05 22:30:00 16 /min [facility] Systolic blood pressure 2024-02-05 18:04:00 135 mm[Hg] [facility] Diastolic blood pressure 2024-02-05 18:04:00 83 mm[Hg] [facility] Heart rate 2024-02-05 18:04:00 121 /min [facility] Body temperature 2024-02-05 18:02:00 36.44 [facility] Respiratory rate 2024-02-05 18:02:00 18 /min [facility] Body height 2024-02-05 18:02:00 157.5 cm [facility] Body weight 2024-02-05 18:02:00 78.019 kg [facility] BMI 2024-02-05 18:02:00 31.46 kg/m2 [facility] Systolic blood pressure 2024-01-30 10:22:00 133 mm[Hg] [facility] Diastolic blood pressure 2024-01-30 10:22:00 89 mm[Hg] [facility] Heart rate 2024-01-30 10:22:00 67 /min [facility] Body temperature 2024-01-30 10:22:00 36.56 [facility] Respiratory rate 2024-01-30 10:22:00 18 /min [facility] Oxygen saturation in Arterial blood by Pulse oximetry 2024-01-30 10:22:00 100 /min [facility] Body height 2024-01-28 21:49:00 157.5 cm [facility] 2024-01-28 21:49:00 84.777 kg [facility] BMI 2024-01-28 21:49:00 34.18 kg/m2 [facility] Systolic blood pressure 2024-01-28 15:40:00 141 mm[Hg] [facility] Diastolic blood pressure 2024-01-28 15:40:00 100 mm[Hg] [facility] Heart rate 2024-01-28 15:40:00 100 /min [facility] Body temperature 2024-01-28 15:35:00 36.72 [facility] Respiratory rate 2024-01-28 15:35:00 18 /min [facility] Body height 2024-01-28 15:35:00 157.5 cm [facility] Body weight 2024-01-28 15:35:00 84.482 kg [facility] BMI 2024-01-28 15:35:00 34.07 kg/m2 [facility] Systolic blood pressure 2024-01-21 17:34:00 127 mm[Hg] [facility] Diastolic blood pressure 2024-01-21 17:34:00 86 mm[Hg] [facility] Heart rate 2024-01-21 17:34:00 86 /min [facility] Body temperature 2024-01-21 17:34:00 36.56 [facility] Body height 2024-01-21 17:34:00 157.5 cm [facility] Body weight 2024-01-21 17:34:00 83.825 kg [facility] BMI 2024-01-21 17:34:00 33.80 kg/m2 [facility] Oxygen saturation in Arterial blood by Pulse oximetry 2024-01-21 17:34:00 96 /min [facility] Systolic blood pressure 2024-01-14 16:00:00 134 mm[Hg] [facility] Diastolic blood pressure 2024-01-14 16:00:00 70 mm[Hg] [facility] Heart rate 2024-01-14 16:00:00 90 /min [facility] Body temperature 2024-01-14 16:00:00 36 [facility] Respiratory rate 2024-01-14 16:00:00 18 /min [facility] Body height 2024-01-14 16:00:00 157.5 cm [facility] Body weight 2024-01-14 16:00:00 81.557 kg [facility] BMI 2024-01-14 16:00:00 32.89 kg/m2 [facility] Systolic blood pressure 2023-12-31 18:03:00 134 mm[Hg] [facility] Diastolic blood pressure 2023-12-31 18:03:00 85 mm[Hg] [facility] Heart rate 2023-12-31 18:03:00 108 /min [facility] Body temperature 2023-12-31 18:03:00 36.61 [facility] Respiratory rate 2023-12-31 18:03:00 18 /min [facility] Body height 2023-12-31 18:03:00 157.5 cm [facility] Body weight 2023-12-31 18:03:00 80.06 kg [facility] BMI 2023-12-31 18:03:00 32.28 kg/m2 [facility] Systolic blood pressure 2023-12-18 14:53:00 123 mm[Hg] [facility] Diastolic blood pressure 2023-12-18 14:53:00 85 mm[Hg] [facility] Heart rate 2023-12-18 14:53:00 95 /min [facility] Body temperature 2023-12-18 14:53:00 36.22 [facility] Respiratory rate 2023-12-18 14:53:00 18 /min [facility] Body height 2023-12-18 14:53:00 157.5 cm [facility] Body weight 2023-12-18 14:53:00 78.245 kg [facility] BMI 2023-12-18 14:53:00 31.55 kg/m2 [facility] Systolic blood pressure 2023-12-04 13:08:00 131 mm[Hg] [facility] Diastolic blood pressure 2023-12-04 13:08:00 84 mm[Hg] [facility] Heart rate 2023-12-04 13:08:00 118 /min [facility] Body temperature 2023-12-04 13:08:00 36.17 [facility] Respiratory rate 2023-12-04 13:08:00 18 /min [facility] Body height 2023-12-04 13:08:00 157.5 cm [facility] Body weight 2023-12-04 13:08:00 77.82 kg [facility] BMI 2023-12-04 13:08:00 31.38 kg/m2 [facility] Systolic blood pressure 2023-11-13 15:35:00 119 mm[Hg] [facility] Diastolic blood pressure 2023-11-13 15:35:00 78 mm[Hg] [facility] Heart rate 2023-11-13 15:35:00 93 /min [facility] Body temperature 2023-11-13 15:35:00 36.39 [facility] Respiratory rate 2023-11-13 15:35:00 16 /min [facility] Body height 2023-11-13 15:35:00 157.5 cm [facility] Body weight 2023-11-13 15:35:00 75.07 kg [facility] BMI 2023-11-13 15:35:00 30.27 kg/m2 [facility] Systolic blood pressure 2023-10-23 14:58:00 125 mm[Hg] [facility] Diastolic blood pressure 2023-10-23 14:58:00 77 mm[Hg] [facility] Heart rate 2023-10-23 14:58:00 88 /min [facility] Body temperature 2023-10-23 14:58:00 36.17 [facility] Respiratory rate 2023-10-23 14:58:00 18 /min [facility] Body height 2023-10-23 14:58:00 157.5 cm [facility] Body weight 2023-10-23 14:58:00 72.031 kg [facility] BMI 2023-10-23 14:58:00 29.04 kg/m2 [facility] Systolic blood pressure 2023-10-08 16:21:00 119 mm[Hg] [facility] Diastolic blood pressure 2023-10-08 16:21:00 75 mm[Hg] [facility] Heart rate 2023-10-08 16:21:00 108 /min [facility] Body temperature 2023-10-08 16:21:00 36.67 [facility] Respiratory rate 2023-10-08 16:21:00 17 /min [facility] Body height 2023-10-08 16:21:00 157.5 cm [facility] Body weight 2023-10-08 16:21:00 70.806 kg [facility] BMI 2023-10-08 16:21:00 28.55 kg/m2 [facility] Head Occipital-frontal circumference by Tape measure 2023-10-08 16:21:00 157.5 cm [facility] Systolic blood pressure 2023-09-24 20:11:00 130 mm[Hg] [facility] Diastolic blood pressure 2023-09-24 20:11:00 81 mm[Hg] [facility] Heart rate 2023-09-24 20:11:00 114 /min [facility] Body temperature 2023-09-24 20:11:00 36.5 [facility] Respiratory rate 2023-09-24 20:11:00 18 /min [facility] Body height 2023-09-24 20:11:00 157.5 cm [facility] Body weight 2023-09-24 20:11:00 68.238 kg [facility] BMI 2023-09-24 20:11:00 27.52 kg/m2 [facility] Systolic blood pressure 2023-08-26 18:40:00 120 mm[Hg] [facility] Diastolic blood pressure 2023-08-26 18:40:00 73 mm[Hg] [facility] Heart rate 2023-08-26 18:40:00 85 /min [facility] Body temperature 2023-08-26 18:40:00 36.33 [facility] Respiratory rate 2023-08-26 18:40:00 18 /min [facility] Body height 2023-08-26 18:40:00 157.5 cm [facility] Body weight 2023-08-26 18:40:00 67.586 kg [facility] BMI 2023-08-26 18:40:00 27.25 kg/m2 [facility] Body mass index (BMI) [Percentile] Per age and sex 2023-08-26 18:40:00 88.81 % [facility] Systolic blood pressure 2023-07-29 20:04:00 124 mm[Hg] [facility] Diastolic blood pressure 2023-07-29 20:04:00 89 mm[Hg] [facility] Heart rate 2023-07-29 20:04:00 95 /min [facility] Body temperature 2023-07-29 20:04:00 36.22 [facility] Respiratory rate 2023-07-29 20:04:00 17 /min [facility] Body height 2023-07-29 20:04:00 157.5 cm [facility] Body weight 2023-07-29 20:04:00 67.314 kg [facility] BMI 2023-07-29 20:04:00 27.14 kg/m2 [facility] Body mass index (BMI) [Percentile] Per age and sex 2023-07-29 20:04:00 88.61 % [facility] Systolic blood pressure 2023-07-08 21:49:00 119 mm[Hg] [facility] Diastolic blood pressure 2023-07-08 21:49:00 72 mm[Hg] [facility] Heart rate 2023-07-08 21:49:00 79 /min [facility] Body temperature 2023-07-08 21:49:00 36.56 [facility] Respiratory rate 2023-07-08 21:49:00 18 /min [facility] Body height 2023-07-08 21:49:00 157.5 cm [facility] Body weight 2023-07-08 21:49:00 69.996 kg [facility] BMI 2023-07-08 21:49:00 28.22 kg/m2 [facility] Body mass index (BMI) [Percentile] Per age and sex 2023-07-08 21:49:00 91.24 % [facility] Systolic blood pressure 2023-07-01 19:36:00 125 mm[Hg] [facility] Diastolic blood pressure 2023-07-01 19:36:00 78 mm[Hg] [facility] Heart rate 2023-07-01 19:36:00 93 /min [facility] Body temperature 2023-07-01 19:36:00 36.56 [facility] Respiratory rate 2023-07-01 19:36:00 18 /min [facility] Body height 2023-07-01 19:36:00 157.5 cm [facility] Body weight 2023-07-01 19:36:00 69.542 kg [facility] BMI 2023-07-01 19:36:00 28.04 kg/m2 [facility] Body mass index (BMI) [Percentile] Per age and sex 2023-07-01 19:36:00 90.89 % [facility] Systolic blood pressure 2021-10-30 01:39:00 101 mm[Hg] [facility] Diastolic blood pressure 2021-10-30 01:39:00 69 mm[Hg] [facility] Heart rate 2021-10-30 01:39:00 88 /min [facility] Respiratory rate 2021-10-30 01:39:00 17 /min [facility] Oxygen saturation in Arterial blood by Pulse oximetry 2021-10-30 01:39:00 100 /min [facility] Body temperature 2021-10-29 23:13:00 37.72 [facility] Body height 2021-10-29 23:13:00 157.5 cm [facility] Body weight 2021-10-29 23:13:00 81.375 kg [facility] BMI 2021-10-29 23:13:00 32.81 kg/m2 [facility] Body mass index (BMI) [Percentile] Per age and sex 2021-10-29 23:13:00 97.27 % [facility] Systolic blood pressure 2020-07-06 21:38:00 121 mm[Hg] [facility] Diastolic blood pressure 2020-07-06 21:38:00 75 mm[Hg] [facility] Heart rate 2020-07-06 21:38:00 91 /min [facility] Body temperature 2020-07-06 21:38:00 37 [facility] Respiratory rate 2020-07-06 21:38:00 16 /min [facility] Body weight 2020-07-06 21:38:00 71.215 kg [facility] Systolic blood pressure 2020-07-06 21:38:00 121 mm[Hg] [facility] Diastolic blood pressure 2020-07-06 21:38:00 75 mm[Hg] [facility] Heart rate 2020-07-06 21:38:00 91 /min [facility] Body temperature 2020-07-06 21:38:00 37 [facility] Respiratory rate 2020-07-06 21:38:00 16 /min [facility] Body weight 2020-07-06 21:38:00 71.215 kg [facility] Systolic blood pressure 2020-04-11 15:59:00 125 mm[Hg] [facility] Diastolic blood pressure 2020-04-11 15:59:00 78 mm[Hg] [facility] Heart rate 2020-04-11 15:59:00 76 /min [facility] Body temperature 2020-04-11 15:59:00 36.89 [facility] Respiratory rate 2020-04-11 15:59:00 16 /min [facility] Body height 2020-04-11 15:59:00 157.5 cm [facility] Body weight 2020-04-11 15:59:00 65.772 kg [facility] BMI 2020-04-11 15:59:00 26.52 kg/m2 [facility] Systolic blood pressure 2020-03-21 15:40:00 121 mm[Hg] [facility] Diastolic blood pressure 2020-03-21 15:40:00 81 mm[Hg] [facility] Heart rate 2020-03-21 15:40:00 84 /min [facility] Body temperature 2020-03-21 15:40:00 36.72 [facility] Respiratory rate 2020-03-21 15:40:00 16 /min [facility] Body height 2020-03-21 15:40:00 157.5 cm [facility] Body weight 2020-03-21 15:40:00 63.163 kg [facility] BMI 2020-03-21 15:40:00 25.47 kg/m2 [facility] Systolic blood pressure 2020-03-02 13:57:00 126 mm[Hg] [facility] Diastolic blood pressure 2020-03-02 13:57:00 86 mm[Hg] [facility] Heart rate 2020-03-02 13:57:00 76 /min [facility] Body temperature 2020-03-02 13:57:00 36.67 [facility] Respiratory rate 2020-03-02 13:57:00 18 /min [facility] Oxygen saturation in Arterial blood by Pulse oximetry 2020-03-02 13:57:00 98 /min [facility] Systolic blood pressure 2020-02-28 15:33:00 118 mm[Hg] [facility] Diastolic blood pressure 2020-02-28 15:33:00 82 mm[Hg] [facility] Heart rate 2020-02-28 15:27:00 94 /min [facility] Body temperature 2020-02-28 15:27:00 36.89 [facility] Respiratory rate 2020-02-28 15:27:00 16 /min [facility] Body height 2020-02-28 15:27:00 157.5 cm [facility] Body weight 2020-02-28 15:27:00 71.668 kg [facility] BMI 2020-02-28 15:27:00 28.90 kg/m2 [facility] Systolic blood pressure 2020-02-22 18:15:00 138 mm[Hg] [facility] Diastolic blood pressure 2020-02-22 18:15:00 85 mm[Hg] [facility] Heart rate 2020-02-22 18:14:00 119 /min [facility] Body temperature 2020-02-22 18:14:00 36.28 [facility] Respiratory rate 2020-02-22 18:14:00 16 /min [facility] Body height 2020-02-22 18:14:00 157.5 cm [facility] Body weight 2020-02-22 18:14:00 72.802 kg [facility] BMI 2020-02-22 18:14:00 29.36 kg/m2 [facility] Systolic blood pressure 2020-02-06 18:20:00 141 mm[Hg] [facility] Diastolic blood pressure 2020-02-06 18:20:00 74 mm[Hg] [facility] Heart rate 2020-02-06 18:20:00 92 /min [facility] Body temperature 2020-02-06 18:20:00 36.83 [facility] Respiratory rate 2020-02-06 18:20:00 16 /min [facility] Body height 2020-02-06 18:20:00 157.5 cm [facility] Body weight 2020-02-06 18:20:00 72.32 kg [facility] BMI 2020-02-06 18:20:00 29.16 kg/m2 [facility] Systolic blood pressure 2020-01-23 18:43:00 129 mm[Hg] [facility] Diastolic blood pressure 2020-01-23 18:43:00 85 mm[Hg] [facility] Heart rate 2020-01-23 18:43:00 125 /min [facility] Body temperature 2020-01-23 18:43:00 36.89 [facility] Respiratory rate 2020-01-23 18:43:00 16 /min [facility] Body height 2020-01-23 18:43:00 157.5 cm [facility] Body weight 2020-01-23 18:43:00 68.72 kg [facility] BMI 2020-01-23 18:43:00 27.71 kg/m2 [facility] Systolic blood pressure 2020-01-09 18:37:00 132 mm[Hg] [facility] Diastolic blood pressure 2020-01-09 18:37:00 76 mm[Hg] [facility] Heart rate 2020-01-09 18:37:00 112 /min [facility] Body temperature 2020-01-09 18:37:00 37.06 [facility] Respiratory rate 2020-01-09 18:37:00 16 /min [facility] Body height 2020-01-09 18:37:00 157.5 cm [facility] Body weight 2020-01-09 18:37:00 67.246 kg [facility] BMI 2020-01-09 18:37:00 27.12 kg/m2 [facility] Systolic blood pressure 2019-12-26 17:56:00 138 mm[Hg] [facility] Diastolic blood pressure 2019-12-26 17:56:00 89 mm[Hg] [facility] Heart rate 2019-12-26 17:56:00 121 /min [facility] Body temperature 2019-12-26 17:56:00 36.67 [facility] Respiratory rate 2019-12-26 17:56:00 16 /min [facility] Body height 2019-12-26 17:56:00 157.5 cm [facility] Body weight 2019-12-26 17:56:00 65.318 kg [facility] BMI 2019-12-26 17:56:00 26.34 kg/m2 [facility] Heart rate 2019-12-06 21:00:00 91 /min [facility] Oxygen saturation in Arterial blood by Pulse oximetry 2019-12-06 21:00:00 100 /min [facility] Systolic blood pressure 2019-12-06 18:35:00 132 mm[Hg] [facility] Diastolic blood pressure 2019-12-06 18:35:00 74 mm[Hg] [facility] Body temperature 2019-12-06 18:35:00 36.94 [facility] Respiratory rate 2019-12-06 18:35:00 18 /min [facility] Body height 2019-12-06 18:35:00 157.5 cm [facility] Body weight 2019-12-06 18:35:00 63.504 kg [facility] BMI 2019-12-06 18:35:00 25.61 kg/m2 [facility] Systolic blood pressure 2019-12-05 18:09:00 131 mm[Hg] [facility] Diastolic blood pressure 2019-12-05 18:09:00 77 mm[Hg] [facility] Heart rate 2019-12-05 18:09:00 107 /min [facility] Body temperature 2019-12-05 18:09:00 37 [facility] Respiratory rate 2019-12-05 18:09:00 16 /min [facility] Body height 2019-12-05 18:09:00 157.5 cm [facility] Body weight 2019-12-05 18:09:00 63.05 kg [facility] BMI 2019-12-05 18:09:00 25.42 kg/m2 [facility] Systolic blood pressure 2019-10-06 19:18:00 102 mm[Hg] [facility] Diastolic blood pressure 2019-10-06 19:18:00 70 mm[Hg] [facility] Systolic blood pressure 2019-10-06 18:55:00 98 mm[Hg] [facility] Diastolic blood pressure 2019-10-06 18:55:00 68 mm[Hg] [facility] Systolic blood pressure 2019-10-06 18:06:00 128 mm[Hg] [facility] Diastolic blood pressure 2019-10-06 18:06:00 82 mm[Hg] [facility] Heart rate 2019-10-06 18:06:00 110 [facility] 2019-10-06 18:06:00 36.67 [facility] Respiratory rate 2019-10-06 18:06:00 16 /min [facility] Body height 2019-10-06 18:06:00 157.5 cm [facility] Body weight 2019-10-06 18:06:00 59.081 kg [facility] BMI 2019-10-06 18:06:00 23.82 kg/m2 [facility] Systolic blood pressure 2019-09-08 17:57:00 132 mm[Hg] [facility] Diastolic blood pressure 2019-09-08 17:57:00 77 mm[Hg] [facility] Heart rate 2019-09-08 17:57:00 87 /min [facility] Body temperature 2019-09-08 17:57:00 36.44 [facility] Respiratory rate 2019-09-08 17:57:00 16 /min [facility] Body height 2019-09-08 17:57:00 157.5 cm [facility] Body weight 2019-09-08 17:57:00 59.223 kg [facility] BMI 2019-09-08 17:57:00 23.88 kg/m2 [facility] Systolic blood pressure 2019-08-11 16:13:00 126 mm[Hg] [facility] Diastolic blood pressure 2019-08-11 16:13:00 79 mm[Hg] [facility] Heart rate 2019-08-11 16:13:00 104 /min [facility] Body temperature 2019-08-11 16:13:00 36.28 [facility] Respiratory rate 2019-08-11 16:13:00 16 /min [facility] Body height 2019-08-11 16:13:00 157.5 cm [facility] Body weight 2019-08-11 16:13:00 61.434 kg [facility] BMI 2019-08-11 16:13:00 24.77 kg/m2 [facility] Procedures Procedure Date / Time Performed Performing Clinician Source CT ABDOMEN PELVIS W CONTRAST 2024-05-01 20:14:33 Tai Almendarez [facility] LIPASE 2024-05-01 18:33:00 Tai Almendarez [facility] HEPATIC FUNCTION PANEL (17927) (ALB,T.PRO,BILI T,BU/BC,ALT,AST,ALK PHOS) 2024-05-01 18:33:00 [facility] BASIC METABOLIC PANEL (NA, K, CL, CO2, GLUCOSE, BUN, CREATININE, CA) 2024-05-01 18:33:[address] [facility] CBC WITH DIFF 2024-05-01 18:33:00 Tai Almendarez [facility] URINALYSIS 2024-05-01 18:33:[address] [facility] POCT TEST 2024-05-01 18:33:00 Tai Almendarez [facility] FLU VACC ([id number]), 6 MO-64 YRS, .5ML, IM, TIV (FLUCELVAX) 2024-03-22 18:25:09 Leela Marcos [facility] SGOT (ASPARTATE AMINO TRANSFER) 2024-02-05 23:24:00 Kirti Potter [facility] CREATININE 2024-02-05 23:24:00 Kirti Potter [facility] ALANINE AMINO TRANSFERASE(SGPT 2024-02-05 23:24:00 Kirti Potter [facility] LACTATE DEHYDROGENASE 2024-02-05 23:24:00 Kirti Potter [facility] URIC ACID 2024-02-05 23:24:00 Kirti Potter [facility] CBC WITH DIFF 2024-02-05 23:24:00 Kirti Potter [facility] URINALYSIS 2024-02-05 23:24:00 Kirti Potter Un [facility] PROTEIN CREAT RATIO URINE RANDOM 2024-02-05 23:24:00 Kirti Potter [facility] CBC WITH DIFF 2024-01-30 08:11:00 Jose Rosales [facility] VENOUS CORD GAS 2024-01-29 08:46:00 Sophy [facility] CENTRAL NEURAXIAL BLOCK 2024-01-29 01:39:00 Ja Machuca [facility] SGOT (ASPARTATE AMINO TRANSFER) 2024-01-28 22:33:00 Sophy Wynn [facility] CREATININE 2024-01-28 22:33:00 Sophy Wynn [facility] ALANINE AMINO TRANSFERASE(SGPT 2024-01-28 22:33[facility] 2024-01-28 22:33:00 Do eloy Wynn [facility] URIC ACID 2024-01-28 22:33:00 Sophy Wynn [facility] CBC WITH DIFF 2024-01-28 22:33:00 Sophy Wynn [facility] URINALYSIS 2024-01-28 22:33:00 Sophy Wynn [facility] HEPATITIS B SURFACE ANTIGEN 2024-01-28 22:33:00 Sophy Wynn [facility] HB ABO GROUPING 2024-01-28 22:33:00 Sophy [facility] RHO (D) IMMUNE GLOBULIN 2024-01-28 22:33:00 Ene Ac Cyndie [facility] [facility] PROTEIN CREAT RATIO URINE RANDOM 2024-01-28 22:33:00 Sophy Wynn [facility] SYPHILIS IGG/IGM 2024-01-28 22:33:00 Sophy Wynn [facility] POCT URINALYSIS 2024-01-28 15:46:00 Leela Marcos [facility] POCT URINALYSIS 2024-01-21 17:29:00 Leela Marcos [facility] POCT URINALYSIS 2023-12-31 00:00:00 Leela Marcos [facility] POCT URINALYSIS 2023-12-18 14:53:00 Leela Marcos [facility] TDAP VACCINE, >11 YRS, IM 2023-12-04 13:32:23 Leela Marcos [facility] POCT URINALYSIS 2023-12-04 13:10:00 Leela Marcos [facility] POCT URINALYSIS 2023-11-13 15:36:00 Leela Marcos [facility] POCT URINALYSIS 2023-10-23 14:59:00 Leela Marcos [facility] POCT URINALYSIS 2023-10-08 00:00:00 Leela Marcos [facility] SECOND AND THIRD TRIMESTER ULTRASOUND 2023-09-30 20:19:21 Leela Marcos [facility] POCT URINALYSIS 2023-09-24 20:13:00 Leela Marcos [facility] POCT URINALYSIS 2023-08-26 18:46:00 Leela Marcos [facility] POCT URINALYSIS 2023-08-26 18:45:00 Leela Marcos [facility] CONSENT FOR NIPT 2023-08-26 05:01:00 Doctor Unas signed, Pauline [facility] POCT URINALYSIS 2023-07-29 21:00:00 Leela Marcos [facility] FIRST TRIMESTER ULTRASOUND 2023-07-23 14:09:00 Leela Marcos [facility] EXTERNAL PROVIDER RECORDS 2023-07-09 06:01:00 Doctor Unassigned, Pauline [facility] POCT URINALYSIS 2023-07-08 22:09:00 Leela Marcos [facility] URINE CULTURE 2023-07-01 21:35:00 Leela Marcos [facility] GC & CHLAMYDIA AMPLIFIED ASSAY 2023-07-01 21:35:00 Leela Marcos [facility] GLUCOSE 1 HOUR POST PRANDIAL 2023-07-01 20:40:00 Leela Marcos [facility] COMP. METABOLIC PANEL (13548) 2023-07-01 20:40:00 Leela Marcos [facility] CBC WITH DIFF 2023-07-01 20:40:00 Leela Marcos [facility] RUBELLA SCREEN IGG 2023-07-01 20:40:00 Renetta Marcos [facility] VZV ANTIBODY SCREEN 2023-07-01 20:40:00 Carolin Marcos [facility] HEPATITIS B SURFACE ANTIGEN 2023-07-01 20:40:00 Leela Marcos [facility] HCV ANTIBODY 2023-07-01 20:40:00 [facility] 2023-07-01 20:40:00 Leela Marcos [facility] HIV 1/2 AG-AB WITH REFLEX 2023-07-01 20:40:00 Leela Marcos [facility] SYPHILIS IGG/IGM 2023-07-01 20:40:00 Leela Marcos [facility] POCT URINALYSIS W/O SPECIFIC GRAVITY 2023-07-01 19:27:00 Leela Marcos [facility] POCT TEST 2023-07-01 19:23:00 Carolin Marcos [facility] CONSENT/REFUSAL FOR DIAGNOSIS AND TREATMENT 2023-07-01 18:52:52 Doctor Unassigned, Pauline [facility] CT ABDOMEN PELVIS W CONTRAST 2021-10-30 01:11:32 Bruna Delcid [facility] COMP. METABOLIC PANEL (80554) 2021-10-30 00:59:00 Bruna Delcid [facility] CBC WITH DIFF 2021-10-30 00:59:00 Bruna Delcid [facility] POCT TEST 2021-10-29 23:18:00 Shay Delcid [facility] URINALYSIS 2021-10-29 23:17:00 Bruna Delcid [facility] NOTICE OF PRIVACY PRACTICES 2021-10-29 23:02:37 Doctor Unassigned, Pauline [facility] CONSENT/REFUSAL FOR DIAGNOSIS AND TREATMENT 2021-10-29 22:59:28 Doctor Unassigned, Pauline [facility] GC & CHLAMYDIA AMPLIFIED ASSAY 2020-04-11 16:41:00 Ree Christine [facility] POCT TEST 2020-04-11 16:12:00 Hilario Christine [facility] FLU VACC ([id number]), 6+ MONTHS, IM, QUAD 2020-03-21 15:51:39 Ree Christine [facility] CBC WITH DIFF 2020-03-01 08:51:00 Carol Wells [facility] VENOUS CORD GAS 2020-02-29 21:41:00 Sreedhar [facility] HB ABO GROUPING 2020-02-28 20:58:00 Chaplin [facility] RHO (D) IMMUNE GLOBULIN 2020-02-28 20:58:00 Fawad Wells [facility] SGOT (ASPARTATE AMINO TRANSFER) 2020-02-28 20:57:00 Sreedhar [facility] CREATININE 2020-02-28 20:57:00 [facility] ALANINE AMINO TRANSFERASE(SGPT 2020-02-28 20:57:00 Sreedhar [facility] URIC ACID 2020-02-28 20:57:00 [facility] LACTATE DEHYDROGENASE 2020-02-28 20:56:00 Medina Eli [facility] CBC WITH DIFF 2020-02-28 20:56:00 Carol Eli [facility] URINALYSIS 2020-02-28 20:56:00 [facility] HEPATITIS B SURFACE ANTIGEN 2020-02-28 20:56:00 Carol Wells [facility] PROTEIN CREAT RATIO URINE RANDOM 2020-02-28 20:56:00 Carol Eli [facility] GALV ONLY - SYPHILIS IGG/IGM 2020-02-28 20:56:00 Russell [facility] COVID-19 (ID NOW RAPID TESTING) 2020-02-28 19:29:00 Ryder Paul [facility] POCT URINALYSIS 2020-02-28 15:47:00 Ree Christine [facility] POCT URINALYSIS 2020-02-28 15:32:00 Ree Christine [facility] POCT URINALYSIS 2020-02-22 18:15:00 Ree Christine [facility] VACCINATION OF A MINOR 2020-02-22 17:49:58 Docto r Unassigned, Pauline [facility] POCT URINALYSIS 2020-02-06 18:23:00 Ree Christine [facility] POCT URINALYSIS 2020-01-23 18:47:00 Ree Christine [facility] HIV 1/2 AG-AB WITH REFLEX 2020-01-09 20:24:00 Ree Christine [facility] GALV ONLY - SYPHILIS IGG/IGM 2020-01-09 20:24:00 Ree Christine [facility] TDAP VACCINE, >11 YRS, IM 2020-01-09 18:53:25 Ree Christine [facility] POCT URINALYSIS 2020-01-09 18:41:00 Ree Christine [facility] POCT URINALYSIS 2019-12-26 18:04:00 Ree Christine [facility] NON-STRESS TEST 2019-12-06 22:03:13 Felipa Deluna [facility] URINALYSIS 2019-12-06 19:39:00 Felipa Deluna [facility] NOTICE OF PRIVACY PRACTICES 2019-12-06 18:08:50 Doctor Unassigned, Pauline [facility] CONSENT/REFUSAL FOR DIAGNOSIS AND TREATMENT 2019-12-06 18:08:38 Doctor Unassigned, Pauline [facility] ASSIGNMENT OF BENEFITS 2019-12-06 18:08:24 Docto r Unassigned, Pauline [facility] POCT URINALYSIS 2019-12-05 18:13:00 Ree Christine [facility] POCT URINALYSIS 2019-10-06 18:11:00 Ree Christine [facility] POCT URINALYSIS 2019-09-08 18:02:00 Ree Christine [facility] / CERTIFICATE 2019-09-07 05:01:00 Doctor Unassigned, Pauline [facility] POCT URINALYSIS W/O SPECIFIC GRAVITY 2019-08-11 16:07:00 Ree Christine [facility] POCT TEST 2019-08-11 16:06:00 Hilario Christine [facility] POCT URINALYSIS GLUCOSE & PROTEIN 2019-08-11 16:06:00 Ree Christine [facility] REPORT OF 2019-08-11 06:01:00 Doctor Cole weiss, Pauline [facility] Encounters Start Date/Time End Date/Time Encounter Type Admission Type Attending [facility] Care Department Encounter ID Source 2024-02-05 20:02:03 Outpatient P [facility] [id number] [facility] 2021-04-12 17:40:00 Outpatient [facility] [id number] [facility] 2021-04-12 02:31:30 Outpatient P [facility] [id number] [facility] 2021-04-12 02:25:55 Outpatient P [facility] [id number] [facility] 2024-06-22 20:09:00 2024-06-22 21:04:00 Emergency X CLAU VALLADARES WAKILI [facility] ERT [id number] [facility] 2024-06-22 20:09:00 2024-06-22 21:04:00 Emergency Clau Valladares [facility] 1.2840.114 350.1.13.10 4.2.7.2.686 [id number] [facility] 2024-05-01 11:24:00 2024-05-01 15:53:00 Emergency X TAI ALMENDAREZ [facility] ERT [id number] [facility] 2024-05-01 11:24:00 2024-05-01 15:53:00 Emergency Tai Almendarez [facility] 1.2840.114 350.1.13.10 4.2.7.2.686 [id number] [facility] 2024-03-22 13:15:00 2024-03-22 13:33:54 Outpatient R LEELA MARCOS [facility] [id number] [facility] 2024-03-22 13:15:00 2024-03-22 13:33:54 Office Visit Leela Marcos [facility] CONTRACTING SPECIALIST [facility] CHILD [facility] 1..840.114 350.1.13.10 4.2.7.2.686 [id number] 107 [id number] [facility] 2024-03-15 12:30:00 2024-03-15 12:30:00 Outpatient R LEELA MARCOS [facility] [id number] [facility] 2024-01-24 00:00:00 2024-02-27 18:24:49 Patient Secure Msg Leela Marocs [facility] CONTRACTING SPECIALIST [facility] & CHILD [facility] 1..840.114 350.1.13.10 4.2.7.2.686 [id number] [facility] 2024-02-23 14:15:00 2024-02-23 15:05:46 Outpatient R LEELA MARCOS [facility] [id number] [facility] 2024-02-23 14:15:00 2024-02-23 15:05:46 Routine Visit Leela Marcos [facility] CONTRACTING SPECIALIST [facility]ILD [facility] 1.2.840.114 350.1.13.10 4.2.7.2.686 [id number] [facility] 2024-02-05 17:16:00 2024-02-05 20:01:00 Out[facility] [id number] [facility] 2024-02-05 17:16:00 2024-02-05 20:01:00 Hospital Encounter Douglas Quinteros [facility] 1.2.840.114 350.1.13.10 4.2.7.2.686 [id number] [facility] 2024-02-05 13:00:00 2024-02-05 13:15:00 Nurse Visit Visit, Garret-Rmchp Nurse Leela Marcos Visit, Rasheeda Nurse [facility] CONTRACTING SPECIALIST [facility] & CHILD [facility] 1..840.114 350.1.13.10 4.2.7.2.686 [id number] [facility] 2024-02-05 13:00:00 2024-02-05 13:00:00 Outpatient R LEELA MARCOS [facility] [id number] [facility] 2024-01-28 15:38:00 2024-01-30 16:23:00 Inpatient P VANESSA BENÍTEZ [facility] [id number] [facility] 2024-01-28 15:38:00 2024-01-30 16:23:00 Hospital Encounter Vanessa Benítez [facility] 1.2.840.114 350.1.13.10 4.2.7.2.686 [id number] [facility] 2024-01-28 20:40:00 2024-01-29 03:34:00 Anesthesia Event Clare Gomez Aaron [facility] 1..840.114 350.1.13.10 4.2.7.2.686 [id number] [facility] 2024-01-28 10:45:00 2024-01-28 11:04:29 [facility] [id number] [facility] 2024-01-28 10:45:00 2024-01-28 11:04:29 [facility] & CHILD [facility] 1..840.114 350.1.13.10 4.2.7.2.686 [id number] [facility] 2024-01-21 12:30:00 2024-01-21 12:53:56 [facility] [id number] [facility] 2024-01-21 12:30:00 2024-01-21 12:53:56 [facility] & CHILD [facility] 1..840.114 350.1.13.10 4.2.7.2.686 [id number] [facility] 2024-01-14 11:00:00 2024-01-14 11:28:13 Outpatient R LEELA MARCOS [facility] [id number] [facility] 2024-01-14 11:00:00 2024-01-14 11:28:13 [facility] 1..840.114 350.1.13.10 4.2.7.2.686 [id number] [facility] 2023-12-31 13:15:00 2023-12-31 13:24:56 Outpatient R LEELA MARCOS [facility] [id number] [facility] 2023-12-31 13:15:00 2023-12-31 13:24:56 Routine Visit TobinLeela banerjee [facility] CONTRACTING SPECIALIST [facility] & CHILD [facility] 1.2.840.114 350.1.13.10 4.2.7.2.686 [id number] [facility] 2023-12-18 09:45:00 2023-12-18 10:20:56 Out[facility] [id number] [facility] 2023-12-18 09:45:00 2023-12-18 10:20:56 Routine Visit TobinLeela banerjee [facility] CONTRACTING SPECIALIST [facility] & CHILD [facility] 1..840.114 350.1.13.10 4.2.7.2.686 [id number] [facility] 2023-12-04 08:00:00 2023-12-04 08:38:23 Outpatient [facility] [id number] [facility] 2023-12-04 08:00:00 2023-12-04 08:38:23 Routine Visit TobinLeela banerjee [facility] CONTRACTING SPECIALIST [facility] & CHILD [facility] 1..840.114 350.1.13.10 4.2.7.2.686 [id number] [facility] 2023-11-20 00:00:00 2023-11-20 09:37:20 Telephone Ree Christine [facility] CONTRACTING SPECIALIST [facility] & CHILD [facility] 1..840.114 350.1.13.10 4.2.7.2.686 [id number] [facility] 2023-11-13 10:15:00 2023-11-13 11:15:10 Outpatient R TOBINGEE LEELA [facility] [id number] [facility] 2023-11-13 10:15:00 2023-11-13 11:15:10 Routine Visit Leela Marcos [facility] CONTRACTING SPECIALIST [facility] & CHILD [facility] 1.2.840.114 350.1.13.10 4.2.7.2.686 [id number] 107 [id number] [facility] 2023-10-23 11:15:00 2023-10-23 11:15:00 Telemedici ne Visit Park Hutchinson Brenda A Ray, Joseph W [facility] CONTRACTING SPECIALIST [facility] & CHILD [facility] 1.840.114 350.1.13.10 4.2.7.2.686 [id number] [facility] 2023-10-23 11:15:00 2023-10-23 10:32:45 Outpatient SOLIS CASTRO [facility] [id number] [facility] 2023-10-23 10:00:00 2023-10-23 10:07:58 Routine Visit Leela Marcos [facility] CONTRACTING SPECIALIST [facility] CHILD [facility] 1.840.114 350.1.13.10 4.2.7.2.686 [id number] [facility] 2023-10-08 10:45:00 2023-10-08 11:34:23 Outpatient COMFORT LOERA [facility] [id number] [facility] 2023-10-08 10:45:00 2023-10-08 11:34:23 Routine Visit , Ang-Rmchp-N p/Comfort Hinojosa [facility] CONTRACTING SPECIALIST [facility] & CHILD [facility] 1.2.840.114 350.1.13.10 4.2.7.2.686 [id number] [facility] 2023-10-08 09:30:00 2023-10-08 09:30:00 Outpatient COMFORT LOERA [facility] [id number] [facility] 2023-10-08 00:00:00 2023-10-08 00:00:00 Telephone Leela Marcos [facility] CONTRACTING SPECIALIST [facility] & CHILD [facility] 1.2.840.114 350.1.13.10 4.2.7.2.686 [id number] [facility] 2023-10-01 00:00:00 2023-10-01 00:00:00 Case Management Leela Marcos [facility] CONTRACTING SPECIALIST [facility] & CHILD [facility] 1..840.114 350.1.13.10 4.2.7.2.686 [id number] [facility] 2023-09-30 13:00:00 2023-09-30 14:14:09 Outpatient PHANI CAMPOS [facility] [id number] [facility] 2023-09-30 13:00:00 2023-09-30 14:14:09 Chaplain Resident Visit Ultrasound, Phani Beatty [facility] CONTRACTING SPECIALIST [facility] CHILD [facility] 1..840.114 350.1.13.10 4.2.7.2.686 [id number] [facility] 2023-09-24 15:30:00 2023-09-24 15:39:09 Outpatient LEELA HOPPER [facility] [id number] [facility] 2023-09-24 15:30:00 2023-09-24 15:39:09 Routine Visit Leela Marcos [facility] CONTRACTING SPECIALIST [facility] & CHILD [facility] 1.2.840.114 350.1.13.10 4.2.7.2.686 [id number] 107 [id number] [facility] 2023-08-26 16:00:00 2023-08-26 16:00:00 Routine Visit Leela Marcos [facility] CONTRACTING SPECIALIST [facility] & CHILD [facility] 1.84.114 350.1.13.10 4.2.7.2.686 [id number] 107 [id number] [facility] 2023-08-26 16:00:00 2023-08-26 14:08:13 Outpatient R LEELA MARCOS [facility] [id number] [facility] 2023-08-26 00:00:00 2023-08-26 00:00:00 Orders Only Doctor Unassigned, Pauline [facility] 1..114 350.1.13.10 4.2.7.2.686 [id number] [facility] 2023-07-29 14:15:00 2023-07-29 14:31:45 [facility] [id number] [facility] 2023-07-29 14:15:00 2023-07-29 14:31:45 Routine Visit Leela Marcos [facility] CONTRACTING SPECIALIST [facility] & CHILD [facility] 1.840.114 350.1.13.10 4.2.7.2.686 [id number] [facility] 2023-07-23 08:00:00 2023-07-23 08:06:08 Outpatient ALEX DAS SHANNON [facility] [id number] [facility] 2023-07-23 08:00:00 2023-07-23 08:06:08 Chaplain Resident Visit Ultrasound, Alex Salvador [facility] CONTRACTING SPECIALIST [facility] & CHILD [facility] 1.840.114 350.1.13.10 4.2.7.2.686 [id number] [facility] 2023-07-23 00:00:00 2023-07-23 00:00:00 Case Management Leela Marcos [facility] CONTRACTING SPECIALIST [facility] & CHILD [facility] 1.2.840.114 350.1.13.10 4.2.7.2.686 [id number] [facility] 2023-07-14 00:00:00 2023-07-14 00:00:00 Telephone Leela Marcos [facility] CONTRACTING SPECIALIST [facility] CHILD [facility] 1.2.840.114 350.1.13.10 4.2.7.2.686 [id number] [facility] 2023-07-09 00:00:00 2023-07-09 00:00:00 Orders Only Doctor Unassigned, Pauline [facility] 1.2.840.114 350.1.13.10 4.2.7.2.686 [id number] [facility] 2023-07-08 15:30:00 2023-07-08 16:04:32 Outpatient R LEELA MARCOS [facility] [id number] [facility] 2023-07-08 15:30:00 2023-07-08 16:04:32 Routine Visit Leela Marcos [facility] CONTRACTING SPECIALIST [facility] CHILD [facility] 1.2.840.114 350.1.13.10 4.2.7.2.686 [id number] [facility] 2023-07-03 00:00:00 2023-07-03 00:00:00 Telephone Leela Marcos [facility] CONTRACTING SPECIALIST [facility] & CHILD [facility] 1.2.840.114 350.1.13.10 4.2.7.2.686 [id number] 107 [id number] [facility] 2023-07-02 00:00:00 2023-07-02 00:00:00 Telephone Leela Marcos [facility] CONTRACTING SPECIALIST [facility] & CHILD [facility] 1.2.840.114 350.1.13.10 4.2.7.2.686 [id number] [facility] 2023-07-01 13:00:00 2023-07-01 14:24:44 Outpatient R LEELA MARCOS [facility] [id number] [facility] 2023-07-01 13:00:00 2023-07-01 14:24:44 Initial Visit Leela Marcos [facility] CONTRACTING SPECIALIST [facility] CHILD [facility] 1.840.114 350.1.13.10 4.2.7.2.686 [id number] [facility] 2023-07-01 00:00:00 2023-07-01 00:00:00 Orders Only Doctor Unassigned, Pauline [facility] 1.840.114 350.1.13.10 4.2.7.2.686 [id number] [facility] 2021-10-29 18:22:00 2021-10-29 22:18:00 Emergency X PALOMO HIGUERA [facility] ERT [id number] [facility] 2021-10-29 18:22:00 2021-10-29 22:18:00 [facility].114 350.1.13.10 4.2.7.2.686 [id number] [facility] 2021-10-29 00:00:00 2021-10-29 00:00:00 Orders Only Doctor Unassigned, Pauline [facility] 1.0.114 350.1.13.10 4.2.7.2.686 [id number] [facility] 2020-09-28 13:30:00 2020-09-28 13:30:00 Outpatient R [facility] [id number] [facility] 2020-08-16 00:00:00 2020-08-16 00:00:00 Telephone Ree Christine [facility] CONTRACTING SPECIALIST [facility] & CHILD [facility] 1.2.840.114 350.1.13.10 4.2.7.2.686 [id number] 2020-08-16 00:00:00 2020-08-16 00:00:00 Telephone Ree Christnie [facility] CONTRACTING SPECIALIST [facility] 1.2.840.114 350.1.13.10 4.2.7.2.686 [id number] [facility] 2020-07-06 15:23:16 2020-07-06 15:38:06 [facility] CONTRACTING SPECIALIST [facility] 1.2.840.114 350.1.13.10 4.2.7.2.686 [id number] [facility] 2020-07-06 15:23:16 2020-07-06 15:38:06 Nurse Visit Visit, Deweyirene Nurse [facility] CONTRACTING SPECIALIST [facility] 1.2.840.114 350.1.13.10 4.2.7.2.686 [id number] 2020-07-06 15:30:00 2020-07-06 15:30:00 Outpatient R [facility] [id number] [facility] 2020-07-04 14:00:00 2020-07-04 14:00:00 Outpatient R [facility] [id number] [facility] 2020-04-11 10:52:20 2020-04-11 11:40:40 Office Visit Ree Christine [facility] CONTRACT[facility] SPECIALIST [facility] 1.2.840.114 350.1.13.10 4.2.7.2.686 [id number] [facility] 2020-04-11 10:30:00 2020-04-11 10:30:00 Outpatient R REE CHRISTINE [facility] [id number] [facility] 2020-03-21 10:30:53 2020-03-29 16:11:08 Routine Visit PaulaclausRee [facility] CONTRACTING SPECIALIST [facility] 1.2.840.114 350.1.13.10 4.2.7.2.686 [id number] [facility] 2020-03-21 10:30:00 2020-03-21 10:30:00 Outpatient R KINGADAVIDCLAUSREE [facility] [id number] [facility] 2020-02-28 14:15:00 2020-03-02 14:45:00 Hospital Encounter Ryder Paul [facility] 1.2.840.114 350.1.13.10 4.2.7.2.686 [id number] [facility] 2020-02-28 10:18:59 2020-02-28 10:52:29 Routine Visit Ree Christine [facility] CONTRACTING SPECIALIST [facility] 1.2.840.114 350.1.13.10 4.2.7.2.686 [id number] 107 [id number] [facility] 2020-02-28 10:15:00 2020-02-28 10:15:00 Outpatient R REE CHRISTINE [facility] [id number] [facility] 2020-02-23 00:00:00 2020-02-23 00:00:00 Telephone EmmettRee [facility] CONTRACTING SPECIALIST [facility] & CHILD [facility] 1.2.840.114 350.1.13.10 4.2.7.2.686 [id number] [facility] 2020-02-22 12:49:00 2020-02-22 13:32:37 Routine Visit EmmettRee [facility] CONTRACTING SPECIALIST [facility] & CHILD [facility] 1.2.840.114 350.1.13.10 4.2.7.2.686 [id number] [facility] 2020-02-22 13:00:00 2020-02-22 13:00:00 Outpatient R REE CHRISTINE [facility] [id number] [facility] 2020-02-22 00:00:00 2020-02-22 00:00:00 Orders Only Doctor Unassigned, Pauline [facility] 1.840.114 350.1.13.10 4.2.7.2.686 [id number] [facility] 2020-02-06 13:06:50 2020-02-06 13:45:26 Routine Visit Ree Christine [facility] CONTRACTING SPECIALIST [facility]ILD [facility] 1..840.114 350.1.13.10 4.2.7.2.686 [id number] [facility] 2020-02-06 13:00:00 2020-02-06 13:00:00 Outpatient R REE CHRISTINE [facility] [id number] [facility] 2020-01-23 13:08:40 2020-01-23 14:07:21 Routine Visit Ree Christine [facility] CONTRACTING SPECIALIST [facility]ILD [facility] 1..840.114 350.1.13.10 4.2.7.2.686 [id number] 107 [id number] [facility] 2020-01-23 13:00:00 2020-01-23 13:00:00 Outpatient R REE CHRISTINE [facility] [id number] [facility] 2020-01-09 12:57:14 2020-01-09 14:11:59 Routine Visit Ree Christine [facility] CONTRACTING SPECIALIST [facility] CHILD [facility] 1..840.114 350.1.13.10 4.2.7.2.686 [id number] 107 [id number] [facility] 2020-01-09 13:00:00 2020-01-09 13:00:00 Outpatient R REE CHRISTINE [facility] [id number] [facility] 2019-12-27 00:00:00 2019-12-27 00:00:00 Telephone Ree Christine [facility] CONTRACTING SPECIALIST [facility]ILD [facility] 1.2.840.114 350.1.13.10 4.2.7.2.686 [id number] [facility] 2019-12-26 12:44:22 2019-12-26 14:01:57 Routine Visit Ree Christine [facility] CONTRACTING SPECIALIST [facility]ILD [facility] 1.2.840.114 350.1.13.10 4.2.7.2.686 [id number] 107 [id number] [facility] 2019-12-26 13:00:00 2019-12-26 13:00:00 Outpatient R PAULACLAUSREE [facility] [id number] [facility] 2019-12-06 13:01:18 2019-12-06 16:30:00 Hospital Encounter Felipa Deluna [facility] 1.2.840.114 350.1.13.10 4.2.7.2.686 [id number] [facility] 2019-12-05 12:53:28 2019-12-05 13:28:51 Routine Visit Ree Christine [facility] CONTRACTING SPECIALIST [facility]ILD [facility] 1.2.840.114 350.1.13.10 4.2.7.2.686 [id number] 107 [id number] [facility] 2019-12-05 12:45:00 2019-12-05 12:45:00 Outpatient R PAULACLAUSJAKEREE [facility] [id number] [facility] 2019-11-14 09:15:00 2019-11-14 09:15:00 Outpatient P [facility] [id number] [facility] 2019-11-02 12:50:21 2019-11-02 14:17:33 Telemedici ne Visit PaulaclausRee Solo [facility] CONTRACTING SPECIALIST [facility]ILD [facility] 1..114 350.1.13.10 4.2.7.2.686 [id number] [facility] 2019-11-02 13:45:00 2019-11-02 13:45:00 Outpatient R REE CHRISTINE [facility] [id number] [facility] 2019-10-06 12:56:19 2019-10-06 14:21:39 Routine Visit Jake Christineola Solo [facility] CONTRACTING SPECIALIST [facility]ILD [facility] 1..114 350.1.13.10 4.2.7.2.686 [id number] [facility] 2019-10-06 12:45:00 2019-10-06 12:45:00 Outpatient R REE CHRISTINE [facility] [id number] [facility] 2019-10-06 12:45:00 2019-10-06 12:45:00 Outpatient R JAKE CHRISTINEOLA [facility] [id number] [facility] 2019-09-08 12:46:37 2019-09-08 13:16:26 Routine Visit Ella Harp R Jake Christineola Solo [facility] CONTRACTING SPECIALIST [facility]ILD [facility] 1..114 350.1.13.10 4.2.7.2.686 [id number] [facility] 2019-09-08 12:45:00 2019-09-08 12:45:00 Outpatient R REE CHRISTINE [facility] [id number] [facility] 2019-09-07 00:00:00 2019-09-07 00:00:00 Telephone Ree Christine [facility] CONTRACTING SPECIALIST [facility]ILD [facility] 1.0.114 350.1.13.10 4.2.7.2.686 [id number] 107 [id number] [facility] 2019-09-07 00:00:00 2019-09-07 00:00:00 Orders Only Doctor Unassigned, Pauline [facility] 1.2840.114 350.1.13.10 4.2.7.2.686 [id number] [facility] 2019-08-12 00:00:00 2019-08-12 00:00:00 Abstract Ree Christine [facility] CONTRACTING SPECIALIST [facility]ILD [facility] 1.2840.114 350.1.13.10 4.2.7.2.686 [id number] 107 [id number] [facility] 2019-08-11 09:48:53 2019-08-11 13:28:38 Initial Visit Ree Christine [facility] 1.20.114 350.1.13.10 4.2.7.2.686 [id number] 107 [id number] [facility] 2019-08-11 11:15:12 2019-08-11 11:45:12 Chaplain Resident Visit Ultrasound, Alex Salvador [facility] 1.2.114 350.1.13.10 4.2.7.2.686 [id number] [facility] 2019-08-11 09:30:00 2019-08-11 09:30:00 Outpatient R REE CHRISTINE [facility] [id number] [facility] 2019-08-11 00:00:00 2019-08-11 00:00:00 Orders Only Doctor Unassigned, Pauline [facility] 1.2.114 350.1.13.10 4.2.7.2.686 [id number] [id number] [facility] Results Test Description Test Time [...] flank is probably related to injection sequelae. [id number] (ALB,T.PRO,BILI T,BU/BC,ALT,AST,ALK PHOS)2024-05-01 19:33:17* Test Item Value Reference Range Interpretation Comme nts TOTAL BILI (test code = 7444820315) 0.9 mg/dL 0.1-1.1 BILI UNCON (test code = 5897684803) 0.8 mg/dL 0.1-1.1 BILI CONJ (test code = 5423922726) 0.0 mg/dL 0.0-0.3 T PROTEIN (test code = 9616630059) 8.3 g/dL 6.3-8.2 H ALBUMIN (test code = 2184515486) 5.0 g/dL 3.5-5.0 ALK PHOS (test code = 8832951230) 133 U/L 34-122 H ALTv (test code = 1742-6) 72 U/L 5-35 H AST(SGOT) (test code = 4768578036) 51 U/L 13-40 H Lab Interpretation (test cod e = 83955-6) [facility] 19:33:17* Test Item Value Reference Range Interpretation Comme nts LIPASE (test code = 6357884270) 39 U/L 0-220 Lab Interpretation (test cod e = 33245-0) Normal [facility]CBC WITH [id number] 19:21:35* Test Item Value Reference Range Interpretation [...] 32.5 g/dL 31.6-35.1 RDW-SD (test code = 10380-9) 38.1 fL 39.0-49.9 L RDW-CV (test code = 788-0) 12.8 % 12.0-15.5 PLT (test code = 777-3) 235 166-358 MPV (test code = 02319-4) 12.1 fL 9.5-12.9 NRBC/100 WBC (test code = 0813663173) 0.0 0.0-10.0 NRBC x10^3 (test code = 5988173954) See_Comment [Automated message] The system which generated this result transmitted reference range: 10*3/?L. The reference range was not used to interpret this result as normal/abnormal. GRAN MAT (NEUT) % (test code = 770-8) 92.5 % IMM GRAN % (test code = 0843684914) 0.40 % LYMPH % (test code = 736-9) 2.5 % MONO % (test code = 5905-5) 4.2 % EOS % (test code = 713-8) 0.1 % BASO % (test code = 706-2) 0.3 % GRAN MAT x10^3(ANC) (test code = 3020661100) 14.23 10*3/uL 1.88-7.09 H IMM GRAN x10^3 (test code = 6381314089) 0.06 10*3/uL 0.00-0.06 LYMPH x10^3 (test code = 731-0) 0.38 10*3/uL 1.32-3.29 L MONO x10^3 (test code = 742-7) 0.64 10*3/uL 0.33-0.92 EOS x10^3 (test code = 711-2) 0.03-0.39 L BASO x10^3 (test code = 704-7) 0.04 10*3/uL 0.01-0.07 Lab Interpretation (test code = 98242-5) Abnormal [facility] CenterPOWY [id number] 18:33:00* Test Item Value Reference Range Interpretation Comme nts POCT PREG (test code = 1605) Negative On board controls acceptable with C Line (test code = 3574) Yes Lab Interpretation (test cod e = 39670-4) Normal [facility] CenterLacaate Baqxlvevitwvl2672-32-52 00:29:17* Test Item Value Reference Range Interpretation Comme [facility] LDH (test code = 7510001806) 274 U/L 120-246 H Lab Interpretation (test cod e = 09037-2) Abnormal [facility] CenterUric Acid Gccok3617-58-82 00:28:40* Test Item Value Reference Range Interpretation Comme [facility] URIC ACID (test code = 0476113009) 7.1 mg/dL 2.9-6.0 H Lab Interpretation (test cod e = 75758-6) Abnormal [facility] Xdtwghmttt2750-80-38 00:28:40* Test Item Value Reference Range Interpretation Comme [facility] CREATININE (test code = 2160-0) 0.65 mg/dL 0.50-1.04 eGFR (test code = 08691-9) 130.3 mL/min/1.73m2 CKD-EPI eGFR (20 21). Assuming creatinine has been stable day-to-day for at least three months, the eGFR indicates Category G1 (>= 90 mL/min/1.73 m2) [facility] CenterSGOT (Asparate Amino Transfer)2024-02-06 00:28:40* Test Item Value Reference Range Interpretation Comme nts AST(SGOT) (test code = 1780408067) 27 U/L 13-40 Lab Interpretation (test cod e = 19303-5) Normal [facility] CenterAlanine Amino Transferase (SGPT)2024-02-06 00:28:40* Test Item Value Reference Range Interpretation Comme nts ALTv (test code = 1742-6) 31 U/L 5-35 Lab Interpretation (test cod e = 26295-4) Normal [facility] CenterCBC with Wnfpjcgcodxv9036-90-48 23:33:55* Test Item Value Reference Range Interpretation [...] g/dL 31.6-35.1 L RDW-SD (test code = 27502-8) 49.1 fL 39.0-49.9 RDW-CV (test code = 788-0) 15.6 % 12.0-15.5 H PLT (test code = 777-3) 278 166-358 MPV (test code = 77657-0) 10.6 fL 9.5-12.9 NRBC/100 WBC (test code = 9089390512) 0.0 0.0-10.0 NRBC x10^3 (test code = 5359661626) See_Comment [Automated messa ge] The system which generated this result transmitted reference range: 10*3/?L. The reference range was not used to interpret this result as normal/abnormal. GRAN MAT (NEUT) % (test code = 770-8) 69.6 % IMM GRAN % (test code = 8712898690) 1.60 % LYMPH % (test code = 736-9) 18.5 % MONO % (test code = 5905-5) 7.4 % EOS % (test code = 713-8) 2.3 % BASO % (test code = 706-2) 0.6 % GRAN MAT x10^3(ANC) (test code = 5231732753) 6.13 10*3/uL 1.88-7.09 IMM GRAN x10^3 (test code = 4352926504) 0.14 10*3/uL 0.00-0.06 H LYMPH x10^3 (test code = 731-0) 1.63 10*3/uL 1.32-3.29 MONO x10^3 (test code = 742-7) 0.65 10*3/uL 0.33-0.92 EOS x10^3 (test code = 711-2) 0.20 10*3/uL 0.03-0.39 BASO x10^3 (test code = 704-7) 0.05 10*3/uL 0.01-0.07 Lab Interpretation (test code = 53092-3) Abnormal [facility] with Feaikrzlhebc4153-69-30 09:02:28* Test Item Value Reference Range Interpretation [...] 32.5 g/dL 31.6-35.1 RDW-SD (test code = 27136-5) 47.4 fL 39.0-49.9 RDW-CV (test code = 788-0) 15.8 % 12.0-15.5 H PLT (test code = 777-3) 139 166-358 L MPV (test code = 12470-5) 12.2 fL 9.5-12.9 NRBC/100 WBC (test code = 2854338883) 0.0 0.0-10.0 NRBC x10^3 (test code = 2368894585) See_Comment [Automated messa ge] The system which generated this result transmitted reference range: 10*3/?L. The reference range was not used to interpret this result as normal/abnormal. GRAN MAT (NEUT) % (test code = 770-8) 67.2 % IMM GRAN % (test code = 2251056418) 0.90 % LYMPH % (test code = 736-9) 21.1 % MONO % (test code = 5905-5) 9.1 % EOS % (test code = 713-8) 1.3 % BASO % (test code = 706-2) 0.4 % GRAN MAT x10^3(ANC) (test code = 7360510324) 6.64 10*3/uL 1.88-7.09 IMM GRAN x10^3 (test code = 3322017496) 0.09 10*3/uL 0.00-0.06 H LYMPH x10^3 (test code = 731-0) 2.08 10*3/uL 1.32-3.29 MONO x10^3 (test code = 742-7) 0.90 10*3/uL 0.33-0.92 EOS x10^3 (test code = 711-2) 0.13 10*3/uL 0.03-0.39 BASO x10^3 (test code = 704-7) 0.04 10*3/uL 0.01-0.07 Lab Interpretation (test code = 89545-2) Abnormal [facility] CenterGAL ONLY - SYPHILIS IGG/AES5908-04-69 15:38:45* Test Item Value Reference Range Interpretation Comme nts Syphilis IgG/IgM (test code = 07485-9) Non-reactive Non-reactive YESI (test code = YESI) Non-reactive - No serologic evidence of T. pallidum infection. Cannot exclude incubating or early syphilis. Submit a second specimen in 2-4 weeks if syphilis is clinically suspected. Equivocal - Further testing to follow. Reactive - Further testing to follow. Lab Interpretation (test code = 31303-7) Normal [facility] CenterRHO (D) IMMUNE LYWQBGZK8657-87-80 10:44:38* Test Item Value Reference Range Interpretation Comme nts RHIG CANDIDATE? (test code = 5188) No- see comment Patient is not a candidate for RhIg- Patient is Rh Positive.Performed at [facility] Laboratory Services - [facility] Blood [address] [place] [address]Qwbu Free: [phone] No. [id number] [facility] CenterVenous Cord Pke0223-41-78 09:03:49* Test Item Value Reference Range Interpretation Comme nts VENOUS BASE EXCESS, CORD (te st code = 0456268271) -0.1 mEq/L VENOUS PH, CORD (test code = 3353915721) 7.38 7.25-7.45 VENOUS PC02, CORD (test code = 8129198307) 44 27-49 VENOUS PO2, CORD (test code = 2843636275) 27 17-41 VENOUS BICARBONATE, CORD (te st code = 8574350326) 25 12-29 [facility] Tzmbc1001-64-90 01:39:00 Live Machuca MD ? ? 01/28/2024 [...] and DORIS saline ?Guidance with: landmark technique}Epidural/Spinal [place] and/or Catheter: ?Epidural/Spinal Kit: BBraun ?Needle Gauge: 17 G ?Needle Length: 3.5 in (8.89 cm) ?Needle Insertion Depth: 7 ? ?Catheter at Skin Depth: 12 ?Number of Attempts: 1 ?Test Dose: lidocaine 1.5% with epinephrine 1-to-200,000 ? ?Dose: 3 cc ? ?Catheter Securement Method: surgical tape and TegadermAssessment: ?Block Outcome: a full evaluation is pending ? ?Procedure Assessment: patient tolerated procedure well with no complicationsNotes: ? Smooth and atraumatic, (+) Local, (+) [facility]FUniversLaredo [facility] CenterH[facility] B Surface Hxmthpu8098-75-74 23:48:50* Test Item Value Reference Range Interpretation Comme [facility] HBsAg Semi-Quantitative (donna t code = 5195-3) 0.10 Negative [facility] CenterUric Acid Umynk8068-27-37 23:19:06* Test Item Value Reference Range Interpretation Comme [facility] URIC ACID (test code = 4186224020) 4.4 mg/dL 2.9-6.0 Lab Interpretation (test cod e = 08242-9) Normal [facility] Itzkwvhcwu4220-00-82 23:19:06* Test Item Value Reference Range Interpretation Comme [facility] CREATININE (test code = 2160-0) 0.55 mg/dL 0.50-1.04 eGFR (test code = 43582-6) 135.6 mL/min/1.73m2 CKD-EPI eGFR (20 21). Assuming creatinine has been stable day-to-day for at least three months, the eGFR indicates Category G1 (>= 90 mL/min/1.73 m2) [facility] CenterSGOT (Asparate Amino Transfer)2024-01-28 23:19:06* Test Item Value Reference Range Interpretation Comme nts AST(SGOT) (test code = 3861194280) 22 U/L 13-40 Lab Interpretation (test cod e = 36308-0) Normal [facility] CenterAlanine Amino Transferase (SGPT)2024-01-28 23:19:06* Test Item Value Reference Range Interpretation Comme nts ALTv (test code = 1742-6) 13 U/L 5-35 Lab Interpretation (test cod e = 92380-7) Normal [facility] CenterLactate Scevurvdqqush2176-85-96 23:18:25* Test Item Value Reference Range Interpretation Comme nts LDH (test code = 3114968695) 276 U/L 120-246 H Lab Interpretation (test cod e = 79453-6) Abnormal [facility] CenterCBC with Uwifqaxfqjdp2863-16-70 23:04:25* Test Item Value Reference Range Interpretation [...] 32.0 g/dL 31.6-35.1 RDW-SD (test code = 61841-2) 48.0 fL 39.0-49.9 RDW-CV (test code = 788-0) 15.4 % 12.0-15.5 PLT (test code = 777-3) 162 166-358 L MPV (test code = 71452-5) 12.9 fL 9.5-12.9 NRBC/100 WBC (test code = 0846417674) 0.0 0.0-10.0 NRBC x10^3 (test code = 4028122857) See_Comment [Automated messa ge] The system which generated this result transmitted reference range: 10*3/?L. The reference range was not used to interpret this result as normal/abnormal. GRAN MAT (NEUT) % (test code = 770-8) 73.7 % IMM GRAN % (test code = 5546544210) 1.10 % LYMPH % (test code = 736-9) 16.2 % MONO % (test code = 5905-5) 8.1 % EOS % (test code = 713-8) 0.6 % BASO % (test code = 706-2) 0.3 % GRAN MAT x10^3(ANC) (test code = 4044075162) 7.37 10*3/uL 1.88-7.09 H IMM GRAN x10^3 (test code = 0684294821) 0.11 10*3/uL 0.00-0.06 H LYMPH x10^3 (test code = 731-0) 1.62 10*3/uL 1.32-3.29 MONO x10^3 (test code = 742-7) 0.81 10*3/uL 0.33-0.92 EOS x10^3 (test code = 711-2) 0.06 10*3/uL 0.03-0.39 BASO x10^3 (test code = 704-7) 0.03 10*3/uL 0.01-0.07 Lab Interpretation (test code = 39221-8) Abnormal [facility] CenterType and Screen - ONCE UVMF9567-07-39 22:44:00 * Test Item Value Reference Range Interpretation Comme nts ABO & RH (test code = 20) O POSITIVE IAT (test code = 1185) Negative [facility] CenterPOCT URINALYSIS W SPECIFIC HUZKQYQ0328-07-62 15:47:00* Test Item Value Reference Range Interpretation [...] POCT U APPEAR (test code = 3267) [facility] URINALYSIS W SPECIFIC [id number] 17:29:00* Test Item Value Reference Range Interpretation [...] POCT U APPEAR (test code = 3267) [facility] URINALYSIS W SPECIFIC QJQLQIF4098-17-05 18:04:00* Test Item Value Reference Range Interpretation [...] U APPEAR (test code = 3267) . [facility] URINALYSIS W SPECIFIC ZNBDSOT6829-43-54 14:53:00* Test Item Value Reference Range Interpretation [...] U APPEAR (test code = 3267) .. [facility] URINALYSIS W SPECIFIC OEKXAEJ7204-29-58 13:10:00* Test Item Value Reference Range Interpretation [...] U APPEAR (test code = 3267) .. [facility] URINALYSIS W SPECIFIC QNAIVSR2584-99-80 15:36:00* Test Item Value Reference Range Interpretation [...] 3267) Lab Interpretation (test cod e = 28374-4) Abnormal [facility] URINALYSIS W SPECIFIC BRGVZSV3005-70-04 15:00:00* Test Item Value Reference Range Interpretation [...] U APPEAR (test code = 3267) . [facility] URINALYSIS W SPECIFIC QBLLJOM3775-94-86 16:23:00* Test Item Value Reference Range Interpretation [...] U APPEAR (test code = 3267) . [facility] URINALYSIS W SPECIFIC ETSUZRN2244-64-09 20:13:00* Test Item Value Reference Range Interpretation [...] POCT U APPEAR (test code = 3267) [facility] URINALYSIS W SPECIFIC MKGFQKA9565-85-05 20:13:00* Test Item Value Reference Range Interpretation [...] POCT U APPEAR (test code = 3267) [facility] URINALYSIS W SPECIFIC JJEHUWI3950-96-76 18:46:00* Test Item Value Reference Range Interpretation [...] POCT U APPEAR (test code = 3267) [facility] URINALYSIS W SPECIFIC FKHGZOF7902-44-61 18:46:00* Test Item Value Reference Range Interpretation [...] POCT U APPEAR (test code = 3267) [facility] URINALYSIS W SPECIFIC NBKFHCO1211-34-64 18:46:00* Test Item Value Reference Range Interpretation [...] POCT U APPEAR (test code = 3267) [facility] URINALYSIS W SPECIFIC ZBWZQJQ8711-88-29 18:46:00* Test Item Value Reference Range Interpretation [...] POCT U APPEAR (test code = 3267) [facility] URINALYSIS W SPECIFIC EJNFAHW2534-67-90 18:46:00* Test Item Value Reference Range Interpretation [...] POCT U APPEAR (test code = 3267) [facility] URINALYSIS W SPECIFIC GIFZSFP7488-00-43 18:46:00* Test Item Value Reference Range Interpretation [...] POCT U APPEAR (test code = 3267) [facility] URINALYSIS W SPECIFIC GCKGNRI6923-28-73 21:01:00* Test Item Value Reference Range Interpretation [...] POCT U APPEAR (test code = 3267) [facility] URINALYSIS W SPECIFIC FGXIURE2057-67-34 22:09:00* Test Item Value Reference Range Interpretation [...] POCT U APPEAR (test code = 3267) [facility] CenterRUBELLA SCREEN (CECILIO) BTA7256-35-53 17:22:45 * Test Item Value Reference Range Interpretation Comme [facility] Rubella screen IgG (test code = 7476311506) Positive Negative YESI (test code = YESI) Positive - Indicat es the patient was exposed to Rubella through infection or vaccination.Negative - Indicates the patient could be susceptible to Rubella infection.Equivocal - A second specimen should be sent. [facility]TIBODY PWOZYO5400-53-76 17:22:45* Test Item Value Reference Range Interpretation Comme [facility] VZV IgG antibody (test code = 00918-4) Positive Negative YSEI (test code = YESI) Positive - Indicat es the patient was exposed to VZV through infection or vaccination.Negative - Indicates the patient could be susceptible to VZV infection.Equivocal - A second specimen should be sent for testing. [facility] ONLY - SYPHILIS IGG/WGS0897-88-75 15:35:31* Test Item Value Reference Range Interpretation Comme [facility] Syphilis IgG/IgM (test code = 59316-2) Non-reactive Non-reactive YESI (test code = YESI) Non-reactive - No serologic evidence of T. pallidum infection. Cannot exclude incubating or early syphilis. Submit a second specimen in 2-4 weeks if syphilis is clinically suspected. Equivocal - Further testing to follow. Reactive - Further testing to follow. Lab Interpretation (test code = 56041-2) Normal [facility] 1/2 AG-AB WITH [id number] 12:45:22* Test Item Value Reference Range Interpretation Comme [facility] HIV Semi-quantitative (test code = 98252-5) 0.08 Negative YESI (test code = YESI) Non-reactive for HIV-1 antigen and HIV-1/HIV-2 antibodies. ?No laboratory evidence of HIV infection. ?Repeat in 2-4 weeks if acute HIV infection is suspected. [id number] 06:19:08* Test Item Value Reference Range Interpretation Comme nts HCV Ab (test code = 96140-6) Negative HCV Semi-Quantitative (test code = 87834-2) 0.02 [facility] [id number] 06:01:52 * Test Item Value Reference Range Interpretation Comme nts HBsAg Semi-Quantitative (donna t code = 5195-3) 0.09 Negative [facility], [facility]LOOD [id number] 05:54:00 * Test Item Value Reference Range Interpretation Comme nts ABO & RH (test code = 20) O POSITIVE IAT (test code = 1185) Negative [facility] [id number] 05:17:07* Test Item Value Reference Range Interpretation Comme nts WBC (test code = 6690-2) 6.48 See_Comment [Automated [employer]] The system which generated this result transmitted reference range: 4.50 - 13.50 10*3/?L. The reference range was not used to interpret this result as normal/abnormal. RBC (test code = 789-8) 4.65 See_Comment [Automated [employer]] The system which generated this result transmitted [...] g/dL 32.0-36.0 L RDW-SD (test code = 46868-1) 42.9 fL 38.5-49.0 RDW-CV (test code = 788-0) 14.3 % 11.5-14.0 H PLT (test code = 777-3) 254 See_Comment [Automated messa ge] The system which generated this result transmitted reference range: 135 - 361 10*3/?L. The reference range was not used to interpret this result as normal/abnormal. MPV (test code = 63864-1) 12.1 fL 9.4-13.3 NRBC/100 WBC (test code = 4644578256) 0.0 See_Comment [Automated me ssage] The system which generated this result transmitted reference range: 0.0 - 10.0 /100 WBCs. The reference range was not used to interpret this result as normal/abnormal. NRBC x10^3 (test code = 9445276218) See_Comment [Automated messa ge] The system which generated this result transmitted reference range: 10*3/?L. The reference range was not used to interpret this result as normal/abnormal. GRAN MAT (NEUT) % (test code = 770-8) 65.4 % IMM GRAN % (test code = 4686302229) 0.30 % LYMPH % (test code = 736-9) 22.8 % MONO % (test code = 5905-5) 9.0 % EOS % (test code = 713-8) 1.7 % BASO % (test code = 706-2) 0.8 % GRAN MAT x10^3(ANC) (test code = 7035569567) 4.24 10*3/uL 1.50-10.30 IMM GRAN x10^3 (test code = 5814889961) 0.00-0.06 LYMPH x10^3 (test code = 731-0) 1.48 10*3/uL 0.70-7.40 MONO x10^3 (test code = 742-7) 0.58 10*3/uL 0.00-0.50 H EOS x10^3 (test code = 711-2) 0.11 10*3/uL 0.00-0.40 BASO x10^3 (test code = 704-7) 0.05 10*3/uL 0.00-0.10 Lab Interpretation (test code = 97504-3) [facility] [id number] 05:12:46* Test Item Value Reference Range Interpretation Comme nts GLUC 1 HR (test code = 5101551964) 101 mg/dL 120-170 L Lab Interpretation (test cod e = 59871-4) Abnormal [facility]. Metabolic Panel (33246)2023-07-02 05:11:25* Test Item Value Reference Range Interpretation Comme nts NA (test code = 6766211557) 137 mmol/L 135-145 K (test code = 4337367399) 4.4 mmol/L 3.5-5.0 CL (test code = 8605130072) 104 mmol/L 98-108 CO2 TOTAL (test code = 6124423753) 23 mmol/L 23-31 AGAP (test code = 9502901860) 10 2-16 BUN (test code = 2800944227) 9 mg/dL 7-23 GLUCOSE (test code = 9794747281) 104 mg/dL 70-110 CREATININE (test code = 7433786610) 0.60 mg/dL 0.50-1.04 TOTAL BILI (test code = 8736140139) 0.4 mg/dL 0.1-1.1 CALCIUM (test code = 8879798966) 9.2 mg/dL 8.6-10.6 T PROTEIN (test code = 6542488595) 7.6 g/dL 6.3-8.2 ALBUMIN (test code = 7130078671) 4.3 g/dL 3.5-5.0 ALK PHOS (test code = 8074317040) 97 U/L 34-122 ALTv (test code = 1742-6) 17 U/L 5-35 AST(SGOT) (test code = 4027752005) 24 U/L 13-40 eGFR (test code = 41687-0) 133.6 mL/min/1.73m2 CKD-EPI eGFR (20 21). Assuming creatinine has been stable day-to-day for at least three months, the eGFR indicates Category G1 (>= 90 mL/min/1.73 m2) [facility] Urinalysis w/o Specific [id number] 19:27:00* Test Item Value Reference Range Interpretation [...] = 3257) Trace Negative - Negati ve [facility]PO[facility] [id number] 19:23:00* Test Item Value Reference Range Interpretation Comme nts POCT PREG (test code = 1605) Positive On board controls acceptable with C Line (test code = 3574) Yes POCT PREG LOT # (test code = 3575) POCT PREG TEST DATE ( test code = 3576) [facility]. METABOLIC PANEL (31541)2021-10-30 01:27:17* Test Item Value Reference Range Interpretation Comme nts NA (test code = 3940659345) 137 mmol/L 135-145 K (test code = 2478263031) 4.5 mmol/L 3.5-5.0 CL (test code = 5165452784) 103 mmol/L 98-108 CO2 TOTAL (test code = 7094022380) 24 mmol/L 23-31 AGAP (test code = 3716103855) 2-16 BUN (test code = 0817291392) 11 mg/dL 7-23 GLUCOSE (test code = 5436412117) 92 mg/dL 70-110 CREATININE (test code = 8140299965) 0.60 mg/dL 0.50-1.04 TOTAL BILI (test code = 6474649165) 0.7 mg/dL 0.1-1.1 CALCIUM (test code = 0107797506) 9.0 mg/dL 8.6-10.6 T PROTEIN (test code = 1777562354) 7.1 g/dL 6.3-8.2 ALBUMIN (test code = 9849292774) 4.2 g/dL 3.5-5.0 ALK PHOS (test code = 6365367656) 125 U/L 34-122 H ALTv (test code = 1742-6) 33 U/L 5-35 AST(SGOT) (test code = 6345099013) 31 U/L 13-40 YESI (test code = [...] imaging tests). Lab Interpretation (test code = 48917-4) Abnormal [facility] WITH [id number] 01:15:55* Test Item Value Reference Range Interpretation [...] g/dL 32.0-36.0 L RDW-SD (test code = 66817-9) 41.7 fL 38.5-49.0 RDW-CV (test code = 788-0) 14.5 % 11.5-14.0 H PLT (test code = 777-3) See_Comment [Automated message] The system which generated this result transmitted reference range: 135 - 361 10*3/?L. The reference range was not used to interpret this result as normal/abnormal. MPV (test code = 30962-2) 10.9 fL 9.4-13.3 NRBC/100 WBC (test code = 0522359280) See_Comment [Automated message] The system which generated this result transmitted reference range: 0.0 - 10.0 /100 WBCs. The reference range was not used to interpret this result as normal/abnormal. NRBC x10^3 (test code = 9783679718) <0.01 See_Comment [Automated message] The system which generated this result transmitted reference range: 10*3/?L. The reference range was not used to interpret this result as normal/abnormal. GRAN MAT (NEUT) % (test code = 770-8) 86.2 % IMM GRAN % (test code = 3172516237) 0.50 % LYMPH % (test code = 736-9) 7.7 % MONO % (test code = 5905-5) 4.9 % EOS % (test code = 713-8) 0.5 % BASO % (test code = 706-2) 0.2 % GRAN MAT x10^3(ANC) (test code = 9292391818) 12.81 10*3/uL 1.50-10.30 H IMM GRAN x10^3 (test code = 1112638087) 0.07 10*3/uL 0.00-0.06 H LYMPH x10^3 (test code = 731-0) 1.14 10*3/uL 0.70-7.40 MONO x10^3 (test code = 742-7) 0.73 10*3/uL 0.00-0.50 H EOS x10^3 (test code = 711-2) 0.08 10*3/uL 0.00-0.40 BASO x10^3 (test code = 704-7) 0.03 10*3/uL 0.00-0.10 Lab Interpretation (test code = 46818-9) [facility] [id number] 23:18:00* Test Item Value Reference Range Interpretation Comme nts POCT PREG (test code = 1605) Negative On board controls acceptable with C Line (test code = 3574) Present POCT PREG LOT # (test code = 3575) [id number] POCT PREG TEST DATE ( test code = 3576) 08-12-2022 Lab Interpretation (test cod e = 77942-5) Normal [facility] CenterGC & CHLAMYDIA AMPLIFIED [id number] 17:34:00* Test Item Value Reference Range Interpretation Comme nts C. trachomatis Nucleic Acid (test code = 72773-7) Negative Negative N. gonorrhoeae Nucleic Acid (test code = 80852-5) Negative Negative YESI (test code = YESI) [...] gonorrhoeae NAAT. Lab Interpretation (test code = 84302-3) Normal [facility] CenterGC & CHLAMYDIA AMPLIFIED [id number] 17:34:00* Test Item Value Reference Range Interpretation Comme nts C. trachomatis Nucleic Acid (test code = 70395-6) Negative Negative N. gonorrhoeae Nucleic Acid (test code = 11048-2) Negative Negative YESI (test code = YESI) [...] gonorrhoeae NAAT. Lab Interpretation (test code = 53082-3) Normal [facility] CenterPO[facility] [id number] 16:12:00* Test Item Value Reference Range Interpretation Comme nts POCT PREG (test code = 1605) Negative On board controls acceptable with C Line (test code = 3574) Yes POCT PREG LOT # (test code = 3575) POCT PREG TEST DATE ( test code = 3576) [facility]PO[facility] [id number] 16:12:00* Test Item Value Reference Range Interpretation Comme nts POCT PREG (test code = 1605) Negative On board controls acceptable with C Line (test code = 3574) Yes POCT PREG LOT # (test code = 3575) POCT PREG TEST DATE ( test code = 3576) [facility] CenterCBC with Miorlfiyvtcl3193-43-43 09:24:00* Test Item Value Reference Range Interpretation [...] g/dL 32-36 L RDW-SD (test code = 31220-0) 49.6 fL 38.5-49 H RDW-CV (test code = 788-0) 17.9 % 11.5-14 H PLT (test code = 777-3) See_Comment [Automated message] The system which generated this result transmitted reference range: 135 - 361 10*3/?L. The reference range was not used to interpret this result as normal/abnormal. MPV (test code = 80710-0) 11.1 fL 9.4-13.3 NRBC/100 WBC (test code = 1174737493) See_Comment [Automated message] The system which generated this result transmitted reference range: 0.0 - 10.0 /100 WBCs. The reference range was not used to interpret this result as normal/abnormal. NRBC x10^3 (test code = 9120967563) <0.01 See_Comment [Automated message] The system which generated this result transmitted reference range: 10*3/?L. The reference range was not used to interpret this result as normal/abnormal. GRAN MAT (NEUT) % (test code = 770-8) 77.5 % IMM GRAN % (test code = 7652652503) 1.00 % LYMPH % (test code = 736-9) 12.4 % MONO % (test code = 5905-5) 8.1 % EOS % (test code = 713-8) 0.7 % BASO % (test code = 706-2) 0.3 % GRAN MAT x10^3(ANC) (test code = 5325088627) 12.27 10*3/uL 1.5-10.3 H IMM GRAN x10^3 (test code = 4957062870) 0.16 10*3/uL 0-0.06 H LYMPH x10^3 (test code = 731-0) 1.97 10*3/uL 0.7-7.4 MONO x10^3 (test code = 742-7) 1.28 10*3/uL 0-0.5 H EOS x10^3 (test code = 711-2) 0.11 10*3/uL 0-0.4 BASO x10^3 (test code = 704-7) 0.04 10*3/uL 0-0.1 Lab Interpretation (test code = 40426-6) Abnormal [facility] CenterRHO (D) IMMUNE [id number] 23:32:21* Test Item Value Reference Range Interpretation Comme nts RHIG CANDIDATE? (test code = 5055) No- see comment Patient is not a candidate for RhIg- Patient is Rh Positive.Performed at [facility] Laboratory Services [facility] Blood [address] [address]Hrly Free: [phone] No. [id number] [facility] CenterVENOUS CORD [id number] 21:59:00* Test Item Value Reference Range Interpretation Comme nts VENOUS BASE EXCESS, CORD (test code = 0434560660) mEq/L VENOUS PH, CORD (test code = 5218496878) 7.25-7.45 VENOUS PC02, CORD (test code = 0167001975) See_Comment [Automated messa ge] The system which generated this result transmitted reference range: 27 - 49 mmHg. The reference range was not used to interpret this result as normal/abnormal. VENOUS PO2, CORD (test code = 6252286932) See_Comment [Automated me ssage] The system which generated this result transmitted reference range: 17 - 41 mmHg. The reference range was not used to interpret this result as normal/abnormal. VENOUS BICARBONATE, CORD (test code = 9828520350) See_Comment [Automated messa ge] The system which generated this result transmitted reference range: 12 - 29 mEq/L. The reference range was not used to interpret this result as normal/abnormal. [facility] CenterARTERIAL CORD [id number] 21:56:00* Test Item Value Reference Range Interpretation Comme nts BASE EXCESS, CORD (test code = 9125423022) mEq/L AC PH, CORD (BEAKER) (test code = 4791951813) 7.18-7.38 PC02, CORD (test code = 2396517454) See_Comment [Automated messa ge] The system which generated this result transmitted reference range: 32 - 66 mmHg. The reference range was not used to interpret this result as normal/abnormal. PO2, CORD (test code = 3082297790) See_Comment [Automated messa ge] The system which generated this result transmitted reference range: 10 - 30 mmHg. The reference range was not used to interpret this result as normal/abnormal. BICARBONATE, CORD (test code = 8633773165) See_Comment [Automated messa ge] The system which generated this result transmitted reference range: 17 - 27 mEq/L. The reference range was not used to interpret this result as normal/abnormal. [facility] CenterGALV ONLY - SYPHILIS IGG/[id number] 15:28:00* Test Item Value Reference Range Interpretation Comme nts Syphilis IgG/IgM (test code = 72127-9) Non-reactive Non-reactive YESI (test code = YESI) Non-reactive - No serologic evidence of T. pallidum infection. Cannot exclude incubating or early syphilis. Submit a second specimen in 2-4 weeks if syphilis is clinically suspected. Equivocal - Further testing to follow. Reactive - Further testing to follow. Lab Interpretation (test code = 23315-6) Normal [facility] CenterHepatitis B Surface Thdjrtr0986-07-04 22:58:00 * Test Item Value Reference Range Interpretation Comme nts HBsAg Semi-Quantitative (donna t code = 5195-3) Negative Negative [facility] CenterType and Screen - ONCE [id number] 21:49:57 * Test Item Value Reference Range Interpretation Comme nts ABO & RH (test code = 20) O POSITIVE Performed at [facility] Laboratory Services - [facility] Blood [address] [address]As[address] Free: [phone] No. [id number] IAT (test code = 1185) Negative Performed at [facility] Laboratory Services [facility] Blood [address] [address]Ceyw Free: [phone] No. [id number] [facility] CenterLactate Gybtjanucbhwy0440-84-89 21:41:00* Test Item Value Reference Range Interpretation Comme nts LDH (test code = 3767399238) 615 U/L 300-600 H Lab Interpretation (test cod e = 50831-7) Abnormal [facility] CenterUric Acid [id number] 21:41:00* Test Item Value Reference Range Interpretation Comme nts URIC ACID (test code = 9200898279) 3.4 mg/dL 2.9-6 Lab Interpretation (test cod e = 12194-9) Normal [facility] CenterSerum Wxdxyrhfpf7690-02-94 21:41:00* Test Item Value Reference Range Interpretation Comme nts CREATININE (test code = 6881213832) 0.42 mg/dL 0.5-1.04 L YESI (test code [...] imaging tests). Lab Interpretation (test code = 20091-9) Abnormal [facility] CenterSGOT (Asparate Amino Transfer)2020-02-28 21:41:00* Test Item Value Reference Range Interpretation Comme nts AST(SGOT) (test code = 1974365149) 22 U/L 13-40 Lab Interpretation (test cod e = 13628-1) Normal [facility] CenterAlanine Amino Transferase (SGPT)2020-02-28 21:41:00* Test Item Value Reference Range Interpretation Comme nts ALTv (test code = 1742-6) 10 U/L 5-35 Lab Interpretation (test cod e = 22129-6) Normal [facility] CenterUrinalysis2020-09-15 21:15:00* Test Item Value Reference Range Interpretation Comme nts APPEARANCE (test code = 7737781728) Hazy Clear A COLOR (test code = 4014839782) Yellow Yellow PH (test code = 0893222931) 4.8-8.0 SP GRAVITY (test code = 9991943909) 1.003-1.030 GLU U QUAL (test code = 3358345946) Normal Normal BLOOD (test code = 5120301743) 1+ Negative A KETONES (test code = 7450279898) Negative Negative PROTEIN (test code = 2887-8) 100 mg/dL Negative A UROBILIN (test code = 4737319133) 2.0 mg/dL Normal A BILIRUBIN (test code = 8238887159) Negative Negative NITRITE (test code = 2202010263) Negative Negative LEUK NARAYAN (test code = 2156953792) 75/uL Negative A RBC/HPF (test code = 4679738532) See_Comment [Automated [employer] ge] The system which generated this result transmitted reference range: 0 - 3 HPF. The reference range was not used to interpret this result as normal/abnormal. WBC/HPF (test code = 2032750552) See_Comment [Automated [employer]] The system which generated this result transmitted reference range: 0 - 5 HPF. The reference range was not used to interpret this result as normal/abnormal. BACTERIA (test code = 8289840729) Few Negative A SQ EPITH (test code = 9708010862) See_Comment [Automated [employer]] The system which generated this result transmitted reference range: <=2 HPF. The reference range was not used to interpret this result as normal/abnormal. Lab Interpretation (test code = 98817-2) Abnormal [facility] CenterProtein CREAT Ratio Urine Whwalz9523-04-10 21:13:00* Test Item Value Reference Range Interpretation Comme nts T. PROT U (test code = 2888-6) 93 mg/dL CREAT U (test code = 7182133252) 71.5 mg/dL Protein/Creatinine Ratio Uri ne (test code = 9541964716) 0.0-2.0 [facility] CenterCBC with Sxnkvbnsloph7053-18-41 21:08:00* Test Item Value Reference Range Interpretation [...] g/dL 32-36 L RDW-SD (test code = 70525-8) 48.2 fL 38.5-49 RDW-CV (test code = 788-0) 17.6 % 11.5-14 H PLT (test code = 777-3) See_Comment [Automated message] The system which generated this result transmitted reference range: 135 - 361 10*3/?L. The reference range was not used to interpret this result as normal/abnormal. MPV (test code = 82051-0) 11.3 fL 9.4-13.3 NRBC/100 WBC (test code = 0241463927) See_Comment [Automated message] The system which generated this result transmitted reference range: 0.0 - 10.0 /100 WBCs. The reference range was not used to interpret this result as normal/abnormal. NRBC x10^3 (test code = 0143129449) <0.01 See_Comment [Automated message] The system which generated this result transmitted reference range: 10*3/?L. The reference range was not used to interpret this result as normal/abnormal. GRAN MAT (NEUT) % (test code = 770-8) 80.3 % IMM GRAN % (test code = 2795528298) 1.20 % LYMPH % (test code = 736-9) 10.6 % MONO % (test code = 5905-5) 7.2 % EOS % (test code = 713-8) 0.5 % BASO % (test code = 706-2) 0.2 % GRAN MAT x10^3(ANC) (test code = 6795264913) 10.87 10*3/uL 1.5-10.3 H IMM GRAN x10^3 (test code = 5284164929) 0.16 10*3/uL 0-0.06 H LYMPH x10^3 (test code = 731-0) 1.44 10*3/uL 0.7-7.4 MONO x10^3 (test code = 742-7) 0.97 10*3/uL 0-0.5 H EOS x10^3 (test code = 711-2) 0.07 10*3/uL 0-0.4 BASO x10^3 (test code = 704-7) 0.03 10*3/uL 0-0.1 Lab Interpretation (test code = 47178-0) Abnormal [facility] CenterCOVID-19 (ID NOW RAPID TESTING)2020-02-28 20:07:00* Test Item Value Reference Range Interpretation Comme nts SARS-CoV-2 Rapid ID NOW (test code = 91705-4) Not Detected Not Detected YESI (test code = YESI) ID NOW COVID-19 As say is an isothermal nucleic acid amplification test intended for the qualitative detection of nucleic acid from SARS-CoV-2 viral RNA in nasopharyngeal (BOX SORTER) specimens. It is used under Emergency Use [...] clinically indicated. Lab Interpretation (test code = 87994-6) Normal [facility] URINALYSIS W SPECIFIC [id number] 15:47:00* Test Item Value Reference Range Interpretation [...] POCT U APPEAR (test code = 3267) [facility] URINALYSIS W SPECIFIC [id number] 15:32:00* Test Item Value Reference Range Interpretation [...] POCT U APPEAR (test code = 3267) [facility] URINALYSIS W SPECIFIC [id number] 18:15:00* Test Item Value Reference Range Interpretation [...] code = 3259) Trace Negative - Negat aerl POCT U GLU (test code = 3256) [...] POCT U APPEAR (test code = 3267) [facility] URINALYSIS W SPECIFIC [id number] 18:23:00* Test Item Value Reference Range Interpretation [...] POCT U APPEAR (test code = 3267) [facility] URINALYSIS W SPECIFIC [id number] 18:23:00* Test Item Value Reference Range Interpretation [...] POCT U APPEAR (test code = 3267) [facility] URINALYSIS W SPECIFIC [id number] 18:47:00* Test Item Value Reference Range Interpretation [...] 3267) Lab Interpretation (test cod e = 15720-7) Normal [facility] CenterGALV ONLY - SYPHILIS IGG/SAZ8633-45-97 13:58:00* Test Item Value Reference Range Interpretation Comme nts Syphilis IgG/IgM (test code = 21884-8) Non-reactive Non-reactive YESI (test code = YESI) Non-reactive - No serologic evidence of T. pallidum infection. Cannot exclude incubating or early syphilis. Submit a second specimen in 2-4 weeks if syphilis is clinically suspected. Equivocal - Further testing to follow. Reactive - Further testing to follow. Lab Interpretation (test code = 92495-0) Normal [facility] CenterHI 1/2 AG-AB WITH [id number] 04:25:00* Test Item Value Reference Range Interpretation Comme nts HIV Semi-quantitative (test code = 12154-5) Negative Negative YESI (test code = YESI) Non-reactive for HIV-1 antigen and HIV-1/HIV-2 antibodies. ?No laboratory evidence of HIV infection. ?Repeat in 2-4 weeks if acute HIV infection is suspected. [facility] CenterPOCT URINALYSIS W SPECIFIC [id number] 18:41:00* Test Item Value Reference Range Interpretation [...] POCT U APPEAR (test code = 3267) [facility] URINALYSIS W SPECIFIC [id number] 18:04:00* Test Item Value Reference Range Interpretation [...] POCT U APPEAR (test code = 3267) [facility] URINALYSIS W SPECIFIC [id number] 18:04:00* Test Item Value Reference Range Interpretation [...] POCT U APPEAR (test code = 3267) [facility] CenterFETAL NON-STRESS [id number] 22:04:08 Baseline wnl, appropriate for gestational age. ?One variable decel note but overall appropriate.[place] quiescent Felipa Simón Deluna MD ?12/06/2019 ?5:04 PM [facility] CenterURINALYSIS2020-06-23 20:16:00* Test Item Value Reference Range Interpretation Comme nts APPEARANCE (test code = 5360837045) Hazy Clear A COLOR (test code = 2704374656) Yellow Yellow PH (test code = 0144627090) 4.8-8.0 SP GRAVITY (test code = 7662324394) 1.003-1.030 GLU U QUAL (test code = 2620603091) Normal Normal BLOOD (test code = 9677058898) 1+ Negative A KETONES (test code = 1337708393) Negative Negative PROTEIN (test code = 2887-8) Negative Negative UROBILIN (test code = 6428684743) 4.0 mg/dL Normal A BILIRUBIN (test code = 0392396240) Negative Negative NITRITE (test code = 1723242447) Negative Negative LEUK NARAYAN (test code = 2398041750) 250/uL Negative A RBC/HPF (test code = 0521967412) See_Comment H [Automated messa ge] The system which generated this result transmitted reference range: 0 - 3 HPF. The reference range was not used to interpret this result as normal/abnormal. WBC/HPF (test code = 4643628981) See_Comment H [Automated messa ge] The system which generated this result transmitted reference range: 0 - 5 HPF. The reference range was not used to interpret this result as normal/abnormal. BACTERIA (test code = 2501057368) Many Negative A MUCOUS (test code = 5721196112) Marked Negative LPF A SQ EPITH (test code = 5159396069) HPF CA OXALATE (test code = 5064877752) See_Comment H [Automated messa ge] The system which generated this result transmitted reference range: <=1 HPF. The reference range was not used to interpret this result as normal/abnormal. Lab Interpretation (test code = 01641-3) Abnormal [facility] URINALYSIS W SPECIFIC [id number] 18:13:00* Test Item Value Reference Range Interpretation [...] POCT U APPEAR (test code = 3267) [facility] URINALYSIS W SPECIFIC [id number] 18:13:00* Test Item Value Reference Range Interpretation [...] POCT U APPEAR (test code = 3267) [facility] URINALYSIS W SPECIFIC [id number] 18:13:00* Test Item Value Reference Range Interpretation [...] POCT U APPEAR (test code = 3267) [facility] URINALYSIS W SPECIFIC [id number] 18:11:00* Test Item Value Reference Range Interpretation [...] POCT U APPEAR (test code = 3267) [facility] URINALYSIS W SPECIFIC [id number] 18:11:00* Test Item Value Reference Range Interpretation [...] POCT U APPEAR (test code = 3267) [facility] URINALYSIS W SPECIFIC [id number] 18:11:00* Test Item Value Reference Range Interpretation [...] POCT U APPEAR (test code = 3267) [facility] URINALYSIS W SPECIFIC [id number] 18:11:00* Test Item Value Reference Range Interpretation [...] POCT U APPEAR (test code = 3267) [facility] URINALYSIS W SPECIFIC [id number] 18:02:00* Test Item Value Reference Range Interpretation [...] POCT U APPEAR (test code = 3267) [facility] URINALYSIS W/O SPECIFIC [id number] 16:07:00* Test Item Value Reference Range Interpretation [...] = 3257) Trace Negative - Negati ve [facility] URINALYSIS W/O SPECIFIC [id number] 16:07:00* Test Item Value Reference Range Interpretation [...] = 3257) Trace Negative - Negati ve [facility] [id number] 16:06:00* Test Item Value Reference Range Interpretation Comme nts POCT PREG (test code = 1605) Positive On board controls acceptable with C Line (test code = 3574) Yes POCT PREG LOT # (test code = 3575) POCT PREG TEST DATE ( test code = 3576) [facility] URINALYSIS GLUCOSE & [id number] 16:06:00* Test Item Value Reference Range Interpretation Comme nts POCT U PROT (test code = 3259) . Negative - Negat earl POCT U GLU (test code = 3256) . Negative - Negati ve [facility] [id number] 16:06:00* Test Item Value Reference Range Interpretation Comme nts POCT PREG (test code = 1605) Positive On board controls acceptable with C Line (test code = 3574) Yes POCT PREG LOT # (test code = 3575) POCT PREG TEST DATE ( test code = 3576) [facility] URINALYSIS GLUCOSE & [id number] 16:06:00* Test Item Value Reference Range Interpretation Comme nts POCT U PROT (test code = 3259) . Negative - Negat earl POCT U GLU (test code = 3256) . Negative - Negati ve [facility] History and Physical Notes Date/Time Note Provider [...] third trimester, antepartum ASSESSMENT AND PLAN [facility] 18 [facility] at 37w2d [...] on 01/21/24 - PP contraception: declines - [facility] Fetus - EFW: 3326g, 72%ile on [...] vs. PreE pending labs. Sophy Wynn MSN, OUTPATIENT THERAPIST, TRANSPORTATION ATTENDANT-C working with Carol Eli APRN, FELICIA-BC 01/28/2024 Informed consent discussed with the patient, [...] and admission assessment and plan for delivery. 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 [facility] - [facility] Procedure Notes Date/Time Note Provider Source 2024-01-28 21:08:47 Associated Order(s): Central Neuraxial Block Central Neuraxial Block Date/Time: 01/28/2024 8:39 PM Performed by: Live Machuca MD Authorized by: Live Machuca MD End Time: 01/28/2024 9:08 PM Reason for Block: OB request, Labor analgesia, Surgical anesthesia and Post-op pain management Staff: Anesthesiologist: Live Machuca MD Performed by: resident/LIFE INSURANCE AGENT Preanesthetic Checklist: patient identified, IV checked, risks [...] DORIS saline Guidance with: landmark technique} Epidural/Spinal [place] and/or Catheter: Epidural/Spinal Kit: Andrewun Needle Gauge: 17 G Needle Length: 3.5 [...] Smooth and atraumatic, (+) Local, (+) [facility]
[2024-06-24 15:43] LABS: Absolute Eosinophils 0.2 K/uL (0-0.5); Absolute Lymphocytes (CBC) 1.2 K/uL (0.7-4.9); Absolute Monocytes 0.4 K/uL (0.1-1.3); Absolute Neutrophil 4.4 K/uL (1.8-8.0); Basophils % 0.6 % (0-1.3); Eosinophils % 2.6 % (0-4.4); Hematocrit 38.1 % (36.0-45.0); Hemoglobin 12.7 g/dL (12.0-15.0); Lymphocytes % 19.6 % (15.3-44.8); MCH 25.7 pg (27.0-35.0); MCHC 33.2 g/dL (32.0-36.0); MCV 77.5 fL (80-100); MPV 9.6 fL (7.6-11.3); Monocytes % 7.1 % (3.3-12.3); Neutrophils % 70.1 % (41.7-73.7); Platelets 222 thou/uL (152-406); RBC Red Blood Cell Count 4.92 M/uL (3.86-4.86)
[2024-06-24 15:59] LABS: Albumin 3.5 g/dL (3.4-5.0); Anion Gap 8.4 mEq/L (5.0-15.0); Bilirubin Total 0.4 mg/dL (0.2-1.0); Globulin 3.6 g/dL (2.3-3.5); Potassium 3.4 mEq/L (3.5-5.1); Protein, Total 7.1 g/dL (6.4-8.2)
--- NOTE | 2024-06-24 16:32 | RAD REPORT ---
EXAMINATION: CT Abdomen W Contrast CLINICAL INDICATION: Female, 18 years old. umbilical abscess vs hernia from piercing TECHNIQUE: CT abdomen/was performed, after the administration of IV contrast, as per department alfredo col. Axial, sagittal and coronal reconstructions were obtained. One or more of the following dose reduction techniques were used: Automated exposure control, adjustment of the mA and kV according to patient size, and iterative reconstruction. Unless otherwise specified, incidental findings do not require dedicated imaging follow-up. COMPARISON: No prior exam. FINDINGS: LOWER CHEST: The visualized lung bases are clear. LIVER: Significant fatty liver with hepatomegaly present. Small relatively hyperenhancing region of f ocal fatty sparing versus small hemangioma near the gallbladder bed. No focal lesion or biliary dilitation. BILIARY SYSTEM: No suspicious abnormalities. SPLEEN: Normal size. No focal lesion. PANCREAS: No mass, ductal dilation, or julissa-pancreatic fluid. ADRENALS: Normal; no mass. KIDNEYS: Normal size and contour. No hydronephrosis. GASTROINTESTINAL and TRACT: No evidence of free air, significant intra-abdominal free fluid, bowel ob struction or abscess. APPENDIX: Normal appendix. LYMPH NODES: No lymphadenopathy. MUSCULOSKELETAL: No acute or suspicious osseous abnormality. ADDITIONAL FINDINGS: Mild skin thickening along the superior aspect of the umbilicus. No appreciable fluid collections or evidence of abnormal tracts within the deeper soft tissues. No appreciable fistula within the abdominal cavity. IMPRESSION: Mild skin thickening along the superior aspect of the umbilicus. No appreciable collections or abnorm al tracts within the deeper soft tissues. Diffuse hepatic steatosis. No other acute or concerning abnormalities seen within the abdomen.
--- NOTE | 2024-06-24 16:57 | ER ---
Nurse's Notes [facility] Name: Lay Grimaldo Age: 18 yrs Sex: Female : 2005 Arrival Date: 06/24/2024 Time: 14:50 Bed DX3 Private MD: Diagnosis: Umbilical wound, umbilical scar tissue Presentation: 06/24 15:01 Chief complaint: Patient states: I've been having trouble with my belly button tm6 piercing. I have been to 2 ERs, one doctor said it was a hernia, the other said it was an abscess. It popped on Thursday and clear liquid came out of it. The doctors said I needed to get a CT scan to see if it is a hernia, but here and [place] CTs have been down. Coronavirus screen: Client denies travel out of the [place] in the last 14 days. Ebola Screen: Patient negative for fever greater than or equal to 101.5 degrees Fahrenheit, and additional compatible Ebola Virus Disease symptoms Patient denies exposure to infectious person. Patient denies travel to an Ebola-affected area in the 21 days before illness onset. No symptoms or risks identified at this time. Initial Sepsis Screen: Does the patient meet any 2 criteria? No. Patient's initial sepsis screen is negative. Does the patient have a suspected source of infection? No. Patient's initial sepsis screen is negative. Risk Assessment: Do you want to hurt yourself or someone else? Patient reports no desire to harm self or others. Onset of symptoms was June 24, 2024. 15:01 Method Of Arrival: Ambulatory tm6 15:01 Acuity: MIGUEL 4 tm6 Triage Assessment: 15:01 General: Appears in no apparent distress. Behavior is calm, cooperative. Pain: Denies tm6 pain. EENT: No signs and/or symptoms were reported regarding the EENT system. Neuro: Level of Consciousness is awake, alert, obeys commands, Oriented to person, place, time, situation. Cardiovascular: Patient's skin is warm and dry. Respiratory: Airway is patent Respiratory effort is even, unlabored, Respiratory pattern is regular, symmetrical. GI: Abdomen is flat, non-distended, Reports possible hernia or abscess at belly button. : No signs and/or symptoms were reported regarding the genitourinary system. Derm: No signs and/or symptoms reported regarding the dermatologic system. Musculoskeletal: No signs and/or symptoms reported regarding the musculoskeletal system. 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 - Infectious Disease History:: Denies. - Social history:: Smoking status: Patient denies any tobacco usage or history of. Screenin:04 [facility] ED Fall Risk Assessment (Adult) History of falling in the last 3 months, ll1 including since admission No falls in past 3 months (0 pts) Confusion or Disorientation No (0 pts) Intoxicated or Sedated No (0 pts) Impaired Gait No (0 pts) Mobility Assist Device Used No (0 pt) Altered Elimination No (0 pt) Score/Fall Risk Level 0 - 2 = Low Risk Maintained a safe environment, Hourly rounding (assess needs \T\ fall precautionary measures) done. Abuse screen: Denies threats or abuse. Nutritional screening: No deficits noted. Tuberculosis screening: No symptoms or risk factors identified. Assessment: 15:59 Reassessment: Patient appears in no apparent distress at this time. Patient and/or jb4 family updated on plan of care and expected duration. Pain level reassessed. Patient is alert, oriented x 3, equal unlabored respirations, skin warm/dry/pink. Pt in CT. 17:03 Reassessment: No changes from previously documented assessment. Patient and/or family ll1 updated on plan of care and expected duration. Pain level reassessed. Vital Signs: 15:00 BP 128 / 70; Pulse 78; Resp 17; Temp 98.4(O); Pulse Ox 100% on R/A; MAP 87 mmHg; Weight tm6 74.84 kg; Height 5 ft. 4 in. ; Pain 0/10; 17:03 BP 134 / 76; Pulse 70; Resp 16; Pulse Ox 100% on R/A; ll1 15:00 Body Mass Index 28.32 (74.84 kg, 162.56 cm) - Percentile 90.4 % tm6 15:00 Pain Scale: Adult tm6 ED Course: 14:52 Patient arrived in ED. ra3 14:52 Elissa Yates MD is Attending Physician. sp3 15:01 Arm band placed on right wrist. tm6 15:05 Triage completed. tm6 15:37 Initial lab(s) drawn, by me, sent to lab. Inserted saline lock: 20 gauge in left ty antecubital area, using aseptic technique. Blood collected. Flushed with 10 mL NS. 16:03 CT Abdomen - IV Contrast Only In Process Unspecified. EDMS 17:03 No provider procedures requiring assistance completed. IV discontinued, intact, ll1 bleeding controlled, No redness/swelling at site. Pressure dressing applied. 17:04 Patient has correct armband on for positive identification. Provided Education on: ER ll1 procedures and process. Administered Medications: No medications were administered Medication: 17:04 VIS not applicable for this client. ll1 Outcome: 16:57 Discharge ordered by . sp3 17:04 Discharged to home ambulatory, ll1 17:04 Condition: stable 17:04 Discharge instructions given to patient, Instructed on discharge instructions, follow up and referral plans. wound care, Demonstrated understanding of instructions, follow-up care, wound care, 17:05 Patient left the ED. ll1 Signatures: Dispatcher [employer] EDMS Charan Selby, RN RN jb4 Monica Nguyễn RN RN ll1 Elissa Yates MD MD sp3 Christina Cruz RN RN tm6 Sue Mejia Mike Mckenzie
--- NOTE | 2024-06-24 16:57 | EDPHYS ---
Physician Documentation [facility] Name: Lay Grimaldo Age: 18 yrs Sex: Female : 2005 Arrival Date: 06/24/2024 Time: 14:50 Bed DX3 Private MD: ED Physician Elissa Yates HPI: 06/24 16:46 This 18 yrs old Female presents to ER via Ambulatory with complaints of belly sp3 button piercing psbl infected. 16:46 18-year-old female with no past medical history and recent umbilical piercing sp3 infections now presents to the ED with chief complaint pain and swelling in that region. She went to [facility] where they wanted to do a CT scan to assess for hernia versus abscess versus scar tissue but the CT was down. She now presents here for CT scan. She denies fever, continued drainage or any other signs or symptoms on ROS at this time.. 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 - Infectious Disease History:: Denies. - Social history:: Smoking status: Patient denies any tobacco usage or history of. ROS: 16:51 Constitutional: Negative for fever, chills, and weight loss, Eyes: Negative for injury, sp3 pain, redness, and discharge, Neck: Negative for injury, pain, and swelling, Cardiovascular: Negative for chest pain, palpitations, and edema, Respiratory: Negative for shortness of breath, cough, wheezing, and pleuritic chest pain, Back: Negative for injury and pain, MS/Extremity: Negative for injury and deformity, Neuro: Negative for headache, weakness, numbness, tingling, and seizure, Psych: Negative for depression, anxiety, suicide ideation, homicidal ideation, and hallucinations, Allergy/Immunology: Negative for hives, rash, and allergies, Endocrine: Negative for neck swelling, polydipsia, polyuria, polyphagia, and marked weight changes, 16:51 All other systems are negative, Exam: 16:54 Constitutional: This is a well developed, well nourished patient who is awake, alert, sp3 and in no acute distress. Head/Face: Normocephalic, atraumatic. Eyes: Pupils equal round and reactive to light, extra-ocular motions intact. Lids and lashes normal. Conjunctiva and sclera are non-icteric and not injected. Cornea within normal limits. Periorbital areas with no swelling, redness, or edema. Neck: Trachea midline, no thyromegaly or masses palpated, and no cervical lymphadenopathy. Supple, full range of motion without nuchal rigidity, or vertebral point tenderness. No Meningismus. Chest/axilla: Normal chest wall appearance and motion. Nontender with no deformity. No lesions are appreciated. Cardiovascular: Regular rate and rhythm with a normal S1 and S2. No gallops, murmurs, or rubs. Normal PMI, no JVD. No pulse deficits. Respiratory: Lungs have equal breath sounds bilaterally, clear to auscultation and percussion. No rales, rhonchi or wheezes noted. No increased work of breathing, no retractions or nasal flaring. Back: No spinal tenderness. No costovertebral tenderness. Full range of motion. Skin: Warm, dry with normal turgor. Normal color with no rashes, no lesions, and no evidence of cellulitis. MS/ Extremity: Pulses equal, no cyanosis. Neurovascular intact. Full, normal range of motion. Neuro: Awake and alert, GCS 15, oriented to person, place, time, and situation. Cranial nerves II-XII grossly intact. Motor strength 5/5 in all extremities. Sensory grossly intact. Cerebellar exam normal. Normal gait. Psych: Awake, alert, with orientation to person, place and time. Behavior, mood, and affect are within normal limits. 16:54 Skin: Scar tissue noted in the umbilicus. No signs of active infection, abscess, fluctuance or palpable hernia noticed on my exam. Abdomen soft no peritoneal signs. Vital signs are normal.. Vital Signs: 15:00 BP 128 / 70; Pulse 78; Resp 17; Temp 98.4(O); Pulse Ox 100% on R/A; MAP 87 mmHg; Weight tm6 74.84 kg; Height 5 ft. 4 in. ; Pain 0/10; 17:03 BP 134 / 76; Pulse 70; Resp 16; Pulse Ox 100% on R/A; ll1 15:00 Body Mass Index 28.32 (74.84 kg, 162.56 cm) - Percentile 90.4 % tm6 15:00 Pain Scale: Adult tm6 MDM: 15:07 Medical Screening Exam initiated sp3 16:55 Data reviewed: vital signs, nurses notes, lab test result(s), radiologic studies. ED sp3 course: 18-year-old female with abdominal pain in the umbilicus with recent piercing infection. Patient was seen and treated here on oral antibiotics. Differential diagnosis includes recurrent abscess versus hernia versus scar tissue. CT scan of the abdomen demonstrates no hernia or fluid collection. Labs are normal. We will reassure patient and safely discharge home at this time. No further intervention or medications indicated.. 06/24 15:12 Order name: CBC with Diff; Complete Time: 16:39 sp3 06/24 15:12 Order name: CMP; Complete Time: 16:39 sp3 06/24 15:12 Order name: CT Abdomen - IV Contrast Only; Complete Time: 16:39 sp3 06/24 15:12 Order name: IV Saline Lock; Complete Time: 15:38 sp3 06/24 15:12 Order name: Labs collected and sent; Complete Time: 15:38 sp3 Administered Medications: No medications were administered Disposition Summary: 06/24/24 16:57 Discharge Ordered Notes: Location: Home sp3 Condition: Stable sp3 Diagnosis - Umbilical wound, umbilical scar tissue sp3 Followup: sp3 - With: Private Physician - When: Upon discharge from the Emergency Department - Reason: Continuance of care Discharge Instructions: - Discharge Summary Sheet sp3 - Wound Care, Adult sp3 Forms: - Medication Reconciliation Form sp3 - Antibiotic Education sp3 - Prescription Opioid Use sp3 - Patient Portal Instructions sp3 - Leadership Thank You Letter sp3 Signatures: Dispatcher [employer] EDSymone Bone, EMPLOYMENT SPECIALIST-C EMPLOYMENT SPECIALIST-Elissa Soni MD MD sp3 Christina Cruz RN RN tm6 Corrections: (The following items were deleted from the chart) 15:12 15:12 Abdomen W/ Con+CT.RAD.BRZ ordered. EDMS EDMS
[2024-06-24 17:14] VITALS: TEMP 98.4; O2SAT 100
[2024-06-24 17:16] VITALS: BP 134/76
== END 2024-06-24 17:05 | disposition home or self-care (01) ==
LOC: ER 14:50
DX: S31.105A Unspecified open wound of abdominal wall, periumbilic region without penetration into peritoneal cavity, initial encounter (principal); L90.5 Scar conditions and fibrosis of skin
CPT/HCPCS: 85025; 36415; 80053; 74160; 99283; Q9967